=== PATIENT | female | born 1980 | race Caucasian/White ===

== ENCOUNTER 2018-02-20 08:37 | Emergency (ER) | payer MEDICAID, SELFPAY ==
[2018-02-20 08:41] VITALS: BP 115/70; PULSE 88; RESP 18; TEMP 36.8; O2SAT 96
[2018-02-20] MEDS: Bupivacaine 0.5% Pres-Free 30 ML VIAL IJ (09:06)
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
[2018-02-20 09:31] VITALS: BP 115/70; PULSE 88; RESP 18; TEMP 36.8; O2SAT 96
== END 2018-02-20 09:30 | disposition home or self-care (01) ==
PROVIDERS: Emergency Provider Student in an Organized Health Care Education/Training Program; PCP Nurse Practitioner Family
DX: K04.7 Periapical abscess without sinus (principal)
CPT/HCPCS: 41800

== ENCOUNTER 2018-03-27 02:55 | Outpatient (CLI) | payer MEDICAID, SELFPAY ==
--- NOTE | 2018-03-27 07:40 | MERGE_ITS ---
*[facility]* *[facility]* [address] [place] [address] Date of study: 03/27/2018 Transthoracic Echocardiography M-mode, complete 2D, complete spectral Doppler, and color Doppler *STUDY CONCLUSIONS* Summary: 1. Left ventricle: The cavity size was normal. Wall thickness was normal. Systolic function was normal. The estimated ejection fraction was 60-65%. Wall motion was normal; there were no regional wall motion abnormalities. Diastolic parameters were normal. 2. Mitral valve: Elongated anterior leaflet chords. No echocardiographic evidence for prolapse. There was trivial regurgitation. 3. Right ventricle: The cavity size was normal. Wall thickness was normal. Systolic function was normal. 4. Pulmonary arteries: Pulmonary systolic pressure was within the normal range, in the range of 30mm Hg to 35mm Hg. *PATIENT PRESENTATION* Height: 154.9cm ((61in) ) S/D Pressure: 122 / 82 Weight: 81.6kg ((179.6lb) ) BSA: 1.91m^2 Test start time: 07:45 AM. Test stop time: 08:35 AM. PERFORMING Unknown PERFORMING [facility] CUTTING AND PRINTING MACHINE OPERATOR Lynsey Silva, RT (R)(CT), [facility] ORDERING Nohelia Steele REFERRING Nohelia Steele *PROCEDURE DATA* Procedure information: The patient was identified by two identifiers. This study was interpreted by [facility]. Pertinent images and digital data are archived for permanent storage and are available for subsequent review. No prior study was available for comparison. Study status: Routine. Transthoracic echocardiography. M-mode, complete 2D, complete spectral Doppler, and color Doppler. A Transthoracic Echocardiogram was performed. Scanning was performed from the parasternal, apical, subcostal, and suprasternal notch acoustic windows. Images were obtained using an [id number] cardiac ultrasound machine. Image quality was adequate. Study completion: The patient tolerated the procedure well. There were no complications. History: PMH: GRADY ? Pulmonary HTN. *CARDIAC ANATOMY* Left ventricle: The cavity size was normal. Wall thickness was normal. Systolic function was normal. The estimated ejection fraction was 60-65%. Wall motion was normal; there were no regional wall motion abnormalities. Diastolic parameters were normal. Aortic valve: Probably trileaflet; normal thickness leaflets. Mobility was not restricted. Doppler: Transvalvular velocity was within the normal range. There was no stenosis. There was no significant regurgitation. VTI ratio of LVOT to aortic valve: 0.88. Indexed valve area (VTI): 1.6cm^2/m^2. Peak velocity ratio of LVOT to aortic valve: 0.75. Valve area (Vmax): 2.6cm^2. Indexed valve area (Vmax): 1.3cm^2/m^2. Mean velocity ratio of LVOT to aortic valve: 0.87. Valve area (Vmean): 3cm^2. Indexed valve area (Vmean): 1.5cm^2/m^2. Mean gradient (S): 4.1mm Hg. Peak gradient (S): 7.1mm Hg. Aorta: Aortic root: The aortic root was normal in size. Ascending aorta: The ascending aorta was normal in size. Mitral valve: Elongated anterior leaflet chords. No echocardiographic evidence for prolapse. Doppler: Transvalvular velocity was within the normal range. There was no evidence for stenosis. There was trivial regurgitation. Valve area by pressure half-time: 3.3cm^2. Indexed valve area by pressure half-time: 1.7cm^2/m^2. Left atrium: The atrium was normal in size. Right ventricle: The cavity size was normal. Wall thickness was normal. Systolic function was normal. Pulmonic valve: The pulmonary valve appears to be grossly normal. Doppler: Transvalvular velocity was within the normal range. There was no evidence for stenosis. There was no significant regurgitation. Peak gradient (S): 3.7mm Hg. Tricuspid valve: Structurally normal valve. Doppler: Transvalvular velocity was within the normal range. There was no evidence for stenosis. There was trivial regurgitation. Pulmonary artery: Pulmonary systolic pressure was within the normal range, in the range of 30mm Hg to 35mm Hg. Right atrium: The atrium was normal in size. Pericardium: There was no pericardial effusion. Systemic veins: Inferior vena cava: Well visualized. The vessel was patent and normal in size. The respirophasic diameter changes were in the normal range (greater than or equal to 50%). Baseline ECG: Normal sinus rhythm. Measurements Left ventricle Value Reference LV ID, ED, PLAX 5.0 cm 3.5 - 6.0 LV ID, ES, PLAX 3.7 cm 2.1 - 4.0 LV PW thickness, ED, PLAX 1.0 cm LV end-diastolic volume, 1-p A2C 84 ml LV ejection fraction, 1-p A2C 50 % LV end-diastolic volume, 1-p A4C 93 ml LV ejection fraction, 1-p A4C 54 % LV e', lateral 0.111 m/sec LV E/e', lateral 6 LV e', medial 0.082 m/sec LV E/e', medial 8 LV e', average 0.096 m/sec LV E/e', average 7 Ventricular septum Value Reference IVS thickness, ED, PLAX 0.9 cm LVOT Value Reference LVOT ID, A-P 2.1 cm LVOT area 3.4 cm^2 LVOT peak velocity, S 1 m/sec LVOT mean velocity, S 0.84 m/sec LVOT VTI, S 23.3 cm LVOT peak gradient, S 4 mm Hg LVOT mean gradient, S 2.9 mm Hg Stroke volume (SV), LVOT DP 79 ml Stroke index (SV/bsa), LVOT DP 41 ml/m^2 Aortic valve Value Reference Aortic valve peak velocity, S 1.3 m/sec Aortic valve mean velocity, S 0.97 m/sec Aortic valve VTI, S 26.4 cm Aortic mean gradient, S 4.1 mm Hg Aortic peak gradient, S 7.1 mm Hg VTI ratio, LVOT/AV 0.88 Velocity ratio, peak, LVOT/AV 0.75 Aortic valve area, peak velocity 2.6 cm^2 Velocity ratio, mean, LVOT/AV 0.87 Aortic valve area, mean velocity 3 cm^2 Aortic valve area/bsa, mean velocity 1.5 cm^2/m^2 Aorta Value Reference Aortic root ID, ED 2.9 cm Ascending aorta ID, A-P, S 3.4 cm RVOT Value Reference RVOT VTI, S 15.9 cm Left atrium Value Reference LA ID, A-P, ES 3.9 cm LA ID/bsa, A-P 2.0 cm/m^2 <=2.2 LA area, ES, A4C 20.5 cm^2 8.8 - 23.4 LA area, ES, A2C 17 cm^2 LA volume/bsa, ES, 1-p A4C 37 ml/m^2 LA volume, ES, 2-p 55 ml LA volume/bsa, ES, 2-p 29 ml/m^2 LA/aortic root ratio 1.36 Mitral valve Value Reference Mitral E-wave peak velocity 0.68 m/sec Mitral A-wave peak velocity 0.68 m/sec Mitral deceleration time (H) 231 ms 150 - 230 Mitral pressure half-time 67 ms Mitral E/A ratio, peak 0.99 Mitral valve area, PHT, DP 3.3 cm^2 Pulmonary veins Value Reference Pulmonary vein peak velocity, S 0.56 m/sec Pulmonary vein peak velocity, D 0.34 m/sec Pulmonary vein velocity ratio, peak, 1.63 S/D Pulmonary vein A-wave reversal peak 0.31 m/sec velocity Pulmonary vein A-wave reversal 149 ms duration Tricuspid valve Value Reference Tricuspid regurg peak velocity 2.7 m/sec Tricuspid peak RV-RA gradient 30 mm Hg Right atrium Value Reference RA area, ES, A4C 12.9 cm^2 8.3 - 19.5 Pulmonic valve Value Reference Pulmonic peak gradient, S 3.7 mm Hg Legend: (L) and (H) adolfo values outside specified reference range. I have personally reviewed the images and have reviewed and edited the reported findings. Electronically signed by Jericho Palencia 03/27/2018 09:14
== END 2018-03-27 03:15 ==
PROVIDERS: PCP Nurse Practitioner Family; Visit Provider Internal Medicine Rheumatology
DX: R06.09 Other forms of dyspnea (principal); I34.0 Nonrheumatic mitral (valve) insufficiency
CPT/HCPCS: 93306

== ENCOUNTER 2018-08-26 18:40 | Emergency (ER) | payer MEDICAID, SELFPAY ==
[2018-08-26 18:45] VITALS: BP 132/84; PULSE 80; RESP 16; TEMP 36.5; O2SAT 98
[2018-08-26 19:26] LABS: Bilirubin Negative (Negative); Blood Negative (Negative); Clarity Clear; Glucose Negative (Negative); Ketones Negative (Negative); Leukocyte Esterase Negative (Negative); Nitrite Negative (Negative); Specific Gravity >= 1.030 (1.005-1.025)
[2018-08-26 19:35] LABS: Bacteria Negative HPF (Negative); C & S Indicated? Yes; Casts Negative LPF (Negative); Crystals Negative HPF (Negative); Epithelial Cells Few HPF (Negative); Mucus Negative (Negative); Other Cells Negative (Negative)
--- NOTE | 2018-08-26 19:57 | ED.GENADUL_ITS ---
Discharge Plan Disposition Patient Disposition: HOME Condition: Improving Discharge Details Chief Complaint: FlankPain Clinical Impression: Nephrolithiasis Primary Care Provider: Marian To ED Provider: Yolanda Carr Home Meds and New Rx's Prescriptions: New oxycodone 5 mg tablet 5 mg PO Q6H PRN (Reason: pain) Qty: 7 RF: 0 tamsulosin [Flomax] 0.4 mg capsule 0.4 mg PO DAILY Qty: 10 RF: 0 No Action metformin [Glucophage] 1,000 MG tablet 850 mg PO BID RF: 0 acetaminophen [Mapap Extra Strength] 500 MG tablet 1,000 mg PO Q6H 5 Days Qty: 60 RF: 0 escitalopram oxalate [Lexapro] 20 MG tablet 20 mg PO DAILY RF: 0 Hydroxychloroquine Sulfate [Plaquenil] 200 MG Tablet 200 mg PO BID Qty: 60 RF: 0 Proventil HFA 200 PUFF/INH HFA aerosol inhaler 2 puff Inhalation Q4H PRN PRNQty: 1 RF: 1 bupropion HCl [Wellbutrin SR] 150 mg Tablet Sustained-Release 12 Hr 300 mg PO BID RF: 0 meloxicam 15 mg Tablet 15 mg PO DAILY RF: 0 cyclobenzaprine 10 mg Tablet 10 mg PO TID RF: 0 Discharge Instructions Instructions: Kidney Stones (ED) Additional Instructions: Take Tylenol or oxycodone as needed and directed for pain. Take the Flomax daily as directed. Call urology Dr. Mccauley's office tomorrow morning to schedule a follow up appointment for re-evaluation. You should receive a call from care management regarding this appointment if you need assistance. Return immediately to the emergency department any worsening or new concerning symptoms fever, persistent vomiting, worsening pain or any concerns. Referrals: Phillip Mccauley MD [ [facility] STAFF PHYSICIAN] - Discharge Data Discharge Physician: Yolanda Carr Medical Decision Making 37yo M w/ a h/o kidney stones and right renal stent and lithotripsy in 2013 who presents with left flank pain since last night. No fever, nausea, vomiting. Vitals within normal limits. No CVA tenderness. She has left mid and lower quadrant tenderness. Differential diagnosis includes nephrolithiasis, diverticulitis, pancreatitis, UTI, pyelonephritis. Will place an IV, bolus IV fluids, labs, urinalysis and CT renal colic. 2100 --labs and imaging reviewed. Normal white blood cell count and electrolytes. Normal lipase. Urinalysis notes 5-10 WBCs but negative nitrite, leukocyte esterase, bacteria, urine culture sent. CT notes bilateral nonobstructive renal calculi as well as a 5 mm right proximal ureteral stone. No left ureteral calculi noted. Results cleaned the patient, she states she did have right sided pain initially when it started last night and then migrated to her left. Results discussed with urology Dr. Mccauley. Okay to discharge home, with strainer, and will follow up with patient in the office. No indication for anti biotics at this time. Patient was initially held on any NSAIDs/Toradol due to her history of lupus and taking Plaquenil. Will give a dose of oxycodone p.o. and Flomax p.o. now. We will send home with oxycodone as well as prescription for oxycodone and Flomax. Patient instructed to call urology tomorrow. Patient placed on care management list to assist with appointment if needed. Check to return here at any time if worse. CT also made note of a possible partial hematoma versus infection in the right anterior subcutaneous soft tissues inferior to the umbilicus. Patient's abdomen was normal to inspection and had no evidence of any superficial or subcutaneous infection on exam. Medical Records Medical records reviewed: Yes I reviewed the patient's medical records. Imaging Data Radiologic Study: Radiologist's impression: CT Abdomen and Pelvis Without Contrast EXAM DATE/TIME: 08/26/2018 7:57 PM FINDINGS: Limitations: Evaluation of the intra-abdominal organs and vasculature is limited secondary to the lack of IV contrast. Evaluation of the bowel is limited secondary to the lack of oral contrast. Lower thorax: Gas in the distal esophagus which can be seen with reflux. ABDOMEN: Liver: Normal. No mass. Gallbladder and bile ducts: Normal. No calcified stones. No ductal dilation. Pancreas: Normal. No ductal dilation. Spleen: Normal. No splenomegaly. Adrenals: Normal. No mass. Kidneys and ureters: Bilateral nonobstructive renal calculi. There is a 5 mm calculus in the proximal RIGHT ureter on series 4 image 66. No LEFT ureteral calculi are seen. Stomach and bowel: No evidence of bowel obstruction. Appendix: Normal appendix. PELVIS: Bladder: The urinary bladder is contracted and not well assessed. Reproductive: 1.6 cm 2 Hounsfield units cystic structure in the right ovary. This may represent a dominant follicle. ABDOMEN and PELVIS: Intraperitoneal space: Normal. No free air. No significant fluid collection. Bones/joints: No acute fracture. No dislocation. Soft tissues: Series 2 image 106 demonstrates a 2.0 cm 32 Hounsfield unit rounded structure within the right anterior subcutaneous soft tissues inferior to the umbilicus. This could represent a hematoma or region of infection. Correlation suggested. Vasculature: Normal. No abdominal aortic aneurysm. Lymph nodes: Normal. No enlarged lymph nodes. IMPRESSION: 1. Bilateral nonobstructive renal calculi. There is a 5 mm calculus in the proximal RIGHT ureter on series 4 image 66. No LEFT ureteral calculi are seen. 2. Series 2 image 106 demonstrates a 2.0 cm 32 Hounsfield unit rounded structure within the right anterior subcutaneous soft tissues inferior to the umbilicus. This could represent a hematoma or region of infection. Correlation suggested. 3. Other findings as above. Lab Data Lab results reviewed: Yes I reviewed the patient's lab results. 08/26/18 18:22 Urine - Reflex from Ua Urine Culture - Pending Laboratory Tests Range/Units 08/26/18 08/26/18 08/26/18 18:22 19:55 19:55 WBC (4.4-10.8) k/cumm 7.68 RBC (4.00-5.20) m/cumm 4.92 Hgb (12.0-15.5) g/dL 14.2 Hct (36.0-46.0) % 42.9 MCV (80-95) fL 87.2 MCH (27.0-33.0) pg 28.9 MCHC (32.0-36.0) g/dL 33.1 RDW (11.7-14.6) % 12.7 Plt Count (130-400) x1000/uL 233 MPV (8.0-11.0) fL 9.9 Immature Gran % 0.7 Neutrophils % 54.5 Lymphocytes % 35.2 Monocytes % 7.2 Eosinophils % 2.0 Basophils % 0.4 Absolute Neutrophils (1.2-6.7) k/cumm 4.20 Absolute Lymphocytes (1.2-3.4) k/cumm 2.70 Absolute Monocytes (0.11-0.7) k/cumm 0.55 Absolute Eosinophils (0.0-0.7) k/cumm 0.15 Absolute Basophils (0.0-0.2) k/cumm 0.03 Sodium (136-145) mmol/L 140 Potassium (3.5-5.1) mmol/L 3.7 Chloride (98-107) mmol/L 104 Carbon Dioxide (21.0-32.0) mmol/L 30.4 Anion Gap (3-11) mmol/L 5.6 BUN (7-18) mg/dL 12 Creatinine (0.55-1.02) mg/dL 0.84 Estimated GFR/1.73 m2 (mL/min/1.73m2) >= 60.00 Glucose (70-100) mg/dL 86 Calcium (8.5-10.1) mg/dL 8.7 Total Bilirubin (0.2-1.0) mg/dL 0.1 L AST (15-37) U/L 17 ALT (12-78) U/L 22 Alkaline Phosphatase (46-116) U/L 94 Total Protein (6.4-8.2) g/dL 7.3 Albumin (3.4-5.0) g/dL 3.6 Lipase (73-393) U/L 263 Urine Color (Yellow) Yellow Urine Clarity Clear Urine pH (5-8) 6.0 Ur Specific [place] (1.005-1.025) >= 1.030 H Urine Protein (Negative) mg/dL Trace H Urine Ketones (Negative) mg/dL Negative Urine Blood (Negative) Negative Urine Nitrite (Negative) Negative Urine Bilirubin (Negative) Negative Urine Urobilinogen (Up TO 0.2) EU/dL 1.0 H Ur Leukocyte Esterase (Negative) Negative Urine RBC (0-2) 3-5 H Urine WBC (0-5) HPF 5-10 Ur Epithelial Cells (Negative) HPF Few Urine Crystals (Negative) HPF Negative Urine Bacteria (Negative) HPF Negative Urine Casts (Negative) LPF Negative Urine Mucus (Negative) Negative Urine Other (Negative) Negative Ur Culture Indicated? Yes Urine Glucose (Negative) mg/dL Negative HPI General Mode of arrival: ambulatory . Date/Time Provider Initiated Documentation: 08/26/18 18:59 . Limitations to Documentation: no limitations . Information obtained by: patient . HPI Narrative: Patient is a 37-year-old female with a history of kidney stones and right kidney stent and lithotripsy in 2013 who presents with left flank pain since last night. Describes the pain is constant, sharp, burning with radiation to her left side. She states her pain is currently 6/10. She took Tylenol for pain this morning without relief. She admits to urinary frequency and dark urine but otherwise denies any urgency, dysuria or hematuria. She states her last bowel movement was this morning and normal without blood. She states her symptoms do seem similar to previous kidney stone in the past. She denies any known injury. She denies any fever, nausea, vomiting or diarrhea. Related Data Home Medications Medication Instructions Recorded Confirmed metformin [Glucophage] 850 mg PO BID 06/05/17 08/26/18 escitalopram oxalate [Lexapro] 20 mg PO DAILY 11/06/17 08/26/18 Hydroxychloroquine Sulfate 200 mg PO BID #60 tablet 11/15/17 08/26/18 [Plaquenil] albuterol sulfate [Proventil Hfa] 2 puff INHALATION Q4H PRN PRN #1 11/15/17 08/26/18 inh acetaminophen [Tylenol Extra 1,000 mg PO Q6H 5 Days #60 tab 02/20/18 08/26/18 Strength] bupropion HCl [Wellbutrin SR] 300 mg PO BID 08/26/18 08/26/18 cyclobenzaprine 10 mg PO TID 08/26/18 08/26/18 meloxicam 15 mg PO DAILY 08/26/18 08/26/18 oxycodone 5 mg PO Q6H PRN #7 tab 08/26/18 tamsulosin [Flomax] 0.4 mg PO DAILY #10 cap 08/26/18 Previous Rx's Medication Instructions Recorded Hydroxychloroquine Sulfate 200 mg PO BID #60 tablet 11/15/17 [Plaquenil] albuterol sulfate [Proventil Hfa] 2 puff INHALATION Q4H PRN PRN #1 11/15/17 inh acetaminophen [Tylenol Extra 1,000 mg PO Q6H 5 Days #60 tab 02/20/18 Strength] oxycodone 5 mg PO Q6H PRN #7 tab 08/26/18 tamsulosin [Flomax] 0.4 mg PO DAILY #10 cap 02/11/19 Allergies Allergy/AdvReac Type Severity Reaction Status Date / Time clindamycin Allergy Severe Anaphylaxsi Unverified 08/26/18 18:51 s Penicillins Allergy Severe Anaphylaxsi Unverified 08/26/18 18:51 s oxycodone [Oxycodone] AdvReac Mild Nausea Unverified 08/26/18 18:51 prednisone AdvReac Mild Agitation Unverified 08/26/18 18:51 General Stated Complaint: FlankPain GILSON: 3 Review of Systems Review of Systems All systems reviewed & are unremarkable except as noted in HPI and below Constitutional Reports as per HPI, Denies chills and Denies fever(s) Eyes Denies blurry vision ENT Denies dizziness, Denies sore throat and Denies throat swelling Cardiovascular Denies chest pain and Denies dyspnea Respiratory Denies cough and Denies dyspnea Gastrointestinal Reports abdominal pain, Denies diarrhea and Denies vomiting Genitourinary Denies hematuria and Denies dysuria Musculoskeletal Reports back pain and Denies numbness Integumentary/Breasts Denies lesions and Denies rash Neurologic Denies dizziness, Denies focal weakness and Denies numbness Allergic/Immunologic Denies throat swelling [facility] Medical History Fibromyalgia (Acute) Lupus (Acute) PCOS (polycystic ovarian syndrome) (Acute) Depression (Chronic) Kidney stones (Chronic) Migraine (Chronic) Surgical History History of bilateral tubal ligation (Acute) History of dilation and curettage (Acute) History of renal stent (Acute) Hx of lithotripsy (Acute) H/O section (Chronic) History of tonsillectomy (Chronic) Social History Smoking and Tabacco status: Current every day alcohol intake: current alcohol intake frequency: holidays/special occasions only substance use type: does not use Exam Const General: cooperative, healthy appearing and no acute distress HENMT Head: normal to inspection Face and sinus: normal facial exam Eyes General: appearance normal, both eyes and all related structures Neck Neck: normal visual inspection and No submandibular swelling Lymphatic: no lymphadenopathy noted Chest Chest: normal inspection of the chest and no tenderness Resp Effort & Inspection: normal respiratory effort and able to speak in complete sentences Auscultation: clear to auscultation bilaterally Cardio Rate: regular rate Rhythm: regular rhythm GI Inspection: normal to inspection Palpation: soft, not firm, not rigid and tender (Left mid and lower abdomen) Auscultation: normal bowel sounds Back/Spine/Pelvis Back: no CVA tenderness Thoracic/Lumbar Spine: thoracic and lumbar spine normal to inspection Skin General skin exam: no rashes or lesions noted Neuro General: alert, awake and oriented x3 Cognition: normal cognition Speech: speech normal Motor: muscle tone normal throughout Sensory Exam: no sensory deficits noted Extrem General: normal to inspection, full ROM, normal capillary refill, no calf tenderness bilaterally and no edema Psych Appearance: grossly normal Mental Status: mental status grossly normal Speech and Movement: speech and movement normal Affect: normal affect Course Vital Signs Temperature 97.7 F 08/26/18 18:45 Pulse 80 08/26/18 18:45 Respiratory Rate 16 08/26/18 18:45 Blood Pressure 132/84 08/26/18 18:45 Pulse Oximetry 98 08/26/18 18:45 Temperature 97.7 F 08/26/18 18:45 Temperature Source Skin 08/26/18 18:45 Pulse 80 08/26/18 18:45 Respiratory Rate 16 08/26/18 18:45 Respiratory Effort 08/26/18 18:49 Blood Pressure 132/84 08/26/18 18:45 Blood Pressure Position Sitting 08/26/18 18:45 Pulse Oximetry 98 08/26/18 18:45 Lab/Test Results Lab/Test Results: 08/26/18 18:22 Urine - Reflex from Ua Urine Culture - Pending Laboratory Tests Range/Units 08/26/18 18:22 Urine Color (Yellow) Yellow Urine Clarity Clear Urine pH (5-8) 6.0 Ur Specific [place] (1.005-1.025) >= 1.030 H Urine Protein (Negative) mg/dL Trace H Urine Ketones (Negative) mg/dL Negative Urine Blood (Negative) Negative Urine Nitrite (Negative) Negative Urine Bilirubin (Negative) Negative Urine Urobilinogen (Up TO 0.2) EU/dL 1.0 H Ur Leukocyte Esterase (Negative) Negative Urine RBC (0-2) 3-5 H Urine WBC (0-5) HPF 5-10 Ur Epithelial Cells (Negative) HPF Few Urine Crystals (Negative) HPF Negative Urine Bacteria (Negative) HPF Negative Urine Casts (Negative) LPF Negative Urine Mucus (Negative) Negative Urine Other (Negative) Negative Ur Culture Indicated? Yes Urine Glucose (Negative) mg/dL Negative
[2018-08-26 20:19] LABS: Abs Immature Grans 0.05 k/cumm (0.0-0.09); Absolute Basophil Count 0.03 k/cumm (0.0-0.2); Absolute Eosinophil Count 0.15 k/cumm (0.0-0.7); Absolute Monocyte Count 0.55 k/cumm (0.11-0.7); Basophils % 0.4; HCT 42.9 % (36.0-46.0); HGB 14.2 g/dL (12.0-15.5); Immature Grans % 0.7; Lymphocytes % 35.2; Mean Corp. HGB Concentration 33.1 g/dL (32.0-36.0); Mean Corpuscular Hemoglobin 28.9 pg (27.0-33.0); Mean Corpuscular Volume 87.2 fL (80-95); Mean Platelet Volume 9.9 fL (8.0-11.0); Monocytes % 7.2; Neutrophils % 54.5; Platelet Count 233 x1000/uL (130-400); RBC 4.92 m/cumm (4.00-5.20); RBC Distribution Width 12.7 % (11.7-14.6); White Blood Cell Count 7.68 k/cumm (4.4-10.8)
[2018-08-26 20:21] LABS: ALT 22 U/L (12-78); AST 17 U/L (15-37); Albumin 3.6 g/dL (3.4-5.0); Alkaline Phosphatase 94 U/L (46-116); Anion Gap 5.6 mmol/L (3-11); BUN 12 mg/dL (7-18); Bilirubin, Total 0.1 mg/dL (0.2-1.0); CO2 30.4 mmol/L (21.0-32.0); CREATININE 0.84 mg/dL (0.55-1.02); Chloride 104 mmol/L (98-107); Glucose 86 mg/dL (70-100); Lipase 263 U/L (73-393); Potassium 3.7 mmol/L (3.5-5.1); Sodium 140 mmol/L (136-145); Total Protein 7.3 g/dL (6.4-8.2)
[2018-08-26 20:25] LABS: Calcium 8.7 mg/dL (8.5-10.1)
--- NOTE | 2018-08-26 20:30 | DI.CT_ITS ---
SYMPTOM/DIAGNOSIS; LT FLANK PAIN, R/O KIDNEY STONE RENAL COLIC CT: Routine examination. Comparison 11/15/17 Lack of IV contrast and oral contrast does limit evaluation of the abdominal and pelvic structures. The visualized lung bases are clear. The unenhanced liver, spleen, pancreas, gallbladder, bile ducts and adrenal glands are unremarkable. There are bilateral nonobstructing renal calculi. There is a 5 mm calculus in the proximal right ureter with minimal dilatation of the right renal collecting system. No evidence of left ureterolithiasis seen. The urinary bladder is intact. The reproductive organs are grossly unremarkable. The bowel shows no evidence of obstruction or inflammation. There is a normal appendix present. The aorta is of normal caliber. No evidence of an abdominal or pelvic adenopathy, ascites or pneumoperitoneum is seen. No acute osseous abnormality is identified. There is a soft tissue density seen in the subcutaneous tissues in the right lower abdominal wall inferior to the umbilicus. This is nonspecific. This may represent a benign lesion such as a hematoma, please correlate with physical exam. IMPRESSION: 5 mm proximal right ureteral calculus causing minimal dilatation of the right renal collecting system. 2. Bilateral nephrolithiasis
--- NOTE | 2018-08-26 20:39 | DI.VRAD_ITS ---
EXAM: CT Abdomen and Pelvis Without Contrast EXAM DATE/TIME: 08/26/2018 7:57 PM CLINICAL HISTORY: 37 years old, female; Pain; Other: L flank; Patient HX: Left flank pain since last night, HX of kidney stones TECHNIQUE: Axial computed tomography images of the abdomen and pelvis without contrast. All CT scans at this facility use at least one of these dose optimization techniques: automated exposure control; mA and/or kV adjustment per patient size (includes targeted exams where dose is matched to clinical indication); or iterative reconstruction. Coronal and sagittal reformatted images were created and reviewed. COMPARISON: US RENAL ULTRASOUND(P) ([id number]) 05/10/2014 9:56 AM FINDINGS: Limitations: Evaluation of the intra-abdominal organs and vasculature is limited secondary to the lack of IV contrast. Evaluation of the bowel is limited secondary to the lack of oral contrast. Lower thorax: Gas in the distal esophagus which can be seen with reflux. ABDOMEN: Liver: Normal. No mass. Gallbladder and bile ducts: Normal. No calcified stones. No ductal dilation. Pancreas: Normal. No ductal dilation. Spleen: Normal. No splenomegaly. Adrenals: Normal. No mass. Kidneys and ureters: Bilateral nonobstructive renal calculi. There is a 5 mm calculus in the proximal RIGHT ureter on series 4 image 66. No LEFT ureteral calculi are seen. Stomach and bowel: No evidence of bowel obstruction. Appendix: Normal appendix. PELVIS: Bladder: The urinary bladder is contracted and not well assessed. Reproductive: 1.6 cm 2 Hounsfield units cystic structure in the right ovary. This may represent a dominant follicle. ABDOMEN and PELVIS: Intraperitoneal space: Normal. No free air. No significant fluid collection. Bones/joints: No acute fracture. No dislocation. Soft tissues: Series 2 image 106 demonstrates a 2.0 cm 32 Hounsfield unit rounded structure within the right anterior subcutaneous soft tissues inferior to the umbilicus. This could represent a hematoma or region of infection. Correlation suggested. Vasculature: Normal. No abdominal aortic aneurysm. Lymph nodes: Normal. No enlarged lymph nodes. IMPRESSION: 1. Bilateral nonobstructive renal calculi. There is a 5 mm calculus in the proximal RIGHT ureter on series 4 image 66. No LEFT ureteral calculi are seen. 2. Series 2 image 106 demonstrates a 2.0 cm 32 Hounsfield unit rounded structure within the right anterior subcutaneous soft tissues inferior to the umbilicus. This could represent a hematoma or region of infection. Correlation suggested. 3. Other findings as above. Dictated and Authenticated by: Maria R Aguilar MD. Ordering:MOSES Guerrero MD
[2018-08-26] MEDS: Tamsulosin 0.4 MG CAPCR PO (21:25)
[2018-08-26] MEDS: Normal Saline 1,000 ML 1000 ML IV (21:25)
[2018-08-26] MEDS: oxyCODONE 5 MG TAB PO (21:26)
[2018-08-26] MEDS: oxyCODONE 5 MG TAB 10 MG PO (21:27)
--- NOTE | 2018-08-27 08:35 | PDOC.ERCMPRO ---
Care Management Progress Note 08/27-Dr. Carr requested assistance with a urology f/u in one week for kidney stone. Dr. Carr has spoken with Dr. Mccauley. Referral faxed to [facility] this am.
== END 2018-08-26 21:30 | disposition home or self-care (01) ==
PROVIDERS: Emergency Provider Physician Assistant; PCP Nurse Practitioner Family
DX: N20.2 Calculus of kidney with calculus of ureter (principal)
CPT/HCPCS: 36415; 80053; 83690; 99284; 74176; 81003; 81015; 85025; 87086

== ENCOUNTER 2018-09-02 09:00 | Day surgery (SDC) | payer MEDICAID, SELFPAY ==
[2018-09-02] VITALS (10 sets, daily range): BP systolic 102–130; BP diastolic 59–88; PULSE 69–87; RESP 10–16; TEMP 36.1–37.1; O2SAT 94–98
[2018-09-02] MEDS: Lactated Ringers 1,000 ML 80 ML IV (09:26)
[2018-09-02] MEDS: CIPROFLOXACIN 400 MG/200 ML BAG 200 MG IVPB (09:36)
--- NOTE | 2018-09-02 11:15 | DI.RAD_ITS ---
SYMPTOM/DIAGNOSIS: URETERAL STONE OR RETROGRADE: Fluoroscopy Time: 98.3sec,39.35mgy Fluoroscopy was utilized by Dr. Mccauley during retrograde evaluation of the left renal collecting system. The final hard copy image shows the distal aspect of a nephroureteral stent with the coil in the urinary bladder. Please refer to the procedure report for complete details.
[2018-09-02] MEDS: GENTAMICIN 160 MG in Normal Saline 100 ML 208 MG IVPB (11:54)
[2018-09-02] MEDS: Lidocaine 2% Jelly 6 ML SYR (11:58)
[2018-09-02] MEDS: Omnipaque 300 MG/ML 50 ML BTL (12:00)
--- NOTE | 2018-09-02 12:33 | W.PM.DSUDISC ---
Discharge Plan Disposition Patient Disposition: HOME Condition: Stable Discharge Details Reason For Visit: (R) URETERAL STONE Attending Provider: Phillip Mccauley Primary Care Provider: Marian To Home Meds and New Rx's Prescriptions: No Action oxycodone 5 mg tablet 5 mg PO Q6H MDD 4 PRN (Reason: pain) Qty: 20 RF: 0 metformin [Glucophage] 1,000 MG tablet 850 mg PO BID RF: 0 acetaminophen [Mapap Extra Strength] 500 MG tablet 1,000 mg PO Q6H 5 Days Qty: 60 RF: 0 escitalopram oxalate [Lexapro] 20 MG tablet 20 mg PO DAILY RF: 0 Hydroxychloroquine Sulfate [Plaquenil] 200 MG tablet 200 mg PO BID Qty: 60 RF: 0 Proventil HFA 200 PUFF/INH HFA aerosol inhaler 2 puff Inhalation Q4H PRN PRNQty: 1 RF: 1 bupropion HCl [Wellbutrin SR] 150 mg Tablet Sustained-Release 12 Hr 300 mg PO BID RF: 0 cyclobenzaprine 10 mg Tablet 10 mg PO HS PRNRF: 0 tamsulosin [Flomax] 0.4 mg capsule 0.4 mg PO DAILY Qty: 10 RF: 0 Discharge Instructions Additional Instructions: No need to strain urine My office will contact patient to do the same procedure on pt's RIGHT side (will remove left stent at same time) OK to shower/bathe Activity:: Activity as Tolerated Diet:: As Tolerated Discharge Orders Discharge Orders: Discharge Order (Routine); Ordered 09/02/18 Ordered By: Phillip Mccauley DS: Diagnosis Discharge Diagnosis (1) Calculus of kidney: Status: Acute (2) Ureteral stone: Status: Acute
[2018-09-02] MEDS: Cyclobenzaprine 10 MG TAB PO (13:02)
[2018-09-02] MEDS: Normal Saline Flush 10 ML SYR IV (13:12)
[2018-09-02] MEDS: HYDROmorphone 2 MG/ML VIAL IVP ×2 (13:13→13:33)
[2018-09-02] MEDS: Phenazopyridine 200 MG TAB PO (14:00)
[2018-09-02] MEDS: oxyCODONE 5 MG TAB 10 MG PO (14:08)
--- NOTE | 2018-09-02 15:18 | ROE_ITS ---
DATE OF PROCEDURE: September 02, 2018 PREOPERATIVE DIAGNOSIS: 1. Right ureteral stone. 2. Bilateral kidney stones. POSTOPERATIVE DIAGNOSIS: Same. PROCEDURE: Cystoscopy; bilateral retrograde pyelogram. Left flexible ureteroscopy, stone extraction , insert left ureteral stent. SURGEON: Phillip Mccauley M.D. ANESTHESIA: General. COMPLICATIONS: None. ESTIMATED BLOOD LOSS: Minimal. HISTORY: This is a 37-year-old woman who has a past history of a ureteral stone that occurred during . She was treated with a ureteral stent. The stent was subsequently removed after she del ivered her child. She then had some type of procedure at an outside institution for her stone. She is not aware of the type of stones that may be involved, or the exact type of surgery that was in volved. She presented to our Emergency Room recently with abdominal pain. She was evaluated with a CT scan a nd found to have bilateral, non-obstructing kidney stones, as well as a right proximal ureteral stone . Since the time of her ER presentation, she tells me that her left side has actually been more uncomfo rtable than the right. She has not had any fever or chills. She has not passed a stone. She presents now for a cystoscopy with bilateral retrograde pyelogram. If we find an obstructing sto ne in the right ureter, we've elected to place a ureteral stent on that side and to do ureteroscopy o n the left side, since this is the more uncomfortable one. PROCEDURE: The patient was brought to the Operating Room on 09/02/18. After successful induction of general anesthesia, she was placed in the dorsal lithotomy position. Her genitalia was prepped and d raped. 2% Xylocaine jelly was instilled into the urethra to act as a local anesthetic. A 22 Kinyarwanda rigid cystoscope was passed through the urethra into the bladder. The bladder was inspec celeste with the 30-degree lens. Both ureteral orifices appeared normal. Clear urine was seen coming from each side. No stones were seen within the bladder. Retrograde pyelograms were obtained by injecting Omnipaque through an access catheter into each urete ral orifice. This was done under fluoroscopic guidance. On the right side the ureter was not dilated and the right collecting system drained promptly. For t hat reason we decided not to place a stent on the right side. On the left side the ureter appeared normal. There was a known filling defect in the lower pole cliff x. We then passed a straight Glidewire through the access catheter and maneuvered the wire up the ureter into the upper pole calyx. A dual-lumen catheter was then advanced over the wire and a second wire was positioned. We removed t he dual-lumen catheter. We chose one of the wires as a working wire and the other as a safety wire. We then passed a uretera l access sheath over the working wire. We positioned the sheath such that the tip of the sheath was in the upper ureter. I then passed a flexible ureteroscope through the sheath into the renal pelvis. We inspected each of the calyces and identified two stones within the lower pole calyx. These were grasped in a [employer] tone basket and removed in their entirety. Each of the stone fragments that were removed was sent to pathology for chemical analysis. Because of the edema caused by the procedure, we elected to place a ureteral stent. We chose a 4.8 F rench variable-length stent and advanced it over the safety wire. We positioned the stent with the p roximal end in the upper pole calyx and the distal end within the bladder. The patient tolerated this procedure well. There were no complications. We will make plans to retur n to the OR to remove her left ureteral stent and address her right-sided stones at a later date. cc: Marian To N.P.
[2018-09-05 16:29] LABS: Source: Left Kidney
== END 2018-09-02 15:21 | disposition home or self-care (01) ==
PROVIDERS: PCP Nurse Practitioner Family; Visit Provider Urology
PROC: (CPT 52352; principal; 2018-09-02 10:00)
DX: N20.1 Calculus of ureter (principal); N20.0 Calculus of kidney; Z87.442 Personal history of urinary calculi; F17.210 Nicotine dependence, cigarettes, uncomplicated; Z79.84 Long term (current) use of oral hypoglycemic drugs
CPT/HCPCS: 52352; 52332; 74420; 82365; J0744; J1100; J1580; J1885; J3010; Q9967

== ENCOUNTER 2018-09-04 15:36 | Outpatient (REF) | payer MEDICAID, SELFPAY | END 2018-09-04 15:56 | LOC: LBN 15:36 | PROVIDERS: PCP Nurse Practitioner Family; Visit Provider Nurse Practitioner Gerontology | DX: R31.9 Hematuria, unspecified (principal) | CPT/HCPCS: 87086 ==

== ENCOUNTER 2018-09-12 06:01 | Day surgery (SDC) | payer MEDICAID, SELFPAY ==
[2018-09-12 06:16] VITALS: BP 95/55; PULSE 80; RESP 16; TEMP 36.3; O2SAT 97
[2018-09-12] MEDS: Lactated Ringers 1,000 ML 80 ML IV (06:54)
--- NOTE | 2018-09-12 07:02 | DI.RAD_ITS ---
SYMPTOM/DIAGNOSIS: URETERAL STONE OR RETROGRADE: Fluoroscopy Time: 21.1 seconds/11.01 mGys Fluoroscopy was provided for Dr. Mccauley while performing a retrograde examination. Please see procedure note for details.
[2018-09-12] MEDS: GENTAMICIN 160 MG in Normal Saline 100 ML 208 MG IVPB (07:19)
[2018-09-12] MEDS: Lidocaine 2% Jelly 11 ML SYR (07:48)
[2018-09-12] MEDS: Omnipaque 300 MG/ML 50 ML BTL (07:51)
--- NOTE | 2018-09-12 08:19 | W.PM.DSUDISC ---
Discharge Plan Disposition Patient Disposition: HOME Condition: Stable Discharge Details Reason For Visit: kidney stones Attending Provider: Phillip Mccauley Primary Care Provider: Marian To Home Meds and New Rx's Prescriptions: No Action oxybutynin chloride 5 mg tablet 5 mg PO TID MDD 4 PRN (Reason: bladder spasms) Qty: 20 RF: 0 oxycodone 5 mg tablet 5 mg PO Q6H MDD 4 PRN (Reason: pain) Qty: 20 RF: 0 metformin [Glucophage] 1,000 MG tablet 850 mg PO BID RF: 0 acetaminophen [Mapap Extra Strength] 500 MG tablet 1,000 mg PO Q6H 5 Days Qty: 60 RF: 0 escitalopram oxalate [Lexapro] 20 MG tablet 20 mg PO DAILY RF: 0 Hydroxychloroquine Sulfate [Plaquenil] 200 MG tablet 200 mg PO BID Qty: 60 RF: 0 albuterol sulfate [Proventil HFA] 200 PUFF/INH HFA aerosol inhaler 2 puff Inhalation Q4H PRN PRNQty: 1 RF: 1 bupropion HCl [Wellbutrin SR] 150 mg Tablet Sustained-Release 12 Hr 300 mg PO BID RF: 0 cyclobenzaprine 10 mg Tablet 10 mg PO HS PRNRF: 0 tamsulosin [Flomax] 0.4 mg capsule 0.4 mg PO DAILY Qty: 10 RF: 0 Discharge Instructions Additional Instructions: No need to strain urine F/U 4 to 6 weeks with renal US on same day Activity:: Activity as Tolerated Diet:: As Tolerated Discharge Orders Discharge Orders: Discharge Order (Routine); Ordered 09/12/18 Ordered By: Phillip Mccauley DS: Diagnosis Discharge Diagnosis (1) Calculus of kidney: Status: Acute
[2018-09-12 09:03] VITALS: BP 101/57; PULSE 68; RESP 16; TEMP 36.3; O2SAT 99
[2018-09-12] MEDS: Phenazopyridine 200 MG TAB PO (09:19)
[2018-09-12] MEDS: oxyCODONE 5 MG TAB PO (09:19)
--- NOTE | 2018-09-12 11:06 | ROE_ITS ---
REPORT OF OPERATIVE PROCEDURE DATE OF SURGERY September 12, 2018 PREOPERATIVE DIAGNOSIS Bilateral kidney stones. POSTOPERATIVE DIAGNOSIS Bilateral kidney stones. PROCEDURE Cystoscopy, remove left ureteral stent, right retrograde pyelogram, right flexible ureteroscopy with extraction of multiple stones. SURGEON Phillip Mccauley M.D. ANESTHESIA General. COMPLICATIONS None. ESTIMATED BLOOD LOSS Minimal. HISTORY This is a 38-year-old woman with a long history of bilateral kidney stones. She underwent left ureter oscopy with stone manipulation and left stent insertion about a week ago. She comes in to have the le ft stent removed and the right kidney stones addressed. DESCRIPTION OF OPERATIVE PROCEDURE The patient was brought to the Operating Room on 09/12/2018. After successful induction of general ane sthesia, she was placed in the dorsal lithotomy position. Her genitalia was prepped and draped. A #22-Slovak rigid cystoscope was passed through the urethra into the bladder. The bladder was inspec celeste with at 30-degree lens. The stent could be seen protruding from the left ureteral orifice. There was quite a bit of edema ar ound that orifice. The stent was grasped in an alligator forceps and removed in its entirety. The right ureteral orifice as then identified and a #6-Slovak Access Catheter was passed through the cystoscope into the right ureteral orifice. A right retrograde film was obtained by injecting Omnipaq ue through the access catheter under fluoroscopic guidance. The right ureter and colleting systems were outlined. No filling defects were seen within the ureter. We then passed a Glidewire through the access catheter and advanced it until the proximal end was see n in the upper pole calyx. The access catheter was removed and replaced with a Dual lumen catheter. A second wire was then advanced through the Dual lumen catheter. We choses one of the wires as a work ing wire and the other as a safety wire. We removed the Dual lumen catheter. We then passed the ureteral access sheath over the working wire. We positioned the sheath in the mid ureter. The flexible ureteroscope was then advanced through the access sheath up to the renal pelvis. Each of the calyces were then inspected, a total of three stones were identified. Two of them, were in the upper pole calyx, one of these two stones was likely the one previously identified in her uret er. These were grasped in a Zero Tip stone basket and removed in their entirety. An additional stone was found in the mid pole calyx, this too was removed with a Zero Tip stone baske t. No significant mucosal injuries were identified, so we elected not to place a ureteral stent. We derek gera the scope and access catheter. We then drained the bladder. The patient tolerated the procedure well with no complications. The extracted stones were sent to [facility] for chemical analysis.
[2018-09-14 21:25] LABS: Source: Right Kidney
== END 2018-09-12 09:41 | disposition home or self-care (01) ==
PROVIDERS: PCP Nurse Practitioner Family; Visit Provider Urology
PROC: (CPT 52352; principal; 2018-09-12 07:30)
DX: N20.1 Calculus of ureter (principal)
CPT/HCPCS: 52352; 74420; 82365; J1580; Q9967

== ENCOUNTER 2018-10-11 00:55 | Outpatient (CLI) | payer MEDICAID, SELFPAY ==
--- NOTE | 2018-10-11 09:35 | DI.US_ITS ---
SYMPTOM/DIAGNOSIS: CALCULUS OF KIDNEY, N20.0, ? HYDRONEPHROSIS RENAL ULTRASOUND: Routine examination was performed. The right kidney measures 10.0 cm. long, the left kidney measures 11.9 cm. long. There is normal blood flow to the kidneys. No solid renal mass, calculus or obstruction is seen. The prevoid urinary bladder volume is only 21 cc's. Evaluation of the urinary bladder was severely limited due to lack of patient preparation. The ureteral jets were not visualized. Postvoid urinary bladder volume was not obtained. IMPRESSION: Negative examination. No sonographic evidence of nephrolithiasis or hydronephrosis.
== END 2018-10-11 01:15 ==
PROVIDERS: PCP Nurse Practitioner Family; Visit Provider Urology
DX: N20.0 Calculus of kidney (principal)
CPT/HCPCS: 76770

== ENCOUNTER 2018-10-14 15:31 | Outpatient (REF) | payer MEDICAID, SELFPAY ==
[2018-10-14 20:01] LABS: Creatinine,Urine 201.77 mg/dL; Sodium, Urine 138 mmol/L
[2018-10-14 20:06] LABS: CLEAVED CELLS 110 mmol/24h (40-220); Creatinine,24hr Ur 1.61 g/24hr (0.60-1.80); Total Volume 800 ml
[2018-10-16 09:22] LABS: Calcium Urine 11.4 mg/dl; Calcium Urine 24 hr 91 mg/24hr (100-300); Magnesium 24hr Urine 33.6 mg/24h (73.0-122.0); Magnesium Random Urine 4.2 mg/dl
[2018-10-16 09:24] LABS: Uric Acid Urine 58.7 mg/dl; Uric Acid Urine 24hr 470 mg/24h (250-750)
[2018-10-16 16:54] LABS: Citrate Excretion, 24hr, U 450 mg/24 h (271 - 1191); Urine Volume 800 mL
[2018-10-16 18:26] LABS: Oxalate Conc (mmol/L) 0.28 mmol/L; Oxalate Concentration 24.6 mg/L; Oxalate, U 0.22 mmol/24 h; Oxalate, U 19.4 mg/24 h (9.7 - 40.5); Urine Volume 800 mL
== END 2018-10-14 15:51 ==
LOC: LBN 15:31
PROVIDERS: PCP Nurse Practitioner Family; Visit Provider Urology
DX: N20.0 Calculus of kidney (principal)
CPT/HCPCS: 82507; 83735; 81050; 82340; 82570; 83945; 84300; 84560

== ENCOUNTER 2018-10-23 16:56 | Emergency (ER) | payer MEDICAID, SELFPAY ==
[2018-10-23 17:08] VITALS: BP 125/86; PULSE 98; RESP 20; TEMP 36.8; O2SAT 97
--- NOTE | 2018-10-23 17:20 | W.ED.GENAD ---
Discharge Plan Disposition Patient Disposition: HOME Condition: Improving Discharge Details Chief Complaint: Abd Prob Clinical Impression: Gastroenteritis Primary Care Provider: Marian To ED Provider: Chauncey Leger Home Meds and New Rx's Prescriptions: New promethazine 12.5 mg tablet 12.5 mg PO Q6H PRN (Reason: nausea and vomiting) Qty: 10 RF: 0 Continued metformin [Glucophage] 1,000 MG tablet 850 mg PO BID RF: 0 acetaminophen [Mapap Extra Strength] 500 MG tablet 1,000 mg PO Q6H 5 Days Qty: 60 RF: 0 escitalopram oxalate [Lexapro] 20 MG tablet 20 mg PO DAILY RF: 0 Hydroxychloroquine Sulfate [Plaquenil] 200 MG tablet 200 mg PO BID Qty: 60 RF: 0 albuterol sulfate [Proventil HFA] 200 PUFF/INH HFA aerosol inhaler 2 puff Inhalation Q4H PRN PRNQty: 1 RF: 1 bupropion HCl [Wellbutrin SR] 150 mg Tablet Sustained-Release 12 Hr 300 mg PO BID RF: 0 cyclobenzaprine 10 mg Tablet 10 mg PO HS PRNRF: 0 Discharge Instructions Instructions: Gastroenteritis (ED) Additional Instructions: Home to rest this evening. Small, frequent sips of fluids to maintain hydration. May use the prescribed Phenergan as needed for nausea. Continue your regular medications. Return if you develop a fever, persistent vomiting, or any other acute concern. Medical Decision Making 38-year-old female presents from home with 3 days of nausea, vomiting, diarrhea, abdominal cramps. No recent antibiotics, no known sick contacts, no suspicious food exposures. She is in mild to moderate distress, with a pulse of 98, increased bowel sounds throughout her abdomen and mildly tender. Differential diagnosis includes gastroenteritis, dehydration, bowel obstruction.IV access established, patient given parenteral fluid bolus, antiemetic and analgesic. She is referred for laboratory testing as well as CT scan. Labs reveal hemo concentration with 1/5 hematocrit of 51. Chemistry/electrolytes unremarkable. Patient improving with medical therapy. Her CAT scan is unremarkable for acute process. No evidence of bowel obstruction, see formal report. She is stable, improving, taking liquids by mouth without difficulty. She is appropriate at this time for a trial of outpatient management including antiemetics at home. Discussed with her return precautions Lab Data Lab results reviewed: Yes I reviewed the patient's lab results. Laboratory Results - last 24 hr 10/23/18 10/23/18 17:30 17:30 WBC 6.68 RBC 5.94 H Hgb 17.1 H Hct 51.0 H MCV 85.9 MCH 28.8 MCHC 33.5 RDW 13.3 Plt Count 212 MPV 10.1 Immature Gran % 0.4 Neutrophils % 78.8 Lymphocytes % 13.0 Monocytes % 7.3 Eosinophils % 0.4 Basophils % 0.1 Absolute Neutrophils 5.25 Absolute Lymphocytes 0.87 L Absolute Monocytes 0.49 Absolute Eosinophils 0.03 Absolute Basophils 0.01 Sodium 136 Potassium 3.7 Chloride 103 Carbon Dioxide 23.0 Anion Gap 10.0 BUN 11 Creatinine 1.00 Estimated GFR/1.73 m2 >= 60.00 Glucose 96 Calcium 8.2 L Magnesium 2.2 Total Bilirubin 0.3 AST 17 ALT 23 Alkaline Phosphatase 106 Total Protein 7.9 Albumin 3.8 HPI General Mode of arrival: ambulatory. Date/Time Provider Initiated Documentation: 10/23/18 17:13. Limitations to Documentation: no limitations. Information obtained by: patient. History of Present Illness 38 year old F presents to the emergency department with the chief complaint of 3 days of abdominal pain, cramping, diarrhea and vomiting, described as moderate, Quality is described as other (Cramp), and is localized to the abdomen. Patient started experiencing this day(s) and it has been intermittent. No relieving factors improve symptom(s), No exacerbating factors reported . Patient notes fever/chills, loss of appetite, malaise and nausea/vomiting. Patient did receive the following treatments prior to arrival, none Related Data Home Medications Medication Instructions Recorded Confirmed metformin [Glucophage] 850 mg PO BID 06/05/17 10/23/18 escitalopram oxalate [Lexapro] 20 mg PO DAILY 11/06/17 10/23/18 Hydroxychloroquine Sulfate 200 mg PO BID #60 tab 11/15/17 10/23/18 [Plaquenil] albuterol sulfate [Proventil HFA] 2 puff INHALATION Q4H PRN PRN #1 11/15/17 10/23/18 inh acetaminophen [Mapap Extra 1,000 mg PO Q6H 5 Days #60 tab 02/20/18 10/23/18 Strength] bupropion HCl [Wellbutrin SR] 300 mg PO BID 08/26/18 10/23/18 cyclobenzaprine 10 mg PO HS PRN 08/26/18 10/23/18 promethazine 12.5 mg PO Q6H PRN #10 tab 10/23/18 Previous Rx's Medication Instructions Recorded Hydroxychloroquine Sulfate 200 mg PO BID #60 tab 11/15/17 [Plaquenil] albuterol sulfate [Proventil HFA] 2 puff INHALATION Q4H PRN PRN #1 11/15/17 inh acetaminophen [Mapap Extra 1,000 mg PO Q6H 5 Days #60 tab 02/20/18 Strength] promethazine 12.5 mg PO Q6H PRN #10 tab 10/23/18 Allergies Allergy/AdvReac Type Severity Reaction Status Date / Time clindamycin Allergy Severe Anaphylaxsi Verified 10/23/18 17:10 s Penicillins Allergy Severe Anaphylaxsi Verified 10/23/18 17:10 s ciprofloxacin [From Cipro] Allergy Intermediate rash Verified 10/23/18 17:10 oxycodone [From Percocet] Allergy N&V Verified 10/23/18 17:10 prednisone AdvReac Mild Agitation Verified 10/23/18 17:10 General Stated Complaint: Abd Prob GILSON: 3 Review of Systems Review of Systems 8 systems reviewed and otherwise negative [facility] Medical History Fibromyalgia (Acute) Lupus (Acute) PCOS (polycystic ovarian syndrome) (Acute) Depression (Chronic) Kidney stones (Chronic) Migraine (Chronic) Surgical History History of bilateral tubal ligation (Acute) History of dilation and curettage (Acute) History of renal stent (Acute) Hx of lithotripsy (Acute) H/O section (Chronic) History of tonsillectomy (Chronic) Social History Smoking/Tobacco Use Status: Current every day Alcohol Intake: current Alcohol Intake frequency: holidays/special occasions only Drug use: Never Substance use type: does not use Do you feel safe at home: Yes Do you feel safe in your relationship?: Yes Exam Narrative Exam Narrative: GEN: awake, alert, oriented 3. Pleasant, well groomed, interactive. HEAD: Normocephalic, atraumatic ENT: Mucous membranes moist, oropharynx unremarkable, External ear exam unremarkable EYES: PERRL, EOMI NECK: Full ROM, no CAMILA, no menigismus CHEST/RESP: Nontender, clear to auscultation bilateral, no wheeze/rhonchi/rales CARDIOVASCULAR: RRR, no murmur, rub joaquina. 2+ Rad pulse bilateral ABDOMEN: Soft, tender throughout without rebound or guarding, hyperactive bowel sounds EXT: Full ROM, no edema, no rash Neuro: Grossly normal neurologic exam, conversant, interactive. Psych: Speech fluent, thoughts congruent, affect normal Course Vital Signs Temperature 36.8 C 10/23/18 17:08 Pulse 98 H 10/23/18 17:08 Respiratory Rate 20 10/23/18 17:08 Blood Pressure 125/86 10/23/18 17:08 Pulse Oximetry 97 10/23/18 17:08 Temperature 36.8 C 10/23/18 17:08 Temperature Source Temporal Artery Scan 10/23/18 17:08 Pulse 98 H 10/23/18 17:08 Respiratory Rate 20 10/23/18 17:08 Respiratory Effort Non-Labored 10/23/18 17:08 Blood Pressure 125/86 10/23/18 17:08 Pulse Oximetry 97 10/23/18 17:08 Oxygen Delivery Method Room Air 10/23/18 17:08 Oxygen Flow Rate 0 10/23/18 17:08 Pain Level 8 10/23/18 17:08
--- NOTE | 2018-10-23 17:23 | ED.GENADUL_ITS ---
Discharge Plan Disposition Patient Disposition: HOME Condition: Improving Discharge Details Chief Complaint: Abd Prob Clinical Impression: Gastroenteritis Primary Care Provider: Marian To ED Provider: Chauncey Leger Home Meds and New Rx's Prescriptions: New promethazine 12.5 mg tablet 12.5 mg PO Q6H PRN (Reason: nausea and vomiting) Qty: 10 RF: 0 Continued metformin [Glucophage] 1,000 MG tablet 850 mg PO BID RF: 0 acetaminophen [Mapap Extra Strength] 500 MG tablet 1,000 mg PO Q6H 5 Days Qty: 60 RF: 0 escitalopram oxalate [Lexapro] 20 MG tablet 20 mg PO DAILY RF: 0 Hydroxychloroquine Sulfate [Plaquenil] 200 MG tablet 200 mg PO BID Qty: 60 RF: 0 albuterol sulfate [Proventil HFA] 200 PUFF/INH HFA aerosol inhaler 2 puff Inhalation Q4H PRN PRNQty: 1 RF: 1 bupropion HCl [Wellbutrin SR] 150 mg Tablet Sustained-Release 12 Hr 300 mg PO BID RF: 0 cyclobenzaprine 10 mg Tablet 10 mg PO HS PRNRF: 0 Discharge Instructions Instructions: Gastroenteritis (ED) Additional Instructions: Home to rest this evening. Small, frequent sips of fluids to maintain hydratio n. May use the prescribed Phenergan as needed for nausea. Continue your regular medications. Return if you develop a fever, persistent vomiting, or any other acute concern. Medical Decision Making 38-year-old female presents from home with 3 days of nausea, vomiting, diarrhea, abdominal cramps. No recent antibiotics, no known sick contacts, no suspicious food exposures. She is in mild to moderate distress, with a pulse of 98, increased bowel sounds throughout her abdomen and mildly tender. Differential diagnosis includes gastroenteritis, dehydration, bowel obstruction.IV access established, patient given parenteral fluid bolus, antiemetic and analgesic. She is referred for laboratory testing as well as CT scan. Labs reveal hemo concentration with 1/5 hematocrit of 51. Chemistry/electrolytes unremarkable. Patient improving with medical therapy. Her CAT scan is unremarkable for acute process. No evidence of bowel obstruction, see formal report. She is stable, improving, taking liquids by mouth without difficulty. She is appropriate at this time for a trial of outpatient management including antiemetics at home. Discussed with her return precautions Lab Data Lab results reviewed: Yes I reviewed the patient's lab results. Laboratory Results - last 24 hr 10/23/18 10/23/18 17:30 17:30 WBC 6.68 RBC 5.94 H Hgb 17.1 H Hct 51.0 H MCV 85.9 MCH 28.8 MCHC 33.5 RDW 13.3 Plt Count 212 MPV 10.1 Immature Gran % 0.4 Neutrophils % 78.8 Lymphocytes % 13.0 Monocytes % 7.3 Eosinophils % 0.4 Basophils % 0.1 Absolute Neutrophils 5.25 Absolute Lymphocytes 0.87 L Absolute Monocytes 0.49 Absolute Eosinophils 0.03 Absolute Basophils 0.01 Sodium 136 Potassium 3.7 Chloride 103 Carbon Dioxide 23.0 Anion Gap 10.0 BUN 11 Creatinine 1.00 Estimated GFR/1.73 m2 >= 60.00 Glucose 96 Calcium 8.2 L Magnesium 2.2 Total Bilirubin 0.3 AST 17 ALT 23 Alkaline Phosphatase 106 Total Protein 7.9 Albumin 3.8 HPI General Mode of arrival: ambulatory . Date/Time Provider Initiated Documentation: 10/23/18 17:13 . Limitations to Documentation: no limitations . Information obtained by: patient . History of Present Illness 38 year old F presents to the emergency department with the chief complaint of 3 days of abdominal pain, cramping, diarrhea and vomiting, described as moderate, Quality is described as other (Cramp), and is localized to the abdomen. Patient started experiencing this day(s) and it has been intermittent. No relieving factors improve symptom(s), No exacerbating factors reported . Patient notes fever/chills, loss of appetite, malaise and nausea/vomiting. Patient did receive the following treatments prior to arrival, none Related Data Home Medications Medication Instructions Recorded Confirmed metformin [Glucophage] 850 mg PO BID 06/05/17 10/23/18 escitalopram oxalate [Lexapro] 20 mg PO DAILY 11/06/17 10/23/18 Hydroxychloroquine Sulfate 200 mg PO BID #60 tab 11/15/17 10/23/18 [Plaquenil] albuterol sulfate [Proventil HFA] 2 puff INHALATION Q4H PRN PRN #1 11/15/17 10/23/18 inh acetaminophen [Mapap Extra 1,000 mg PO Q6H 5 Days #60 tab 02/20/18 10/23/18 Strength] bupropion HCl [Wellbutrin SR] 300 mg PO BID 08/26/18 10/23/18 cyclobenzaprine 10 mg PO HS PRN 08/26/18 10/23/18 promethazine 12.5 mg PO Q6H PRN #10 tab 10/23/18 Previous Rx's Medication Instructions Recorded Hydroxychloroquine Sulfate 200 mg PO BID #60 tab 11/15/17 [Plaquenil] albuterol sulfate [Proventil HFA] 2 puff INHALATION Q4H PRN PRN #1 11/15/17 inh acetaminophen [Mapap Extra 1,000 mg PO Q6H 5 Days #60 tab 02/20/18 Strength] promethazine 12.5 mg PO Q6H PRN #10 tab 10/23/18 Allergies Allergy/AdvReac Type Severity Reaction Status Date / Time clindamycin Allergy Severe Anaphylaxsi Verified 10/23/18 17:10 s Penicillins Allergy Severe Anaphylaxsi Verified 10/23/18 17:10 s ciprofloxacin [From Cipro] Allergy Intermediate rash Verified 10/23/18 17:10 oxycodone [From Percocet] Allergy N&V Verified 10/23/18 17:10 prednisone AdvReac Mild Agitation Verified 10/23/18 17:10 General Stated Complaint: Abd Prob GILSON: 3 Review of Systems Review of Systems 8 systems reviewed and otherwise negative [facility] Medical History Fibromyalgia (Acute) Lupus (Acute) PCOS (polycystic ovarian syndrome) (Acute) Depression (Chronic) Kidney stones (Chronic) Migraine (Chronic) Surgical History History of bilateral tubal ligation (Acute) History of dilation and curettage (Acute) History of renal stent (Acute) Hx of lithotripsy (Acute) H/O section (Chronic) History of tonsillectomy (Chronic) Social History Smoking/Tobacco Use Status: Current every day Alcohol Intake: current Alcohol Intake frequency: holidays/special occasions only Drug use: Never Substance use type: does not use Do you feel safe at home: Yes Do you feel safe in your relationship?: Yes Exam Narrative Exam Narrative: GEN: awake, alert, oriented 3. Pleasant, well groomed, interactive. HEAD: Normocephalic, atraumatic ENT: Mucous membranes moist, oropharynx unremarkable, External ear exam unremarkable EYES: PERRL, EOMI NECK: Full ROM, no CAMILA, no menigismus CHEST/RESP: Nontender, clear to auscultation bilateral, no wheeze/rhonchi/rales CARDIOVASCULAR: RRR, no murmur, rub joaquina. 2+ Rad pulse bilateral ABDOMEN: Soft, tender throughout without rebound or guarding, hyperactive bowel sounds EXT: Full ROM, no edema, no rash Neuro: Grossly normal neurologic exam, conversant, interactive. Psych: Speech fluent, thoughts congruent, affect normal Course Vital Signs Temperature 36.8 C 10/23/18 17:08 Pulse 98 H 10/23/18 17:08 Respiratory Rate 20 10/23/18 17:08 Blood Pressure 125/86 10/23/18 17:08 Pulse Oximetry 97 10/23/18 17:08 Temperature 36.8 C 10/23/18 17:08 Temperature Source Temporal Artery Scan 10/23/18 17:08 Pulse 98 H 10/23/18 17:08 Respiratory Rate 20 10/23/18 17:08 Respiratory Effort Non-Labored 10/23/18 17:08 Blood Pressure 125/86 10/23/18 17:08 Pulse Oximetry 97 10/23/18 17:08 Oxygen Delivery Method Room Air 10/23/18 17:08 Oxygen Flow Rate 0 10/23/18 17:08 Pain Level 8 10/23/18 17:08
[2018-10-23] MEDS: Ketorolac 15 MG/ML VIAL IVP (17:30)
[2018-10-23] MEDS: Ondansetron 4 MG/2 ML VIAL IVP (17:30)
[2018-10-23] MEDS: Normal Saline 1,000 ML 1000 ML IV (17:31)
[2018-10-23] MEDS: LORazepam 2 MG/ML VIAL 0.5 MG IVP (17:31)
[2018-10-23 17:41] LABS: Abs Immature Grans 0.03 k/cumm (0.0-0.09); Absolute Basophil Count 0.01 k/cumm (0.0-0.2); Absolute Eosinophil Count 0.03 k/cumm (0.0-0.7); Absolute Lymphocyte Count 0.87 k/cumm (1.2-3.4); Absolute Monocyte Count 0.49 k/cumm (0.11-0.7); Absolute Neutrophil Count 5.25 k/cumm (1.2-6.7); Basophils % 0.1; Eosinophils % 0.4; HGB 17.1 g/dL (12.0-15.5); Immature Grans % 0.4; Mean Corp. HGB Concentration 33.5 g/dL (32.0-36.0); Mean Corpuscular Hemoglobin 28.8 pg (27.0-33.0); Mean Corpuscular Volume 85.9 fL (80-95); Mean Platelet Volume 10.1 fL (8.0-11.0); Monocytes % 7.3; Neutrophils % 78.8; Platelet Count 212 x1000/uL (130-400); RBC 5.94 m/cumm (4.00-5.20); RBC Distribution Width 13.3 % (11.7-14.6); White Blood Cell Count 6.68 k/cumm (4.4-10.8)
[2018-10-23] MEDS: HYDROmorphone 2 MG/ML VIAL 0.5 MG IVP (17:56)
[2018-10-23 17:57] LABS: ALT 23 U/L (12-78); AST 17 U/L (15-37); Albumin 3.8 g/dL (3.4-5.0); Alkaline Phosphatase 106 U/L (46-116); BUN 11 mg/dL (7-18); Bilirubin, Total 0.3 mg/dL (0.2-1.0); Calcium 8.2 mg/dL (8.5-10.1); Chloride 103 mmol/L (98-107); Glucose 96 mg/dL (70-100); Magnesium 2.2 mg/dL (1.8-2.4); Potassium 3.7 mmol/L (3.5-5.1); Sodium 136 mmol/L (136-145); Total Protein 7.9 g/dL (6.4-8.2)
[2018-10-23] MEDS: Omnipaque 350 MG/ML 100 ML BTL IJ (18:40)
--- NOTE | 2018-10-23 18:52 | DI.CT_ITS ---
SYMPTOM/DIAGNOSIS: CRAMPY ABD PAIN, VOMITING ABDOMEN AND PELVIC CT: CT examination of the abdomen and pelvis was performed with a bolus infusion of 100 cc's of Omnipaque 350. Images obtained through the lung bases are unremarkable. Liver, spleen and pancreas are normal in appearance. No biliary dilatation and gallbladder is CT normal. Abdominal aorta is of normal diameter and no major vascular abnormality is seen. No significant abdominal wall hernia seen. Nonspecific radiodensities in lower abdominal subcutaneous fat, possible old injury or prior surgery. Other etiologies including neoplastic disease not excluded, please correlate clinically. Further characterization with MRI could be obtained in clinically indicated. No significant abdominal wall hernia is seen. There is mild prominence of mesenteric lymph nodes without a focal mass. Appendix is normal. No evidence of diverticulitis or bowel obstruction. Tiny non obstructing right renal calculus noted. Otherwise urinary tracts are unremarkable in appearance. [employer] structures appear intact. CONCLUSION: 1. No evidence of acute process. 2. Non obstructing right renal calculus. 3. Lower abdominal wall focal standing with a vaguely mass-like appearance, please correlate clinically and if indicated, additional evaluation with MRI could be considered.
--- NOTE | 2018-10-23 19:20 | DI.VRAD_ITS ---
EXAM: CT Abdomen and Pelvis With Contrast EXAM DATE/TIME: 10/23/2018 5:21 PM CLINICAL HISTORY: 38 years old, female; Signs and symptoms; Nausea and vomiting; Patient HX: N/v x 3 days. TECHNIQUE: Imaging protocol: Axial computed tomography images of the abdomen and pelvis with intravenous contrast. Coronal and sagittal reformatted images were created and reviewed. Radiation optimization: All CT scans at this facility use at least one of these dose optimization techniques: automated exposure control; mA and/or kV adjustment per patient size (includes targeted exams where dose is matched to clinical indication); or iterative reconstruction. Contrast material: omnipaque 350 Contrast volume: 100 ml Contrast route: iv COMPARISON: CT renal colic wo 08/26/2018 8:19 PM FINDINGS: Lower thorax: No acute findings. ABDOMEN: Liver: No mass. Gallbladder and bile ducts: No calcified stones. No ductal dilation. Pancreas: No ductal dilation. No masses. Spleen: No splenomegaly or focal lesions. Adrenals: No mass. Kidneys and ureters: Suspected nonobstructive right nephrolithiasis. No renal masses or hydronephrosis bilaterally. Stomach and bowel: No obstruction. No mucosal thickening. Appendix: No evidence of appendicitis. PELVIS: Bladder: Unremarkable as visualized. Reproductive: Unremarkable as visualized. ABDOMEN and PELVIS: Intraperitoneal space: No free air. No significant fluid collection. Bones/joints: No acute fracture. No dislocation. Soft tissues: No suspicious lesions. Vasculature: No abdominal aortic aneurysm. Lymph nodes: No significantly enlarged lymph nodes. IMPRESSION: 1. No acute findings. 2. Incidental findings as described. Dictated and Authenticated by: Mily Rothman MD. Ordering:PRISCILLA Grossman MD
[2018-10-23 20:04] VITALS: BP 116/64; PULSE 80; RESP 16; TEMP 36.8; O2SAT 98
[2018-10-23] MEDS: Promethazine 25 MG TAB PO (20:06)
== END 2018-10-23 20:06 | disposition home or self-care (01) ==
PROVIDERS: Emergency Provider Emergency Medicine; PCP Nurse Practitioner Family
DX: K52.9 Noninfective gastroenteritis and colitis, unspecified (principal)
CPT/HCPCS: 80053; 96361; 96374; 96375; 99285; 74177; 83735; 85025; 99284; J1885; J2060; J2405; J3490

== ENCOUNTER 2019-03-18 10:17 | Emergency (ER) | payer MEDICAID, SELFPAY ==
[2019-03-18 10:27] VITALS: BP 115/58; PULSE 90; RESP 18; TEMP 36.8; O2SAT 100
--- NOTE | 2019-03-18 10:37 | W.ED.GENAD ---
Discharge Plan Disposition Patient Disposition: HOME Condition: Stable Discharge Details Chief Complaint: Nk/Back Pain Clinical Impression: Acute left-sided thoracic back pain Primary Care Provider: Marian To ED Provider: Francesco Ramirez Home Meds and New Rx's Prescriptions: New oxycodone 5 mg tablet 5 mg PO Q6H PRN (Reason: pain) Qty: 10 RF: 0 Continued metformin [Glucophage] 1,000 MG tablet 850 mg PO BID RF: 0 acetaminophen [Mapap Extra Strength] 500 MG tablet 1,000 mg PO Q6H 5 Days Qty: 60 RF: 0 Hydroxychloroquine Sulfate [Plaquenil] 200 MG tablet 200 mg PO BID Qty: 60 RF: 0 albuterol sulfate [Proventil HFA] 200 PUFF/INH HFA aerosol inhaler 2 puff Inhalation Q4H PRN PRNQty: 1 RF: 1 cyclobenzaprine 10 mg Tablet 10 mg PO HS PRNRF: 0 methotrexate sodium 2.5 mg Tablet 15 mg PO QWEEK RF: 0 folic acid 1 mg Tablet 1 mg PO DAILY RF: 0 Discharge Instructions Instructions: Back Pain (ED) Additional Instructions: follow up with your primary care provider this week if pain continues if you develop high fevers, difficulty breathing or feel more ill return to the emergency department Medical Decision Making 38 yo female comes in with left upper/mid back pain. 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 She had no pain prior to this and has no prior hx of back pain or surgeries. She has pain over the left lateral paraspinous muscles over the areas of t-8-[id number], no focal neuro deficits and clear lungs. She states turning side to side makes her pain worse. I suspect muscle spasm vs strain, less likely disc herniation. normal vascular exam and pain started after bending over so doubt entities such as dissection, pe or acs. Will tx with nsaids and muscle relaxer and obtain xray and monitor . xray negative on my read, still has quite a bit of pain in above stated area. No deficits still so do not feel additional imaging indicated. She can't take nsaids due to methotrexate so will provide short course of oxycodone for her pain and advised f/u with pcp and return precautions given Differential Diagnosis spasm, strain, disc herniation Imaging Data Radiologic Study: Attestation: I personally reviewed and interpreted this imaging study as follows: Imaging: X-Ray My impression: no acute findings HPI General Mode of arrival: ambulatory. Date/Time Provider Initiated Documentation: 03/18/19 10:18. Limitations to Documentation: no limitations. Information obtained by: patient. History of Present Illness 38 year old F presents to the emergency department with the chief complaint of left upper back pain, described as moderate, Quality is described as aching, and is localized to the back. Patient reports no radiation. Patient started experiencing this minute(s) (45) and it has been constant. No relieving factors improve symptom(s), Movement worsens symptoms . Patient did receive the following treatments prior to arrival, none Related Data Home Medications Medication Instructions Recorded Confirmed metformin [Glucophage] 850 mg PO BID 06/05/17 03/18/19 Hydroxychloroquine Sulfate 200 mg PO BID #60 tab 11/15/17 03/18/19 [Plaquenil] albuterol sulfate [Proventil HFA] 2 puff INHALATION Q4H PRN PRN #1 11/15/17 03/18/19 inh acetaminophen [Mapap Extra 1,000 mg PO Q6H 5 Days #60 tab 02/20/18 03/18/19 Strength] cyclobenzaprine 10 mg PO HS PRN 08/26/18 03/18/19 folic acid 1 mg PO DAILY 03/18/19 03/18/19 methotrexate sodium 15 mg PO QWEEK 03/18/19 03/18/19 oxycodone 5 mg PO Q6H PRN #10 tab 03/18/19 Previous Rx's Medication Instructions Recorded Hydroxychloroquine Sulfate 200 mg PO BID #60 tab 11/15/17 [Plaquenil] albuterol sulfate [Proventil HFA] 2 puff INHALATION Q4H PRN PRN #1 11/15/17 inh acetaminophen [Mapap Extra 1,000 mg PO Q6H 5 Days #60 tab 02/20/18 Strength] oxycodone 5 mg PO Q6H PRN #10 tab 03/18/19 Allergies Allergy/AdvReac Type Severity Reaction Status Date / Time clindamycin Allergy Severe Anaphylaxsi Verified 03/18/19 10:30 s Penicillins Allergy Severe Anaphylaxsi Verified 03/18/19 10:30 s ciprofloxacin [From Cipro] Allergy Intermediate rash Verified 03/18/19 10:30 oxycodone [From Percocet] Allergy N&V Verified 03/18/19 10:30 prednisone AdvReac Mild Agitation Verified 03/18/19 10:30 General Stated Complaint: Nk/Back Pain GILSON: 4 Review of Systems Review of Systems All systems reviewed & are unremarkable except as noted in HPI and below Constitutional Denies chills, Denies fever(s) and Denies weakness Cardiovascular Denies chest pain and Denies dyspnea Respiratory Denies cough and Denies dyspnea Gastrointestinal Denies abdominal pain, Denies nausea and Denies vomiting Musculoskeletal Denies joint swelling Integumentary/Breasts Denies rash Neurologic Denies weakness Endocrine Denies heat intolerance PFSH Social History Smoking/Tobacco Use Status: Current every day Alcohol Intake: current Alcohol Intake frequency: holidays/special occasions only Drug use: Never Substance use type: does not use Do you feel safe at home: Yes Do you feel safe in your relationship?: Yes Exam Const General: no acute distress Orientation: alert HENMT Head: normal to inspection Ears: external ears normal General nose exam: external nose normal Mouth: moist mucous membranes Eyes General: appearance normal, both eyes and all related structures Neck Neck: normal visual inspection Resp Effort & Inspection: normal respiratory effort and able to speak in complete sentences Cardio Rate: regular rate Back/Spine/Pelvis Back: no CVA tenderness Skin General skin exam: no rashes or lesions noted Neuro General: alert and oriented x3 Extrem General: normal to inspection Psych Mental Status: mental status grossly normal Course Vital Signs Temperature 36.8 C 03/18/19 10:27 Pulse 90 03/18/19 10:27 Respiratory Rate 18 03/18/19 10:27 Blood Pressure 115/58 L 03/18/19 10:27 Pulse Oximetry 100 03/18/19 10:27 Temperature 36.8 C 03/18/19 10:27 Temperature Source Tympanic 03/18/19 10:27 Pulse 90 03/18/19 10:27 Respiratory Rate 18 03/18/19 10:27 Blood Pressure 115/58 L 03/18/19 10:27 Blood Pressure Position Sitting 03/18/19 10:27 Pulse Oximetry 100 03/18/19 10:27 Oxygen Delivery Method Room Air 03/18/19 10:27 Oxygen Flow Rate 0 03/18/19 10:27 Pain Level 8 03/18/19 10:27
[2019-03-18] MEDS: Ketorolac 15 MG/ML VIAL IM (10:42)
[2019-03-18] MEDS: Cyclobenzaprine 10 MG TAB PO (10:42)
--- NOTE | 2019-03-18 10:58 | DI.RAD_ITS ---
SYMPTOM/DIAGNOSIS: LEFT SIDED UPPER BACK PAIN. PA AND LATERAL CHEST: Comparison is made with 14 Nov 2017 The heart size is normal. The lungs are well inflated and clear. No infiltrate or effusion is seen. IMPRESSION: Negative chest x-ray
== END 2019-03-18 11:55 | disposition home or self-care (01) ==
PROVIDERS: Emergency Provider Emergency Medicine; PCP Nurse Practitioner Family
DX: M54.6 Pain in thoracic spine (principal)
CPT/HCPCS: 96372; 99284; 71046; J1885

== ENCOUNTER 2019-08-31 18:19 | Emergency (ER) | payer MEDICAID, SELFPAY ==
[2019-08-31 18:23] VITALS: BP 136/84; PULSE 97; RESP 20; TEMP 36.5; O2SAT 99
[2019-08-31 18:49] LABS: Bilirubin Negative (Negative); Blood Small (Negative); Clarity Clear (Clear); Glucose Negative (Negative); Ketones Trace mg/dL (Negative); Leukocyte Esterase Negative (Negative); Nitrite Negative (Negative); Specific Gravity >= 1.030 (1.005-1.025)
[2019-08-31 19:00] LABS: Bacteria Negative HPF (Negative); Epithelial Cells Many HPF (Negative); RBC Negative HPF (0-2); WBC 0-2 HPF (0-5)
[2019-08-31 19:01] LABS: C & S Indicated? No; Casts Negative LPF (Negative); Crystals Many Calcium Oxalate HPF (Negative); Mucus Negative (Negative)
[2019-08-31 19:20] LABS: Abs Immature Grans 0.02 k/cumm (0.0-0.09); Absolute Basophil Count 0.02 k/cumm (0.0-0.2); Absolute Lymphocyte Count 2.45 k/cumm (1.2-3.4); Absolute Monocyte Count 0.29 k/cumm (0.11-0.7); Absolute Neutrophil Count 4.26 k/cumm (1.2-6.7); Basophils % 0.3; Eosinophils % 1.4; HCT 41.8 % (36.0-46.0); HGB 14.2 g/dL (12.0-15.5); Immature Grans % 0.3 %; Lymphocytes % 34.3; Mean Corpuscular Hemoglobin 30.3 pg (27.0-33.0); Mean Corpuscular Volume 89.1 fL (80-95); Mean Platelet Volume 9.6 fL (8.0-11.0); Monocytes % 4.1; Neutrophils % 59.6; Platelet Count 239 x1000/uL (130-400); RBC 4.69 m/cumm (4.00-5.20); RBC Distribution Width 13.1 % (11.7-14.6); White Blood Cell Count 7.14 k/cumm (4.4-10.8)
[2019-08-31] MEDS: Normal Saline 1,000 ML 1000 ML IV (19:24)
[2019-08-31] MEDS: Ondansetron O.D.T. 4 MG TABEF PO (19:24)
[2019-08-31] MEDS: Ketorolac 15 MG/ML VIAL IVP (19:24)
[2019-08-31 19:33] LABS: ALT 27 U/L (14-59); AST 17 U/L (15-37); Albumin 3.4 g/dL (3.4-5.0); Alkaline Phosphatase 98 U/L (46-116); Anion Gap 9.1 mmol/L (3-11); BUN 15 mg/dL (7-18); Bilirubin, Total 0.3 mg/dL (0.2-1.0); CO2 26.9 mmol/L (21.0-32.0); CREATININE 0.81 mg/dL (0.55-1.02); Calcium 8.3 mg/dL (8.5-10.1); Chloride 108 mmol/L (98-107); Glucose 104 mg/dL (74-106); Lipase 242 U/L (73-393); Potassium 3.6 mmol/L (3.5-5.1); Sodium 144 mmol/L (136-145); Total Protein 6.4 g/dL (6.4-8.2)
--- NOTE | 2019-08-31 19:50 | DI.CT_ITS ---
EXAM: CT ABDOMEN PELVIS WO CLINICAL HISTORY: Left flank pain, r/o stone. TECHNIQUE: Imaging Protocol: Axial computed tomography images with coronal and sagittal reformatted images were created and reviewed. COMPARISON: CHEST FOR PULMONARY EMBOLUS from 11/15/2017 CT renal colic wo from 08/26/2018 CT ABDOMEN PELVIS W from 10/23/2018 FINDINGS: ABDOMEN: Lung Bases: Normal where visualized. Liver: Normal density. No measurable mass. Gallbladder and biliary tract: No radiodense calculus or dilation. Pancreas: Normal density, no abnormal calcifications or inflammatory process. Spleen: Normal. Kidneys: Normal size, contour and axis. There are bilateral tiny nonobstructing stones. No masses se en. Adrenal glands: No masses seen. Lymph nodes: Within normal limits. Abdominal Aorta: Abdominal portion non-dilated. Mild atherosclerosis. PELVIS: Bladder: Incompletely distended which limits evaluation. No bladder stones. Bowel: No obstruction or bowel wall thickening. A normal appendix is visualized. Peritoneal cavity: No ascites, collection or mesenteric inflammatory response. Reproductive organs: Within normal limits. Bones: Within normal limits. Soft tissues: There is again seen a 2.6 x 1.3 x 2.6 cm soft tissue density in the lower abdominal wal l. It lies in the subcutaneous fat. It is unchanged dating back to 2018. This may represent nodula r scarring. No fluid collection is seen to suggest an abscess. IMPRESSION: 1. No acute abdominal or pelvic process. 2. Bilateral nephrolithiasis. No evidence of obstructive uropathy. 3. Stable focal nodularity in the subcutaneous tissues of the lower anterior abdominal wall, probably reflecting scarring. It is unchanged since 2018. DATA REPOSITORY: All CT scans at this facility are submitted to the National Radiology Data Registry (NRDR) Dose Index Registry (DIR) with the [employer] (A[employer]). RADIATION OPTIMIZATION: All CT scans at this facility use at least one of these dose optimization te chniques: automated exposure control; mA and/or kV adjustment per patient size (includes targeted exa ms where dose is matched to clinical indication); or iterative reconstruction.
--- NOTE | 2019-08-31 20:06 | ED.GENADUL_ITS ---
Discharge Plan Disposition Patient Disposition: HOME Condition: Stable Discharge Details Chief Complaint: FlankPain Clinical Impression: Pyelonephritis, Cystitis Primary Care Provider: Marian To ED Provider: Ginny Quan Home Meds and New Rx's Prescriptions: New cephalexin [Keflex] 500 mg capsule 500 mg PO QID Qty: 28 RF: 0 No Action metformin [Glucophage] 1,000 MG tablet 850 mg PO BID RF: 0 acetaminophen [Mapap Extra Strength] 500 MG tablet 1,000 mg PO Q6H 5 Days Qty: 60 RF: 0 Hydroxychloroquine Sulfate [Plaquenil] 200 MG tablet 200 mg PO BID Qty: 60 RF: 0 albuterol sulfate [Proventil HFA] 200 PUFF/INH HFA aerosol inhaler 2 puff Inhalation Q4H PRN PRNQty: 1 RF: 1 cyclobenzaprine 10 mg Tablet 10 mg PO HS PRNRF: 0 folic acid 1 mg Tablet 3 mg PO DAILY RF: 0 methotrexate (PF) 20 mg/0.4 mL Auto-Injector 20 mg SUBCUT QWEEK RF: 0 duloxetine [Cymbalta] 30 mg Capsule,Delayed Release(Dr/Ec) 30 mg PO DAILY RF: 0 Discharge Instructions Instructions: Kidney Infection (ED), Flank Pain (ED) Additional Instructions: Drink plenty of fluids. Use antibiotic as prescribed. Recheck promptly with your primary care doctor. Urine culture pending. Review this with your primary care doctor. Follow-up with your CT findings with your PCP as discussed specifically the lower back findings. Return immediately to the emergency room for increase in ill feeling, worsening symptoms or alarming symptoms sooner if needed as discussed Medical Decision Making This is a 38-year-old patient presenting to the emergency room for complaints of flank pain that began today. Patient reports in the last 2 days she has noted vague nausea with no focal fevers, chills. Patient denies upper respiratory symptoms or cough. Denies chest pain, difficulty breathing or shortness of breath or wheezing. Denies abdominal pain. Denies obvious dysuria, urgency or frequency of urination. Patient does report history of kidney stones in the past which is a very similar presentation preceded by nausea focally developing flank pain. Patient has had ureter stents placed due to stone retention. Patient reports she is primarily concerned the possibility of a left kidney stone. Patient has known retained stones in her kidney. Patient does report mild fatigue which she reports is possibly attributed to methotrexate. Patient also has a history of fibromyalgia. Patient reports she has been eating and drinking without difficulty. CT without contrast ordered in addition to labs and IV fluids. Patient is planning to drive this evening after discharge therefore Toradol provided for patient's pain. Patient labs returned within normal limits. Urinalysis reviewed reveals ketones, small blood and uro-bilirubin. No nitrates or leukocyte esterase. Reexamination of the patient reports significant improvement with Toradol pain now 4 out of 10. Patient offered Tylenol in addition to the Toradol for pain relief. Patient CT does reveal retained kidney stones but nonobstructing or associated hydro-. No obvious lower pulmonary infection noted. No obvious intestinal infection or appendicitis. Patient does have radiologic concern of cystitis. Given patient's clinical presentation of flank pain in addition to radiologic finding of cystitis and her known immunocompromise I am concerned with the possibility of urine infection despite a benign appearing urinalysis. Urine culture ordered for follow-up. I discussed these findings with the patient and she agrees to initiate antibiotic treatment at this time. Patient has a complicated medical allergies. Patient does report anaphylaxis to penicillin and does not recall ever taking Keflex. Patient reports allergy to Cipro as well as clindamycin. Unable to provide Bactrim for pyelonephritis coverage due to use of methotrexate risk. After discussion with the patient and review of her previous medical chart will provide Rocephin in the ER and observe for any signs of allergy. I discussed this plan of care with Dr. Ramirez who agrees after discussion of the case. Patient received Rocephin with no obvious complication or sign of allergy. Patient feels comfortable discharge home at this time. Will provide Keflex p.o. for outpatient management. Given patient does have a history of anaphylaxis I did recommend she carries EpiPen with her for the next few days to be sure she does not develop any allergy and to return for any allergic type symptoms. Patient reports her understanding and agrees with this plan of care. Patient will call her PCP tomorrow for prompt reevaluation. Patient does not appear toxic at this time, is afebrile, pain is improved. Patient feels appropriate for discharge home at this time. Patient lacks any peritoneal signs on abdominal exam. The patient was stable and requested discharge. Prior to discharge, my usual and customary return precautions were reviewed with the patient - this included follow-up instructions and reasons to return to the Emergency Department if conditions worsens, does not improve as expected, or other new concerns arise. HPI General Date/Time Provider Initiated Documentation: 08/31/19 18:53 . HPI Narrative: This a 38-year-old patient presenting for complaints of flank pain. Patient reports 2 days of general malaise with mild nausea. Patient reports onset of left flank pain today. Patient reports left flank pain as well as burning sensation which is constant since this afternoon. Patient denies significant radiation of pain. Denies dysuria, urgency or frequency with urination. Denies measured fevers or chills. Patient does report mild nasal congestion which she attributes to dry air in her home. Patient denies sore throat, cough, headache or dizziness. Patient does report history of several kidney stones in the past this feels similar. Patient has had only one CT of her kidney thus far. Patient does report she is typically followed by Dr. Mccauley. Denies vomiting or diarrhea. Denies obvious abdominal pain. Patient is on methotrexate. Related Data Home Medications Medication Instructions Recorded Confirmed metformin [Glucophage] 850 mg PO BID 06/05/17 08/31/19 Hydroxychloroquine Sulfate 200 mg PO BID #60 tab 11/15/17 08/31/19 [Plaquenil] albuterol sulfate [Proventil HFA] 2 puff INHALATION Q4H PRN PRN #1 11/15/17 08/31/19 inh acetaminophen [Mapap Extra 1,000 mg PO Q6H 5 Days #60 tab 02/20/18 08/31/19 Strength] cyclobenzaprine 10 mg PO HS PRN 08/26/18 08/31/19 folic acid 3 mg PO DAILY 03/18/19 08/31/19 cephalexin [Keflex] 500 mg PO QID #28 cap 08/31/19 duloxetine [Cymbalta] 30 mg PO DAILY 08/31/19 08/31/19 methotrexate (PF) 20 mg SUBCUT QWEEK 08/31/19 08/31/19 Previous Rx's Medication Instructions Recorded Hydroxychloroquine Sulfate 200 mg PO BID #60 tab 11/15/17 [Plaquenil] albuterol sulfate [Proventil HFA] 2 puff INHALATION Q4H PRN PRN #1 11/15/17 inh acetaminophen [Mapap Extra 1,000 mg PO Q6H 5 Days #60 tab 02/20/18 Strength] cephalexin [Keflex] 500 mg PO QID #28 cap 08/31/19 Allergies Allergy/AdvReac Type Severity Reaction Status Date / Time clindamycin Allergy Severe Anaphylaxsi Verified 08/31/19 18:25 s Penicillins Allergy Severe Anaphylaxsi Verified 08/31/19 18:25 s ciprofloxacin [From Cipro] Allergy Intermediate rash Verified 08/31/19 18:25 oxycodone [From Percocet] Allergy N&V Verified 08/31/19 18:25 prednisone AdvReac Mild Agitation Verified 08/31/19 18:25 General Stated Complaint: FlankPain GILSON: 3 Review of Systems All systems reviewed & are unremarkable except as noted in HPI and below Constitutional Constitutional: Denies chills, Denies fatigue, Denies fever(s), Denies headache(s) and Reports malaise ENT Ears, Nose, Mouth, and Throat: Denies otalgia, Denies headache(s), Reports nasal congestion, Denies nasal discharge, Denies sinus pressure and Denies sore throat Respiratory Respiratory: Denies cough and Denies wheezing Gastrointestinal Gastrointestinal: Denies abdominal pain, Denies diarrhea, Reports nausea and Denies vomiting Genitourinary Genitourinary: Denies hematuria, Denies dysuria and Reports flank pain (Left) Neurologic Neurologic: Denies headache(s) Endocrine Endocrine: Denies fatigue Allergic/Immunologic Allergic/Immunologic: Denies wheezing PFSH Medical History Depression (Chronic) Fibromyalgia (Acute) Kidney stones (Chronic) Lupus (Acute) Migraine (Chronic) PCOS (polycystic ovarian syndrome) (Acute) Social History Smoking/Tobacco Use Status: Current every day Alcohol Intake: never Drug use: Never Substance use type: does not use Do you feel safe at home: Yes Do you feel safe in your relationship?: Yes Exam Narrative Exam Narrative: CONST: Healthy appearing patient, in no acute distress. Well hydrated. Alert and alert. HENMT: Head nomocephalic, normal to inspection. Atraumatic. Hearing grossly normal. External ear canal no erythema or swelling. TM normal bilaterally. Nose normal to inspection. No rhinnorhea. Normal facial exam. Oral mucosa normal. Tounge normal. Dentition normal. Normal posterior oropharynx. Uvula midline. EYES: General normal appearance. Alignment normal. Eyelids normal. Conjunctiva normal. Sclera normal. PERRL. NECK: Normal visual inspection. FROM. No lymphadenopathy. Trachea midline. No Midline tenderness. No cervical lymphadenopathy present CHEST: Normal insepection of the chest. RESP: Normal respiratory effort. Speaking full sentences. No cough. No wheezing. No retractions. Clear to auscaltation. Breath sound equal and present bilaterally. CARDIO: No JVD. Normal PMI. Regular Rate. Regular Rhythm. Normal peripheral pulses. Back: No right CVA tenderness. Left CVA tenderness present GI: Normal inspection of abdomen. No distension. Soft. Mild left lower quadrant tenderness. Bowel sounds present in all 4 quadrants. No rebound. No gaurding. MUSCULOSKELETAL: Normal Gait. FROM of all extremities. Distal neurovascularly intact. Sensation intact distally. SKIN: Normal. Dry. No rashes. NEURO: Alert and awake. Speech clear. PSYCH: Normal affect. Cooperative. Course Vital Signs Vital signs: Vital Signs Temperature 36.5 C 08/31/19 18:23 Pulse 97 H 08/31/19 18:23 Respiratory Rate 20 08/31/19 18:23 Blood Pressure 136/84 08/31/19 18:23 Pulse Oximetry 99 08/31/19 18:23 Temperature 36.5 C 08/31/19 18:23 Temperature Source Skin 08/31/19 18:23 Pulse 97 H 08/31/19 18:23 Respiratory Rate 20 08/31/19 18:23 Respiratory Effort Non-Labored 08/31/19 18:28 Blood Pressure 136/84 08/31/19 18:23 Blood Pressure Position Sitting 08/31/19 18:23 Pulse Oximetry 99 08/31/19 18:23 Oxygen Delivery Method Room Air 08/31/19 18:23 Oxygen Flow Rate 0 08/31/19 18:23 Pain Level 6 08/31/19 19:24 Lab/Test Results Lab/Test Results: Laboratory Tests Range/Units 08/31/19 08/31/19 08/31/19 18:34 19:10 19:10 WBC (4.4-10.8) k/cumm 7.14 RBC (4.00-5.20) m/cumm 4.69 Hgb (12.0-15.5) g/dL 14.2 Hct (36.0-46.0) % 41.8 MCV (80-95) fL 89.1 MCH (27.0-33.0) pg 30.3 MCHC (32.0-36.0) g/dL 34.0 RDW (11.7-14.6) % 13.1 Plt Count (130-400) x1000/uL 239 MPV (8.0-11.0) fL 9.6 Immature Gran % % 0.3 Neutrophils % 59.6 Lymphocytes % 34.3 Monocytes % 4.1 Eosinophils % 1.4 Basophils % 0.3 Absolute Neutrophils (1.2-6.7) k/cumm 4.26 Absolute Lymphocytes (1.2-3.4) k/cumm 2.45 Absolute Monocytes (0.11-0.7) k/cumm 0.29 Absolute Eosinophils (0.0-0.7) k/cumm 0.10 Absolute Basophils (0.0-0.2) k/cumm 0.02 Sodium (136-145) mmol/L 144 Potassium (3.5-5.1) mmol/L 3.6 Chloride (98-107) mmol/L 108 H Carbon Dioxide (21.0-32.0) mmol/L 26.9 Anion Gap (3-11) mmol/L 9.1 BUN (7-18) mg/dL 15 Creatinine (0.55-1.02) mg/dL 0.81 Estimated GFR/1.73 m2 (mL/min/1.73m2) >= 60.00 Glucose (74-106) mg/dL 104 Calcium (8.5-10.1) mg/dL 8.3 L Total Bilirubin (0.2-1.0) mg/dL 0.3 AST (15-37) U/L 17 ALT (14-59) U/L 27 Alkaline Phosphatase (46-116) U/L 98 Total Protein (6.4-8.2) g/dL 6.4 Albumin (3.4-5.0) g/dL 3.4 Lipase (73-393) U/L 242 Urine Color (Yellow) Yellow Urine Clarity (Clear) Clear Urine pH (5-8) 6.0 Ur Specific [place] (1.005-1.025) >= 1.030 H Urine Protein (Negative) mg/dL Negative Urine Ketones (Negative) mg/dL Trace H Urine Blood (Negative) Small H Urine Nitrite (Negative) Negative Urine Bilirubin (Negative) Negative Urine Urobilinogen (Up TO 0.2) EU/dL 4.0 H Ur Leukocyte Esterase (Negative) Negative Urine RBC (0-2) HPF Negative Urine WBC (0-5) HPF 0-2 Ur Epithelial Cells (Negative) HPF Many Urine Crystals (Negative) HPF Many calcium oxalate Urine Bacteria (Negative) HPF Negative Urine Casts (Negative) LPF Negative Urine Mucus (Negative) Negative Ur Culture Indicated? No Urine Glucose (Negative) mg/dL Negative
--- NOTE | 2019-08-31 20:42 | DI.VRAD_ITS ---
PROCEDURE INFORMATION: Exam: CT Abdomen And Pelvis Without Contrast Exam date and time: 08/31/2019 7:55 PM Age: 38 years old Clinical indication: Prior surgery; Surgery date: 6+ months; Surgery type: Tubal ligation; Patient HX: L flank pain TECHNIQUE: Imaging protocol: Computed tomography of the abdomen and pelvis without contrast. Radiation optimization: All CT scans at this facility use at least one of these dose optimization techniques: automated exposure control; mA and/or kV adjustment per patient size (includes targeted exams where dose is matched to clinical indication); or iterative reconstruction. COMPARISON: CT renal colic wo 08/26/2018 8:19 PM FINDINGS: Lungs: Visualized lung bases are clear. Heart: Heart size normal. Mediastinum: The visualized distal esophagus is normal. Liver: Normal size and contour. No mass lesions. No intrahepatic biliary ductal dilatation. Gallbladder and bile ducts: Normal. No calcified stones. No ductal dilation. Pancreas: Normal. No inflammatory changes or ductal dilation. Spleen: Normal. No splenomegaly. Adrenals: Normal. No adrenal mass. Kidneys and ureters: No acute abnormalities. No hydronephrosis or hydroureter. There are 3 small stones in the right kidney measuring 2-3 mm in size each and there is a 2 mm stone in the lower pole of the left kidney. No ureteral stones. Stomach and bowel: The stomach is grossly normal. The small bowel is normal with no evidence of obstruction. No acute colonic abnormalities. Appendix: The appendix is normal in caliber and demonstrates no evidence of appendicitis. Intraperitoneal space: No free fluid or air. Vasculature: No acute process. No abdominal aortic aneurysm. Lymph nodes: No adenopathy. Bladder: The urinary bladder is largely contracted. Question mild perivesicular stranding which could relate to cystitis, correlate with UA. Reproductive: Unremarkable as visualized. Bones/joints: No acute osseous abnormalities. Mild-moderate lower lumbar degenerative facet changes at L4-L5 and L5-S1 again noted. Soft tissues: There is a 2.6 x 1.3 by 2.6 cm nodular soft tissue density focus in the lower anterior abdominal wall subcutaneous fat just to the right of midline on axial series 3, image 632. No calcification. This is nonspecific in nature. It could represent chronic nodular scarring, possibly postoperative nodular scarring related to the patient's clinically described prior pelvic surgery. No definite central hypodensity was seen to suggest a fluid component and there is no air content, which goes against abscess. It is unchanged from 10/23/2018. IMPRESSION: 1. No definite acute process is identified. 2. Question mild perivesicular stranding which could relate to cystitis although the largely contracted status of the bladder limits its assessment. Correlate with UA. 3. Postoperative scarring in the anterior lower abdomen, with focal nodular scarring in this region which is unchanged from prior exam with no imaging features to suggest abscess or hematoma. 4. Small bilateral nonobstructive renal stones. No ureteral stones or hydronephrosis. 5. Mild-moderate lower lumbar degenerative facet changes. Dictated and Authenticated by: Fadi Forde MD. Ordering:SARAN Gross MD
[2019-08-31] MEDS: cefTRIAXone 1 GM/50 ML BAG IVPB (21:46)
[2019-08-31 22:16] VITALS: BP 112/75; PULSE 85; RESP 16; TEMP 36.6; O2SAT 97
== END 2019-08-31 22:20 | disposition home or self-care (01) ==
PROVIDERS: Emergency Provider Physician Assistant; PCP Nurse Practitioner Family
DX: N12 Tubulo-interstitial nephritis, not specified as acute or chronic (principal); N30.90 Cystitis, unspecified without hematuria
CPT/HCPCS: 80053; 83690; 96361; 96365; 96375; 99285; 74176; 81003; 81015; 85025; 87086; 99284; J0696; J1885

== ENCOUNTER 2020-02-07 11:16 | Emergency (ER) | payer MEDICAID, SELFPAY ==
[2020-02-07 11:23] VITALS: BP 131/99; PULSE 94; RESP 16; TEMP 36.3; O2SAT 97
--- NOTE | 2020-02-07 11:27 | ED.GENADUL_ITS ---
Discharge Plan Disposition Patient Disposition: HOME Condition: Stable Discharge Details Chief Complaint: EarProblem Clinical Impression: Otitis externa of left ear, Otitis media Primary Care Provider: Marian oT ED Provider: Yolanda Carr Home Meds and New Rx's Prescriptions: New siotzmwp-oqjdcgzvf-QL 3.5-10,000-1 mg/mL-unit/mL-% drops,suspension 4 drp OT QID 7 Days Qty: 10 RF: 0 azithromycin [Zithromax Z-Candido] 250 mg tablet See Rx Instructions .ROUTE .COMPLEX Qty: 6 RF: 0 Continued metformin [Glucophage] 1,000 MG tablet 850 mg PO BID RF: 0 acetaminophen [Mapap Extra Strength] 500 MG tablet 1,000 mg PO Q6H 5 Days Qty: 60 RF: 0 Hydroxychloroquine Sulfate [Plaquenil] 200 MG tablet 200 mg PO BID Qty: 60 RF: 0 albuterol sulfate [Proventil HFA] 200 PUFF/INH HFA aerosol inhaler 2 puff Inhalation Q4H PRN PRNQty: 1 RF: 1 cyclobenzaprine 10 mg Tablet 10 mg PO HS PRNRF: 0 folic acid 1 mg Tablet 3 mg PO DAILY RF: 0 methotrexate (PF) 20 mg/0.4 mL Auto-Injector 20 mg SUBCUT QWEEK RF: 0 duloxetine [Cymbalta] 30 mg Capsule,Delayed Release(Dr/Ec) 30 mg PO DAILY RF: 0 Discharge Instructions Instructions: Otitis Externa (ED), Ear Infection (ED) Additional Instructions: Drink plenty of fluids and get plenty of rest. Take Tylenol as needed and directed for pain. Use the eardrops as directed. If you have no relief in symptoms in the next 2 days, you can start the oral antibiotics. Follow-up with your primary care doctor in 1 week. Return to the emergency department with any worsening or new concerning symptoms. Discharge Data Discharge Date/Time-TO BE ENTERED AT DEPARTURE: 02/07/20 12:13 Discharge Physician: Yolanda Carr Medical Decision Making 39-year-old female presents with left ear pain and decreased hearing since yesterday. Denies fever, injury or recent swimming. She has tenderness to palpation of tragus and when pulling on left auricle. There is edema and erythema of the left external auditory canal as well as the left TM. There is no drainage noted. No mastoid tenderness. No submandibular swelling, drooling, trismus, lymphadenopathy. Patient appears nontoxic. Exam appears consistent with otitis externa with possibly otitis media. Patient has an allergy to Cipro and penicillin. A prescription for polymyxin B/neomycin/hydrocortisone given. She was also given a prescription for oral antibiotics if symptoms do not improve or worsen. An ear wick was placed in the left ear prior to discharge. Advised to follow up with the primary care doctor for re-evaluation and w/ ENT with any persistent or worsening symptoms. Usual and customary return precautions given prior to discharge. Medical Records Medical records reviewed: Yes I reviewed the patient's medical records. HPI General Mode of arrival: ambulatory . Date/Time Provider Initiated Documentation: 02/07/20 11:19 . Limitations to Documentation: no limitations . Information obtained by: patient . HPI Narrative: Patient is a 39-year-old female who presents to the ED with a complaint of external left ear pain since yesterday. She also thinks she has some pain within her ear. She says sounds appear muffled. She denies any recent injury, swimming, fever, sore throat, headache, dizziness or tinnitus. Related Data Home Medications Medication Instructions Recorded Confirmed metformin [Glucophage] 850 mg PO BID 06/05/17 02/07/20 Hydroxychloroquine Sulfate 200 mg PO BID #60 tab 11/15/17 02/07/20 [Plaquenil] albuterol sulfate [Proventil HFA] 2 puff INHALATION Q4H PRN PRN #1 11/15/17 02/07/20 inh acetaminophen [Mapap Extra 1,000 mg PO Q6H 5 Days #60 tab 02/20/18 02/07/20 Strength] cyclobenzaprine 10 mg PO HS PRN 08/26/18 02/07/20 folic acid 3 mg PO DAILY 03/18/19 02/07/20 duloxetine [Cymbalta] 30 mg PO DAILY 08/31/19 02/07/20 methotrexate (PF) 20 mg SUBCUT QWEEK 08/31/19 02/07/20 azithromycin [Zithromax Z-Candido] See Rx Instructions .ROUTE 02/07/20 .COMPLEX #6 tab [id number] 4 drp OT QID 7 Days #10 ml 02/07/20 Previous Rx's Medication Instructions Recorded Hydroxychloroquine Sulfate 200 mg PO BID #60 tab 11/15/17 [Plaquenil] albuterol sulfate [Proventil HFA] 2 puff INHALATION Q4H PRN PRN #1 11/15/17 inh acetaminophen [Mapap Extra 1,000 mg PO Q6H 5 Days #60 tab 02/20/18 Strength] azithromycin [Zithromax Z-Candido] See Rx Instructions .ROUTE 02/07/20 .COMPLEX #6 tab hyokgmqy-ibatlzbol-GI 4 drp OT QID 7 Days #10 ml 02/07/20 Allergies Allergy/AdvReac Type Severity Reaction Status Date / Time clindamycin Allergy Severe Anaphylaxsi Verified 02/07/20 11:29 s Penicillins Allergy Severe Anaphylaxsi Verified 02/07/20 11:29 s ciprofloxacin [From Cipro] Allergy Intermediate rash Verified 02/07/20 11:29 oxycodone [From Percocet] Allergy N&V Verified 02/07/20 11:29 prednisone AdvReac Mild Agitation Verified 02/07/20 11:29 General GILSON: 3 Review of Systems All systems reviewed & are unremarkable except as noted in HPI and below Constitutional Constitutional: Reports as per HPI, Denies chills, Denies fever(s) and Denies headache(s) Eyes Eyes: Denies blurry vision ENT Ears, Nose, Mouth, and Throat: Denies dizziness, Denies ear discharge, Reports otalgia, Denies headache(s), Denies tinnitus, Denies sore throat and Denies throat swelling Cardiovascular Cardiovascular: Denies chest pain and Denies dyspnea Respiratory Respiratory: Denies cough and Denies dyspnea Gastrointestinal Gastrointestinal: Denies abdominal pain, Denies diarrhea and Denies vomiting Genitourinary Genitourinary: Denies hematuria and Denies dysuria Musculoskeletal Musculoskeletal: Denies back pain and Denies numbness Integumentary/Breasts Skin/Breast: Denies lesions and Denies rash Neurologic Neurologic: Denies dizziness, Denies headache(s), Denies localized weakness and Denies numbness Allergic/Immunologic Allergic/Immunologic: Denies throat swelling PFSH Social History Smoking/Tobacco Use Status: Current every day Alcohol Intake: never Drug use: Never Substance use type: does not use Do you feel safe at home: Yes Do you feel safe in your relationship?: Yes Exam Const General: cooperative, healthy appearing and no acute distress HENMT Head: normal to inspection Ears: hearing grossly normal bilaterally, EAC abnormal erythema on the left, edema on the left and EAC tenderness on the left and TM abnormal dull on the left and erythematous on the left General nose exam: external nose normal Face and sinus: normal facial exam Mouth: oral mucosae normal Throat: posterior oropharynx normal, uvula midline and no peritonsillar masses Eyes General: appearance normal, both eyes and all related structures Neck Neck: normal visual inspection, no lymphadenopathy, no meningeal signs, trachea midline and supple Resp Effort & Inspection: normal respiratory effort and able to speak in complete sentences Cardio Rate: regular rate Skin General skin exam: no rashes or lesions noted Neuro General: patient alert, patient awake and patient oriented x3 Motor: muscle tone normal throughout Extrem General: normal to inspection and full ROM Psych Appearance: grossly normal Affect: normal affect
[2020-02-07 12:12] VITALS: BP 131/99; PULSE 94; RESP 16; TEMP 36.3; O2SAT 97
== END 2020-02-07 12:13 | disposition home or self-care (01) ==
PROVIDERS: Emergency Provider Physician Assistant; PCP Nurse Practitioner Family
DX: H60.502 Unspecified acute noninfective otitis externa, left ear (principal); H66.92 Otitis media, unspecified, left ear
CPT/HCPCS: 99283

== ENCOUNTER 2020-04-28 19:27 | Outpatient (REF) | payer MEDICAID, SELFPAY ==
[2020-04-28 21:18] LABS: TSH (W/Ref FT4) 1.43 uIU/mL (0.36-3.74)
== END 2020-04-28 19:47 ==
LOC: NCHCN 19:27
PROVIDERS: PCP Nurse Practitioner Family; Visit Provider Nurse Practitioner Family
DX: L93.0 Discoid lupus erythematosus (principal)
CPT/HCPCS: 84443

== ENCOUNTER 2020-05-22 19:46 | Emergency (ER) | payer MEDICAID, SELFPAY ==
[2020-05-22 19:52] VITALS: BP 145/92; PULSE 89; RESP 16; TEMP 36.6; O2SAT 96
--- NOTE | 2020-05-22 20:03 | W.ED.GENAD ---
Discharge Plan Disposition Patient Disposition: HOME Condition: Good Discharge Details Clinical Impression: Laceration of right ring finger Primary Care Provider: Marian To ED Provider: Jayy Rees Home Meds and New Rx's Prescriptions: Continued metformin [Glucophage] 1,000 MG tablet 850 mg PO BID RF: 0 acetaminophen [Mapap Extra Strength] 500 MG tablet 1,000 mg PO Q6H 5 Days Qty: 60 RF: 0 Hydroxychloroquine Sulfate [Plaquenil] 200 MG tablet 200 mg PO BID Qty: 60 RF: 0 albuterol sulfate [Proventil HFA] 200 PUFF/INH HFA aerosol inhaler 2 puff Inhalation Q4H PRN PRNQty: 1 RF: 1 cyclobenzaprine 10 mg Tablet 10 mg PO HS PRNRF: 0 folic acid 1 mg Tablet 3 mg PO DAILY RF: 0 methotrexate (PF) 20 mg/0.4 mL Auto-Injector 20 mg SUBCUT QWEEK RF: 0 duloxetine [Cymbalta] 30 mg Capsule,Delayed Release(Dr/Ec) 30 mg PO DAILY RF: 0 Discharge Instructions Instructions: Finger Laceration (ED) Additional Instructions: At this time the shaving of your fingertip has been covered with glue, and the bleeding has stopped. It may ooze a small amount of blood again in the future. This is okay. If it is bleeding significantly please return immediately. Please keep the finger dry and protected for the next 5 to 7 days as it heals. Do not scrub it vigorously. Do not try to feel the glue off. If you notice any redness, drainage, swelling, pain, fever or chills please return immediately for reassessment. The glue will fall off on its own in the next 7 to 10 days. Please keep the finger covered at all times until then. If you notice any worsening of your symptoms, or any new symptoms such as vomiting, diarrhea, fever, chills, shortness of breath, chest pain, numbness, weakness, or fainting , please return immediately to the emergency department for reevaluation. Please follow up with your primary care provider as soon as possible for reassessment and reevaluation. As always, it was a pleasure participating in your medical care today. Referrals: Marian To [Primary Care Provider] - Medical Decision Making 39-year-old female presents with a laceration to her right hand on the ring finger. She is right-hand dominant. She was slicing fruit when she noticed just sliced the tip off of the finger. She applied pressure but this did not stop the bleeding. She came to the ER for further assessment. She denies any numbness tingling or weakness aside from at the distal tip where the skin is actually gone. She had her tetanus updated in 2013. No other complaints at this time. Symptoms are made worse with palpation, improved by nothing. Exam demonstrates a small shave. The distal tip of the right ring finger. Diameter is roughly 1 cm, tourniquet was applied, bleeding stopped, the area was cleaned aggressively, following this silver nitrate was placed to elicit hemostasis and chemical cauterization, followed by Dermabond. Patient tolerated this well. Demonstrates good movement, no evidence of neurovascular or tendinous deficit aside from the skin especially missing. Tetanus is up-to-date. Patient will be discharged home with close follow-up. Discussed red flags which to return. I have extensively reviewed the treatment plan and discharge instructions with the patient. I have addressed all patient concerns at this time. The patient was made aware of what symptoms to monitor for that would warrant a return to the emergency department. Discussed the plan with the patient, they demonstrate verbal understanding and agreement with our assessment and plan at this time. HPI General Date/Time Provider Initiated Documentation: 05/22/20 20:03. [facility] Narrative: 39-year-old female presents with a laceration to her right hand on the ring finger. She is right-hand dominant. She was slicing fruit when she noticed just sliced the tip off of the finger. She applied pressure but this did not stop the bleeding. She came to the ER for further assessment. She denies any numbness tingling or weakness aside from at the distal tip where the skin is actually gone. She had her tetanus updated in 2013. No other complaints at this time. Symptoms are made worse with palpation, improved by nothing. Related Data Home Medications Medication Instructions Recorded Confirmed metformin [Glucophage] 850 mg PO BID 06/05/17 05/22/20 Hydroxychloroquine Sulfate 200 mg PO BID #60 tab 11/15/17 05/22/20 [Plaquenil] albuterol sulfate [Proventil HFA] 2 puff INHALATION Q4H PRN PRN #1 11/15/17 05/22/20 inh acetaminophen [Mapap Extra 1,000 mg PO Q6H 5 Days #60 tab 02/20/18 05/22/20 Strength] cyclobenzaprine 10 mg PO HS PRN 08/26/18 05/22/20 folic acid 3 mg PO DAILY 03/18/19 05/22/20 duloxetine [Cymbalta] 30 mg PO DAILY 08/31/19 05/22/20 methotrexate (PF) 20 mg SUBCUT QWEEK 08/31/19 05/22/20 Previous Rx's Medication Instructions Recorded Hydroxychloroquine Sulfate 200 mg PO BID #60 tab 11/15/17 [Plaquenil] albuterol sulfate [Proventil HFA] 2 puff INHALATION Q4H PRN PRN #1 11/15/17 inh acetaminophen [Mapap Extra 1,000 mg PO Q6H 5 Days #60 tab 02/20/18 Strength] Allergies Allergy/AdvReac Type Severity Reaction Status Date / Time clindamycin Allergy Severe Anaphylaxsi Verified 05/22/20 19:54 s Penicillins Allergy Severe Anaphylaxsi Verified 05/22/20 19:54 s ciprofloxacin [From Cipro] Allergy Intermediate rash Verified 05/22/20 19:54 oxycodone [From Percocet] Allergy N&V Verified 05/22/20 19:54 prednisone AdvReac Mild Agitation Verified 05/22/20 19:54 General Stated Complaint: Laceration GILSON: 4 Review of Systems All systems reviewed & are unremarkable except as noted in HPI and below PFSH Medical History Depression Fibromyalgia Kidney stones Lupus Migraine PCOS (polycystic ovarian syndrome) Surgical History H/O section History of bilateral tubal ligation History of dilation and curettage History of renal stent History of tonsillectomy Hx of lithotripsy Social History Smoking/Tobacco Use Status: Current every day Smoking risk assessment performed?: Yes Alcohol Intake: never Drug use: Never Substance use type: does not use Do you feel safe at home: Yes Do you feel safe in your relationship?: Yes Exam Narrative Exam Narrative: 1.Const: Well-nourished, Well-developed, appearing stated age 2.Eyes: PERRL, no conjunctival injection, and symmetrical lids. 3.ENT: Atraumatic external nose and ears. Moist MM. Neck: Symmetric, trachea midline, No thyromegaly. 4.CVS: Peripheral pulses 2+ and equal in all extremities. Brisk capillary refill in all extremities. 5.RESP: Unlabored respiratory effort. 6.GI: Soft, Nontender/Nondistended, No hepatosplenomegaly. No guarding or rebound. 7.MSK: Normocephalic, Extremities w/o deformity or ttp No cyanosis or clubbing, Normal movement of all extremities. Patient is able to flex and extend all fingers well without evidence of tendinous compromise 8.Skin: Warm, Dry. The ring finger on the right hand demonstrate the distal tip being shaved off, no evidence of bony exposure, no evidence of tendon exposure. She is still able to flex and extend it well, it is oozing blood, but there is no evidence of arterial involvement. 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 Sensation grossly intact, no focal neurologic deficits. 10.Psych: (AAO) x3. Appropriate mood and affect Course Vital Signs Vital signs: Vital Signs Temperature 36.6 C 05/22/20 19:52 Pulse 89 05/22/20 19:52 Respiratory Rate 16 05/22/20 19:52 Blood Pressure 145/92 H 05/22/20 19:52 Pulse Oximetry 96 05/22/20 19:52 Temperature 36.6 C 05/22/20 19:52 Temperature Source Skin 05/22/20 19:52 Pulse 89 05/22/20 19:52 Respiratory Rate 16 05/22/20 19:52 Respiratory Effort Non-Labored 05/22/20 19:59 Blood Pressure 145/92 H 05/22/20 19:52 Pulse Oximetry 96 05/22/20 19:52 Pain Level 6 05/22/20 19:52
[2020-05-22] MEDS: Silver Nitrate Stick 1 EACH (20:17)
== END 2020-05-22 20:35 | disposition home or self-care (01) ==
LOC: ER 20:04
PROVIDERS: Emergency Provider Student in an Organized Health Care Education/Training Program; PCP Nurse Practitioner Family
DX: S61.214A Laceration without foreign body of right ring finger without damage to nail, initial encounter (principal); W26.8XXA Contact with other sharp object(s), not elsewhere classified, initial encounter
CPT/HCPCS: 12001

== ENCOUNTER 2020-11-07 14:16 | Emergency (ER) | payer MEDICAID, SELFPAY ==
[2020-11-07 14:21] VITALS: BP 131/97; PULSE 95; RESP 18; TEMP 37.7; O2SAT 96
--- NOTE | 2020-11-07 14:49 | DI.RAD_ITS ---
EXAM: XR ANKLE LT COMPLETE CLINICAL HISTORY: twist, fall/pain. TECHNIQUE: 2D digital imaging was performed. COMPARISON: No exams were available for comparison FINDINGS: There is soft tissue swelling laterally. There is an avulsion fracture off the tip of the lateral ma lleolus. No other fractures seen. No widening of the mortise. No degenerative changes. No osseous tarsal coalition evident. IMPRESSION: DATA REPOSITORY: RADIATION DOSE DELIVERED:
--- NOTE | 2020-11-07 15:02 | DI.VRAD_ITS ---
PROCEDURE INFORMATION: Exam: XR Left Ankle Exam date and time: 11/07/2020 2:48 PM Age: 40 years old Clinical indication: Other: Twist, fall/pain TECHNIQUE: Imaging protocol: XR Left ankle. Views: 3 or more views. COMPARISON: No relevant prior studies available. FINDINGS: Bones/joints: Tiny fragments of heterotopic ossification inferior to the distal fibula, likely tiny displaced fracture fragments. Small Achilles calcaneal spur. Soft tissues: Soft tissue swelling about the left ankle, especially laterally. IMPRESSION: Cortical fracture distal tip of the left fibula with associated soft tissue swelling over the lateral malleolus. Dictated and Authenticated by: Maris Jennings MD. Ordering:ELI Argueta MD
--- NOTE | 2020-11-07 15:17 | ED.GENADUL_ITS ---
Discharge Plan Disposition Patient Disposition: HOME Condition: Stable Discharge Details Clinical Impression: Ankle fracture Primary Care Provider: Marian To ED Provider: Kendall Smith Home Meds and New Rx's Prescriptions: New hydrocodone-acetaminophen 5-325 mg tablet 1 tab PO TID PRNQty: 8 RF: 0 Continued metformin [Glucophage] 1,000 MG tablet 850 mg PO BID RF: 0 acetaminophen [Mapap Extra Strength] 500 MG tablet 1,000 mg PO Q6H 5 Days Qty: 60 RF: 0 Hydroxychloroquine Sulfate [Plaquenil] 200 MG tablet 200 mg PO BID Qty: 60 RF: 0 albuterol sulfate [Proventil HFA] 200 PUFF/INH HFA aerosol inhaler 2 puff Inhalation Q4H PRN PRNQty: 1 RF: 1 cyclobenzaprine 10 mg Tablet 10 mg PO HS PRNRF: 0 folic acid 1 mg Tablet 3 mg PO DAILY RF: 0 methotrexate (PF) 20 mg/0.4 mL Auto-Injector 20 mg SUBCUT QWEEK RF: 0 duloxetine [Cymbalta] 30 mg Capsule,Delayed Release(Dr/Ec) 60 mg PO DAILY RF: 0 Discharge Instructions Instructions: Ankle Fracture (ED) Additional Instructions: Wear walking boot and use crutches until reevaluation with orthopedics. I have placed you on the orthopedic list, contact their office tomorrow to set up outpatient reevaluation. [id number] Motrin as directed for discomfort. Rest, elevate, cool compresses every 2 hours for 20 minutes. Please watch for new or worsening symptoms and return to the ER for any concerns. You may want to take [id number] stool softener while taking Vicodin at this medication may cause drowsiness and/or constipation. Referrals: Wilbert Richter MD [ [facility]FF [facility]YSICIAN] - Discharge Data Discharge Date/Time-TO BE ENTERED AT DEPARTURE: 11/07/20 16:05 Medical Decision Making 40-year-old female presents for a left ankle injury that occurred about 1 hour prior to arrival. Stepped out of a tall truck on uneven ground twisting her ankle and falling to the ground. No additional injury. Clinically she has diffuse mild tenderness and swelling worse over the lateral aspect. Skin is intact, no deformity, neuro, vascular, tendon intact. Likely diagnosis a sprain versus a fracture. Will obtain x-ray and reassess X-ray read is a cortical fracture distal tip of the left fibula with associated soft tissue swelling over the lateral malleolus. Discussed x-ray findings and disposition with patient. Will place into a tall walking boot, crutches, and a limited prescription for analgesia. We will place her on the orthopedic list patient is comfortable with this plan and has no additional questions or concerns. She will begin using the crutches and advance activity as tolerated wearing the walking boot until reevaluation with orthopedics. She was also encouraged to take [id number] Motrin as directed for discomfort. Encouraged to return to the ER for new or worsening symptoms. Standard discharge and return precautions given. Patient had no additional questions or concerns. Medical Records Medical records reviewed: Yes I reviewed the patient's medical records. Imaging Data Radiologic Study: Attestation: I personally reviewed and interpreted this imaging study as follows: Imaging: X-Ray Radiologist's impression: Cortical fracture distal tip of the left fibula with associated soft tissue swelling over the lateral malleolus HPI General Mode of arrival: wheelchair . Date/Time Provider Initiated Documentation: 11/07/20 14:30 . Limitations to Documentation: no limitations . Information obtained by: patient . HPI Narrative: This is a 40-year-old female who presents to the ER today for a left ankle injury that occurred approximately 1 hour ago. She states that she was stepping off a tall truck onto an even ground, twisted, falling to the ground. She denies striking her head or any other injury. She states the pain is moderate at rest worse with movement or bearing weight. She denies any numbness, tingling, weakness. Has not taken any medication for her symptoms. She denies history of injuring this ankle. Medical history includes depression, fibromyalgia, lupus, migraines, PCOS, renal stones. Related Data Home Medications Medication Instructions Recorded Confirmed metformin [Glucophage] 850 mg PO BID 06/05/17 11/07/20 Hydroxychloroquine Sulfate 200 mg PO BID #60 tab 11/15/17 11/07/20 [Plaquenil] albuterol sulfate [Proventil HFA] 2 puff INHALATION Q4H PRN PRN #1 11/15/17 11/07/20 inh acetaminophen [Mapap Extra 1,000 mg PO Q6H 5 Days #60 tab 02/20/18 11/07/20 Strength] cyclobenzaprine 10 mg PO HS PRN 08/26/18 11/07/20 folic acid 3 mg PO DAILY 03/18/19 11/07/20 duloxetine [Cymbalta] 60 mg PO DAILY 08/31/19 11/07/20 methotrexate (PF) 20 mg SUBCUT QWEEK 08/31/19 11/07/20 hydrocodone-acetaminophen 1 tab PO TID PRN #8 tab 11/07/20 Previous Rx's Medication Instructions Recorded Hydroxychloroquine Sulfate 200 mg PO BID #60 tab 11/15/17 [Plaquenil] albuterol sulfate [Proventil HFA] 2 puff INHALATION Q4H PRN PRN #1 11/15/17 inh acetaminophen [Mapap Extra 1,000 mg PO Q6H 5 Days #60 tab 02/20/18 Strength] hydrocodone-acetaminophen 1 tab PO TID PRN #8 tab 11/07/20 Allergies Allergy/AdvReac Type Severity Reaction Status Date / Time clindamycin Allergy Severe Anaphylaxsi Verified 11/07/20 14:25 s Penicillins Allergy Severe Anaphylaxsi Verified 11/07/20 14:25 s ciprofloxacin [From Cipro] Allergy Intermediate rash Verified 11/07/20 14:25 oxycodone [From Percocet] Allergy N&V Verified 11/07/20 14:25 prednisone AdvReac Mild Agitation Verified 11/07/20 14:25 General Stated Complaint: Orthopedic GILSON: 4 Review of Systems Constitutional Constitutional: Denies weakness Musculoskeletal Musculoskeletal: Reports arthralgias, Reports joint swelling, Denies numbness, Reports stiffness and Denies tingling Integumentary/Breasts Skin/Breast: Denies erythema Neurologic Neurologic: Denies numbness, Denies tingling and Denies weakness PFSH Medical History Depression Fibromyalgia Kidney stones Lupus Migraine PCOS (polycystic ovarian syndrome) Surgical History H/O section History of bilateral tubal ligation History of dilation and curettage History of renal stent History of tonsillectomy Hx of lithotripsy Social History Smoking/Tobacco Use Status: Former Tobacco Use Smoking risk assessment performed?: Yes Alcohol Intake: never Drug use: Never Substance use type: does not use Do you feel safe at home: Yes Do you feel safe in your relationship?: Yes Exam Const General: cooperative, healthy appearing, comfortable and no acute distress Orientation: alert and awake [facility] Head: normal to inspection, normocephalic and atraumatic Eyes General: appearance normal, both eyes and all related structures Conjunctivae: conjunctivae normal Neck Neck: normal visual inspection, trachea midline and supple Resp Effort & Inspection: normal respiratory effort and able to speak in complete sentences Cardio Rate: regular rate Rhythm: regular rhythm Skin General skin exam: no rashes or lesions noted Neuro General: patient alert, patient awake, moves all extremities and no focal motor deficits Cognition: normal cognition Speech: speech normal Motor: muscle tone normal throughout Sensory Exam: no sensory deficits noted Extrem General: full ROM and capillary refill normal Left lower extremity: normal capillary refill and ankle Details: abnormal to inspection, tenderness and swelling Other: Left lower extremity, hip, knee, calf all unremarkable. There is diffuse mild swelling across the entire ankle worse on the lateral aspect. There is diffuse discomfort across the lateral malleolus. Skin is intact. There is no deformity. Some of the swelling does extend to the dorsum of the foot. There is no tenderness across the foot or at the base of the fifth metatarsal. Patient able to wiggle all toes. Normal dorsalis pedal pulse and capillary refill. Neuro, vascular, tendon intact. Psych Appearance: grossly normal Mental Status: mental status grossly normal Course Vital Signs Vital signs: Vital Signs Temperature 37.7 C H 11/07/20 14:21 Pulse 95 H 11/07/20 14:21 Respiratory Rate 18 11/07/20 14:21 Blood Pressure 131/97 H 11/07/20 14:21 Pulse Oximetry 96 11/07/20 14:21 Temperature 37.7 C H 11/07/20 14:21 Temperature Source Skin 11/07/20 14:21 Pulse 95 H 11/07/20 14:21 Respiratory Rate 18 11/07/20 14:21 Respiratory Effort Non-Labored 11/07/20 14:23 Blood Pressure 131/97 H 11/07/20 14:21 Blood Pressure Position Sitting 11/07/20 14:21 Pulse Oximetry 96 11/07/20 14:21 Oxygen Delivery Method Room Air 11/07/20 14:21 Oxygen Flow Rate 0 11/07/20 14:21 Pain Level 8 11/07/20 14:21
== END 2020-11-07 16:05 | disposition home or self-care (01) ==
PROVIDERS: Emergency Provider Physician Assistant; PCP Nurse Practitioner Family
DX: S82.62XA Displaced fracture of lateral malleolus of left fibula, initial encounter for closed fracture (principal); X50.9XXA Other and unspecified overexertion or strenuous movements or postures, initial encounter
CPT/HCPCS: 27786; 73610

== ENCOUNTER 2020-11-20 13:24 | Outpatient (REF) | payer MEDICAID, SELFPAY ==
[2020-11-22 16:08] LABS: COVID-19 RT-PCR UVMMC Result Negative (Negative)
== END 2020-11-20 13:25 | disposition home or self-care (01) ==
LOC: NCHCN 13:24
PROVIDERS: PCP Nurse Practitioner Family; Visit Provider Nurse Practitioner Family
DX: Z20.822 Contact with and (suspected) exposure to COVID-19 (principal)
CPT/HCPCS: U0003

== ENCOUNTER 2021-01-07 02:39 | Outpatient (CLI) | payer MEDICAID, SELFPAY ==
[2021-01-07 13:33] LABS: Abs Immature Grans 0.04 10^3/uL (0.0-0.06); Absolute Basophil Count 0.03 10^3/uL (0.0-0.2); Absolute Eosinophil Count 0.12 10^3/uL (0.0-0.7); Absolute Lymphocyte Count 1.77 10^3/uL (1.2-3.4); Absolute Neutrophil Count 4.16 10^3/uL (1.2-6.7); Basophils % 0.5; Eosinophils % 1.8; HCT 40.5 % (36.0-46.0); HGB 13.4 g/dL (11.2-15.7); Immature Grans % 0.6; Lymphocytes % 27.1; MCH 29.6 pg (27.0-33.0); MCHC 33.1 % (32.0-36.0); MCV 89.6 fL (80-95); MPV 9.1 fL (8.0-11.0); Monocytes % 6.1; Neutrophils % 63.9; Nucleated RBC 0 %; Platelet Count 245 10^3/uL (130-400); RBC 4.52 10^6/uL (3.93-5.22); RDW 12.6 % (11.7-14.6); RDW-SD 41.4 fL; WBC 6.52 10^3/uL (4.4-10.8)
[2021-01-07 14:39] LABS: ALT 31 U/L (14-59); AST 16 U/L (15-37); Albumin 3.5 g/dL (3.4-5.0); Alkaline Phosphatase 79 U/L (46-116); Anion Gap 6.6 mmol/L (3-11); BUN 14 mg/dL (7-18); Bilirubin, Total 0.4 mg/dL (0.2-1.0); CO2 29.4 mmol/L (21.0-32.0); Calcium 8.8 mg/dL (8.5-10.1); Chloride 105 mmol/L (98-107); Glucose 115 mg/dL (74-106); Potassium 4.2 mmol/L (3.5-5.1); Sodium 141 mmol/L (136-145); Total Protein 6.7 g/dL (6.4-8.2)
== END 2021-01-07 02:40 | disposition home or self-care (01) ==
LOC: LBO 02:39
PROVIDERS: PCP Nurse Practitioner Family; Visit Provider Internal Medicine Rheumatology
DX: L93.0 Discoid lupus erythematosus (principal)
CPT/HCPCS: 36415; 80053; 85025

== ENCOUNTER 2021-04-23 15:28 | Emergency (ER) | payer MEDICAID, SELFPAY ==
[2021-04-23 15:38] VITALS: BP 120/77; PULSE 99; RESP 16; TEMP 36.6; O2SAT 98
--- NOTE | 2021-04-23 16:52 | ED.GENADUL_ITS ---
Discharge Plan Disposition Patient Disposition: HOME Condition: Stable Discharge Details Clinical Impression: Leg pain, posterior Primary Care Provider: Marian To ED Provider: Kendall Smith Home Meds and New Rx's Prescriptions: Continued metformin [Glucophage] 1,000 MG tablet 850 mg PO BID RF: 0 acetaminophen [Mapap Extra Strength] 500 MG tablet 1,000 mg PO Q6H 5 Days Qty: 60 RF: 0 Hydroxychloroquine Sulfate [Plaquenil] 200 MG tablet 200 mg PO BID Qty: 60 RF: 0 albuterol sulfate [Proventil HFA] 200 PUFF/INH HFA aerosol inhaler 2 puff Inhalation Q4H PRN PRNQty: 1 RF: 1 cyclobenzaprine 10 mg Tablet 10 mg PO HS PRNRF: 0 folic acid 1 mg Tablet 3 mg PO DAILY RF: 0 methotrexate (PF) 20 mg/0.4 mL Auto-Injector 20 mg SUBCUT QWEEK RF: 0 duloxetine [Cymbalta] 30 mg Capsule,Delayed Release(Dr/Ec) 60 mg PO DAILY RF: 0 Discharge Instructions Instructions: Leg Pain (ED) Additional Instructions: I am setting you up for an ultrasound first thing Sunday, diagnostic imaging should contact you by recommend reaching out to them first thing set up your appointment. In the meantime we will treat you for presumptive DVT. First dose of Lovenox given now and I am giving you 2 doses for tomorrow. In the meantime rest, elevate, warm compresses every 2 hours for 20 minutes. Please watch for new or worsening symptoms and return to the ER for any concerns. After the ultrasound on Sunday you will return to the ER for result and treatment. Discharge Data Discharge Date/Time-TO BE ENTERED AT DEPARTURE: 04/23/21 18:30 Medical Decision Making 40-year-old female with atraumatic left posterior knee pain over the past 5 days, brother with history of coagulopathy, patient without history of DVT or PE. Unfortunately it is the weekend, I have contacted the diagnostic imaging department and I told I am unable to obtain ultrasound today or tomorrow. Discussed options with patient. Given her family history of coagulopathy, would like to be treated for presumptive PE. Will give first dose of Lovenox now, give a prescription for the following 2 doses and then have the patient set up for outpatient ultrasound Sunday to rule out DVT versus Hatfield's cyst versus musculoskeletal etiology. Patient will return to the ER for new or worsening symptoms in the meantime otherwise will return after the ultrasound for the results. She has no additional questions or concerns and is comfortable with this plan. Clinically she appears well, nontoxic, denies chest pain or shortness of breath. Pulse in the 90s, afebrile, O2 sat 98% on room air. Clinically no indication of septic joint. Knee is stable, atraumatic, no indication for x-ray. Medical Records Medical records reviewed: Yes I reviewed the patient's medical records. HPI General Mode of arrival: ambulatory . Date/Time Provider Initiated Documentation: 04/23/21 15:56 . Limitations to Documentation: no limitations . Information obtained by: patient . HPI Narrative: This is a 40-year-old female, past medical history of fibromyalgia, depression, lupus, migraines, PCOS, presenting for atraumatic posterior left leg pain began about 5 days ago. Patient states that she is always sore and achy, so initially did not think much of her discomfort behind her left knee. She is able to bear weight. She denies fever or rash. Denies numbness, tingling, weakness, swelling her lower extremities, chest pain, shortness of breath, history of DVT or PE. Patient has not taken any medication for her symptoms. Patient states that her brother has a history of a coagulopathy, DVT, PE, she is unsure exactly what he has. She discussed her symptoms with her mother and it was suggested she come to the ER for further evaluation of DVT. Related Data Home Medications Medication Instructions Recorded Confirmed metformin [Glucophage] 850 mg PO BID 06/05/17 04/23/21 Hydroxychloroquine Sulfate 200 mg PO BID #60 tab 11/15/17 04/23/21 [Plaquenil] albuterol sulfate [Proventil HFA] 2 puff INHALATION Q4H PRN PRN #1 11/15/17 04/23/21 inh acetaminophen [Mapap Extra 1,000 mg PO Q6H 5 Days #60 tab 02/20/18 04/23/21 Strength] cyclobenzaprine 10 mg PO HS PRN 08/26/18 04/23/21 folic acid 3 mg PO DAILY 03/18/19 04/23/21 duloxetine [Cymbalta] 60 mg PO DAILY 08/31/19 04/23/21 methotrexate (PF) 20 mg SUBCUT QWEEK 08/31/19 04/23/21 Previous Rx's Medication Instructions Recorded Hydroxychloroquine Sulfate 200 mg PO BID #60 tab 11/15/17 [Plaquenil] albuterol sulfate [Proventil HFA] 2 puff INHALATION Q4H PRN PRN #1 11/15/17 inh acetaminophen [Mapap Extra 1,000 mg PO Q6H 5 Days #60 tab 02/20/18 Strength] Allergies Allergy/AdvReac Type Severity Reaction Status Date / Time clindamycin Allergy Severe Anaphylaxsi Verified 04/23/21 15:43 s Penicillins Allergy Severe Anaphylaxsi Verified 04/23/21 15:43 s ciprofloxacin [From Cipro] Allergy Intermediate rash Verified 04/23/21 15:43 prednisone AdvReac Mild Agitation Verified 04/23/21 15:43 oxycodone [From Percocet] AdvReac N&V Verified 04/23/21 15:43 General Stated Complaint: Orthopedic GILSON: 4 Review of Systems Constitutional Constitutional: Denies fever(s) and Denies weakness Cardiovascular Cardiovascular: Denies chest pain and Denies dyspnea Respiratory Respiratory: Denies cough and Denies dyspnea Musculoskeletal Musculoskeletal: Denies arthralgias, Denies numbness, Denies stiffness and Denies tingling Integumentary/Breasts Skin/Breast: Denies erythema Neurologic Neurologic: Denies numbness, Denies tingling and Denies weakness PFSH Medical History Depression Fibromyalgia Kidney stones Lupus Migraine PCOS (polycystic ovarian syndrome) Surgical History H/O section History of bilateral tubal ligation History of dilation and curettage History of renal stent History of tonsillectomy Hx of lithotripsy Social History Smoking/Tobacco Use Status: Former Tobacco Use Smoking risk assessment performed?: Yes Alcohol Intake: never Drug use: Never Substance use type: does not use Current gender identity: female Do you feel safe at home: Yes Do you feel safe in your relationship?: Yes Exam Const General: cooperative, healthy appearing, comfortable and no acute distress Orientation: alert and awake [facility] Head: normal to inspection, normocephalic and atraumatic Eyes General: appearance normal, both eyes and all related structures Conjunctivae: conjunctivae normal Neck Neck: normal visual inspection, trachea midline and supple Resp Effort & Inspection: normal respiratory effort and able to speak in complete sentences Auscultation: clear to auscultation bilaterally Cardio Rate: regular rate Rhythm: regular rhythm Skin General skin exam: no rashes or lesions noted Neuro General: patient alert, patient awake, moves all extremities and no focal motor deficits Cognition: normal cognition Speech: speech normal Gait: normal gait Motor: muscle tone normal throughout Sensory Exam: no sensory deficits noted Extrem General: normal to inspection, full ROM, capillary refill normal, no pedal edema and no calf tenderness Left lower extremity: normal to inspection, full ROM, normal capillary refill, hip/thigh Details: normal to inspection; no tenderness and no swelling, knee Details: normal to inspection, normal ROM and knee ligament exam normal; no swelling, lower leg Details: normal to inspection and no edema; no tenderness, no localized swelling and no palpable cords, ankle Details: normal to inspection and no edema; no tenderness and no swelling and foot Details: normal capillary refill, normal to inspection and toes with normal ROM; no tenderness Upper/lower leg/hip images: 1. Diffuse mild discomfort. No palpable cords, erythema, swelling. Skin is intact. Centrally there is a dime sized region of ecchymosis. Knee with full range of motion. Normal capillary refill and dorsalis pedal pulse. Positive Homans' sign Psych Appearance: grossly normal Mental Status: mental status grossly normal Course Vital Signs Vital signs: Vital Signs Temperature 36.6 C 04/23/21 15:38 Pulse 99 H 04/23/21 15:38 Respiratory Rate 16 04/23/21 15:38 Blood Pressure 120/77 04/23/21 15:38 Pulse Oximetry 98 04/23/21 15:38 Temperature 36.6 C 04/23/21 15:38 Temperature Source Tympanic 04/23/21 15:38 Pulse 99 H 04/23/21 15:38 Respiratory Rate 16 04/23/21 15:38 Respiratory Effort Non-Labored 04/23/21 15:43 Blood Pressure 120/77 04/23/21 15:38 Blood Pressure Position Sitting 04/23/21 15:38 Pulse Oximetry 98 04/23/21 15:38 Pain Level 6 04/23/21 15:38
[2021-04-23 18:09] LABS: Abs Immature Grans 0.05 10^3/uL (0.0-0.06); Absolute Basophil Count 0.04 10^3/uL (0.0-0.2); Absolute Eosinophil Count 0.13 10^3/uL (0.0-0.7); Absolute Lymphocyte Count 2.18 10^3/uL (1.2-3.4); Absolute Monocyte Count 0.81 10^3/uL (0.1-0.8); Absolute Neutrophil Count 5.75 10^3/uL (1.2-6.7); Basophils % 0.4; Eosinophils % 1.5; HCT 43.5 % (36.0-46.0); Immature Grans % 0.6; Lymphocytes % 24.3; MCH 29.1 pg (27.0-33.0); MCHC 32.2 % (32.0-36.0); MCV 90.4 fL (80-95); MPV 9.2 fL (8.0-11.0); Neutrophils % 64.2; Nucleated RBC 0 %; Platelet Count 273 10^3/uL (130-400); RBC 4.81 10^6/uL (3.93-5.22); RDW 13.1 % (11.7-14.6); RDW-SD 42.8 fL; WBC 8.96 10^3/uL (4.4-10.8)
[2021-04-23 18:24] LABS: ALT 42 U/L (14-59); AST 17 U/L (15-37); Albumin 3.7 g/dL (3.4-5.0); Alkaline Phosphatase 91 U/L (46-116); BUN 13 mg/dL (7-18); Bilirubin, Total 0.2 mg/dL (0.2-1.0); CREATININE 0.9 mg/dL (0.55-1.02); Calcium 8.7 mg/dL (8.5-10.1); Chloride 105 mmol/L (98-107); Glucose 108 mg/dL (74-106); Potassium 4.5 mmol/L (3.5-5.1); Sodium 142 mmol/L (136-145); Total Protein 7.6 g/dL (6.4-8.2)
[2021-04-23 18:25] LABS: PTT Activated 21.7 sec (21.0-27.5); Prothrombin Time 9.8 sec (9.3-11.0)
[2021-04-23] MEDS: Enoxaparin 120 MG/0.8 ML SYR SC (18:25)
[2021-04-23 18:28] VITALS: BP 124/83; PULSE 98; RESP 20; TEMP 36.4; O2SAT 99
== END 2021-04-23 18:30 | disposition home or self-care (01) ==
PROVIDERS: Emergency Provider Physician Assistant; PCP Nurse Practitioner Family
DX: M25.562 Pain in left knee (principal); D68.9 Coagulation defect, unspecified
CPT/HCPCS: 80053; 99284; 85025; 85610; 85730; 99283; J1650

== ENCOUNTER 2021-04-26 01:20 | Outpatient (CLI) | payer MEDICAID, SELFPAY ==
--- NOTE | 2021-04-26 | DI.US_ITS ---
Exam(s) US LOWER EXTREMITY VENOUS LT EXAM: US LOWER EXTREMITY VENOUS LT CLINICAL HISTORY: POSTERIOR PAIN, NO TRAUMA TECHNIQUE: Grayscale, color, and doppler imaging of the deep venous system of the left lower extremi ty was performed. COMPARISON: US US renal from 10/11/2018 FINDINGS: There is no evidence of intraluminal thrombus and there is normal compression and augmentation demons trated within the common femoral vein, femoral vein, and popliteal vein. In the ipsilateral calf the interrogated veins also exhibit normal compression/ augmentation properti es. The ipsilateral saphenofemoral junction is patent. IMPRESSION: 1. No evidence of DVT in the left lower extremity. 2. No abnormal fluid collections evident. DATA REPOSITORY:
== END 2021-04-26 01:40 ==
PROVIDERS: PCP Nurse Practitioner Family; Visit Provider Physician Assistant
DX: M79.605 Pain in left leg (principal)
CPT/HCPCS: 93971

== ENCOUNTER 2021-04-26 11:32 | Emergency (ER) | payer MEDICAID, SELFPAY ==
[2021-04-26 11:37] VITALS: BP 133/95; PULSE 79; RESP 16; TEMP 36.6; O2SAT 98
--- NOTE | 2021-04-26 12:11 | ED.GENADUL_ITS ---
Discharge Plan Disposition Patient Disposition: HOME Condition: Stable Discharge Details Clinical Impression: Knee pain, left Primary Care Provider: Marian To ED Provider: Cecilia Quiroz Home Meds and New Rx's Prescriptions: Continued metformin [Glucophage] 1,000 MG tablet 850 mg PO BID RF: 0 acetaminophen [Mapap Extra Strength] 500 MG tablet 1,000 mg PO Q6H 5 Days Qty: 60 RF: 0 Hydroxychloroquine Sulfate [Plaquenil] 200 MG tablet 200 mg PO BID Qty: 60 RF: 0 albuterol sulfate [Proventil HFA] 200 PUFF/INH HFA aerosol inhaler 2 puff Inhalation Q4H PRN PRNQty: 1 RF: 1 cyclobenzaprine 10 mg Tablet 10 mg PO HS PRNRF: 0 folic acid 1 mg Tablet 3 mg PO DAILY RF: 0 duloxetine [Cymbalta] 30 mg Capsule,Delayed Release(Dr/Ec) 60 mg PO DAILY RF: 0 No Action methotrexate (PF) 20 mg/0.4 mL Auto-Injector 20 mg SUBCUT QWEEK RF: 0 Discharge Instructions Instructions: Knee Pain (ED) Additional Instructions: Follow up with primary care provider in 3-5 days. Return to ED sooner if any worsening or concerns. Increase oral fluids. Ultrasound today was negative for DVT or Hatfield's cyst behind the knee. Please take Tylenol or Ibuprofen with food every 4-6 hours as needed for pain and swelling. Rest, ice, compression, elevation. Referrals: Marian To [Primary Care Provider] - 1 week Discharge Data Discharge Date/Time-TO BE ENTERED AT DEPARTURE: 04/26/21 12:19 Medical Decision Making 40-year old female presents to the ER for ultrasound results. Negative ultrasound negative for DVT or popliteal cyst. I instructed patient to follow-up with her PCP and I instructed her on RICE procedures. Patient verbalized understanding. Ambulatory without difficulty This text was generated using [employer] system, please disregard any oddities of phrase or misspellings. HPI General Mode of arrival: ambulatory . Date/Time Provider Initiated Documentation: 04/26/21 11:45 . Limitations to Documentation: no limitations . Information obtained by: patient and RN notes reviewed . HPI Narrative: 40-year-old female presents to the ER for ultrasound results. Negative ultrasound negative for DVT or popliteal cyst. I instructed patient to follow-up with her PCP and I instructed her on RICE procedures. Patient verbalized understanding. Ambulatory without difficulty. Related Data Home Medications Medication Instructions Recorded Confirmed metformin [Glucophage] 850 mg PO BID 06/05/17 04/26/21 Hydroxychloroquine Sulfate 200 mg PO BID #60 tab 11/15/17 04/26/21 [Plaquenil] albuterol sulfate [Proventil HFA] 2 puff INHALATION Q4H PRN PRN #1 11/15/17 04/26/21 inh acetaminophen [Mapap Extra 1,000 mg PO Q6H 5 Days #60 tab 02/20/18 04/26/21 Strength] cyclobenzaprine 10 mg PO HS PRN 08/26/18 04/26/21 folic acid 3 mg PO DAILY 03/18/19 04/26/21 duloxetine [Cymbalta] 60 mg PO DAILY 08/31/19 04/26/21 methotrexate (PF) 20 mg SUBCUT QWEEK 08/31/19 04/26/21 Previous Rx's Medication Instructions Recorded Hydroxychloroquine Sulfate 200 mg PO BID #60 tab 11/15/17 [Plaquenil] albuterol sulfate [Proventil HFA] 2 puff INHALATION Q4H PRN PRN #1 11/15/17 inh acetaminophen [Mapap Extra 1,000 mg PO Q6H 5 Days #60 tab 02/20/18 Strength] Allergies Allergy/AdvReac Type Severity Reaction Status Date / Time clindamycin Allergy Severe Anaphylaxsi Verified 04/26/21 11:41 s Penicillins Allergy Severe Anaphylaxsi Verified 04/26/21 11:41 s ciprofloxacin [From Cipro] Allergy Intermediate rash Verified 04/26/21 11:41 prednisone AdvReac Mild Agitation Verified 04/26/21 11:41 oxycodone [From Percocet] AdvReac N&V Verified 04/26/21 11:41 General Stated Complaint: Recheck GILSON: 4 Review of Systems Musculoskeletal Musculoskeletal: Reports arthralgias [facility] Medical History (Updated 04/26/21 @ 12:14 by Cecilia Quiroz) Depression Fibromyalgia Kidney stones Lupus Migraine PCOS (polycystic ovarian syndrome) Surgical History H/O section History of bilateral tubal ligation History of dilation and curettage History of renal stent History of tonsillectomy Hx of lithotripsy Social History Smoking/Tobacco Use Status: Former Tobacco Use Smoking risk assessment performed?: Yes Alcohol Intake: never Drug use: Never Substance use type: does not use Current gender identity: female Do you feel safe at home: Yes Do you feel safe in your relationship?: Yes Exam Narrative Exam Narrative: Constitutional: Alert and oriented x3. Appears stated age. Overweight body habitus. Head: Normocephalic, no trauma. Eyes: EOM's intact. Eyelids symmetrical without lesions, discharge, or swelling. Course Vital Signs Vital signs: Vital Signs Temperature 36.6 C 04/26/21 11:37 Pulse 79 04/26/21 11:37 Respiratory Rate 16 04/26/21 11:37 Blood Pressure 133/95 H 04/26/21 11:37 Pulse Oximetry 98 04/26/21 11:37 Temperature 36.6 C 04/26/21 11:37 Temperature Source Skin 04/26/21 11:37 Pulse 79 04/26/21 11:37 Respiratory Rate 16 04/26/21 11:37 Respiratory Effort 04/26/21 11:37 Blood Pressure 133/95 H 04/26/21 11:37 Blood Pressure Position Sitting 04/26/21 11:37 Pulse Oximetry 98 04/26/21 11:37 Oxygen Delivery Method Room Air 04/26/21 11:37 Oxygen Flow Rate 0 04/26/21 11:37 Pain Level 2 04/26/21 11:37
== END 2021-04-26 12:19 | disposition home or self-care (01) ==
PROVIDERS: Emergency Provider Registered Nurse Emergency; PCP Nurse Practitioner Family
DX: M25.562 Pain in left knee (principal)

== ENCOUNTER 2021-05-07 16:58 | Emergency (ER) | payer MEDICAID, SELFPAY ==
[2021-05-07 17:12] VITALS: BP 137/80; PULSE 104; RESP 18; TEMP 36.6; O2SAT 97
--- NOTE | 2021-05-07 17:17 | W.ED.GENAD ---
Discharge Plan Disposition Patient Disposition: HOME Condition: Stable Discharge Details Clinical Impression: Knee pain Primary Care Provider: Marian To ED Provider: Kendall Smith Home Meds and New Rx's Prescriptions: Continued metformin [Glucophage] 1,000 MG tablet 850 mg PO BID RF: 0 acetaminophen [Mapap Extra Strength] 500 MG tablet 1,000 mg PO Q6H 5 Days Qty: 60 RF: 0 Hydroxychloroquine Sulfate [Plaquenil] 200 MG tablet 200 mg PO BID Qty: 60 RF: 0 albuterol sulfate [Proventil HFA] 200 PUFF/INH HFA aerosol inhaler 2 puff Inhalation Q4H PRN PRNQty: 1 RF: 1 cyclobenzaprine 10 mg Tablet 10 mg PO HS PRNRF: 0 folic acid 1 mg Tablet 3 mg PO DAILY RF: 0 methotrexate (PF) 20 mg/0.4 mL Auto-Injector 20 mg SUBCUT QWEEK RF: 0 duloxetine [Cymbalta] 30 mg Capsule,Delayed Release(Dr/Ec) 60 mg PO DAILY RF: 0 Discharge Instructions Instructions: Knee Pain (ED) Additional Instructions: X-ray appears unremarkable. Iloz-uxy-fohdiru Tylenol and/or Motrin as directed for discomfort. Wear knee immobilizer as needed, advance activity as tolerated. As we discussed you already have crutches at home and he could try an fmgt-zeg-eodmuqq neoprene sleeve. Rest, elevate, cool and/or warm compresses every 2 hours for 20 minutes. Please watch for new or worsening symptoms and return to the ER for any concerns. I have given you the name and number of our local orthopedic team, please contact their office on Sunday to discuss your ongoing symptoms and need for outpatient reevaluation. Referrals: Wilbert Richter MD [ [facility] STAFF PHYSICIAN] - Discharge Data Discharge Date/Time-TO BE ENTERED AT DEPARTURE: 05/07/21 18:54 Medical Decision Making 40-year-old female presents with left knee pain that began the first week of April, no other concerns or complaints, denies chest pain, shortness of breath, fever. Has already had a negative ultrasound to rule out DVT. She has taken occasional qfra-nja-cjbizkb medication for symptomatic control, has crutches at home but not using them. Scheduled to see primary care provider the second week of May. She did not have an x-ray during her first visit. Clinically she appears well, nontoxic, no signs of erythema, warmth, septic joint, palpable cord, negative Homans' sign, etc. Will obtain x-ray. X-ray with chronic changes, nothing acute. Discussed x-ray findings with patient. We then discussed disposition and referral to orthopedics. Patient is agreeable to trying a long-leg knee immobilizer but she will also use an ledk-llc-hoxkplb neoprene sleeve if she feels that the knee immobilizer is too restricting. She has crutches at home if she needs them. Recommend continuing udmj-imk-liwydzo anti-inflammatory medication regularly as opposed intermittently. We will give her the name number of our local orthopedic team so she may follow-up with orthopedics as well. She does understand that outpatient MRI may be indicated. Patient has no additional questions or concerns and is comfortable discharge. Standard discharge and return precautions provided This documentation was generated using [employer] system, please disregard any oddities of phrase or misspellings. Medical Records Medical records reviewed: Yes I reviewed the patient's medical records. Imaging Data Radiologic Study: Attestation: I personally reviewed and interpreted this imaging study as follows: Imaging: X-Ray Radiologist's impression: PROCEDURE INFORMATION: Exam: XR Left Knee Exam date and time: 05/07/2021 17:45 Age: 40 years old Clinical indication: Knee; Left; Patient HX: Posterior pain, no known trauma TECHNIQUE: Imaging protocol: XR Left knee. Views: 4 or more views. COMPARISON: US LOWER EXTREMITY VENOUS LT 04/26/2021 11:17 FINDINGS: Bones/joints: Mild tricompartmental hypertrophic changes in the knee without significant narrowing of the joint spaces. No acute fracture or subluxation. Soft tissues: Trace joint fluid is suspected. IMPRESSION: 1. No acute bony pathology. 2. Mild tricompartmental hypertrophic changes in the knee without significant narrowing of the joint spaces HPI General Mode of arrival: ambulatory. Date/Time Provider Initiated Documentation: 05/07/21 17:17. Limitations to Documentation: no limitations. Information obtained by: patient. HPI Narrative: This is a 40-year-old female, past medical history of depression, fibromyalgia, lupus, presenting to the ER for ongoing left posterior knee pain. She states is atraumatic and began just a couple days prior to her visit to the ER on 04/23 when she was concerned for DVT and had a negative ultrasound. She states that her pain is mild worse with walking, weightbearing, especially up stairs. She has been occasionally taking wyfz-rxx-cuuveby anti-inflammatory medication. She denies any chest pain, shortness of breath, cough, swelling in her calf, fever. She made an appointment with her primary care provider but cannot be seen until May 25, so is coming to the ER for reevaluation, she states that she did not have an x-ray during her last ER visit. She has been to bear weight without any assistance. Related Data Home Medications Medication Instructions Recorded Confirmed metformin [Glucophage] 850 mg PO BID 06/05/17 05/07/21 Hydroxychloroquine Sulfate 200 mg PO BID #60 tab 11/15/17 05/07/21 [Plaquenil] albuterol sulfate [Proventil HFA] 2 puff INHALATION Q4H PRN PRN #1 11/15/17 05/07/21 inh acetaminophen [Mapap Extra 1,000 mg PO Q6H 5 Days #60 tab 02/20/18 05/07/21 Strength] cyclobenzaprine 10 mg PO HS PRN 08/26/18 05/07/21 folic acid 3 mg PO DAILY 03/18/19 05/07/21 duloxetine [Cymbalta] 60 mg PO DAILY 08/31/19 05/07/21 methotrexate (PF) 20 mg SUBCUT QWEEK 08/31/19 05/07/21 Previous Rx's Medication Instructions Recorded Hydroxychloroquine Sulfate 200 mg PO BID #60 tab 11/15/17 [Plaquenil] albuterol sulfate [Proventil HFA] 2 puff INHALATION Q4H PRN PRN #1 11/15/17 inh acetaminophen [Mapap Extra 1,000 mg PO Q6H 5 Days #60 tab 02/20/18 Strength] Allergies Allergy/AdvReac Type Severity Reaction Status Date / Time clindamycin Allergy Severe Anaphylaxsi Verified 05/07/21 17:16 s Penicillins Allergy Severe Anaphylaxsi Verified 05/07/21 17:16 s ciprofloxacin [From Cipro] Allergy Intermediate rash Verified 05/07/21 17:16 prednisone AdvReac Mild Agitation Verified 05/07/21 17:16 oxycodone [From Percocet] AdvReac N&V Verified 05/07/21 17:16 General Stated Complaint: Orthopedic GILSON: 4 Review of Systems Constitutional Constitutional: Denies fever(s) and Denies weakness Cardiovascular Cardiovascular: Denies chest pain and Denies dyspnea Respiratory Respiratory: Denies dyspnea Musculoskeletal Musculoskeletal: Denies deformity, Reports arthralgias, Denies numbness, Reports stiffness and Denies tingling Integumentary/Breasts Skin/Breast: Denies erythema and Denies rash Neurologic Neurologic: Denies numbness, Denies tingling and Denies weakness PFSH Medical History Depression Fibromyalgia Kidney stones Lupus Migraine PCOS (polycystic ovarian syndrome) Surgical History H/O section History of bilateral tubal ligation History of dilation and curettage History of renal stent History of tonsillectomy Hx of lithotripsy Social History Smoking/Tobacco Use Status: Former Tobacco Use Smoking risk assessment performed?: Yes Alcohol Intake: never Drug use: Never Substance use type: does not use Current gender identity: female Do you feel safe at home: Yes Do you feel safe in your relationship?: Yes Exam Const General: cooperative, healthy appearing, comfortable and no acute distress Orientation: alert and awake [facility] Head: normal to inspection, normocephalic and atraumatic Eyes General: appearance normal, both eyes and all related structures Conjunctivae: conjunctivae normal Neck Neck: normal visual inspection, trachea midline and supple Resp Effort & Inspection: normal respiratory effort and able to speak in complete sentences Auscultation: clear to auscultation bilaterally Cardio Rate: regular rate Rhythm: regular rhythm Skin General skin exam: no rashes or lesions noted Neuro General: patient alert, patient awake, moves all extremities and no focal motor deficits Cognition: normal cognition Speech: speech normal Gait: antalgic Motor: muscle tone normal throughout Sensory Exam: no sensory deficits noted Extrem General: normal to inspection, full ROM, capillary refill normal, no pedal edema and other (Left leg, negative Homans' sign) Left lower extremity: normal to inspection, full ROM, normal capillary refill and knee Details: normal to inspection, tenderness (Diffuse, mild, posterior aspect), normal ROM and knee ligament exam normal; no swelling and no ecchymosis Other: No palpable cord. Psych Appearance: grossly normal Mental Status: mental status grossly normal Course Vital Signs Vital signs: Vital Signs Temperature 36.6 C 05/07/21 17:12 Pulse 104 H 05/07/21 17:12 Respiratory Rate 18 05/07/21 17:12 Blood Pressure 137/80 05/07/21 17:12 Pulse Oximetry 97 05/07/21 17:12 Temperature 36.6 C 05/07/21 17:12 Temperature Source Temporal Artery Scan 05/07/21 17:12 Pulse 104 H 05/07/21 17:12 Respiratory Rate 18 05/07/21 17:12 Blood Pressure 137/80 05/07/21 17:12 Blood Pressure Position Sitting 05/07/21 17:12 Pulse Oximetry 97 05/07/21 17:12 Oxygen Delivery Method Room Air 05/07/21 17:12 Oxygen Flow Rate 0 05/07/21 17:12
--- NOTE | 2021-05-07 18:00 | DI.RAD_ITS ---
Exam(s) XR KNEE LT 4V+ EXAM: XR KNEE LT 4V+ CLINICAL HISTORY: posterior pain. TECHNIQUE: 2D digital imaging was performed. COMPARISON: No exams were available for comparison FINDINGS: BONES: No acute fracture is present. No bony destructive lesion is seen. JOINTS: The knee is normally aligned. No joint effusion is seen. Mild periarticular spurring SOFT TISSUE: Normal. IMPRESSION: No acute abnormality.. DATA REPOSITORY: RADIATION DOSE DELIVERED:
--- NOTE | 2021-05-07 18:43 | DI.VRAD_ITS ---
PROCEDURE INFORMATION: Exam: XR Left Knee Exam date and time: 05/07/2021 17:45 Age: 40 years old Clinical indication: Knee; Left; Patient HX: Posterior pain, no known trauma TECHNIQUE: Imaging protocol: XR Left knee. Views: 4 or more views. COMPARISON: US LOWER EXTREMITY VENOUS LT 04/26/2021 11:17 FINDINGS: Bones/joints: Mild tricompartmental hypertrophic changes in the knee without significant narrowing of the joint spaces. No acute fracture or subluxation. Soft tissues: Trace joint fluid is suspected. IMPRESSION: 1. No acute bony pathology. 2. Mild tricompartmental hypertrophic changes in the knee without significant narrowing of the joint spaces. Dictated and Authenticated by: Mily Rothman MD. Ordering:ELI Argueta MD
== END 2021-05-07 18:54 | disposition home or self-care (01) ==
PROVIDERS: Emergency Provider Physician Assistant; PCP Nurse Practitioner Family
DX: M25.562 Pain in left knee (principal)
CPT/HCPCS: 29505; 99284; 73564; 99283

== ENCOUNTER 2021-06-01 01:02 | Outpatient (CLI) | payer MEDICAID, SELFPAY ==
--- NOTE | 2021-06-01 06:45 | DI.MRI_ITS ---
Exam(s) MR LOWER JOINT LT WO EXAM: MR LOWER JOINT LT WO CLINICAL HISTORY: left knee pain,internal derangement,chondromalacia patella lt knee, m22.42, TECHNIQUE: Multiplanar multisequence MRI was performed.. COMPARISON: No exams were available for comparison FINDINGS: MR examination of the knee was performed according to the usual protocol. There is significant motion artifact on multiple pulse sequences which limits interpretation. There is a moderate sized joint effusion. There is abnormal signal in prepatellar bursa region. The re is mildly abnormal signal in distal quadriceps musculature consistent with prior trauma or strain. There are areas of abnormal signal in the proximal tibia, predominantly deep to the intercondylar nico nence but also in the posterior aspect of the medial tibial plateau. There is abnormal signal in sub chondral portions of the patella associated with patellar cartilage thinning. Medial tibiofemoral joint: The articular cartilage of the femur and tibia appears well maintained. M edial meniscus shows abnormal internal signal consistent with degeneration, additionally there is que stion of discontinuity of the posterior attachment of the medial meniscus raising the possibility of tear at this site.. The medial collateral ligament appears intact. No posteromedial corner injury s een. Lateral tibiofemoral joint: The articular cartilage of the femur and tibia appears well maintained. The meniscus and attachments appear intact. The lateral collateral ligament complex and posterolater al corner structures appear intact. Patellofemoral joint and extensor mechanism: The articular cartilage of the patellofemoral joint is t hinned in anechoic irregular fashion, particularly along the median ridge and the lateral aspect of t he patella period there are cysts subchondral signal changes associated with the areas of thinning. Findings are consistent with grade 3 chondromalacia . The superior and inferior patellar fat pads ap pear normal with no signal abnormality. The quadriceps tendon and patellar tendon appear intact with no evidence of a tear or significant leslie ma. The medial and lateral retinacula appear intact. Cruciate ligaments: Cruciate ligaments and attachments appear normal with no evidence of a tear. Tibiofibular joint: No specific abnormality involving the tibiofibular joint. IMPRESSION: There are articular cartilage changes of the patella consistent with grade 3 chondromalacia. Suspect attachment tear of posterior horn of medial meniscus. DATA REPOSITORY:
== END 2021-06-01 01:22 ==
PROVIDERS: PCP Nurse Practitioner Family; Visit Provider Physician Assistant Surgical
DX: M22.42 Chondromalacia patellae, left knee (principal)
CPT/HCPCS: 73721

== ENCOUNTER 2021-07-25 04:09 | Outpatient (CLI) | payer MEDICAID, SELFPAY | END 2021-07-25 04:10 | disposition home or self-care (01) | LOC: LBO 04:10 | PROVIDERS: PCP Nurse Practitioner Family; Visit Provider Internal Medicine Rheumatology ==

== ENCOUNTER 2021-08-04 01:58 | Outpatient (CLI) | payer MEDICAID, SELFPAY ==
[2021-08-04 13:24] LABS: Abs Immature Grans 0.07 10^3/uL (0.0-0.06); Absolute Basophil Count 0.04 10^3/uL (0.0-0.2); Absolute Eosinophil Count 0.12 10^3/uL (0.0-0.7); Absolute Lymphocyte Count 2.26 10^3/uL (1.2-3.4); Absolute Monocyte Count 0.25 10^3/uL (0.1-0.8); Absolute Neutrophil Count 4.21 10^3/uL (1.2-6.7); Basophils % 0.6; Eosinophils % 1.7; HCT 43.2 % (36.0-46.0); HGB 13.7 g/dL (11.2-15.7); Lymphocytes % 32.5; MCH 28.8 pg (27.0-33.0); MCHC 31.7 % (32.0-36.0); MCV 90.8 fL (80-95); MPV 9.1 fL (8.0-11.0); Monocytes % 3.6; Neutrophils % 60.6; Nucleated RBC 0 %; Platelet Count 313 10^3/uL (130-400); RBC 4.76 10^6/uL (3.93-5.22); RDW 12.5 % (11.7-14.6); RDW-SD 41.3 fL; WBC 6.95 10^3/uL (4.4-10.8)
[2021-08-04 14:58] LABS: ALT 44 U/L (14-59); AST 19 U/L (15-37); Albumin 3.5 g/dL (3.4-5.0); Alkaline Phosphatase 105 U/L (46-116); Anion Gap 5.3 mmol/L (3-11); BUN 12 mg/dL (7-18); Bilirubin, Total 0.2 mg/dL (0.2-1.0); CO2 30.7 mmol/L (21.0-32.0); CREATININE 0.8 mg/dL (0.55-1.02); Calcium 8.9 mg/dL (8.5-10.1); Chloride 103 mmol/L (98-107); Glucose 144 mg/dL (74-106); Potassium 4.3 mmol/L (3.5-5.1); Sodium 139 mmol/L (136-145); Total Protein 6.8 g/dL (6.4-8.2)
== END 2021-08-04 01:59 | disposition home or self-care (01) ==
LOC: LBO 01:59
PROVIDERS: PCP Nurse Practitioner Family; Visit Provider Internal Medicine Rheumatology
DX: L93.0 Discoid lupus erythematosus (principal)
CPT/HCPCS: 36415; 80053; 85025

== ENCOUNTER 2022-03-04 17:38 | Emergency (ER) | payer MEDICAID, SELFPAY ==
[2022-03-04 17:46] VITALS: BP 127/46; PULSE 90; RESP 18; O2SAT 98
--- NOTE | 2022-03-04 18:00 | DI.RAD_ITS ---
Exam(s) XR HAND LT COMPLETE EXAM: XR HAND LT COMPLETE CLINICAL HISTORY: Wrist pain TECHNIQUE: COMPARISON: No exams were available for comparison FINDINGS: Three views were obtained. There is no evidence of acute fracture or dislocation. Alignment appears within normal limits. IMPRESSION: RADIATION DOSE DELIVERED: Total DLP
--- NOTE | 2022-03-04 18:50 | DI.VRAD_ITS ---
PROCEDURE INFORMATION: Exam: XR Left Hand Exam date and time: 03/04/2022 6:21 PM Age: 41 years old Clinical indication: Other: Pain at base of 1st metacarpal TECHNIQUE: Imaging protocol: Radiologic exam of the Left hand. Views: 3 or more views. COMPARISON: No relevant prior studies available. FINDINGS: Bones/joints: Normal. Soft tissues: Normal. IMPRESSION: No acute findings. Dictated and Authenticated by: Christiano Toro MD. Ordering:KEE Brooks MD
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
== END 2022-03-04 19:59 | disposition home or self-care (01) ==
PROVIDERS: Emergency Provider Registered Nurse Emergency; PCP Nurse Practitioner Family
DX: S63.602A Unspecified sprain of left thumb, initial encounter (principal); Z87.891 Personal history of nicotine dependence; W06.XXXA Fall from bed, initial encounter
CPT/HCPCS: 99283; 73130; 99282

== ENCOUNTER 2022-06-22 18:53 | Emergency (ER) | payer MEDICAID, SELFPAY ==
[2022-06-22 19:31] VITALS: BP 129/90; PULSE 95; RESP 20; TEMP 34.9; O2SAT 96
[2022-06-22 20:23] LABS: COVID-19 PCR Negative (Negative); Influenza A PCR Positive (Negative); Influenza B PCR Negative (Negative); RSV PCR Negative (Negative)
[2022-06-22 20:30] LABS: Source Nasopharynx
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
[2022-06-22] MEDS: Budesonide/Formoterol 160/4.5 6 GM 60 PUFF INH IH (21:02)
== END 2022-06-22 21:07 | disposition home or self-care (01) ==
PROVIDERS: Emergency Provider Student in an Organized Health Care Education/Training Program; PCP Nurse Practitioner Family
DX: J10.1 Influenza due to other identified influenza virus with other respiratory manifestations (principal); J18.9 Pneumonia, unspecified organism; Z20.822 Contact with and (suspected) exposure to COVID-19
CPT/HCPCS: 87637; 94640; 99284

== ENCOUNTER 2022-09-21 12:44 | Outpatient (REF) | payer MEDICAID, SELFPAY ==
[2022-09-21 16:27] LABS: HCT 43.4 % (36.0-46.0); HGB 14.3 g/dL (11.2-15.7); MCH 28.8 pg (27.0-33.0); MCHC 32.9 % (32.0-36.0); MCV 88 fL (80-95); Platelet Count 301 10^3/uL (130-400); RBC 4.96 10^6/uL (3.93-5.22); RDW-SD 41.3 fL
[2022-09-21 16:52] LABS: ALT 41 U/L (14-59); AST 19 U/L (15-37); Albumin 3.5 g/dL (3.4-5.0); Alkaline Phosphatase 92 U/L (46-116); BUN 15 mg/dL (7-18); Bilirubin, Total 0.2 mg/dL (0.2-1.0); CREATININE 0.7 mg/dL (0.55-1.02); Calcium 8.6 mg/dL (8.5-10.1); Calculated LDL 107 mg/dL (<100); Chloride 105 mmol/L (98-107); Cholesterol 167 mg/dL (<200); Estimated GFR 111.36 (mL/min/1.73m2); Folate 8.1 ng/mL (8.6-20.0); Glucose 105 mg/dL (74-106); HDL Cholesterol 46 mg/dL (40-60); Potassium 4.5 mmol/L (3.5-5.1); Sodium 141 mmol/L (136-145); TSH (W/Ref FT4) 0.93 uIU/mL (0.36-3.74); Total Protein 6.9 g/dL (6.4-8.2); Triglyceride 74 mg/dL (<150)
== END 2022-09-21 12:45 | disposition home or self-care (01) ==
LOC: NCHCN 12:44
PROVIDERS: PCP Nurse Practitioner Family; Visit Provider Nurse Practitioner Family
DX: F32.89 Other specified depressive episodes (principal); L93.0 Discoid lupus erythematosus; R79.89 Other specified abnormal findings of blood chemistry; Z00.00 Encounter for general adult medical examination without abnormal findings
CPT/HCPCS: 80053; 80061; 85027; 82746; 84443

== ENCOUNTER 2023-02-20 12:47 | Emergency (ER) | payer MEDICAID, SELFPAY ==
[2023-02-20 12:56] VITALS: BP 137/96; PULSE 94; RESP 18; TEMP 37.1; O2SAT 97
[2023-02-20 13:25] LABS: Abs Immature Grans 0.02 10^3/uL (0.0-0.06); Absolute Basophil Count 0.01 10^3/uL (0.0-0.2); Absolute Eosinophil Count 0.04 10^3/uL (0.0-0.7); Absolute Lymphocyte Count 1.46 10^3/uL (1.2-3.4); Absolute Monocyte Count 0.46 10^3/uL (0.1-0.8); Absolute Neutrophil Count 4.87 10^3/uL (1.2-6.7); Basophils % 0.1; Eosinophils % 0.6; HCT 45.7 % (36.0-46.0); HGB 15.5 g/dL (11.2-15.7); Immature Grans % 0.3; Lymphocytes % 21.3; MCH 29.1 pg (27.0-33.0); MCHC 33.9 % (32.0-36.0); MCV 86 fL (80-95); MPV 9.1 fL (8.0-11.0); Monocytes % 6.7; Platelet Count 272 10^3/uL (130-400); RBC 5.32 10^6/uL (3.93-5.22); RDW 12.9 % (11.7-14.6); RDW-SD 39.9 fL; WBC 6.86 10^3/uL (4.4-10.8)
[2023-02-20] MEDS: Normal Saline 1,000 ML 1000 ML IV (13:30)
--- NOTE | 2023-02-20 13:30 | DI.CT_ITS ---
Exam(s) CT ABDOMEN PELVIS W EXAM: CT ABDOMEN PELVIS W CLINICAL HISTORY: Upper abd Pain, R/O Cholecystitis TECHNIQUE: Imaging Protocol: Axial computed tomography images with coronal and sagittal reformatted images were created and reviewed CONTRAST MATERIAL: Intravenous: Omnipaque 350 Contrast volume:100 mL Oral: No COMPARISON: CT CT renal colic wo from 08/26/[address] ABDOMEN PELVIS WO from 08/31/2019 FINDINGS: ABDOMEN: Lung Bases: Normal where visualized. Liver: Fatty infiltration. No measurable mass. Portal, Superior Mesenteric, and Splenic Veins: Unremarkable. Gallbladder and Biliary Tract: No radiodense calculus or dilation. Pancreas: Normal density, no abnormal calcifications or inflammatory process. Spleen: Normal. Adrenals: No masses seen. Kidneys: Normal size, contour and axis. 3 mm nonobstructing stone in the lower pole of the right kidn ey. 2 mm nonobstructing stone in the upper pole of the right kidney. No masses seen. Abdominal Aorta: Abdominal portion non-dilated. Bowel: No obstruction or bowel wall thickening. Appendix is unremarkable. Peritoneal Cavity: No ascites, collection or mesenteric inflammatory response. No free air. Lymph Nodes: Within normal limits. Bones: Within normal limits for the patient's age. Soft Tissues: Persistent soft tissue thickening in the subcutaneous tissues in the right lower abdomi nal wall. There is now 1.6 cm fluid collection within the soft tissue in this area. Abscess versus seroma. PELVIS: Bladder: Symmetric distention, no gross wall thickening. Reproductive Organs: Unremarkable as visualized. Lymph Nodes: Within normal limits. Bones: Within normal limits for the patient's age. IMPRESSION: 1. No acute abdominal or pelvic process. 2. Persistent area of scarring in the right lower subcutaneous abdominal wall. There is now 1.6 cm f luid collection within this area of scarring. This may represent a seroma or an abscess. Please cor relate clinically. 3. Findings were discussed with Cecilia Quiroz at 3:07 p.m. on 02/20/2023. RADIATION DOSE DELIVERED: 1,445.44mGy.cm Total DLP DATA REPOSITORY: All CT scans at this facility are submitted to the National Radiology Data Registry (NRDR) Dose Index Registry (DIR) with the [employer] ([employer]). RADIATION OPTIMIZATION: All CT scans at this facility use at least one of these dose optimization te chniques: automated exposure control; mA and/or kV adjustment per patient size (includes targeted exa ms where dose is matched to clinical indication); or iterative reconstruction.
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
[2023-02-20 13:50] LABS: ALT 32 U/L (14-59); AST 15 U/L (15-37); Albumin 3.6 g/dL (3.4-5.0); Alkaline Phosphatase 92 U/L (46-116); Anion Gap 7.2 mmol/L (3-11); BUN 12 mg/dL (7-18); Bilirubin, Total 0.5 mg/dL (0.2-1.0); CO2 28.8 mmol/L (21.0-32.0); CREATININE 0.8 mg/dL (0.55-1.02); Calcium 8.4 mg/dL (8.5-10.1); Chloride 103 mmol/L (98-107); Estimated GFR 94.87 (mL/min/1.73m2); Glucose 112 mg/dL (74-106); Lipase 39 U/L (16-77); Magnesium 1.9 mg/dL (1.8-2.4); Potassium 3.8 mmol/L (3.5-5.1); Sodium 139 mmol/L (136-145); Total Protein 7.4 g/dL (6.4-8.2)
[2023-02-20] MEDS: Ondansetron 4 MG/2 ML VIAL IVP (14:01)
[2023-02-20 14:19] LABS: Bilirubin Negative (Negative); Blood Negative (Negative); Clarity Clear (Clear); Glucose Negative (Negative); Ketones Negative (Negative); Leukocyte Esterase Negative (Negative); Nitrite Negative (Negative); Specific Gravity >= 1.030 (1.005-1.025)
[2023-02-20 14:28] LABS: Bacteria Few HPF (Negative); C & S Indicated? No/Sq. Contamination; Casts Negative LPF (Negative); Crystals Negative HPF (Negative); Epithelial Cells Moderate HPF (Negative); Mucus Moderate (Negative); Other Cells Negative (Negative); RBC Negative HPF (0-2); WBC Negative HPF (0-5)
[2023-02-20] MEDS: Omnipaque 350 MG/ML 100 ML BTL IJ (14:35)
[2023-02-20] MEDS: Normal Saline - Diluent 50 ML VIAL IJ (14:35)
[2023-02-20] MEDS: LORazepam 2 MG/ML VIAL 0.5 MG IVP (15:27)
[2023-02-20 15:28] VITALS: BP 123/60; PULSE 73; RESP 18; O2SAT 95
[2023-02-20 15:48] VITALS: BP 118/65; PULSE 95; RESP 16; TEMP 36.4; O2SAT 95
== END 2023-02-20 15:49 | disposition home or self-care (01) ==
PROVIDERS: Emergency Provider Registered Nurse Emergency; PCP Nurse Practitioner Family
DX: R11.2 Nausea with vomiting, unspecified (principal); R19.7 Diarrhea, unspecified; M32.9 Systemic lupus erythematosus, unspecified; E28.2 Polycystic ovarian syndrome; Z87.891 Personal history of nicotine dependence
CPT/HCPCS: 80053; 83690; 99285; 74177; 81003; 81015; 83735; 85025; 99284; J2060; J2405; J3490

== ENCOUNTER 2023-06-14 12:36 | Outpatient (REF) | payer MEDICAID, SELFPAY ==
[2023-06-14 15:51] LABS: ESR 30 mm/hr (0-20)
[2023-06-14 15:52] LABS: HCT 45.6 % (36.0-46.0); HGB 15.1 g/dL (11.2-15.7); MCH 29.2 pg (27.0-33.0); MCHC 33.1 % (32.0-36.0); MCV 88 fL (80-95); MPV 10.2 fL (8.0-11.0); Platelet Count 274 10^3/uL (130-400); RBC 5.17 10^6/uL (3.93-5.22); RDW 12.1 % (11.7-14.6); RDW-SD 39.1 fL; WBC 8.93 10^3/uL (4.4-10.8)
[2023-06-14 16:02] LABS: ALT 26 U/L (14-59); AST 14 U/L (15-37); Albumin 3.6 g/dL (3.4-5.0); Alkaline Phosphatase 108 U/L (46-116); Anion Gap 6.5 mmol/L (3-11); BUN 9 mg/dL (7-18); Bilirubin, Total 0.3 mg/dL (0.2-1.0); CO2 29.5 mmol/L (21.0-32.0); CREATININE 0.8 mg/dL (0.55-1.02); Chloride 104 mmol/L (98-107); Estimated GFR 94.87 (mL/min/1.73m2); Glucose 113 mg/dL (74-106); Potassium 4.3 mmol/L (3.5-5.1); Sodium 140 mmol/L (136-145); Total Protein 7.3 g/dL (6.4-8.2)
== END 2023-06-14 12:37 | disposition home or self-care (01) ==
LOC: NCHCN 12:36
PROVIDERS: PCP Nurse Practitioner Family; Visit Provider Physician Assistant
DX: L93.0 Discoid lupus erythematosus (principal); R70.0 Elevated erythrocyte sedimentation rate
CPT/HCPCS: 80053; 85027; 85652

== ENCOUNTER → 2023-06-27 01:49 | Outpatient (CLI) | payer MEDICAID, SELFPAY ==
--- NOTE | 2023-06-27 12:37 | DI.MAMMO_ITS ---
Exam(s) MAMMO SCREENING EXAM: MAMMO SCREENING CLINICAL HISTORY: SCREENING FOR BREAST CANCER Z12.39 TECHNIQUE: Mammograms were interpreted according to the usual protocol including computer analysis w My Visual [employer] CAD system, tomosynthesis and C-view imaging. COMPARISON: No exams were available for comparison. Baseline examination. FINDINGS: The breasts are composed of scattered fibroglandular densities, Breast Density category B. No suspicious masses or suspicious microcalcifications are seen. No skin thickening or abnormal axillary lymph nodes are seen. IMPRESSION: BI-RADS Category 1, Negative mammogram Yearly screening mammography is recommended. Breast Density - Category B, scattered fibroglandular densities. A negative radiographic report should not delay biopsy if a dominant or clinically suspicious mass is present. Up to ten percent of cancers are not identified on mammography. A negative report may reinforce clinical impression. Adenosis and dense breasts may obscure an underlying neoplasm. False positive reports average 6 to 10%. Patient will receive a letter notifying them of these results.
== END ==
PROVIDERS: PCP Nurse Practitioner Family; Visit Provider Physician Assistant
DX: Z12.31 Encounter for screening mammogram for malignant neoplasm of breast (principal)
CPT/HCPCS: 77063; 77067

== ENCOUNTER 2024-01-16 02:31 | Outpatient (CLI) | payer MEDICAID, SELFPAY ==
[2024-01-16 16:00] LABS: Abs Immature Grans 0.02 10^3/uL (0.0-0.06); Absolute Basophil Count 0.02 10^3/uL (0.0-0.2); Absolute Eosinophil Count 0.11 10^3/uL (0.0-0.7); Absolute Lymphocyte Count 2.03 10^3/uL (1.2-3.4); Absolute Monocyte Count 0.27 10^3/uL (0.1-0.8); Absolute Neutrophil Count 3.86 10^3/uL (1.2-6.7); Basophils % 0.3 %; ESR 16 mm/hr (0-20); Eosinophils % 1.7 %; HCT 42.8 % (36.0-46.0); HGB 14.3 g/dL (11.2-15.7); Immature Grans % 0.3 %; Lymphocytes % 32.2 %; MCH 29.9 pg (27.0-33.0); MCHC 33.4 % (32.0-36.0); MCV 89 fL (80-95); MPV 9.1 fL (8.0-11.0); Monocytes % 4.3 %; Neutrophils % 61.2 %; Platelet Count 227 10^3/uL (130-400); RBC 4.79 10^6/uL (3.93-5.22); RDW 13.4 % (11.7-14.6); RDW-SD 43.3 fL; WBC 6.31 10^3/uL (4.4-10.8)
[2024-01-16 16:39] LABS: ALT 23 U/L (14-59); AST 14 U/L (15-37); Albumin 3.5 g/dL (3.4-5.0); Alkaline Phosphatase 74 U/L (46-116); Anion Gap 7.2 mmol/L (3-11); BUN 8 mg/dL (7-18); Bilirubin, Total 0.45 mg/dL (0.2-1.0); C-Reactive Protein < 0.50 mg/dL (<or=0.5); CO2 27.8 mmol/L (21.0-32.0); CREATININE 0.9 mg/dL (0.55-1.02); Calcium 8.3 mg/dL (8.5-10.1); Chloride 104 mmol/L (98-107); Estimated GFR 81.86 (mL/min/1.73m2); Glucose 103 mg/dL (74-106); Potassium 3.8 mmol/L (3.5-5.1); Sodium 139 mmol/L (136-145); Total Protein 6.9 g/dL (6.4-8.2)
[2024-01-16 16:42] LABS: Bilirubin Negative (Negative); Blood Negative (Negative); Clarity Clear (Clear); Glucose Negative (Negative); Ketones Negative (Negative); Leukocyte Esterase Negative (Negative); Nitrite Negative (Negative); Specific Gravity 1.025 (1.005-1.025); Urobilinogen 0.2 mg/dL (Up to 0.2)
[2024-01-16 17:43] LABS: COMMENT (LAB VIEW ONLY) 178.09 mg/dL; PROTEIN 22.3 mg/dL; Prot/Crea Ur Ratio 0.12
[2024-01-21 09:36] LABS: C3 Complement 131 mg/dL (81-157); C4 Complement 27 mg/dL (13-39)
[2024-01-22 14:27] LABS: dsDNA Ab, IgG <22.0 IU/mL (<27.0)
== END 2024-01-16 02:32 | disposition home or self-care (01) ==
PROVIDERS: Visit Provider Internal Medicine
DX: L93.0 Discoid lupus erythematosus (principal)
CPT/HCPCS: 36415; 80053; 85652; 81003; 82565; 84156; 85025; 86140; 86160; 86225

== ENCOUNTER 2024-05-07 14:54 | Outpatient (REF) | payer MEDICAID, SELFPAY ==
[2024-05-07 20:12] LABS: HCT 43.8 % (36.0-46.0); HGB 14.5 g/dL (11.2-15.7); MCH 29.2 pg (27.0-33.0); MCHC 33.1 % (32.0-36.0); MCV 88 fL (80-95); MPV 9.4 fL (8.0-11.0); Platelet Count 319 10^3/uL (130-400); RBC 4.96 10^6/uL (3.93-5.22); RDW 12.4 % (11.7-14.6); RDW-SD 39.9 fL; WBC 9.31 10^3/uL (4.4-10.8)
[2024-05-07 20:21] LABS: Anion Gap 9.9 mmol/L (3-11); BUN 9 mg/dL (7-18); CO2 27.1 mmol/L (21.0-32.0); CREATININE 0.8 mg/dL (0.55-1.02); Calcium 9.1 mg/dL (8.5-10.1); Chloride 103 mmol/L (98-107); Estimated GFR 94.28 (mL/min/1.73m2); Glucose 96 mg/dL (74-106); Potassium 4.5 mmol/L (3.5-5.1); Sodium 140 mmol/L (136-145)
[2024-05-07 20:26] LABS: ESR 36 mm/hr (0-20)
[2024-05-07 20:32] LABS: Hemoglobin A1C 5.5 % (<5.7)
[2024-05-09 08:24] LABS: C3 Complement 145 mg/dL (81-157); C4 Complement 26 mg/dL (13-39)
[2024-05-12 15:31] LABS: dsDNA Ab, IgG <22.0 IU/mL (<27.0)
== END 2024-05-07 14:55 | disposition home or self-care (01) ==
LOC: NCHCN 14:54
PROVIDERS: Visit Provider Physician Assistant
DX: Z13.1 Encounter for screening for diabetes mellitus (principal); L93.0 Discoid lupus erythematosus
CPT/HCPCS: 80048; 85027; 85652; 83036; 86160; 86225

== ENCOUNTER 2024-06-09 11:16 | Emergency (ER) | payer MEDICAID, SELFPAY ==
--- NOTE | 2024-06-09 11:15 | RT.EKG_ITS ---
APPROVED REPORT Exam: Resting ECG Reason for Exam: Neck, Arm pain, mild diphoresis, no apparent cause Patient Location: E HR:88 bpm ECG Measurements Heart Rate 88 AXIS CO 134 P 23 QRSd 81 QRS 59 QT 364 T 23 QTc 440 Conclusion Sinus rhythm...normal P axis, V-rate 60- 99
--- OUTSIDE RECORDS SUMMARY | 2024-06-09 11:23 | XMS_ITS | Referral Summary ---
Author Organization [facility] Address [address] [place] [address] Care Team Providers Care Contract Driver Name Role Phone None, Provider Primary Care Provider Unavailabl e Encounters Date Type Department Care Team Description 05/08/2024 Lab Requisition [facility] Pathology & Laboratory Medicine - [address] [address] Outr Resulting Lab, Provider from Last 3 Months Social History Tobacco Use Types Packs/Day Years Used Date Smoking Tobacco: Never Assessed Comments Unknown Sex and Gender Information Value Date Recorded Sex Assigned at Not on file Legal Sex Female 18:18 EST Gender Identity Not on file Sexual Orientation Not on file Plan of Treatment Not on file Procedures Procedure Name Priority Date/Time Associated Diagnosis Comments DOUBLE STRANDED DNA ANTIBODY, IGG Routine 05/07/2024 14:30 EDT C3 COMPLEMENT Routine 05/07/2024 14:30 EDT C4 COMPLEMENT Routine 05/07/2024 14:30 EDT from Last 3 Months Results * DOUBLE STRANDED DNA ANTIBODY, IGG (05/07/2024 14:30 EDT) dsDNA Ab, IgG <22.0 <27.0 IU/mL 05/12/2024 15:26 EDT [facility] Comment: Negative: <27.0 IU/mL Indeterminate: 27.0 - 35.0 IU/mL Positive: >35.0 IU/mL Results were obtained with [employer] Flash dsDNA chemiluminescent immunoassay. Values obtained with different manufacturers' assay methods may not be used interchangeably. Blood VENOUS BLOOD / Unknown 05/07/2024 14:30 EDT 05/08/2024 19:22 EDT us Provider Outr Resulting Lab IMMUNOLOGY AND SEROL OGY ORDERABLES Final Result Performing Organization Address City/[facility]/ZIP Co de Phone Number [facility] [address] [place] [address] * C3 COMPLEMENT (05/07/2024 14:30 EDT) C3 Complement 145 81 - 157 mg/dL 05/09/2024 8:18 EDT [facility] Blood VENOUS BLOOD / Unknown 05/07/2024 14:30 EDT 05/08/2024 19:22 EDT us Provider Outr Resulting Lab CHEMISTRY & BLOOD GA S ORDERABLES Final Result Performing Organization Address City/[facility]/ZIP Co de Phone Number [facility] [address] [place] [address] * C4 COMPLEMENT (05/07/2024 14:30 EDT) C4 Complement 26 13 - 39 mg/dL 05/09/2024 8:18 EDT [facility] Blood VENOUS BLOOD / Unknown 05/07/2024 14:30 EDT 05/08/2024 19:22 EDT us Provider Outr Resulting Lab CHEMISTRY & BLOOD GA S ORDERABLES Final Result Performing Organization Address City/[facility]/ZIP Co de Phone Number [facility] [address], [place] [id number] from Last 3 Months Care Teams Contract Driver Relationship Specialty Start Date End Date None, Provider PCP - General 08/07/11
--- OUTSIDE RECORDS SUMMARY | 2024-06-09 11:23 | XMS_ITS | Continuity of Care Document ---
Author Organization [place] - [facility], [facility] Address [address] [place] [address] Assessment No assessment recorded. Plan of Treatment Reminders Order Date Submit Date Provider Last Modified By Organization Details Last Modified Time Details Appointments Follow Up 30 2024 11:00A M ESAU MELLO Not available Not available Not available Lab None recorded. Referral sleep medicine referral - daytime somnolenc e. Suspect bethel 2023 NADEEM [facility], [address] [place] [address] Dr, [address], [place], [address], 06/06/2024 10:07:51 physical therapist referral - right carpal tunnel 2023 NADEEM [facility], [address] [place] [address], [place], [address], 06/06/2024 10:18:[address] referral - emg only for right wrist discomfor t along with right hand/fing er numbness. 2023 NADEEM [facility], [address] [place] [address] , [place], [address], 06/06/2024 10:27:19 Procedures None recorded. Surgeries None recorded. Imaging None recorded. Medication Orders naltrexon e 50 mg tablet 2023 [facility], [address] [place], [address], 06/05/2024 11:23:18 Patient TargetsNo targets recorded. Patient Instructions Encounter Date Encounter Id Patient Instructions Last Modified By Organization Details Last Modified Time 06/05/2024 [id number] exercise [email or web address] Not available 11:27:55 Mami - jesse hogue refer to sleep study center for evaluation. We will try low dose naltrexone along with wellbutrin to help with weight loss. Get your pap smear. For carpal tunnel - we will refer to physical therapy and get a nerve conduction study. jerry Not available 06/05/2024 11:20:48 Reason for Referral Sleep Medicine Referral for Daytime somnolence daytime somnolence. Suspect bethel Referring Physician: Esau Mello [facility], Encounter Date: 06/05/2024 Physical Therapist Referral for Carpal tunnel syndrome of right wrist right carpal tunnel Referring Physician: Esau Mello [facility], Encounter Date: 06/05/2024 Neurologist Referral for Car pal tunnel syndrome of right wrist emg only for right wrist discomfort along with right hand/finger numbness. Referring Physician: Esau Mello [facility] Beckie, Encounter Date: 06/05/2024 Problems Name Problem SNOMED Code Status Onset Date Resolution Date Notes Provider Name and Address Organization Details Recorded Time Polycyst ic ovary syndrome 380965315 Active 201710/09/19 18 - Comments only - Marian To APRN - Well-man aged with metformi n, rx refilled . Problem Code: E28.2; Problem Code Type: ICD-10; Not Available [facility] 3 05:15:05 Counseli ng Completed 201710/22/2017 10/09/19 18 - Comments only - Marian To APRN - No preventi ve screenin g or immuniza tions due. Prioriti es at this time are with depressi on and weight loss. Problem Code: Z71.89; Problem Code Type: ICD-10; Not Available [facility] 3 05:15:05 Body mass index 40+ - severely obese 201915200 Active 201702/06/20 23 - Comments only - Esau Mello RPA - She is a good candidat e for Wegovy. This may also help with PCOS symptoms . She is currentl y taking metformi n. Reviewed side effect profile and mechanis m of action. Prescrip tion sent to the pharmacy . Problem Code: Z68.42; Problem Code Type: ICD-10; Not Available Count includes the [facility] 3 05:15:05 Fibromya lgia 626365813 Active 201702/06/20 23 - Comments only - Esau Mello RPA - She continue s to do fairly well with Cymbalta 90 mg daily. No changes in medicati on manageme nt made today. Encourag e routine exercise /activit y. Problem Code: M79.7; Problem Code Type: ICD-10; Not Available [facility] 3 05:15:05 Migraine 10219525 Active 201801/14/20 19 - Comments only - aMrian To APRN - Reportin g symptoms in office. Toradol injectio n given. Problem Code: G43.909; Problem Code Type: ICD-10; Not Available Count includes the [facility] 3 05:15:06 Nausea 953102441 Completed 201804/28/2019 04/14/20 19 - Comments only - Marian To APRN - See above. Problem Code: R11.0; Problem Code Type: ICD-10; Not Available Count includes the [facility] 3 05:15:06 Diarrhea 97665204 Completed 201804/28/2019 04/14/20 19 - Comments only - Marian To APRN - Assume viral gastroen teritis. Use ondanset justice as needed. Continue bland diet and extra hydratio n. FU if sxs worsen or do not improve in next 5 days. Problem Code: R19.7; Problem Code Type: ICD-10; Not Available [facility] 3 05:15:06 Acute pharyngi tis 355994861 Completed 201908/10/2019 Problem Code: J02.9; Problem Code Type: ICD-10; Not Available [facility] 3 05:15:06 Kidney stone 73582728 Active 201909/30/19 20 - Comments only - Marian To APRN - Bilatera l, non-obst ructing calculi. Not convince d this is cause of current sxs. Problem Code: N20.0; Problem Code Type: ICD-10; Not Available [facility] 3 05:15:06 Vesicula r eczema 760757346 Active 202008/12/19 21 - Comments only - Marian To [employer] - R palm. Rx for halobeta bakari cream to use BID. Advised protecti on from exposure to water, use moisturi zer several times daily. Problem Code: L30.1; Problem Code Type: ICD-10; Not Available [facility] 3 05:15:06 Adult health examinat ion Active 2020 Problem Code: Z00.00; Problem Code Type: ICD-10; Not Available Count includes the [facility] 3 05:15:06 Screenin g for malignan t neoplasm of breast Active 2022 Problem Code: Z12.39; Problem Code Type: ICD-10; Not Available Count includes the [facility] 3 05:15:07 Gastroes ophageal reflux disease without esophagi tis 827741950 Active 202202/24/20 23 - Comments only - Esau Mello RPA - More frequent reflux over the past several weeks. Precedes the acute nausea and vomiting . Likely compound ing her abdomina l symptoms . We will treat with PPI daily for the next 2 weeks with slow taper. Reviewed the classic dietary triggers . Problem Code: K21.9; Problem Code Type: ICD-10; Not Available Count includes the [facility] 3 05:15:07 Obesity 943739824 Completed 202008/12/2020 Problem Code: E66.9; Problem Code Type: ICD-10; Not Available Count includes the [facility] 3 05:15:08 Aftercar e Completed 201908/12/2020 Problem Code: Z51.89; Problem Code Type: ICD-10; Not Available Count includes the [facility] 3 05:15:09 Noninfec tious gastroen teritis 15274436 Completed 201909/01/2019 Not Available [facility] 3 05:15:11 Nausea 950418095 Completed 201902/05/2023 Problem Code: R11.0; Problem Code Type: ICD-10; Not Available Count includes the [facility] 3 05:15:12 Nicotine dependen ce 06422234 Completed 201702/05/2023 Problem Code: F17.200; Problem Code Type: ICD-10; Not Available Count includes the [facility] 3 05:15:13 Periapic al abscess 247045671 Completed 201809/01/2019 Problem Code: K04.7; Problem Code Type: ICD-10; Not Available Count includes the [facility] 3 05:15:13 Dyspnea 829485163 Completed 201702/05/2023 Problem Code: R06.00; Problem Code Type: ICD-10; Not Available Count includes the [facility] 3 05:15:13 Acute upper respirat ory infectio n 21093167 Completed 201706/18/2018 Problem Code: J06.9; Problem Code Type: ICD-10; Not Available Count includes the [facility] 3 05:15:17 Severe obesity 46954181950 104 Completed 201704/11/2023 02/09/20 18 - Deterior ated - Marian To APRN - Wt gain of over 15 lbs in past two months. Steroids likely have contribu celeste, along with decrease d activity d/t illness. Reviewed diet recommen dations, limit carbs and sugars. Problem Code: E66.01; Problem Code Type: ICD-10; Not Available Count includes the [facility] 3 05:15:17 Obesity 856744308 Completed 201704/11/2023 10/09/19 18 - Comments only - Marian To APRN - Will start Contrave and refer to [facility]. Problem Code: E66.9; Problem Code Type: ICD-10; Not Available Count includes the [facility] 3 05:15:18 Pain in thoracic spine 762788621 Completed 201802/05/2023 Problem Code: M54.9; Problem Code Type: ICD-10; Not Available Count includes the [facility] 3 05:15:21 Cervico- occipita l neuralgi a 77662818 Completed 201702/05/2023 Problem Code: M54.81; Problem Code Type: ICD-10; Not Available Count includes the [facility] 3 05:15:21 History of anaphyla xis 29832246771 016459 Completed 201702/05/2023 Problem Code: Z87.892; Problem Code Type: ICD-10; Not Available Count includes the [facility] 3 05:15:24 Pain of breast 96818056 Completed 201703/20/2019 Problem Code: N64.4; Problem Code Type: ICD-10; Not Available Count includes the [facility] 3 05:15:25 Chronic depressi on 567410677 Active [address], [facility] [address] , [facility] 12:05:01 Lupus erythema tosus 707133983 Active [address], [facility] [address] , [facility] 3 12:05:03 Asthma 060383995 Active 2023 mild intermit tent [address] Dr, [facility] [address] , [facility] 4 14:37:04 Problem Notes None recorded. Medical Equipment None Reported. Allergies Allergen ID Allergen Name Allergen Category Reaction Reaction Severity Criticality Documentation Date Start Date Code Code System Note Provider Name and Address Organization Details Recorded Time 07447 Medicinal product containin g penicilli n and acting as antibacte rial agent (product) medicatio n anaphylax is Not available Not available 05/25/20232017 67153 05 SNOMED anaph ylaxi s Aller gyCod e: '8340 61'; Aller gyNam e: 'PENI CILLI N'; Aller gyCon ceptT ype: 'RX Norm' ; Not Available Count includes the [facility] 16:11:20 69256 acetamino phen / oxycodone medicatio n other moderate Not available 05/25/20232017 13158 3 RxNorm GI upset Aller gyRea ction : 'GI upset '; Aller gyCod e: '7224 76681 12'; Aller gyNam e: 'PERC OCET' ; Aller gyCon ceptT ype: 'NDC' ; Not Available [facility] 3 16:11:20 10240 clindamyc in Not available anaphylax is Not available [facility] 06/14/2023 2582 RxNorm JIM MENON RN [facility], [place] - [facility] 3 10:54:44 Medications Name Sig Start Date Stop Date Status Note LastModified by Organization Details LastModified Time cyclobenz aprine 10 mg tablet TAKE ONE TABLET BY MOUTH AT BEDTIME active Not Available Not Available No t Available Flomax 0.4 mg capsule Take 1 tab by mouth daily 10/21 completed per [facility] Not Available Not Available Not Available prednison e 10 mg tablet TAKE 2 TABLETS BY MOUTH DAILY FOR 3 DAYS, 1 DAILY FOR 7 DAYS, THEN 1/2 DAILY FOR 8 DAYS 06/05 completed Not Available Not Available Not Available doxycycli ne hyclate 100 mg capsule Take 1 capsule by mouth twice a day 07/03 completed Not Available Not Available Not Available ipratropi um 0.5 mg-albute rol 3 mg (2.5 mg base)/3 mL nebulizat ion soln Use every four to six hours as needed 09/05 completed Not Available Not Available Not Available azithromy martha 250 mg tablet Take 2 by mouth now, then take 1 by mouth daily x 4 days 11/24 completed Not Available Not Available Not Available ibuprofen 800 mg tablet 1 tablet by mouth twice a day as needed for pain 09/05 completed Not Available Not Available Not Available ranitidin e 300 mg tablet 1 tab PO q 12 hrs 12/06 completed Not Available Not Available Not Available hydrocodo ne 5 mg-acetam inophen 325 mg tablet Take 1 tab by mouth three times daily as needed for pain 2020 active Not Available Not Available Not Avai lable Keflex 500 mg capsule Take 1 tab by mouth four times daily 09/07 completed Not Available Not Available Not Available naltrexon e 50 mg tablet Take 0.5 tablets twice a day by oral route. 2023 active Not Available Not Available Not Avai lable ondansetr on HCl 4 mg tablet TAKE ONE TABLET BY MOUTH EVERY 6 HOURS NEEDED FOR NAUSEA 01/14 completed Not Available Not Available Not Available dexametha sone 6 mg tablet 1 tab PO q 12 hrs 12/06 completed Not Available Not Available Not Available metformin 850 mg tablet TAKE 1 TABLET BY MOUTH TWO TIMES A DAY active Not Available Not Available No t Available Medrol 32 mg tablet Take 1 by mouth daily 02/07 completed per [facility] Not Available Not Available Not Available methotrex ate sodium 25 mg/mL injection solution INJECT 0.8ML SUBCUTAN EOUSLY ONCE WEEKLY active Not Available Not Available No t Available Tamiflu 75 mg capsule Take 1 capsule by mouth twice a day 06/28 completed Not Available Not Available Not Available BD Tuberculi n Syringe 1 mL 27 x 1/2 USE ONE SYRINGE ONCE PER WEEK 06/05 completed Not Available Not Available Not Available methotrex ate sodium 2.5 mg tablet take 6 every Sunday for Lupus 2018 active Not Available Not Available Not Avai lable Tylenol 500 mg tablet take 2 tablets PO Q6H PRN pain 02/25 completed [facility] Not Available Not Available Not Available pantopraz ole 40 mg tablet,de layed release TAKE ONE TABLET BY MOUTH EVERY DAY FOR 2 WEEKS THEN TAPER TOLERATE D active Not Available Not Available No t Available promethaz ine 25 mg tablet TAKE ONE TABLET BY MOUTH THREE TIMES A DAY NEEDED FOR NAUSEA/V OMITING 12/19 completed Not Available Not Available Not Available betametha sone, augmented 0.05 % topical ointment active Not Available Not Available Not Available folic acid 1 mg tablet TAKE THREE TABLETS BY MOUTH EVERY DAY active Not Available Not Available No t Available halobetas ol propionat e 0.05 % topical cream Apply to skin twice a day 06/14 completed Not Available Not Available Not Available mupirocin 2 % topical ointment APPLY A SMALL AMOUNT TO RIGHT NASAL PASSAGE TWICE DAILY FOR 2 WEEKS active Not Available Not Available No t Available hydroxych loroquine 200 mg tablet TAKE ONE TABLET BY MOUTH TWICE A DAY active Not Available Not Available No t Available ibuprofen 600 mg tablet Take 1 tab by mouth Q6H PRN pain 02/25 completed [facility] Not Available Not Available Not Available fluocinon clayton 0.05 % topical solution APPLY TOPICALL Y TO SCALP AT NIGHT AND WASH OUT IN THE MORNING IF DESIRED. USE 2-3 TIMES A WEEK NEEDED, ALTERNAT ING WITH ROTATION AL REGIME 06/14 completed Not Available Not Available Not Available ketoconaz ole 2 % topical cream APPLY TOPICALL Y TO FEET TWICE DAILY FOR 3 WEEKS, THEN 2 TO 3 TIMES A WEEK FOR MAINTENA NCE 06/14 completed Not Available Not Available Not Available ondansetr on 4 mg disintegr ating tablet DISSOLVE ONE TABLET ON THE TONGUE EVERY 8 HOURS FOR 7 DAYS 06/05 completed Not Available Not Available Not Available BD Insulin Syringe 1 mL 26 x 1/2 USE 1 SYRINGE FOR METHOTRE XATE INJECTIO NS ONCE EVERY WEEK. active Not Available Not Available No t Available doxycycli ne hyclate 100 mg tablet TAKE 1 TABLET BY MOUTH TWICE DAILY 06/14 completed Not Available Not Available Not Available dicyclomi ne 10 mg capsule TAKE ONE CAPSULE BY MOUTH THREE TIMES A DAY NEEDED FOR ABDOMINA L PAIN FOR 5 DAYS 06/14 completed Not Available Not Available Not Available loratadin e 10 mg tablet Take 1 tab by mouth daily 12/06 completed Not Available Not Available Not Available Ventolin HFA 90 mcg/actua tion aerosol inhaler INHALE ONE TO TWO PUFFS BY MOUTH EVERY 4 TO 6 HOURS NEEDED active Not Available Not Available No t Available oxycodone 5 mg tablet Take 1 tab by mouth daily as needed for pain every 6 hrs 10/21 completed per [facility] given on 08/26/18 Not Available Not Available Not Available Lexapro 10 mg tablet Take 1 tab by mouth daily 2017 active Not Available Not Available Not Avai lable Lexapro 20 mg tablet Take 1 tab by mouth daily 07/31 completed Not Available Not Available Not Available bupropion HCl XL 300 mg 24 hr tablet, extended release TAKE ONE TABLET BY MOUTH EVERY DAY active Not Available Not Available No t Available bupropion HCl XL 150 mg 24 hr tablet, extended release TAKE ONE TABLET BY MOUTH EVERY DAY 01/14 completed Not Available Not Available Not Available duloxetin e 30 mg capsule,d elayed release TAKE ONE CAPSULE BY MOUTH EVERY DAY WITH 60MG CAPSULE active Not Available Not Available No t Available duloxetin e 60 mg capsule,d elayed release TAKE ONE CAPSULE BY MOUTH EVERY DAY WITH 30MG CAPSULE active Not Available Not Available No t Available Albuterol Sulfate HFA 90 mcg/Actua tion aerosol inhaler Inhale 2 puff as directed every six hours as needed 2021 active Not Available Not Available Not Avai lable Plus (calcium carbonate ) 27 mg iron-1 mg tablet Take 1 tab by mouth daily 2017 active Not Available Not Available Not Avai lable Chantix Continuin g Month Box 1 mg tablet Take 1 tab by mouth twice daily 07/30 completed Not Available Not Available Not Available Chantix Starting Month Box 0.5 mg (11)-1 mg (42) tablets in dose pack 0.5mg qd x3, then 0.5mg bid x4, then 1mg bid 07/30 completed Not Available Not Available Not Available EpiPen 2-Candido 0.3 mg/0.3 mL injection , auto-inje ctor Administ er 1 pen injector intramus cularly as directed as needed 2023 active Not Available Not Available Not Avai lable ProAir RespiClic k 90 mcg/actua tion breath activated INHALE 2 PUFFS BY MOUTH EVERY 6 HOURS NEEDED 06/14 completed Not Available Not Available Not Available Wegovy 0.25 mg/0.5 mL subcutane ous pen injector Inject 1/4 mg subcutan eously once a week 02/23 completed Not Available Not Available Not Available Paxlovid 300 mg (150 mg x 2)-100 mg tablets in a dose pack Take 3 tablet by mouth twice a day Review all medicati ons/OTCs with jezkyleigh reyes g possible interact ions 10/24 completed Not Available Not Available Not Available Lagevrio 200 mg capsule (EUA) TAKE 4 CAPSULES BY MOUTH EVERY 12 HOURS FOR 5 DAYS 12/19 completed Not Available Not Available Not Available Vitals Date Recorded Body height Body mass index (BMI) Body weight Oxygen saturation Oxygen saturation in Arterial blood by Pulse oximetry Respiratory rate Body temperature Heart rate Systolic blood pressure Diastolic blood pressure Provider Name and Address Organization Details Last Updated DateTime 4 154.94 cm 49.1 kg/m2 313033. 02 g 98 % 98 % 16 /min 98.2 [degF] 91 /min 126 mm[Hg] 82 mm[Hg] KELSEY BROWN RN [facility] 4 10:58:35 Social History Question Answer Notes LastModified by Organizat ion Details LastModified Time Tobacco Smoking Status Former Smoker JIM MENON RN [facility], [facility] 06/14/2023 10:59:17 When Did You Quit Smoking? 1-5yearssinc elastcigaret te Information not available 06/14/2023 What Was The Date Of Your Most Recent Tobacco Screening? 01/15/2024 [email or web address] Information not available 01/15/2024 At What Age Did You Start Smoking Tobacco? 17 Information not available 06/14/2023 Has Tobacco Cessation Counseling Been Provided? Yes Information not available 01/15/2024 On What Date Was Tobacco Cessation Counseling Provided? 01/15/2024 [email or web address] Information not available 01/15/2024 Do You Or Have You Ever Used Any Other Forms Of Tobacco Or Nicotine? No Information not available 06/14/2023 Sex: Female Functional Status None recorded. Mental Status None recorded. Family History Relationship Description Onset Age of this Age Resolved Age Notes LastModified by Organization Details LastModified Time Father Family history of Hypercholest erolemia [email or web address] Not available 2022 03:52:31 Father Family history of Hypertension Not available 04/2023 03:52:32 Father Family history of acute medical disorder [place] son's Not available 05/25/2023 03:52:32 Father Family history of heart failure Not available 2022 03:52:33 Father Family history of diabetes mellitus type 1 Not available 2022 03:52:33 Brother Family history of acute medical disorder bloot clotti ng disord er Not available 05/25/2023 03:52:32 Mother Family history of malignant neoplasm Not available 2022 03:52:32 Mother Family history of kidney disease Not available 2022 03:52:33 Mother Family history of diabetes mellitus type 1 Not available 2022 03:52:33 Unspecified Relation Family history of seizure disorder Relati ve: 'Aunt' ; Not available 05/25/2023 03:52:34 Unspecified Relation Family history of seizure disorder Relati ve: 'Uncle '; Not available 05/25/2023 03:52:34 Notes:parents and younger br other with opioid dependence/ substance abuse. She left home at age 16 Medical History No medical history recorded. Gynecological HistoryNo gynecological history recorded. Obstetrics History GPAL:G 0 P 0 0 0 0 Immunizations Vaccine Type Date Status Provider Name and Address Organization Details Recorded Time Influenza, split virus, quadrivalent, PF 06/14/2023 completed JIM MENON RN [facility], [facility] 06/14/2023 11:57:32 Tdap 06/18/2018 completed Not Available [facility] 06:08:55 Influenza, split virus, quadrivalent, PF 04/14/2019 completed Not Available [facility] 05/25/2023 06:08:55 Influenza, split virus, quadrivalent, PF 04/23/2020 completed Not Available [facility] 05/25/2023 06:08:55 Influenza, split virus, quadrivalent, preservative 06/18/2018 completed Not Available [facility] 05/25/2023 06:08:55 pneumococcal polysaccharide PPV23 10/21/2018 completed Not Available [facility] 2022 06:08:55 influenza, unspecified formulation 06/15/2017 completed Not Available [facility] 05/25/2023 06:08:55 Past Encounters Encounter ID Performer Location Encounter Start Date Encounter Closed Date Diagnosis/Indication Diagnosis SNOMED-CT Code Diagnosis ICD10 Code [id number] ESAU MELLO PA-C [facility] [address] [place] [address] 05/07/2024 13:40:04 05/07/2024 14:42:05 Fibromyalgia 006524365 M79.7 Lupus erythematosus 2009 93761 L93.0 Diabetes m ellitus screening 861055947 Z13.1 Asthma 850515581 J45.90 9 History of anaphylaxis 2392712114 6775958 Z87.892 Carpal afua sailaja syndrome 64598652 G56.01 [id number] ESAU MELLO PA-C [facility] [address] [place] [address] 06/05/2024 10:47:48 06/05/2024 11:27:31 Body mass index 40+ - severely obese 369811054 Z68.42 Daytime somnolence 56973 51770 00 R40.0 Carpal afua sailaja syndrome of right wrist 8489025966 26717 G56.01 Lupus erythematosus 2009 75302 L93.0 Chronic depression 21498 0009 F32.A Health Concerns Section Related Observation LastModified by Organization Detai ls LastModified Time None Recorded Concern Status LastModified by Organization Details LastModified Time None Recorded Payers Encounter Date Sequence Insurance Name Policy Number Policy Mccann Covered Member ID Mccann Member ID Guarantor Name 06/05/2024 1 [facility] (MEDICAID) Mami Lerma [id number] Mami Lerma Notes Date Note Type Note Provider Name and Address Organization Details Recorded Time 06/05/2024 text/html Mami is here for followup of suspected lupus flare, obesity, depression. She responded well to recent prednisone course. Progressive right carpal tunnel symptoms despite using nighttime wrist brace. Numbness and tingling in the fingers of her right hand. Discomfort in her wrist. Hypersomnolence during the day. Despite getting a full night sleep. ESAU MELLO PA-C [address], [place], [address], [facility]. 06/05/2024 11:34:48 OBGyn Episode No OBEpisode recorded.
--- OUTSIDE RECORDS SUMMARY | 2024-06-09 11:23 | XMS_ITS | Encounter Summary ---
Author Organization [facility] Address [address] [place] [address] Care Team Providers Care Flagstone Layer Name Role Phone None, Provider Primary Care Provider Unavailabl e Encounter Details Date Type Department Care Team (Late st Contact Info) Description 11/07/2013 Results Only [facility] [phone] Missael Willams MD [address] [place] [address] Social History Tobacco Use Types Packs/Day Years Used Date Smoking Tobacco: Never Assessed Comments Unknown Sex and Gender Information Value Date Recorded Sex Assigned at Not on file Legal Sex Female 18:18 EST Gender Identity Not on file Sexual Orientation Not on file documented as of this encounter Plan of Treatment Not on file documented as of this encounter Procedures Procedure Name Priority Date/Time Associated Diagnosis Comments PAP TEST- RESULT ONLY Routine 11/07/2013 0:00 EDT documented in this encounter Results * PAP TEST- RESULT ONLY (11/07/2013 0:00 EDT) Pathology Report: CYTOPATHOLOGY REPORT Reports generated via electronic interface contain original data; however they are lacking the format of the original report. Caution should be taken when reading/interpreti ng unformatted reports. Name: ? MAMI EMANUEL ? Accession #: ? [id number] ? : ? 1980 (Age: 33) ??F ?Collect Date: ? 11/07/2013 ? Location: ? [facility] ? Receive Date: ? 11/10/2013 ? Provider: MISSAEL WILLAMS MD Copy to: ? Final Report SPECIMEN ADEQUACY ? Satisfactory for Evaluation - transformation zone component present GENERAL CATEGORIZATION ? Negative for Intraepithelial Lesion or Malignancy ?? Last Menstrual Period: 08/23/13 Menstrual/Pregnanc y Status: ?? Other: Additional clinical information: Last Pap 06/2011 WNL Specimen/Source: ??Pap Test, Cervix/Endocervix, ThinPrep Imaging System with manual evaluation Document reviewed and electronically signed by: ? WILD Dejesus(ASCP) ? Report ??Date: 11/17/2013 16:13 HPV with Pap Test ? Date Ordered: ? 11/20/2013 ? Status: ?? Signed Out ?Date Complete: ? 11/21/2013 ? By: ??System Interface ? Date Reported: ? 11/21/2013 ? Interpretation RESULT: Negative for HPV. No E6 or E7 mRNA is detected from HPV types 16,18,31,33,35, 39,45,51,52,56,58, 59,66, and 68 by business functional analyst mediated amplification. Comments Document reviewed and electronically signed by: ? System Interface ? Report date: 11/21/2013 By the signature above, the attending physician certifies that he/she has personally conducted a gross and/or microscopic examination of the described specimens and rendered or confirmed the above diagnosis. End of Report [facility] 11/07/2013 11/10/2013 us Missael Willams MD PATHOLOGY ORDERABLES Final Resu lt Performing Organization Address City/State/[facility] Co de Phone Number [facility] [address] [place] [address] documented in this encounter Visit Diagnoses Not on filedocumented in this encounter Care Teams Flagstone Layer Relationship Specialty Start Date End Date None, Provider PCP - General 08/07/11 documented as of this encounter
--- OUTSIDE RECORDS SUMMARY | 2024-06-09 11:23 | XMS_ITS | Encounter Summary ---
Author Organization [facility] Address [address] [place] [address] Care Team Providers Care Python Consultant Name Role Phone None, Provider Primary Care Provider Unavailabl e Encounter Details Date Type Department Care Team (Late st Contact Info) Description 01/17/2024 Lab Requisition [facility] Pathology & Laboratory Medicine - [address] [id number] Outr Resulting Lab, Provider Social History Tobacco Use Types Packs/Day Years [...] Procedure Name Priority Date/Time Associated Diagnosis Comments HOLD SST Today 01/16/2024 15:50 EDT DOUBLE STRANDED DNA ANTIBODY, IGG Today 01/16/2024 15:50 EDT C3 COMPLEMENT Today 01/16/2024 15:50 EDT C4 COMPLEMENT Today 01/16/2024 15:50 EDT documented in this encounter Results * HOLD SST (01/16/2024 15:50 EDT) Hold Hold 01/18/2024 18:31 EDT [facility] Blood VENOUS BLOOD / Unknown 01/16/2024 15:50 EDT 01/18/2024 17:16 EDT us Provider Outr Resulting Lab LAB INFO SERVICE AND SUPPORT & PHONE RESULT Final Result Performing Organization Address [facility] Co de Phone Number [facility] [address] [place] [address] * DOUBLE STRANDED DNA ANTIBODY, IGG (01/16/2024 15:50 EDT) [facility] dsDNA Ab, IgG <22.0 <27.0 IU/mL 01/22/2024 14:22 EDT [facility] Comment: Negative: <27.0 IU/mL Indeterminate: 27.0 - 35.0 IU/mL Positive: >35.0 IU/mL Results were obtained with [employer] Flash dsDNA chemiluminescent immunoassay. Values obtained with different manufacturers' assay methods may not be used interchangeably. Blood VENOUS BLOOD / Unknown 01/16/2024 15:50 EDT 01/18/2024 16:50 EDT us Provider Outr Resulting Lab IMMUNOLOGY AND SEROL OGY ORDERABLES Final Result Performing Organization Address [facility] Co de Phone Number [facility] [address] [place] [id number] * C3 COMPLEMENT (01/16/2024 15:50 EDT) [facility] C3 Complement 131 81 - 157 mg/dL 01/21/2024 9:31 EDT [facility] Blood VENOUS BLOOD / Unknown 01/16/2024 15:50 EDT 01/18/2024 16:50 EDT us Provider Outr Resulting Lab CHEMISTRY & BLOOD GA S ORDERABLES Final Result Performing Organization Address [facility] Co de Phone Number [facility] [address] [place] [address] * C4 COMPLEMENT (01/16/2024 15:50 EDT) C4 Complement 27 13 - 39 mg/dL 01/21/2024 9:31 EDT [facility] Blood VENOUS BLOOD / Unknown 01/16/2024 15:50 EDT 01/18/2024 16:50 EDT us Provider Outr Resulting Lab CHEMISTRY & BLOOD GA S ORDERABLES Final Result Performing Organization Address City/State/[facility] Co de Phone Number [facility] [address] [place], [place] [id number] documented in this encounter Visit Diagnoses Not on filedocumented in this encounter Care Teams Python Consultant Relationship Specialty Start Date End Date None, Provider PCP - General 08/07/11 documented as of this encounter
--- OUTSIDE RECORDS SUMMARY | 2024-06-09 11:23 | XMS_ITS | Encounter Summary ---
Author Organization [facility] Address [address] [place] [address] Care Team Providers Care Plasterer Maintenance Name Role Phone Unavailable Primary Care Provider Unavailabl e Encounter Details Date Type Department Care Team (Late st Contact Info) Description 03/02/2000 Results Only [facility] [address] [place] [address] Marely Bueno, [address] [place] [phone] Social History Tobacco Use Types Packs/Day Years [...] Procedure Name Priority Date/Time Associated Diagnosis Comments CYTOPATHOLOGY Routine 03/02/2000 0:00 EDT documented in this encounter Results * CYTOPATHOLOGY (03/02/2000 0:00 EDT) Pathology Report: CYTOPATHOLOGY REPORT Reports generated via electronic interface contain original data; however they are lacking the format of the original report. Caution should be taken when reading/interpreti ng unformatted reports. Name: ? MAMI EMANUEL ? Accession #: ? [id number] : ? 1980 (Age: 19) ??F ?Collect Date: ? 03/02/2000 Location: ? [facility] ? Receive Date: ? 03/06/2000 Provider: ?MARELY BUENO BONE DENSITY TECHNICIAN Copy to: ? Specimen/Source: ?ThinPrep Pap Test, Cervix/Endocervix Last Menstrual Period: ? [address] ? date ? SPECIMEN ADEQUACY ? Satisfactory for evaluation. GENERAL CATEGORIZATION ? Within Normal Limits ? Document reviewed and electronically signed by: ? Eber Huerta, [place](ASCP) ? Report Date: ??03/07/2000 09:57 End of Report [facility] 03/02/2000 03/06/2000 us Marely Bueno BONE DENSITY TECHNICIAN PATHOLOGY ORDERABLES Final R esult [facility] [address] [place] [address] documented in this encounter Visit Diagnoses Not on filedocumented in this encounter
--- OUTSIDE RECORDS SUMMARY | 2024-06-09 11:23 | XMS_ITS | Data Portability ---
Author Organization [facility] [place] [address] Assessment No assessment recorded. Plan of Treatment Reminders Order Date Submit Date Provider Last Modified By Organization Details Last Modified Time Details Appointments Follow Up 2024 11:00A Miguel PALOMO Not available Not available Not available Lab HbA1c (hemoglob in A1c), blood 2023 [facility] (Registration ), [address] [place] [address] [place], [address], 05/14/2024 07:44:48 CBC 2023 024 [facility] (Registration ), [address] [place] [address] [place], [address], 05/07/2024 20:28:10 BMP, serum or plasma 2023 [facility] (Registration ), [address] [place] [address] [place], [address], 05/14/2024 07:44:33 anti-dsdn a Ab titer, serum 2023 024 [facility] (Registration ), [address] [place] [address] [place], [address], 05/14/2024 07:45:30 C3 + C4 (compleme nt), serum 2023 024 [facility] (Registration ), [address] [place] [address] [place], [address], 05/14/2024 07:45:02 ESR (erythroc yte sedimenta tion rate), blood 2023 024 [facility] (Registration ), [address] [facility] , [place], [address], 05/14/2024 07:44:40 urinalysi s, dipstick 2023 024 [email or web address] 63 [facility], [address] , [place], [address], 05/07/2024 15:33:43 Referral sleep medicine referral - daytime somnolenc e. Suspect bethel 2023 024 [facility], [address] [place] [address] , [address], [place], [address], 06/06/2024 10:07:51 physical therapist referral - right carpal tunnel 2023 024 [facility], [address], [place], [address], 06/06/2024 10:18:[address] referral - emg only for right wrist discomfor t along with right hand/fing er numbness. 2023 024 [facility], [address] , [place], [address], 06/06/2024 10:27:19 Procedures None recorded. Surgeries None recorded. Imaging None recorded. Medication Orders bupropion HCl XL 300 mg 24 hr tablet, extended release 2023 024 [facility], [address] [place], [address], 07/18/2023 12:51:57 ondansetr on HCl 4 mg tablet 2023 024 [facility], [address] [place], [address], 01/15/2024 09:25:28 ondansetr on 4 mg disintegr ating tablet 2023 [facility], [address] [place] [address], [id number], 06/05/2024 10:59:56 EpiPen 2-Candido 0.3 mg/0.3 mL injection , auto-inje ctor 2023 [facility], [address] [place] [address], [id number], 05/07/2024 14:44:32 duloxetin e 30 mg capsule,d elayed release 2023 [facility], [address] [place] [address], [id number], 05/07/2024 14:44:38 Cymbalta 60 mg capsule,d elayed release 2023 [facility], [address] [place] [address], [id number], 05/07/2024 14:44:39 albuterol sulfate HFA 90 mcg/actua tion aerosol inhaler 2023 [facility], [address] [place] [address], [id number], 05/07/2024 14:44:33 naltrexon e 50 mg tablet 2023 [facility], [address] [place] [address], [id number], 06/05/2024 11:23:18 Patient TargetsNo targets recorded. Patient Instructions Encounter Date Encounter Id Patient Instructions Last Modified By Organization Details Last Modified Time 05/07/2024 [id number] Mami - I will call you with results of the blood work. No signs of bacteria infection on exam today. Possible lupus flare. Inhaler will be renewed. We will set you up with counseling and I will see you back in one month. jerry Not available 05/07/2024 14:28:12 06/05/2024 [id number] exercise jerry Not available 11:27:55 Mami hogue refer to sleep study center for evaluation. We will try low dose naltrexone along with wellbutrin to help with weight loss. Get your pap smear. For carpal tunnel - we will refer to physical therapy and get a nerve conduction study. jerry Not available 06/05/2024 11:20:48 Reason for Referral Sleep Medicine Referral for Daytime somnolence daytime somnolence. Suspect bethel Referring Physician: Esau Palomo [facility] Beckie, Encounter Date: 06/05/2024 Physical Therapist Referral for Carpal tunnel syndrome of right wrist right carpal tunnel Referring Physician: Esau Palomo [facility] Beckie, Encounter Date: 06/05/2024 Neurologist Referral for Car pal tunnel syndrome of right wrist emg only for right wrist discomfort along with right hand/finger numbness. Referring Physician: Esau Palomo [facility] Beckie, Encounter Date: 06/05/2024 Results Created Date Observation Date Name Description Value Unit Range Abnormal Flag Note LastModifiedBy Organization Detail LastModifiedTime 05/07/20 24 05/07/2024 BASIC METAB OLIC PANEL calcium 9.1 mg/dL 8.5-10 .1 normal Not Available [facility] (Registration ) [address] [place] [address] [place], [address], 05/07/2024 20:23:10 05/07/20 24 05/07/2024 BASIC METAB OLIC PANEL glucose 96 mg/dL 74-106 normal Not Available [facility] (Registration ) [address] [place] [address] [place], [address], 05/07/2024 20:23:10 05/07/20 24 05/07/2024 BASIC METAB OLIC PANEL BUN 9 mg/dL 7-18 normal Not Available [facility] (Registration ) [address] [place] [address] [place], [address], 05/07/2024 20:23:10 05/07/20 24 05/07/2024 BASIC METAB OLIC PANEL creatinine 0.8 mg/dL 0.55-1 .02 normal Not Available [facility] (Registration ) [address] [place] [address] [place], [address], 05/07/2024 20:23:10 05/07/20 24 05/07/2024 BASIC METAB OLIC PANEL estimated GFR 94.28 mL/min /1.73M 2 The eGFR is calcu lated from a serum creat inine using the CKD-E PI 2020 equat ion. Other varia bles requi red for the equat ion are gende r and age; this equat ion does not inclu de a race coeff icien t. This equat ion has simil ar overa ll perfo rmanc e to previ ous equat ions excep t value s may diffe r, in parti cular , in patie nts with highe r value s of eGFR and young er-ag ed adult s. Not Available [facility] (Registration ) [address] [place] [address] [place], [address], 05/07/2024 20:23:10 05/07/2005/07/2024 BASIC METAB OLIC PANEL sodium 140 mmol/ L 136-14 5 normal Not Available [facility] (Registration ) [address] [place] [address] [place], [address], 05/07/2024 20:23:10 05/07/2005/07/2024 BASIC METAB OLIC PANEL potassium 4.5 mmol/ L 3.5-5. 1 normal Not Available [facility] (Registration ) [address] [place] [address] [address] [facility] [place], [address], 05/07/2024 20:23:10 05/07/2005/07/2024 BASIC METAB OLIC PANEL chloride 103 mmol/ L 98-107 normal Not Available [facility] (Registration ) [address] [place] [address] [place], [address], 05/07/2024 20:23:10 05/07/20 24 05/07/2024 BASIC METAB OLIC PANEL CO2 27.1 mmol/ L 21.0-3 2.0 normal Not Available [facility] (Registration ) [address] [place] [address] [place], [address], 05/07/2024 20:23:10 05/07/20 24 05/07/2024 BASIC METAB OLIC PANEL anion gap 9.9 mmol/ L 3-11 normal Not Available [facility] (Registration ) [address] [place] [address] [place], [address], 05/07/2024 20:23:10 05/07/2005/07/2024 COMPL ETE BLOOD COUNT NO DIFF WBC 9.31 10_3/ uL 4.4-10 .8 normal Not Available [address] [place] [place], [address] 05/07/2024 20:28:10 05/07/2005/07/2024 COMPL ETE BLOOD COUNT NO DIFF RBC 4.96 10_6/ uL 3.93-5 .22 normal Not Available [address] [place], [address] 05/07/2024 20:28:10 05/07/2005/07/2024 COMPL ETE BLOOD COUNT NO DIFF HGB 14.5 g/dL 11.2-1 5.7 normal Not Available [address] [place] [place], [address] 05/07/2024 20:28:10 05/07/2005/07/2024 COMPL ETE BLOOD COUNT NO DIFF HCT 43.8 % 36.0-4 6.0 normal Not Available [address] [place], [address] 05/07/2024 20:28:10 05/07/2005/07/2024 COMPL ETE BLOOD COUNT NO DIFF MCV 88 fL 80-95 normal Not Available [address] [place], [address] 05/07/2024 20:28:10 05/07/2005/07/2024 COMPL ETE BLOOD COUNT NO DIFF MCH 29.2 pg 27.0-3 3.0 normal Not Available [address] [place], [address] 05/07/2024 20:28:10 05/07/20 24 05/07/2024 COMPL ETE BLOOD COUNT NO DIFF MCHC 33.1 % 32.0-3 6.0 normal Not Available [address] [place], [address] 05/07/2024 20:28:10 05/07/20 24 05/07/2024 COMPL ETE BLOOD COUNT NO DIFF RDW 12.4 % 11.7-1 4.6 normal Not Available [address] [place], [address] 05/07/2024 20:28:10 05/07/2005/07/2024 COMPL ETE BLOOD COUNT NO DIFF platelet count 319 10_3/ uL 130-40 0 normal Not Available [address] [place], [address] 05/07/2024 20:28:10 05/07/20 24 05/07/2024 COMPL ETE BLOOD COUNT NO DIFF MPV 9.4 fL 8.0-11 .0 normal Not Available [address] [place], [address] 05/07/2024 20:28:10 05/07/2005/07/2024 ESR ESR 36 mm/HR 0-20 high Not Available [facility] (Registration ) [address] [place] [address] [place], [address], 05/07/2024 20:30:11 05/07/20 24 05/07/2024 HEMOG LOBIN A1C hemoglobin A1C 5.5 % <5.7 Refer ence Range s <5.7 Corry l 5.7-6 .4% Predi abete s 6.5% or great er Diagn ostic for diabe mary ann (if confi rmed) Refer ences : 1. Ameri can Diabe mary ann Assoc iatio n. Clas sific ation and Diagn osis of Diabe mary ann. Diabe mary ann Care 2019 Jul;4 2(Sup pleme nt 1):S1 3-s28 . Not Available [facility] (Registration ) [address] [place] [address] [place], [address], 05/07/2024 20:35:11 05/07/20 24 05/09/2024 C4 COMPL EMENT C4 complement 26 mg/dL 13-39 Test perfo rmed or refer red by [facility] [address], [place] [address] Not Available [facility] (Registration ) [address] [place] [address] [address] [facility] [place], [address], 05/09/2024 08:26:47 05/07/2005/09/2024 C3 COMPL EMENT C3 complement 145 mg/dL 81-157 Test perfo rmed or refer red by [facility] [address], [place] [address] Not Available [facility] (Registration ) [address] [place] [address] [place], [address], 05/13/2024 09:17:39 05/07/20 24 05/09/2024 C4 COMPL EMENT C4 complement 26 mg/dL 13-39 Test perfo rmed or refer red by [facility] [address], [place] [address] Not Available [address] [place], [address] 05/13/2024 09:17:38 05/07/2005/12/2024 DSDNA AB, IGG dsdna Ab, IgG <22.0 IU/mL <27.0 Negat anabelle: <27.0 IU/mL Indet ermin ate: 27.0 - 35.0 IU/mL Posit anabelle: >35.0 IU/mL Resul ts were obtai an with Werfe n QUANT A Flash dsDNA chemi lumin escen t immun oassa y. Value s obtai an with diffe rent manuf actur ers' assay metho ds may not be used inter morataya eably . Test perfo rmed or refer red by [facility] [address], [place] [address] Not Available [facility] (Registration ) [address] [facility] , [place], [address], 05/13/2024 09:17:40 05/07/2005/07/2024 urina lysis , dipst ick Leukocytes Negati ve Not Available [facility] [address], [place], [address], 05/07/2024 14:23:50 05/07/2005/07/2024 urina lysis , dipst ick Nitrite negati ve Not Available [facility] [address], [place], [address], 05/07/2024 14:23:50 05/07/2005/07/2024 urina lysis , dipst ick Urobilinogen .2 Not Available [facility] [address], [place], [address], 05/07/2024 14:23:50 05/07/2005/07/2024 urina lysis , dipst ick Protein Trace Not Available [facility] [address], [place], [address], 05/07/2024 14:23:50 05/07/2005/07/2024 urina lysis , dipst ick pH 6.0 Not Available [facility] [address], [place], [address], 05/07/2024 14:23:50 05/07/2005/07/2024 urina lysis , dipst ick Blood Negati ve Not Available [facility] [address], [place], [address], 05/07/2024 14:23:50 05/07/2005/07/2024 urina lysis , dipst ick Specific [place] 1.020 Not Available [facility] [address], [place], [address], 05/07/2024 14:23:50 05/07/2005/07/2024 urina lysis , dipst ick Ketone Trace Not Available [facility] [address], [place], [address], 05/07/2024 14:23:50 05/07/2005/07/2024 urina lysis , dipst ick Bilirubin Negati ve Not Available [facility] [address], [place], [address], 05/07/2024 14:23:50 05/07/2005/07/2024 urina lysis , dipst ick Glucose Negati ve Not Available [facility] [address], [place], [address], 05/07/2024 14:23:50 05/07/2005/07/2024 urina lysis , dipst ick Appearance Clear Not Available [facility] [address], [place], [address], 05/07/2024 14:23:50 05/07/2005/07/2024 urina lysis , dipst ick Color Yellow Not Available [facility] [address], [place], [address], 05/07/2024 14:23:50 06/27/20 23 06/27/2023 mammo graph y imagi ng brock t Patien t Name: Joaquina Lerma Unit #: [id number] Loc: DI Orderi ng Provid er: Delia Butler Accoun t #: [id number] Status : REG CLI Primar y Care Provid er: [place],Rut h Date of Exam: 06/27 Sex: F Admiss ion Date: : 1980 Age: 42 Exam(s ) MG MAMMO SCREEN ING EXAM: MG MAMMO SCREEN ING CLINIC AL HISTOR Y: SCREEN ING FOR BREAST CANCER Z12.39 TECHNI QUE: Mammog keshav were interp reted accord ing to the usual protoc ol includ ing comput er analys is with CAD system , tomosy nthesi s and C-view imagin g. COMPAR JAZZMINE: No exams were availa ble for compar jazzmine. Baseli ne examin ation. FINDIN GS: The breast s are compos ed of scatte red fibrog landul ar densit ies, Breast Densit y catego ry B. No suspic ious masses or suspic ious microc alcifi cation s are seen. No skin thicke boston or abnorm al axilla ry lymph nodes are seen. IMPRES BRANT: BI-RAD S Catego ry 1, Negati ve mammog ly Yearly screen ing mammog ryann is recomm ended. Breast Densit y - Catego ry B, scatte red fibrog landul ar densit ies. A negati ve radiog raphic report should not delay biopsy if a domina nt or clinic ally suspic ious mass is presen t. Up to ten percen t of cancer s are not identi fied on mammog ryann. A negati ve report may reinfo rce clinic al impres brant. Adenos is and dense breast s may obscur e an underl wandy neopla sm. False positi ve report s averag e 6 to 10%. Patien t will receiv e a letter notify ing them of these result s. Ordere d By: Delia Butler CC: ------ ------ ------ ------ ------ ------ ------ ------ ------ ------ ------ ------ - Dictat ed By: Pia Laird 1425 1425 Transc ribed By: Kelly Man 1425 This is privil eged, confid ential inform ation intend ed only for the provid er named. Any use or distri bution by any person other than this provid er is strict ly prohib ited. If you receiv e this report in error, please notify us immedi ately at and return the origin al report to us at the addres s above. Thank- you. [email or web address] [facility] [address], [place], [address] 06/27/2023 14:44:30 03/31/20 24 11/07/2020 imagi ng/di agnos tic resul t No observ ation record ed. [email or web address] Not Available 03/31 00:56:50 03/31/20 24 05/08/2021 imagi ng/di agnos tic resul t No observ ation record ed. [email or web address] Not Available 03/31 00:56:51 03/31/20 24 03/05/2022 imagi ng/di agnos tic resul t No observ ation record ed. [email or web address] Not Available 03/31 00:56:53 03/31/20 24 09/03/2018 imagi ng/di agnos tic resul t No observ ation record ed. [email or web address] Not Available 03/31 00:56:54 03/31/20 24 09/12/2018 imagi ng/di agnos tic resul t No observ ation record ed. [email or web address] Not Available 03/31 00:56:55 03/31/20 24 03/18/2019 imagi ng/di agnos tic resul t No observ ation record ed. [email or web address] Not Available 03/31 00:56:56 03/31/20 24 08/27/2018 imagi ng/di agnos tic resul t No observ ation record ed. [email or web address] Not Available 03/31 00:57:24 09/16/10/24/2018 imagi ng/di agnos tic resul t No observ ation record ed. [email or web address] Not Available 03/31 00:57:25 03/31/20 24 09/01/2019 imagi ng/di agnos tic resul t No observ ation record ed. [email or web address] Not Available 03/31 00:57:26 03/31/20 24 04/26/2021 imagi ng/di agnos tic resul t No observ ation record ed. [email or web address] Not Available 03/31 00:57:27 03/31/20 24 10/11/2018 imagi ng/di agnos tic resul t No observ ation record ed. [email or web address] Not Available 03/31 00:57:27 03/31/20 24 02/20/2023 imagi ng/di agnos tic resul t No observ ation record ed. [email or web address] Not Available 03/31 00:57:28 03/31/20 24 06/01/2021 imagi ng/di agnos tic resul t No observ ation record ed. [email or web address] Not Available 03/31 00:57:29 03/31/20 24 03/04/2022 imagi ng/di agnos tic resul t No observ ation record ed. [email or web address] Not Available 03/31 00:57:35 03/31/20 24 10/23/2018 imagi ng/di agnos tic resul t No observ ation record ed. [email or web address] Not Available 03/31 00:57:35 03/31/20 24 08/26/2018 imagi ng/di agnos tic resul t No observ ation record ed. [email or web address] Not Available 03/31 00:57:36 03/31/20 24 08/31/2019 imagi ng/di agnos tic resul t No observ ation record ed. [email or web address] Not Available 03/31 00:57:37 03/31/20 24 11/07/2020 imagi ng/di agnos tic resul t No observ ation record ed. [email or web address] Not Available 03/31 00:57:38 03/31/2005/07/2021 imagi ng/di agnos tic resul t No observ ation record ed. [email or web address] Not Available 03/31 00:57:39 Result Notes None recorded. 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 Problem Code: E28.2; Problem Code Type: ICD-10; Not Available [facility] 3 05:15:05 Counseli ng Completed 201710/22/2017 10/09/19 18 - Comments only - Marian To APRN - No preventi ve screenin g or immuniza tions due. Prioriti es at this time are with depressi on and weight loss. Problem Code: Z71.89; Problem Code Type: ICD-10; Not Available [facility] 3 05:15:05 Body mass index 40+ - severely obese 693458249 Active 201702/06/20 23 - Comments only - Esau Palomo RPA - She is a good candidat e for Wegovy. This may also help with PCOS symptoms . She is currentl y taking metformi n. Reviewed side effect profile and mechanis m of action. Prescrip tion sent to the pharmacy . Problem Code: Z68.42; Problem Code Type: ICD-10; Not Available [facility] 3 05:15:05 Fibromya lgia 186786096 Active 201702/06/20 23 - Comments only - Esau Palomo RPA - She continue s to do fairly well with Cymbalta 90 mg daily. No changes in medicati on manageme nt made today. Encourag e routine exercise /activit y. Problem Code: M79.7; Problem Code Type: ICD-10; Not Available [facility] 3 05:15:05 Migraine 02568536 Active 201801/14/20 19 - Comments only - Marian To APRN - Reportin g symptoms in office. Toradol injectio n given. Problem Code: G43.909; Problem Code Type: ICD-10; Not Available [facility] 3 05:15:06 Nausea 751049458 Completed 201804/28/2019 04/14/20 19 - Comments only - Marian To APRN - See above. Problem Code: R11.0; Problem Code Type: ICD-10; Not Available [facility] 3 05:15:06 Diarrhea 68225054 Completed 201804/28/2019 04/14/20 19 - Comments only - Marian To APRN - Assume viral gastroen teritis. Use ondanset justice as needed. Continue bland diet and extra hydratio n. FU if sxs worsen or do not improve in next 5 days. Problem Code: R19.7; Problem Code Type: ICD-10; Not Available [facility] 3 05:15:06 Acute pharyngi tis 608143966 Completed 201908/10/2019 Problem Code: J02.9; Problem Code Type: ICD-10; Not Available [facility] 3 05:15:06 Kidney stone 47129253 Active 201909/30/19 20 - Comments only - Marian To APRN - Bilatera l, non-obst ructing calculi. Not convince d this is cause of current sxs. Problem Code: N20.0; Problem Code Type: ICD-10; Not Available [facility] 3 05:15:06 Vesicula r eczema 129186260 Active 202008/12/19 21 - Comments only - Marian To APRN - R palm. Rx for halobeta bakari cream to use BID. Advised protecti on from exposure to water, use moisturi zer several times daily. Problem Code: L30.1; Problem Code Type: ICD-10; Not Available [facility] 3 05:15:06 Adult health examinat ion Active 2020 Problem Code: Z00.00; Problem Code Type: ICD-10; Not Available [facility] 3 05:15:06 Screenin g for malignan t neoplasm of breast Active 2022 Problem Code: Z12.39; Problem Code Type: ICD-10; Not Available [facility] 3 05:15:07 Gastroes ophageal reflux disease without esophagi tis 860396237 Active 202202/24/20 23 - Comments only - Esau Palomo RPA - More frequent reflux over the past several weeks. Precedes the acute nausea and vomiting . Likely compound ing her abdomina l symptoms . We will treat with PPI daily for the next 2 weeks with slow taper. Reviewed the classic dietary triggers . Problem Code: K21.9; Problem Code Type: ICD-10; Not Available [facility] 3 05:15:07 Obesity 257470292 Completed 202008/12/2020 Problem Code: E66.9; Problem Code Type: ICD-10; Not Available [facility] 3 05:15:08 Aftercar e Completed 201908/12/2020 Problem Code: Z51.89; Problem Code Type: ICD-10; Not Available [facility] 3 05:15:09 Noninfec tious gastroen teritis 69100468 Completed 201909/01/2019 Not Available [facility] 3 05:15:11 Nausea 211039411 Completed 201902/05/2023 Problem Code: R11.0; Problem Code Type: ICD-10; Not Available [facility] 3 05:15:12 Nicotine dependen ce 11221333 Completed 201702/05/2023 Problem Code: F17.200; Problem Code Type: ICD-10; Not Available [facility] 3 05:15:13 Periapic al abscess 403202541 Completed 201809/01/2019 Problem Code: K04.7; Problem Code Type: ICD-10; Not Available [facility] 3 05:15:13 Dyspnea 449815190 Completed 201702/05/2023 Problem Code: R06.00; Problem Code Type: ICD-10; Not Available [facility] 3 05:15:13 Acute upper respirat ory infectio n 72394315 Completed 201706/18/2018 Problem Code: J06.9; Problem Code Type: ICD-10; Not Available [facility] 3 05:15:17 Severe obesity [id number] 104 Completed 201704/11/2023 02/09/20 18 - Deterior ated - Marian To APRN - Wt gain of over 15 lbs in past two months. Steroids likely have contribu celeste, along with decrease d activity d/t illness. Reviewed diet recommen dations, limit carbs and sugars. Problem Code: E66.01; Problem Code Type: ICD-10; Not Available [facility] 3 05:15:17 Obesity 092164058 Completed 201704/11/2023 10/09/19 18 - Comments only - Marian To APRN - Will start Contrave and refer to S. Problem Code: E66.9; Problem Code Type: ICD-10; Not Available [facility] 3 05:15:18 Pain in thoracic spine 532290804 Completed 201802/05/2023 Problem Code: M54.9; Problem Code Type: ICD-10; Not Available [facility] 3 05:15:21 Cervico- occipita l neuralgi a 07844770 Completed 201702/05/2023 Problem Code: M54.81; Problem Code Type: ICD-10; Not Available [facility] 3 05:15:21 History of anaphyla xis [id number] 748317 Completed 201702/05/2023 Problem Code: Z87.892; Problem Code Type: ICD-10; Not Available [facility] 3 05:15:24 Pain of breast 11717519 Completed 201703/20/2019 Problem Code: N64.4; Problem Code Type: ICD-10; Not Available [facility] 3 05:15:25 Chronic depressi on 962529276 Active [address], [place], [address] , [facility]. 3 12:05:01 Lupus erythema tosus 836659637 Active 2022 ESAU PALOMO PA-C [address], [place], [address] , [facility] 12:05:03 Asthma 441118771 Active 2023 mild intermit tent ESAU PALOMO PA-C [address], [place], [address] , [facility] 14:37:04 Problem Notes None recorded. Procedures Surgical History None recorded. Imaging Results Imaging Date Name Status LastModified by Organiz ation Details LastModified Time 06/27/2023 mammography imaging report completed [email or web address] [facility] [address] [facility] , [place], [address] 06/27/2023 14:44:30 11/07/2020 imaging/diagnos tic result completed Information not available 03/31/2024 00:56:50 05/08/2021 imaging/diagnos tic result completed Information not available 03/31/2024 00:56:51 03/05/2022 imaging/diagnos tic result completed Information not available 03/31/2024 00:56:53 09/03/2018 imaging/diagnos tic result completed Information not available 03/31/2024 00:56:54 09/12/2018 imaging/diagnos tic result completed Information not available 03/31/2024 00:56:55 03/18/2019 imaging/diagnos tic result completed Information not available 03/31/2024 00:56:56 08/27/2018 imaging/diagnos tic result completed Information not available 03/31/2024 00:57:24 10/24/2018 imaging/diagnos tic result completed Information not available 03/31/2024 00:57:25 09/01/2019 imaging/diagnos tic result completed Information not available 03/31/2024 00:57:26 04/26/2021 imaging/diagnos tic result completed Information not available 03/31/2024 00:57:27 10/11/2018 imaging/diagnos tic result completed Information not available 03/31/2024 00:57:27 02/20/2023 imaging/diagnos tic result completed Information not available 03/31/2024 00:57:28 06/01/2021 imaging/diagnos tic result completed Information not available 03/31/2024 00:57:29 03/04/2022 imaging/diagnos tic result completed Information not available 03/31/2024 00:57:35 10/23/2018 imaging/diagnos tic result completed Information not available 03/31/2024 00:57:35 08/26/2018 imaging/diagnos tic result completed Information not available 03/31/2024 00:57:36 08/31/2019 imaging/diagnos tic result completed Information not available 03/31/2024 00:57:37 11/07/2020 imaging/diagnos tic result completed Information not available 03/31/2024 00:57:38 05/07/2021 imaging/diagnos tic result completed Information not available 03/31/2024 00:57:39 Procedure Notes None recorded. Medical Equipment None Reported. Allergies Allergen ID Allergen Name Allergen Category Reaction Reaction Severity Criticality Documentation Date Start Date Code Code System Note Provider Name and Address Organization Details Recorded Time 87690 Medicinal product containin g penicilli n and acting as antibacte rial agent (product) medicatio n anaphylax is Not available Not available 05/25/20232017 77800 05 SNOMED anaph ylaxi s Aller gyCod e: '8340 61'; Aller gyNam e: 'PENI CILLI N'; Aller gyCon ceptT ype: 'RX Norm' ; Not Available [facility] 16:11:20 81574 acetamino phen / oxycodone medicatio n other moderate Not available 05/25/20232017 99765 3 RxNorm GI upset Aller gyRea ction : 'GI upset '; Aller gyCod e: '7224 67716 12'; Aller gyNam e: 'PERC OCET' ; Aller gyCon ceptT ype: 'NDC' ; Not Available [facility] 3 16:11:20 28958 clindamyc in Not available anaphylax is Not available high 06/14/2023 2582 RxNorm JIM MENON RN [facility] [place] - [facility] 3 10:54:44 Medications Name Sig Start Date Stop Date Status Note LastModified by Organization Details LastModified Time cyclobenz aprine 10 mg tablet TAKE ONE TABLET BY MOUTH AT BEDTIME active Not Available Not Available No t Available Flomax 0.4 mg capsule Take 1 tab by mouth daily 10/21 completed per [facility] ER Not Available Not Available Not [...] 1 by mouth daily 02/07 completed per [facility] Rheumato logy Not Available Not Available Not [...] pain every 6 hrs 10/21 completed per [facility] ER #7 given on 08/26/18 Not Available [...] a day Review all medicati ons/OTCs with jezi st abreu g possible interact ions 10/24 completed Not Available Not Available Not Available Lagevrio 200 mg capsule (EUA) TAKE 4 CAPSULES BY MOUTH EVERY 12 HOURS FOR 5 DAYS 12/19 completed Not Available Not Available Not Available Vitals Date Recorded Body height Body mass index (BMI) Body weight Respiratory rate Body temperature Heart rate Systolic blood pressure Diastolic blood pressure Provider Name and Address Organization Details Last Updated DateTime 4 154.94 cm 47.1 kg/m2 587325. 22 g 16 /min 97.7 [degF] 84 /min 122 mm[Hg] 80 mm[Hg] JIM MENON RN [facility], [facility] 4 12:40:33 Date Recorded Body height Body mass index (BMI) Body weight Body temperature Oxygen saturation Oxygen saturation in Arterial blood by Pulse oximetry Heart rate Systolic blood pressure Diastolic blood pressure Provider Name and Address Organization Details Last Updated DateTime 4 154.94 cm 46.5 kg/m2 457211. 44 g 96.5 [degF] 97 % 97 % 81 /min 118 mm[Hg] 84 mm[Hg] Africa Patricio RN [facility], [facility] 4 11:49:09 Date Recorded Body height Body mass index (BMI) Body weight Body temperature Oxygen saturation Oxygen saturation in Arterial blood by Pulse oximetry Heart rate Respiratory rate Systolic blood pressure Diastolic blood pressure Provider Name and Address Organization Details Last Updated DateTime 4 154.94 cm 45.3 kg/m2 361457. 17 g 97.5 [degF] 99 % 99 % 89 /min 18 /min 112 mm[Hg] 76 mm[Hg] Sandi Chan MA [facility], [facility]. 4 09:23:04 Date Recorded Body height Body mass index (BMI) Body weight Body temperature Oxygen saturation Oxygen saturation in Arterial blood by Pulse oximetry Heart rate Respiratory rate Systolic blood pressure Diastolic blood pressure Provider Name and Address Organization Details Last Updated DateTime 4 154.94 cm 48 kg/m2 498399. 46 g 97.9 [degF] 99 % 99 % 90 /min 14 /min 118 mm[Hg] 66 mm[Hg] KELSEY BROWN RN [facility], [facility] 4 14:02:17 Date Recorded Body height Body mass index (BMI) Body weight Oxygen saturation Oxygen saturation in Arterial blood by Pulse oximetry Respiratory rate Body temperature Heart rate Systolic blood pressure Diastolic blood pressure Provider Name and Address Organization Details Last Updated DateTime 4 154.94 cm 49.1 kg/m2 266083. 02 g 98 % 98 % 16 /min 98.2 [degF] 91 /min 126 mm[Hg] 82 mm[Hg] KELSEY BROWN RN [facility] 4 10:58:35 Social History Question Answer Notes LastModified by Organizat ion Details LastModified Time Tobacco Smoking Status Former Smoker JIM MENON RN [facility] [place], [facility] 06/14/2023 10:59:17 When Did You Quit Smoking? 1-5yearssinc elastcigaret te Information not available 06/14/2023 What Was The Date Of Your Most Recent Tobacco Screening? 01/15/2024 [email or web address] Information not available 01/15/2024 At What Age Did You Start Smoking Tobacco? 17 Information not available 06/14/2023 Has Tobacco Cessation Counseling Been Provided? Yes Information not available 01/15/2024 On What Date Was Tobacco Cessation Counseling Provided? 01/15/2024 [email or web address] Information not available 01/15/2024 Do You Or Have You Ever Used Any Other Forms Of Tobacco Or Nicotine? No Information not available 06/14/2023 Sex: Female Functional Status None recorded. Mental Status None recorded. Family History Relationship Description Onset Age of this Age Resolved Age Notes LastModified by Organization Details LastModified Time Father Family history of Hypercholest erolemia Not available 2022 03:52:31 Father Family history of Hypertension Not available 04/2023 03:52:32 Father Family history of acute medical disorder [place] son's Not available 05/25/2023 03:52:32 Father Family [...] quadrivalent, PF 06/14/2023 completed JIM MENON RN [facility] [place] - [facility] 06/14/2023 11:57:32 Tdap 06/18/2018 completed Not Available [facility] 06:08:55 Influenza, split virus, quadrivalent, PF 04/14/2019 completed Not Available [facility] 05/25/2023 06:08:55 Influenza, split virus, quadrivalent, PF 04/23/2020 completed Not Available [facility] 05/25/2023 06:08:55 Influenza, split virus, quadrivalent, preservative 06/18/2018 completed Not Available [facility] 05/25/2023 06:08:55 pneumococcal polysaccharide PPV23 10/21/2018 completed Not Available [facility] 2022 06:08:55 influenza, unspecified formulation 06/15/2017 completed Not Available [facility] 05/25/2023 06:08:55 Past Encounters Encounter ID Performer Location Encounter Start Date Encounter Closed Date Diagnosis/Indication Diagnosis SNOMED-CT Code Diagnosis ICD10 Code [id number] ESAU PALOMO PA-C [facility] [address] 06/14/2023 10:39:56 06/14/2023 11:43:58 Administration of influenza vaccine 35145295 Z23 Lupus erythematosus 2009 15974 L93.0 Chronic depression 54959 0009 F32.A [id number] ESAU PALOMO PA-C [facility] [address] [place] [address] 07/18/2023 12:16:21 07/18/2023 12:57:17 Chronic depression 061595959 F32.A [id number] ESAU PALOMO PA-C [facility] [address] [place] [address] 12/20/2023 11:38:49 12/20/2023 12:14:49 Nausea and vomiting 31191202 R11.2 [id number] FANNIE MEDINA, [address],[facility] [address] [place] [address] 01/15/2024 09:02:02 01/15/2024 09:44:20 Nausea and vomiting 05852814 R11.2 [id number] ESAU PALOMO PA-C [facility] [address] [place] [address] 05/07/2024 13:40:04 05/07/2024 14:42:05 Fibromyalgia 078053425 M79.7 Lupus erythematosus 2009 47078 L93.0 Diabetes m ellitus screening 870601151 Z13.1 Asthma 820581087 J45.90 9 History of anaphylaxis 4876821583 1786609 Z87.892 Carpal afua sailaja syndrome 99543014 G56.01 [id number] ESAU PALOMO PA-C [facility] [address] [place] [address] 06/05/2024 10:47:48 06/05/2024 11:27:31 Body mass index 40+ - severely obese 988095645 Z68.42 Daytime somnolence 38404 82899 00 R40.0 Carpal afua sailaja syndrome of right wrist 3658900051 73854 G56.01 Lupus erythematosus 2009 55011 L93.0 Chronic depression 04478 0009 F32.A Health Concerns Section Related Observation LastModified by Organization Detai ls LastModified Time None Recorded Concern Status LastModified by Organization Details LastModified Time None Recorded Advance Directives Directive None Recorded Payers Encounter Date Sequence Insurance Name Policy Number Policy Mccann Covered Member ID Mccann Member ID Guarantor Name 07/18/2023 1 [employer] ([employer]) Mami Lerma [id number] Mami Perezch 12/20/2023 1 [employer] ([employer]) Mami Damon Birch [id number] Mami Perezch 01/15/2024 1 [employer] ([employer]ICA[employer]) Mami Damon Birch [id number] Mami Perezch 05/07/2024 1 [employer] ([employer]) Mami Damon Birch [id number] Mami Birch 06/05/2024 1 [employer] ([employer]ICA[employer]) Mami Perezch [id number] Mami Lerma Notes Date Note Type Note Provider Name and Address Organization Details Recorded Time 07/18/2023 text/html Follow-up for depression after starting Wellbutrin. She feels the medication has been helpful.Her mood has been better. Feeling more herself. Wonders about a dose titration. [address], [place], [address], [facility]. 07/18/2023 16:42:21 12/20/2023 text/html Sweats, cold chi lls associated with nausea over the past several days. Worse over the past few hours. Woke up feeling fine this morning but then had sudden onset of sweats followed by nausea. Has vomited this morning. Some associated spinning dizziness. Wonders if she is perimenopausal. No fevers. No respiratory congestion. Denies any heart racing or palpitations. No shortness of breath.No diarrhea. Heartburn is flaring [address], [place], [address], [facility]. 12/20/2023 13:04:35 01/15/2024 text/html Patient with longstanding history of lupus X 10 years, followed by [facility] rheumatology, and had recent specialist visit via telehealth 01/10/24, with plans for updated bloodwork, and for now continuing MTX and Plaquenil. Has had approximately 1 week of what feels like active flare, with B eye clear, watery drainage, and associated edema to eyelids. Has had malar rash, as well as some mild R ear fullness that has since completely resolved.Woke this AM with vomiting and nausea.Took negative home COVID test.Last saw PCP for similar 1 month ago, for symptoms improving after a few days with use of PRN ondansetron, bland diet, and gradual advancement of diet. 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 FANNIE MEDINA, ELEVATOR SERVICE TECHNICIAN [address], [place], [address], [facility]. 01/15/2024 09:51:57 05/07/2024 text/html Mami has not been feeling well for the past couple of weeks. Wonders if she is having a lupus flare. Generalized arthralgias. Fatigue. Has developed chest congestion and cough over the past couple days. Nausea for the past couple weeks. No vomiting. Decreased appetite. No sore throat. No Raynaud's. Mild persistent headache. Home COVID tests have been negative.Has not noted any blood in her urine. No pain with urination but frequent urination. Getting up at nighttime to urinate.No significant rash.No chest pain, tightness, or palpitations.Mild exertional shortness of breath No change in bowels. No diarrhea or constipation [address], [place], [address], [facility]. 05/07/2024 15:37:28 06/05/2024 text/html Mami is here for followup of suspected lupus flare, obesity, depression. She responded well to recent prednisone course. Progressive right carpal tunnel symptoms despite using nighttime wrist brace. Numbness and tingling in the fingers of her right hand. Discomfort in her wrist. Hypersomnolence during the day. Despite getting a full night sleep. [address], [place], [address], [facility]. 06/05/2024 11:34:48 OBGyn Episode No OBEpisode recorded.
--- OUTSIDE RECORDS SUMMARY | 2024-06-09 11:23 | XMS_ITS | Encounter Summary ---
Author Organization [facility] Address [address] [place] [address] Care Team Providers Care Infrastructure Consultant Name Role Phone Unavailable Primary Care Provider Unavailabl e Encounter Details Date Type Department Care Team (Late st Contact Info) Description 07/06/2011 Results Only [facility] Laboratory Services - [facility] ([facility]) [address] [place], [place] [phone] Jen Wall MD [address] [place] [address] Social History Tobacco Use Types Packs/Day Years [...] Diagnosis Comments PAP TEST- RESULT ONLY Routine 07/06/2011 0:00 EST documented in this encounter Results * PAP TEST- RESULT ONLY (07/06/2011 0:00 EST) Pathology Report: CYTOPATHOLOGY REPORT Reports generated via electronic interface contain original data; however they are lacking the format of the original report. Caution should be taken when reading/interpreti ng unformatted reports. Name: ? MAMI EMANUEL ? Accession #: ? [id number] : ? 1980 (Age: 30) ??F ?Collect Date: ? 07/06/2011 Location: ? [facility] ? Receive Date: ? 07/07/2011 Provider: ?JEN WALL MD Copy to: ? Specimen/Source: ?Pap Test, Cervix/Endocervix, ThinPrep Imaging System with manual evaluation Last Menstrual Period: ? Hormonal/Contracep tive Status: ? Yes: Progestins ? SPECIMEN ADEQUACY ? Satisfactory for Evaluation - transformation zone component present GENERAL CATEGORIZATION ? Negative for Intraepithelial Lesion or Malignancy ? Document reviewed and electronically signed by: ? WILD Wright(ASCP) ? Report Date: ??07/13/2011 09:18 End of Report TONY MONROE 07/06/2011 07/07/2011 us Jen Wall MD PATHOLOGY ORDERABLES Final Re sult TONY MONROE [address] [place] [address] documented in this encounter Visit Diagnoses Not on filedocumented in this encounter
--- OUTSIDE RECORDS SUMMARY | 2024-06-09 11:23 | XMS_ITS | Clinical Summary ---
Author Organization [facility] Address [address] [place] [address] Care Team Providers Care Bilingual Middle School Teacher Name Role Phone None, Provider Primary Care Provider Unavailabl e Encounters Date Type Department Care Team Description 05/08/2024 Lab Requisition [facility] Pathology & Laboratory Medicine - [address] [address] Outr Resulting Lab, Provider from Last 3 Months Social History Tobacco Use Types Packs/Day Years Used Date Smoking Tobacco: Never Assessed Comments Unknown Sex and Gender Information Value Date Recorded Sex Assigned at Not on file Legal Sex Female 18:18 EST Gender Identity Not on file Sexual Orientation Not on file Plan of Treatment Health Maintenance Due Date Last Done Comments Hepatitis C Screen 1980 Hepatitis B Vaccine (1 of 3 - 19+ 3-dose series) 09/09 COVID-19 Vaccine ( season) 2024 Procedures Procedure Name Priority Date/Time Associated Diagnosis Comments DOUBLE STRANDED DNA ANTIBODY, IGG Routine 05/07/2024 14:30 EDT C3 COMPLEMENT Routine 05/07/2024 14:30 EDT C4 COMPLEMENT Routine 05/07/2024 14:30 EDT from Last 3 Months Results * DOUBLE STRANDED DNA ANTIBODY, IGG (05/07/2024 14:30 EDT) dsDNA Ab, IgG <22.0 <27.0 IU/mL 05/12/2024 15:26 EDT [facility] Comment: Negative: <27.0 IU/mL Indeterminate: 27.0 - 35.0 IU/mL Positive: >35.0 IU/mL Results were obtained with [employer] dsDNA chemiluminescent immunoassay. Values obtained with different manufacturers' assay methods may not be used interchangeably. Blood VENOUS BLOOD / Unknown 05/07/2024 14:30 EDT 05/08/2024 19:22 EDT us Provider Outr Resulting Lab IMMUNOLOGY AND SEROL OGY ORDERABLES Final Result Performing Organization Address [facility]/ZIP Co de Phone Number [facility] [address] [place] [address] * C3 COMPLEMENT (05/07/2024 14:30 EDT) C3 Complement 145 81 - 157 mg/dL 05/09/2024 8:18 EDT [facility] Blood VENOUS BLOOD / Unknown 05/07/2024 14:30 EDT 05/08/2024 19:22 EDT us Provider Outr Resulting Lab CHEMISTRY & BLOOD GA S ORDERABLES Final Result Performing Organization Address [facility] Co de Phone Number [facility] [address] [place] [address] * C4 COMPLEMENT (05/07/2024 14:30 EDT) C4 Complement 26 13 - 39 mg/dL 05/09/2024 8:18 EDT [facility] Blood VENOUS BLOOD / Unknown 05/07/2024 14:30 EDT 05/08/2024 19:22 EDT us Provider Outr Resulting Lab CHEMISTRY & BLOOD GA S ORDERABLES Final Result Performing Organization Address [facility] Co de Phone Number [facility] [address] [place] [address] from Last 3 Months Care Teams Bilingual [employer] Teacher Relationship Specialty Start Date End Date None, Provider PCP - General 08/07/11
--- OUTSIDE RECORDS SUMMARY | 2024-06-09 11:23 | XMS_ITS | Encounter Summary ---
Author Organization [facility] Address [address] [place] [address] Care Team Providers Care Extracorporeal Technician Name Role Phone Unavailable Primary Care Provider Unavailabl e Encounter Details Date Type Department Care Team (Late st Contact Info) Description 08/03/2011 Results Only [facility] Laboratory Services - [facility] ([facility]) [address] [place], [place] [phone] [place] [address] [place] [address],[address] [place] [address] Social History Tobacco Use Types [...] Procedure Name Priority Date/Time Associated Diagnosis Comments SURGICAL PATHOLOGY Routine 08/03/2011 0:00 EST documented in this encounter Results * SURGICAL PATHOLOGY (08/03/2011 0:00 EST) Pathology Report: SURGICAL PATHOLOGY REPORT Reports generated via electronic interface contain original data; however they are lacking the format of the original report. Caution should be taken when reading/interpreti ng unformatted reports. Name: ? MAMI EMANUEL ? Accession #: ? [id number] ? : ? 1980 (Age: 30) ??F ? Collect Date: ? 08/03/2011 ? Location: ? [facility] ? Receive Date: ? 08/04/2011 ? Provider: JEN WALL MD Copy to: ? Final Pathologic Diagnosis: ? Endometrium, curettage: 1. ?Polypoid fragments of endometrium with infarction, extensive breakdown, exogenous hormone effect, and architectural disarray. ??See comment. 2. ? Benign endometrial tissue. 3. ? No cytologic atypia identified. Comment: ? Collar Padder Blindstitch sections of this case have been reviewed at intradepartmental consultation conference. ??Some of the polypoid fragments show infarction and may represent infarcted endometrial polyps. ??The better-preserved polypoid fragments of endometrium show exogenous hormone effect superimposed on a background of architectural disarray, which may represent prior hyperplasia. No cytologic atypia is seen. ??(Dr. Valle)/[facility] ?? Document reviewed and electronically signed by: SHARA VALLE MD Report ??Date: 08/07/2011 15:22 By the signature above, the attending physician certifies that he/she has personally conducted a gross and/or microscopic examination of the described specimens and rendered or confirmed the above diagnosis. Specimen(s) Received: ? Endometrial curettings Clinical History: ? Hx of oligomenorrhea secondary to PCOS. ??Polypoid endometrium on hysteroscopy, prolonged bleeding x2+ months-unresponsiv e to progesterone Gross Description: ? Received in formalin labelled Nguyen, Mami and endometrial curettings is a 4.0 x 3.5 x 1.5 cm aggregate of corado-red and pink-corado, focally hemorrhagic soft tissue fragments admixed with red-brown blood clot. ??The specimen is entirely submitted in (A1)-(A6). (Deyanira Rendon)/mpl End of Report TONY MONROE 08/03/2011 08/04/2011 9:0 3 EST us Jen Wall MD PATHOLOGY ORDERABLES [facility] [address] [place] [address] documented in this encounter Visit Diagnoses Not on filedocumented in this encounter
--- OUTSIDE RECORDS SUMMARY | 2024-06-09 11:23 | XMS_ITS | Encounter Summary ---
Author Organization [facility] Address [address] [place] [address] Care Team Providers Care Roll Builder Name Role Phone Unavailable Primary Care Provider Unavailabl e Encounter Details Date Type Department Care Team (Late st Contact Info) Description 03/12/2001 Results Only [facility] - Maple conversion [address] [place] [address] Marely Bueno, [address] [place] [id number] Social History Tobacco Use Types Packs/Day Years [...] Priority Date/Time Associated Diagnosis Comments CYTOPATHOLOGY Routine 03/12/2001 0:00 EDT documented in this encounter Results * CYTOPATHOLOGY (03/12/2001 0:00 EDT) Pathology Report: CYTOPATHOLOGY REPORT Reports generated via electronic interface contain original data; however they are lacking the format of the original report. Caution should be taken when reading/interpreti ng unformatted reports. Name: ? MAMI EMANUEL ? Accession #: ? [id number] : ? 1980 (Age: 20) ??F ?Collect Date: ? 03/12/2001 Location: ? [facility] ? Receive Date: ? 03/14/2001 Provider: ?MARELY BUENO SALES REPRESENTATIVE MEATS Copy to: ? Specimen/Source: ?ThinPrep Pap Test, Cervix/Endocervix Last Menstrual Period: ? SPECIMEN ADEQUACY ? Satisfactory for evaluation. GENERAL CATEGORIZATION ? Within Normal Limits ? Document reviewed and electronically signed by: ? Eber Huerta, WILD(ASCP) ? Report Date: ??03/15/2001 10:47 End of Report [facility] 03/12/2001 03/14/2001 us Marely Bueno SALES REPRESENTATIVE MEATS PATHOLOGY ORDERABLES Final R esult [facility] [address] [place] [address] documented in this encounter Visit Diagnoses Not on filedocumented in this encounter
--- OUTSIDE RECORDS SUMMARY | 2024-06-09 11:23 | XMS_ITS | Encounter Summary ---
Author Organization [facility] Address [address] [place] [address] Care Team Providers Care Coil Winder Repair Name Role Phone None, Provider Primary Care Provider Unavailabl e Encounter Details Date Type Department Care Team (Late st Contact Info) Description 11/21/2020 Lab Requisition [facility] Pathology & Laboratory Medicine - [address] [address] Outr Resulting Lab, Provider Social History Tobacco [...] Procedure Name Priority Date/Time Associated Diagnosis Comments ZZCOVID-19 TEST [facility] PCR Today 11/20/2020 12:27 EDT COVID-19 TESTING Routine 11/20/2020 12:2 7 EDT documented in this encounter Results * COVID-19 TEST [facility] PCR (11/20/2020 12:27 EDT) Swab ENTIRE NASOPHARYNX / Unknown 11/20/2020 12:27 EDT 11/21/2020 15:40 EDT us Provider Outr Resulting Lab MICROBIOLOGY - GENER AL ORDERABLES Final Result [facility] [address] [place] [address] * COVID-19 TESTING (11/20/2020 12:27 EDT) COVID-19 rt-PCR Result Negative Negative 11/22/2020 16:03 EDT [facility] Comment: This test has not been FDA cleared or approved. This test has been authorized by FDA under an EUA for use by authorized laboratories. This test has been authorized only for detection of nucleic acid from 2019-nCoV, not for any other viruses or pathogens. This test is only authorized for the duration of the declaration that circumstances exist justifying the authorization of emergency use of in vitro diagnostic tests for detection and/or diagnosis of 2019-nCoV under section 564(b)(1) of Act, 21 U.S.C ?? 360bbb-3(b) (1), unless the authorization is terminated or revoked sooner. Negative results do not preclude 2019-nCoV infection and should not be used as the sole basis for treatment or other patient management decisions. Negative results must be combined with clinical observations, patient history, and epidemiological information. This test was developed and its performance characteristics determined by [facility]. It has not been cleared or approved by the US Food and Drug Administration. FDA does not require this test to go through premarket FDA review. This test is used for clinical purposes. It should not be regarded as investigational or for research. This laboratory is certified under the Clinical Laboratory Improvement Amendments (CLIA) as qualified to perform high complexity clinical laboratory testing. This test is based on the [facility] COVID-19 Emergency Use Authorization (EUA) assay, with minor modification as defined by the FDA Performed on the SendGrido 7 Flex RT-PCR System. Performing Lab [facility] 11/22/2020 16:03 EDT [facility] Swab 11/20/2020 12:2 7 EDT 11/21/2020 15:40 EDT us Provider Outr Resulting Lab MICROBIOLOGY - GENER AL ORDERABLES Final Result [facility] [address] [place] [address] documented in this encounter Visit Diagnoses Not on filedocumented in this encounter Care Teams Coil Winder Repair Relationship Specialty Start Date End Date None, Provider PCP - General 08/07/11 documented as of this encounter
--- OUTSIDE RECORDS SUMMARY | 2024-06-09 11:23 | XMS_ITS | Encounter Summary ---
Author Organization [facility] Address [address] [place] [address] Care Team Providers Care Freight Flagman Name Role Phone Unavailable Primary Care Provider Unavailabl e Encounter Details Date Type Department Care Team (Late st Contact Info) Description 04/04/2002 Results Only [facility] - Maple conversion [address] [place] [address] Marely Bueno, [address] [place] [phone] Social History Tobacco Use Types Packs/Day Years [...] Priority Date/Time Associated Diagnosis Comments CYTOPATHOLOGY Routine 04/04/2002 0:00 EDT documented in this encounter Results * CYTOPATHOLOGY (04/04/2002 0:00 EDT) Pathology Report: CYTOPATHOLOGY REPORT Reports generated via electronic interface contain original data; however they are lacking the format of the original report. Caution should be taken when reading/interpreti ng unformatted reports. Name: ? MAMI EMANUEL ? Accession #: ? [id number] : ? 1980 (Age: 21) ??F ?Collect Date: ? 04/04/2002 Location: ? [facility] ? Receive Date: ? 04/08/2002 Provider: ?MARELY BUENO MACHINE INSPECTOR Copy to: ? Specimen/Source: ?ThinPrep Pap Test, Cervix/Endocervix Last Menstrual Period: ? SPECIMEN ADEQUACY ? Satisfactory for Evaluation - transformation zone component present GENERAL CATEGORIZATION ? Negative for Intraepithelial Lesion or Malignancy ? Document reviewed and electronically signed by: ? WILD Paz(ASCP) ? Report Date: ??04/11/2002 14:21 End of Report TON[facility] MONROE 04/04/2002 04/08/2002 us Marely Bueno MACHINE INSPECTOR PATHOLOGY ORDERABLES Final R esult [facility] [address] [place] [address] documented in this encounter Visit Diagnoses Not on filedocumented in this encounter
--- OUTSIDE RECORDS SUMMARY | 2024-06-09 11:23 | XMS_ITS | Encounter Summary ---
Author Organization [facility] Address [address] [place] [id number] Care Team Providers Care Biztalk Administrator Name Role Phone None, Provider Primary Care Provider Unavailabl e Encounter Details Date Type Department Care Team (Late st Contact Info) Description 01/23/2014 Results Only [facility] [phone] Wilda Willams MD [address] [place] [address] Social History Tobacco Use Types Packs/Day Years [...] Procedure Name Priority Date/Time Associated Diagnosis Comments QUAD SCREEN (SECOND TRIMESTER) MATERNAL, S Routine 01/22/2014 16:50 EDT QUAD MARKER SCREEN Routine 01/22/2014 16 :50 EDT documented in this encounter Results * QUAD MARKER SCREEN (01/22/2014 16:50 EDT) Interpretation Negative [facility] Comment:INTERPRETATION: SCRE EN NEGATIVE AFP/QUAD Report Refer to supplemental report for complete [facility] Comment:interpretive informa tion. 01/22/2014 16:5 0 EDT 01/23/2014 16:36 EDT Wilda Willams MD CHEMISTRY & BLOOD GAS ORDERABLE S Final Result Performing Organization Address City/State/[facility] Co de Phone Number [facility] [address] [place] [address] * QUAD MARKERS (01/22/2014 16:50 EDT) AFP/QUAD Sample Sample received in the lab. [facility] 01/22/2014 16:5 0 EDT 01/23/2014 16:36 EDT us Wilda Willams MD CHEMISTRY & BLOOD GAS ORDERABLE S Final Result Performing Organization Address [facility] de Phone Number [facility] [address] [place] [address] documented in this encounter Visit Diagnoses Not on filedocumented in this encounter Care Teams Biztalk Administrator Relationship Specialty Start Date End Date None, Provider PCP - General 08/07/11 documented as of this encounter
--- OUTSIDE RECORDS SUMMARY | 2024-06-09 11:23 | XMS_ITS | Encounter Summary ---
Author Organization [facility] Address [address] [place] [address] Care Team Providers Care Laminator Name Role Phone None, Provider Primary Care Provider Unavailabl e Encounter Details Date Type Department Care Team (Late st Contact Info) Description 05/08/2024 Lab Requisition [facility] Pathology & Laboratory Medicine - [address] [id number] Outr Resulting Lab, Provider Social History Tobacco [...] EDT C4 COMPLEMENT Routine 05/07/2024 14:30 EDT documented in this encounter Results * DOUBLE STRANDED DNA ANTIBODY, IGG (05/07/2024 14:30 EDT) dsDNA Ab, IgG <22.0 <27.0 IU/mL 05/12/2024 15:26 EDT [facility] Comment: Negative: <27.0 IU/mL Indeterminate: 27.0 - 35.0 IU/mL Positive: >35.0 IU/mL Results were obtained with [employer] Convergence[employer] Flash dsDNA chemiluminescent immunoassay. Values obtained with different manufacturers' assay methods may not be used interchangeably. Blood VENOUS BLOOD / Unknown 05/07/2024 14:30 EDT 05/08/2024 19:22 EDT us Provider Outr Resulting Lab IMMUNOLOGY AND SEROL OGY ORDERABLES Final Result Performing Organization Address City/[facility]/ZIP Co de Phone Number [facility] [address] [place] [address] * C3 COMPLEMENT (05/07/2024 14:30 EDT) C3 Complement 145 81 - 157 mg/dL 05/09/2024 8:18 EDT [facility] Blood VENOUS BLOOD / Unknown 05/07/2024 14:30 EDT 05/08/2024 19:22 EDT us Provider Outr Resulting Lab CHEMISTRY & BLOOD GA S ORDERABLES Final Result Performing Organization Address [facility] Co de Phone Number [facility] [address] [place] [address] * C4 COMPLEMENT (05/07/2024 14:30 EDT) C4 Complement 26 13 - 39 mg/dL 05/09/2024 8:18 EDT [facility] Blood VENOUS BLOOD / Unknown 05/07/2024 14:30 EDT 05/08/2024 19:22 EDT us Provider Outr Resulting Lab CHEMISTRY & BLOOD GA S ORDERABLES Final Result Performing Organization Address [facility] Co de Phone Number [facility] [address] [place] [address] documented in this encounter Visit Diagnoses Not on filedocumented in this encounter Care Teams Laminator Relationship Specialty Start Date End Date None, Provider PCP - General 08/07/11 documented as of this encounter
--- OUTSIDE RECORDS SUMMARY | 2024-06-09 11:24 | XMS_ITS | Encounter Summary ---
Author Organization [facility] [place] [address] Care Team Providers Care Traffic Signal Repairer Name Role Phone Marian To APRN Primary Care Provider [phone] Encounter Details Date Type Department Care Team (Latest Contact Info) Description 11/07/2022 1:00 PM EDT Office [place] [phone] Bill Dos Santos MD [facility] [place] [address] Lupus erythematosus tumidus Social History Tobacco Use Types Packs/Day Years Used Date Smoking Tobacco: Former Cigarettes 0.5 20 0 02/17/2000 - 02/17/2020 Smokeless Tobacco: Never Tobacco Cessation:Counseling Given: Not Answered Alcohol Use Standard Drinks/Week Comments No 0 (1 standard drink = 0.6 oz pur e alcohol) Sex and Gender Information Value Date Recorded Sex Assigned at Not on file Gender Identity Not on file Sexual Orientation Not on file documented as of this encounter Last Filed Vital Signs Vital Sign Reading Time Taken Comments Blood Pressure 118/73 11/07/2022 12:55 PM EDT Pulse 71 11/07/2022 12:55 PM EDT Temperature 36.1 ??C (96.9 ??F) 11/07/2022 1 2:55 PM EDT Respiratory Rate 12 11/07/2022 12:5 5 PM EDT Oxygen Saturation 98% 11/07/2022 12: 55 PM EDT Inhaled Oxygen Concentration - - Weight 116.9 kg (257 lb 12.8 oz) 2022 12:55 PM EDT Height - - Body Mass Index 48.71 08/08/2021 10:24 AM EST documented in this encounter Patient Instructions * Patient Instructions* Bill Dos Santos MD - 11/07/2022 1:00 PM EDT For now continue MTX 0.8 cc weekly with folic acid 1 mg daily. HCQ 200 mg twice daily Labs every 3 months Will discuss with Drs. Saleh and janee about further treatment plans. 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 MTX SC 20 mg weekly and folic acid daily. Labs from 08-04-2022 normal. I do not have mostrecent labs from 2 weeks ago. Had appt with Dr. Mckeon today. Pt tells me Dr. Mckeon thinks she may have psoriasis and psoriatic arthritis. About one year ago she was seen by Ortho in [facility] and had left knee steroid injction. Worked for about 2-3 months. Last appointment in Rheumatology [facility] was about one year ago. Had a severe depressive episode whichcaused her to cancel appointnments ROS: Has had Covid twice. 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 Fatigue and malaiseafter taking MTX. General (-)fevers, (-)chills, night sweats HEENT (-)inflammatory eye disease, (-)vision loss, (-)epistaxis, (-)bleeding gums, (-)oral ulcers, (-)dry eyes, (-)dry mouth, (-)dysphagia, (-)GERD, (-)photo sensitivity, nasal sores over the last month CVS (-)chest pain, (-)palpitations Pulm (-)shortness of breath, (-)GRADY, (-)wheezes, (-)cough, (-)pleuritic pain GI )N/V after taking MTX, (-)abdominal pain, (-)hematochezia (-)hematuria, (-)dysuria MS (-)muscle weakness, (-)paralysis, joint [place] all over-knees, ankles, hands, wrists- Occasional dactylitis Endo (-)thyroid disorders, (-)diabetes Neuro (-)focal weakness, (-)paresthesias, (-)gait instability. Skin (-)Raynaud's, (-)rashes - ? psoriasis Psych (-) mood disorder. Physical Examination: BP 118/73 (BP Location (NBP): Right arm, Patient Position: Sitting, BP Cuff Sizes: Large Adult (32-43 cm)) Pulse 71 Temp 36.1 ??C (96.9 ??F) (Temporal) Resp 12 Wt 116.9 kg (257 lb 12.8 oz) SpO2 98% BMI 48.71 kg/m?? General: AAOx3, NAD HEENT: (-)scleral injection Skin: Lupus tumidus lesions on the upper arms and ? Psoriatic patch volar aspect of the right wrist Cardiovascular: RR, (-)murmurs, rubs, or gallops. Lungs: Clear to auscultation bilaterally. (-)R/R/W Back: Tender to palpation diffusely over entire back midline and paravertebral regions from interscapular region to lumbar spine and sacrum Neuro: Alert and oriented x3. Extremities: Shoulders: FROM, non-tender to palpation Elbows:FROM, (-)pain, (-)nodules Wrists: Both wrists TTP dorsally Hands: several PIPs are TTP without obvious swelling. MCPs are full left>right and TTP, full claw and fist. No nail pitting Laboratory Data: Pending Studies: None pending Impression: Maim WONG is a 42 y.o. female who presents today for follow-up of lupus 2 minutes. I am filling in for Dr. Saleh this afternoon. She arrived to the appointment 45 minutes late yet due to the fact that she lives 2 hours away I offered to see her in his place. She is currently treated with methotrexate 20 mg subcutaneously administered weekly and folic acid 1 mg daily. Additionally she is onhydroxychloroquine 400 mg daily. She had an appointment with Dr. Mckeon at [facility] in dermatology this morning. Unfortunately the note was not available for me to read at the time of the visit. By patient report Dr. Mckeon had considered the diagnosis of psoriatic arthritis and was considering r ecommendation for other treatment other than methotrexate possibly in addition to it or in place ofit. She does have skin findings on the volar aspect of the right wrist which appear to be consistent with psoriasis and the pattern of her inflammatory findings in the PIPs MCPs and wrists appear to be consistent with the diagnosis of psoriatic arthritis. At this time I will hold off on any change in therapy until Dr. Mckeon's recommendations are made known. I will also let Dr. Saleh know about the potential change of therapy or consideration of change. Most recent laboratory tests that were available for my review were from August 04, 2022. Patient reports she had laboratory test done morerecently. I will asked to have these sent to our attention and scanned into her medical record. Recommendations: ? Continue methotrexate 20 mg subcutaneously administered. Folic acid 1 mg daily ? Continue hydroxychloroquine 400 mg daily. ? Methotrexate monitoring labs every 3 months locally. Standing lab orders have been written. CC: Marian To On the day of this encounter, I the medical provider spent a total of at least 35 minutes providingthis patient's care. This includes time spent [id number] with the patient performing evaluation, examination, and counseling . It also includes non [id number] time preparing to see the patient, reviewing the chart, coordinating care, and documenting clinical information in the electronic healthrecord. documented in this encounter Plan of Treatment Not on file documented as of this encounter Visit Diagnoses Diagnosis Lupus erythematosus tumidus Lupus erythematosus documented in this encounter Care Teams Traffic Signal Repairer Relationship Specialty Start Date End Date Marian To, ANAHI [address] [place] [address] PCP - General Family Medicine 10/15/17 01/09/24 documented as of this encounter
--- OUTSIDE RECORDS SUMMARY | 2024-06-09 11:24 | XMS_ITS | Encounter Summary ---
Author Organization [facility] [place] [address] Care Team Providers Care Lens Mold Setter Name Role Phone Marian To APRN Primary Care Provider [phone] Encounter Details Date Type Department Care Team (Latest Contact Info) Description 11/07/2022 Travel Social History Tobacco Use Types Packs/Day Years Used Date Smoking Tobacco: Former Cigarettes 0.5 20 0 02/17/2000 - 02/17/2020 Smokeless Tobacco: Never Alcohol Use Standard Drinks/Week Comments No 0 (1 standard drink = 0.6 oz pur e alcohol) Sex and Gender Information Value Date Recorded Sex Assigned at Not on file Gender Identity Not on file Sexual Orientation Not on file documented as of this encounter Plan of Treatment Not on file documented as of this encounter Visit Diagnoses Not on filedocumented in this encounter Care Teams Lens Mold Setter Relationship Specialty Start Date End Date Marian To APRN [address] [place], [place] [id number] PCP - General Family Medicine 10/15/17 01/09/24 documented as of this encounter
--- OUTSIDE RECORDS SUMMARY | 2024-06-09 11:24 | XMS_ITS | Encounter Summary ---
[place] [address] Care Team Providers Care Regulator Tester Name Role Phone Marian To APRN Primary Care Provider [phone] Reason for Visit * Reason Onset Date Comments Medication Refill 09/30/2021 Encounter Details Date Type Department Care Team (Late st Contact Info) Description 09/30/2021 Refill [place] [address] Karine Saleh MD [facility] [place] [address] Nausea without vomiting Social History Tobacco Use Types Packs/Day Years [...] as of this encounter Visit Diagnoses Diagnosis Nausea without vomiting documented in this encounter Care Teams Regulator Tester Relationship Specialty Start Date End Date Marian To APRN [address] [place] [address] PCP - General Family Medicine 10/15/17 01/09/24 documented as of this encounter
--- OUTSIDE RECORDS SUMMARY | 2024-06-09 11:24 | XMS_ITS | Encounter Summary ---
[place] [address] Care Team Providers Care Literature Teacher Name Role Phone Marian To APRN Primary Care Provider [phone] Reason for Visit * Reason Onset Date Comments Medication Refill 03/09/2021 Encounter Details Date Type Department Care Team (Late st Contact Info) Description 03/09/2021 [place] [address] Karine Saleh MD [facility] [place] [address] Lupus erythematosus tumidus; Nausea without vomiting Social History Tobacco Use [...] Diagnoses Diagnosis Lupus erythematosus tumidus Lupus erythematosus Nausea without vomiting documented in this encounter Care Teams Literature Teacher Relationship Specialty Start Date End Date Marian To APRN [address] [place] [address] PCP - General Family Medicine 10/15/17 01/09/24 documented as of this encounter
--- OUTSIDE RECORDS SUMMARY | 2024-06-09 11:24 | XMS_ITS | Encounter Summary ---
Author Organization [facility] [place] [address] Care Team Providers Care Conduit Reamer Operator Name Role Phone Esau Palomo Primary Care Provider [phone] Reason for Visit * Reason Onset Date Comments Medication Refill 09/04/2022 Encounter Details Date Type Department Care Team (Late st Contact Info) Description 09/04/2022 [place] [address] Ash Menchaca MD [facility] [place] [address] Lupus erythematosus tumidus Social History Tobacco Use [...] on file documented as of this encounter Miscellaneous Notes * Telephone Encounter - Chanelle Hall RN - 09/05/2022 11:53 AM EST Refill Requests received from Mami for Flexeril 5 mg tablets, Phenergan 12.5 mg tablets and BD syringe 1 ml 26 X 4/2 once a week for administration of MTX injection NÉSTOR on 08/08/21 No show on 05/31/22 Letter sent on 06/07/22 - no response. Last labs on 08/04/21. Last script for Phenergan on 02/23/22 Disp 30, Refills 0, BD syringe on 12/20/21 12/20/21 Disp 100 Refills 0, Flexeril on 12/20/21 on 12/20/21 Disp 60 Refills 2 Refill requests refused. Patient needs to be seen and have labs. documented in this encounter Plan of Treatment Not on file documented as of this encounter Visit Diagnoses Diagnosis Lupus erythematosus tumidus Lupus erythematosus documented in this encounter Care Teams Conduit Reamer Operator Relationship Specialty Start Date End Date Esau Palomo PA [address] [place] [address] PCP - General Internal Medicine 01/10/24 documented as of this encounter
--- OUTSIDE RECORDS SUMMARY | 2024-06-09 11:24 | XMS_ITS | Encounter Summary ---
[place] [address] Care Team Providers Care Travel Counselor Automobile Club Name Role Phone Marian To APRN Primary Care Provider [phone] Encounter Details Date Type Department Care Team (Late st Contact Info) Description 01/10/2021 Telephone [place] [phone] Karine Saleh MD [facility] [place] [address] Social History Tobacco Use Types Packs/Day Years [...] erythematosus documented in this encounter Care Teams Travel Counselor [employer]obile Club Relationship Specialty Start Date End Date Marian To APRN [address] [place] [address] [place] [address] PCP - General Family Medicine 10/15/17 01/09/24 documented as of this encounter
--- OUTSIDE RECORDS SUMMARY | 2024-06-09 11:24 | XMS_ITS | Encounter Summary ---
[place] [address] Care Team Providers Care Bank Sales And Service Manager Name Role Phone Marian To APRN Primary Care Provider [phone] Encounter Details Date Type Department Care Team (Late st Contact Info) Description 02/13/2023 [place] [phone] Colleen Whitman Social History Tobacco Use Types Packs/Day Years [...] on filedocumented in this encounter Care Teams Bank Sales And Service Manager Relationship Specialty Start Date End Date Marian To APRN [address] [place] [address] PCP - General Family Medicine 10/15/17 01/09/24 documented as of this encounter
--- OUTSIDE RECORDS SUMMARY | 2024-06-09 11:24 | XMS_ITS | Encounter Summary ---
[place] [address] Care Team Providers Care Service Center Specialist Name Role Phone Marian To AGRICULTURAL TECHNICAL OFFICER Primary Care Provider Reason for Visit * Reason Onset Date Comments Medication Refill 12/06/2020 Encounter Details Date Type Department Care Team (Late st Contact Info) Description 12/06/2020 [place] [phone] Kristian Phillips, RN Lupus erythematosus tumidus Social History Tobacco Use [...] erythematosus documented in this encounter Care Teams Service Center Specialist Relationship Specialty Start Date End Date Marian To APRN [address] [place] [address] PCP - General Family Medicine 10/15/17 01/09/24 documented as of this encounter
--- OUTSIDE RECORDS SUMMARY | 2024-06-09 11:24 | XMS_ITS | Encounter Summary ---
Author Organization [facility] Address [facility] [place] [address] Care Team Providers Care Metal Burnisher Name Role Phone Marian To APRN Primary Care Provider [phone] Reason for Referral * Physical Therapy (Routine) - Specialty Diagnoses / Procedures Referred By Cuauhtemoc pete Referred To Contact Diagnoses Lupus erythematosus tumidus Karine Saleh MD [facility] [place] [address] Referral ID Status Reason Start Date Expiration Date V isits Requested Visits Authorized [id number] Evaluate and Treat 09/16/2020 03/15/2021 12 12 Encounter Details Date Type Department Care Team (Latest Contact Info) Description 09/16/2020 11:00 AM EST Office [place] [phone] Karine Saleh MD [facility] [address] Lupus erythematosus tumidus Social History Tobacco Use [...] Sign Reading Time Taken Comments Blood Pressure 123/90 09/16/2020 10:34 AM EST Pulse 80 09/16/2020 10:34 AM EST Temperature 36.7 ??C (98 ??F) 09/16/2020 10:34 AM EST Respiratory Rate - - Oxygen Saturation 99% 09/16/2020 10:34 AM EST Inhaled Oxygen Concentration - - Weight 112.9 kg (249 lb) 09/16/2020 10:34 AM EST Height 154.9 cm (5' 0.98) 09/16/2020 10:[address] Body Mass Index 47.07 09/16/2020 10:34 AM EST documented in this encounter Progress Notes * Karine Saleh - 09/16/2020 11:00 AM EST Rheumatology Outpatient Follow Up Note PCP: Marian To APRN Mami WONG is a 40 y.o. female who we are seeing for the continuing management of lupus tumidus. 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 Oneal, [place] dermatology); originally on upper extremity treated with HCQ, was well controlled. Outside labs (06/2017): JENNA negative, normal complements, neg anticardiolipin and lupus AC, lyme neg, neg CT head non-con. seen by dermatolog in [place] Jun 2017 for rash flare, was taken off HCQ as they did not think she had lupus Tumidus but rather allergic JENNA, WILLY, inflammatory markers, myositis panel, complements, CK, CMP and lyme all negative/normal (checked while on decadron) Photosensitivity: skin breaks out, she feels sick and tired, stomach will bother her as well. Was resumed on HCQ in early 2018 by Derm. Persistent skin rash- Discussed with Dermatology- patientwas started on MTX 15 mg weekly in 01/2019. Switched to SC MTX in 07/2019- better tolerated ?? # Rashes Had covered most of her body, resolved on steroids, was red, raised and itchy, some were painful also with areas around her eyes, neck, back and thighs with a purple hue - Evaluated by Dermatology at [facility]- Diagnosed with Chronic urticaria with dermatographic component - refer to allergy immunology, treated with Benadryl at night as needed, consider OTC Claritin or Magali??in the AM??as needed during the day ? # Fatigue # Myalgia # Headache, diplopia Diplopia started on steroids, left sided headache, has h/o of migraines Abnormal MRI head - Single nonspecific T2 hyperintensity left frontal lobe. Otherwise negative exam ?? Referral to neurology at [facility] 12/2017- Headaches thought to be related to Occipital Neuralgia on the left side. Flexeril HS advised. Non medication measures advised to treat fibromyalgia ?? White matter lesion of OIL LABORATORY ANALYST is a common finding in migraine sufferers.. No additional workup was recommended. I have reviewed the patient's medical, family and social history in detail; there are no changes tothe history as noted in the electronic medical record. Meds and Allergies: Reviewed in eDH Interval History: Patient reports having episodes of rash on arms and chest intermittently. When the rash comes on, he distaste for couple to few weeks. She uses the topical corticosteroids as prescribed by dermatology. Last seen by dermatology in November 2019. Has not followed up with them. She continues to have widespread joint pains but does not report any joint flareups, rash or sicca symptoms. She has poor sleep but has not been able to arrange for a sleep study as she does not want to go home due to COVID-19 concerns. She has been taking methotrexate and hydroxychloroquine but has not had her labs for more than a year and her last eye checkup was more than 2 years ago. ROS (positives in bold): Gen: No fevers, no chills, no night sweats Pulm: No SOB and no cough CV: No chest pain Abd: No abd pain, no nausea, no vomiting, no diarrhea MSK: See HPI Physical exam: BP 123/90 Pulse 80 Temp 36.7 ??C (98 ??F) (Temporal) Ht 154.9 cm (5' 0.98) Wt 112.9 kg (249 lb) SpO2 99% BMI 47.07 kg/m?? Gen: Well appearing, obese, alert and oriented x 3, NAD HEENT: Moist mucous membranes, no oral ulcers, normal sclerae Lymph: No cervical LAD Heart: Regular rate, no murmurs, rubs or gallops Lungs: Clear to auscultation b/l Abd: Soft, NT/ND, bowel sounds + Skin: Warm and dry, no rashes Joints: Shoulders: FROM, bilateral trapezial tenderness Elbows:FROM, bilateral lateral and medial epicondyles tenderness Wrists: FROM, no swelling, non-tender Hands: No synovitis, no MCP compression tenderness, full claw and fist Hips: FROM, no tenderness, bilateral trochanteric tenderness Knees: FROM, no effusion, no tenderness. Bilateral pes anserine tenderness Ankles: FROM, non-tender, no effusion Feet: no MTP compression tenderness Beighton scoring =9/9 Labs/Studies: Results for MAMI WONG ( ) as of 09/16/2020 11:01 Ref. Range 11/23/2017 16:53 JENNA Latest Ref Range: Neg Neg C3 Complement Latest Ref Range: 90 - 180 mg/dL 120 C4 Complement Latest Ref Range: 10 - 40 mg/dL 19 Complement Total Latest Ref Range: 30 - 75 unit/mL 69 DNA Ab (DS) Latest Ref Range: Neg Neg WILLY Ab Unknown ... Myositis Ab Panel Unknown ... CRP Latest Ref Range: <=4.9 mg/L <0.2 RNA Polymerase III Ab, IgG Latest Ref Range: <20.0 (Negative) U <10.0 Assessment: Mami WONG is a 40 y.o. female with the PMH of lupus tumidus diagnosed in 2015, presents todayfor follow up. ?? Patient reports having recurrent skin flares. She continues on hydroxychloroquine 200 mg orally BIDdaily and methotrexate 20 mg weekly subcu injection with daily folic acid. She has been using topical corticosteroids as prescribed by dermatology with some relief but has not followed up with them for long time. She has not had any labs for more than a year and she also has not had eye checkup forlast couple of years. She continues to have diffuse body aches and has poor sleep quality. Has not been able to get sleep study done as she does not want to go out due to COVID-19 concerns. On physical examination, there is no rash or synovitis noted today. She is hypermobile with Beighton score 9/9. This might be partly the reason for patient's diffuse joint pains along with fibromyalgia. Coexistence of TLE and systemic lupus erythematosus (SLE) is rare. Previous auto immune labs including JENNA, WILLY, myositis panel, CK, Lyme, TSH have been negative/normal, she had normal inflammatory markers and complements. No signs of systemic Lupus. Encourage patients to get her labs checked every 3 months. The hepatic toxicity and other side effects related to methotrexate and hydroxychloroquine were discussed with her in detail. Given her standing orders for every 3 months to be done at [facility]. Will have labs done today here. ? Plan: ?? # Lupus Tumidus - Check CBC, CMP, ESR and CRP - Continue hydroxychloroquine 200 mg PO BID - Continue methotrexate 20 mg subcu weekly, folic acid 3 mg PO daily - Continue topical corticosteroids as prescribed by dermatology - Follow-up with dermatology # Fibromyalgia/hypermobility spectrum disorder - Continue duloxetine and Flexeril as needed - Physical therapy referral given for joint hypermobility - Counseled for weight loss and maintaining sleep hygiene - Should have sleep study done as soon as possible ? RTC in 3 months. Patient was seen and discussed with Dr. Winter. Karine Saleh MD Rheumatology Fellow Pager: [phone] * Fadi Winter II, DO - 09/16/2020 11:00 AM EST Staff Addendum I have seen the patient and reviewed the above history and physical and I agree with the details aswritten. The assessment and plan were formulated in discussion with me and I agree with them as documented. Briefly, Ms. WONG presents today for f/u of Tumid Lupus on Plaquenil and methotrexate 20 mg subcu weekly. She has done well, though has had occasional skin flares for which she uses topical steroids. Much of our discussion today was around the need for ongoing methotrexate monitoring labs. She understands, and will have labs done today. Fadi Winter DO, MPH Rheumatology Staff documented in this encounter Plan of Treatment Scheduled Referrals Name Type Priority Associated Diagnoses Orde r Schedule Referral to Physical Therapy Outpatient Referral Routine Lupus erythematosus tumidus Ordered: 09/16/2020 documented as of this encounter Procedures Procedure Name Priority Date/Time Associated Diagnosis Comments HC C-REACTIVE PROTEIN Routine 09/16/2020 12:14 PM EST Lupus erythematosus tumidus HEMOGRAM Routine 09/16/2020 12:14 PM EST Lupus erythematosus tumidus DIFFERENTIAL, AUTOMATED Routine 09/16/2020 12:14 PM EST Lupus erythematosus tumidus HC ESR-SEDIMENTATION RATE, BLOOD Routine 09/16/2020 12:14 PM EST Lupus erythematosus tumidus HC CBC,PLT & AUTO DIFF Routine 09/16/2020 12:14 PM EST Lupus erythematosus tumidus COMPREHENSIVE METABOLIC PANEL Routine 09/16/2020 12:14 PM EST Lupus erythematosus tumidus documented in this encounter Results * Differential, Automated (09/16/2020 12:14 PM EST) Neutrophil % 62.1 % [facility] Neutrophil Absolute 4.50 1.70 - 6.10 x10(3)/[facility] Lymph % 27.8 % [facility] Lymphocytes Abs 2.0 0.9 - 3.2 x10(3)/[facility] Monocyte % 8.0 % [facility] Monocyte Abs 0.6 0.3 - 0.9 x10(3)/[facility] Eos % 1.1 % [facility] Eosinophils Abs 0.1 0.0 - 0.4 x10(3)/[facility] Basophil % 0.4 % [facility] Baso Absolute 0.0 0.0 - 0.1 x10(3)/[facility] LABOR[facility] Immature Gran % 0.60 % [facility] Comment: Immature granulocytes(IG's)percentage and absolute count will include metamyelocytes, myelocytes, and promyelocytes. Blood smears from CBCs yielding IG's will be scanned manually for concordance. If this scan disagrees with the automated IG or if promyelocytes are noted, a manual differential will be performed. Immature Gran Absolute 0.04 0.00 - 0.04 x10(3)/[facility] LABORAT[facility] Blood specimen (specimen) 09/16/2020 12:14 PM EST 09/16/2020 12:43 PM EST Narrative Resulting Agency Comment Spec In Lab Karine Saleh MD HEMATOLOGY ORDERABL ES [facility] [place] [address] * Hemogram (09/16/2020 12:14 PM EST) White Blood Cell 7.2 4.0 - 9.5 x10(3)/[facility] Red Blood Cell 4.84 4.00 - 5.21 x10(6)/[facility] Hemoglobin 14.3 11.7 - 15.5 gm/dL [facility] Hematocrit 43.7 35.7 - 45.8 % [facility] Mean Cell Volume 90.3 82.6 - 94.4 fL [facility] Mean Cell Hemoglobin 29.5 27.1 - 32.0 pg [facility] Mean Cell Hemoglobin Concentration 32.7 31.7 - 35.0 gm/dL [facility] Platelet 270 145 - 357 x10(3)/[facility] RDW Standard Deviation 41.1 37.0 - 46.0 [facility] RDW coefficient of variation 12.7 11.5 - 14.1 % [facility] Mean Platelet Volume 9.5 7.6 - 12.9 [facility] NRBC% auto 0.0 % [facility] NRBC Absolute 0.000 0.000 - 0.000 x10(3)/[facility] Blood specimen (specimen) 09/16/2020 12:14 PM EST 09/16/2020 12:43 PM EST Narrative Resulting Agency Comment Spec In Lab Karine Saleh MD HEMATOLOGY ORDERABL ES Performing Organization Address [facility] Co de Phone Number [facility] [place] [address] * Sedimentation rate (09/16/2020 12:14 PM EST) [facility] Sedimentation Rate Automated 25 2 - 37 mm/hr [facility] Comment: Effective June 25, 2019 new capillary photometric technology has resulted in a change in reference ranges. It is recommended that each ESR result be reviewed with its own age appropriate reference range. Blood specimen (specimen) 09/16/2020 12:14 PM EST 09/16/2020 12:43 PM EST Narrative Resulting Agency Comment Spec In Lab Fadi Winter II, DO HEMATOLOGY ORDER SHABBIR Performing Organization Address [facility] Co de Phone Number [facility] [place] [address] * CRP, acute inflammation (09/16/2020 12:14 PM EST) [facility] C-Reactive Protein 2.7 <=4.9 mg/L [facility] Blood specimen (specimen) 09/16/2020 12:14 PM EST 09/16/2020 12:43 PM EST Narrative Resulting Agency Comment Spec In Lab Fadi Winter II, DO CHEMISTRY ORDERA BLES Performing Organization Address [facility] Co de Phone Number [facility] [place] [address] * Comprehensive metabolic panel (non-fasting) (09/16/2020 12:14 PM EST) [facility] Glucose 100 65 - 199 mg/dL [facility] Comment:Diabetes: >=200 mg/d L plus symptoms Blood Urea Nitrogen 13 8 - 18 mg/dL [facility] Creatinine 0.71 0.70 - 1.20 mg/dL [facility] Sodium 137 135 - 145 mmol/L [facility] Potassium 4.3 3.5 - 5.0 mmol/L [facility] Comment: Please note: ??Patients with WBC >100,000 may have falsely elevated Potassium levels. ??For accurate Potassium quantification in these patients send serum separator tube (gold top) for subsequent determinations. ??Contact the Clinical Chemistry Laboratory if there are any questions. Chloride 101 98 - 107 mmol/L [facility] Carbon Dioxide 28 22 - 31 mmol/L [facility] Anion Gap 8 5 - 15 mmol/L [facility] Calcium 9.1 8.5 - 10.5 mg/dL [facility] Protein, Total 7.2 6.1 - 8.0 gm/dL [facility] Albumin 4.3 3.2 - 5.2 gm/dL [facility] Aspartate Aminotransferase 16 0 - 30 unit/L [facility] Alanine Aminotransferase 24 0 - 30 unit/L [facility] Alkaline Phosphatase 75 35 - 105 unit/L [facility] Bilirubin, Total 0.3 0.2 - 1.3 mg/dL [facility] Est Glomerular Filtration Rate 107 >=60 mL/min/1. 73 m?? [facility] Comment: This patient? s estimated glomerular filtration rate (eGFR) is between 107 mL/min/1.73 m2 (patients with less muscle mass) and 124 mL/min/1.73 m2 (patients with more muscle mass) as determined by the CKD-EPI equation. Assessment of eGFR is not appropriate when creatinine concentrations are rapidly changing. For clinical decisions where creatinine clearance will affect therapy, a 24-hour urine creatinine clearance may be advised. Assignment of CKD stage 1 ? 5 for patients with an eGFR near the transition point between stages may be based on clinical assessment of muscle mass and symptoms in addition to eGFR. Blood specimen (specimen) 09/16/2020 12:14 PM EST 09/16/2020 12:43 PM EST Narrative Resulting Agency Comment Spec In Lab Fadi Winter II, DO CHEMISTRY ORDERA BLES Performing Organization Address City/State/[facility] Co de Phone Number [facility] [place] [address] documented in this encounter Visit Diagnoses Diagnosis Lupus erythematosus tumidus Lupus erythematosus documented in this encounter Care Teams Metal Burnisher Relationship Specialty Start Date End Date Marian To, LIME FILTER OPERATOR [address] [place] [address] PCP - General Family Medicine 10/15/17 01/09/24 documented as of this encounter
--- OUTSIDE RECORDS SUMMARY | 2024-06-09 11:24 | XMS_ITS | Encounter Summary ---
[place] [address] Care Team Providers Care Maintenance Service Technician Name Role Phone Marian To APRN Primary Care Provider [phone] Reason for Visit * Reason Comments Medication Refill Encounter Details Date Type Department Care Team (Late st Contact Info) Description 10/24/2021 Refill [place] [address] Karine Saleh MD [facility] [place] [address] Social History Tobacco Use Types Packs/Day Years [...] on filedocumented in this encounter Care Teams Maintenance Service Technician Relationship Specialty Start Date End Date Marian To APRN [address] [place] [address] [place] [address] PCP - General Family Medicine 10/15/17 01/09/24 documented as of this encounter
--- OUTSIDE RECORDS SUMMARY | 2024-06-09 11:24 | XMS_ITS | Encounter Summary ---
Author Organization [facility] Address [facility] [place] [address] Care Team Providers Care Processing Archivist Name Role Phone Esau Palomo Primary Care Provider Reason for Referral * Consultation (Routine) - Authorized Specialty Diagnoses / Procedures Referred By Contac t Referred To Contact Otolaryngology Diagnoses Lupus erythematosus tumidus Nasal septal perforation Bill Dos Santos MD [facility] [place] [address] Referral ID Status Reason Start Date Expiration Date Visits Requested Visits Authorized [id number] Authorized Consult, Test & Treat 01/10/2024 07/08/2024 1 1 Reason for Visit * Reason Comments Follow-up Lupus tumidus Encounter Details Date Type Department Care Team (Latest Contact Info) Description 01/10/2024 2:00 PM EDT TH Visit (TeleHealth) [place] [address] Bill Dos Santos MD [facility] [place] [address] Lupus erythematosus tumidus; Nasal septal perforation Social History Tobacco Use Types Packs/Day Years [...] on file documented as of this encounter Patient Instructions * Patient Instructions* Bill Dos Santos MD - 01/10/2024 2:00 PM EDT Continue methotrexate 20 mg weekly. Folic acid 4 mg daily. Continue hydroxychloroquine 400 mg daily. Needs laboratory test done at [facility] for methotrexate monitoring as well as determination of lupus activity. Referral to otolaryngology for nasal septal perforation documented in this encounter Progress Notes * Bill Dos Santos MD - 01/10/2024 2:00 PM EDT This is a telemedicine visit that was performed with the originating site at that patients home address (please see electronic health record for applicable address) and the distant site at my [facility] office. Verbal consent to participate in telephone visit was obtained by Bill Dos Santos MD or the roomingassistant as documented in their note. I discussed with the patient the nature of our telemedicine visits, that: I would evaluate the patient and recommend diagnostics and treatments based on my assessment Our sessions are not being recorded and that personal health information is protected Our team would provide follow up care in person if/when the patient needs it The concept of ???Telemedicine?? has been described to the patient. Patient has been informed of the anticipated benefitsand possible risks. Patient understands the information provided regarding telemedicine, has had the opportunity to ask questions about this information, and all questions have been answered to patien t's satisfaction. Patient consents for the use of telemedicine in his/her medical care and authorizes the transmission of any relevant medical information to providers and their staff involved in patient's medical or mental health care. Reason for Visit: Follow up for lupus tumidus History of Present Illness: Mami WONG is a 43 y.o. female with lupus tumidus . Has [...] ago she was seen by Ortho in [facility] and had left knee steroid injction. Worked for about 2-3 months. Last appointment in Rheumatology [facility] was about one year ago. Had a severe depressive episode whichcaused her to cancel appointnments 01-10-2024 Interval events: Has had a few flares: facial rash. Blistering rash in the arms. Mouth and nasal sores. Septal perforation. Happened over the last 3 months. Saw PCP Esau Palomo. Was not sent to ENT. Taking MTX 0.8 cc weekly. Folic acid 4 mg daily. HCQ 400 mg daily No fevers. Duloxetine 90 mg daily. Prescribed by Dewey. ROS: Has had Covid twice. 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 Fatigue and malaiseafter taking MTX. General (-)fevers, (-)chills, night sweats HEENT (-)inflammatory eye disease, (-)vision loss, (-)epistaxis, (-)bleeding gums, (-)oral ulcers, (-)dry eyes, (-)dry mouth, (-)dysphagia, (-)GERD, (-)photo sensitivity, nasal sores over the last month; eye dryness. CVS (-)chest pain, (-)palpitations Pulm (-)shortness of breath, (-)GRADY, (-)wheezes, (-)cough, (-)pleuritic pain GI )N/V after taking MTX, (-)abdominal pain, (-)hematochezia (-)hematuria, (-)dysuria MS (-)muscle weakness, (-)paralysis, joint [place] all over-knees, ankles, hands, wrists- Occasional dactylitis Endo (-)thyroid disorders, (-)diabetes Neuro (-)focal weakness, (-)paresthesias, (-)gait instability. Skin Rashes face and arms. Psych (-) mood disorder. Physical Examination: There were no vitals taken for this visit. TH Alert. Oriented. No distress. Appropriate speech thought and content. Laboratory Data: No recent laboratory tests are available. Last ones are from last year about this time. Laboratory tests have been ordered and will be faxed locally for her to get these to determine if lupus is active Studies: None pending Impression: Mami WONG is a 43 y.o. female who presents today for follow-up of lupus tumidus. Current treatment involves methotrexate 20 mg weekly and hydroxychloroquine 400 mg daily. It sounds like she maybe having some active lupus symptoms. I am especially concerned about the report of the nasal septal perforation. I have written for a number of labs to look at safety of methotrexate and determine if there are any indications of toxicity. Additionally he will be getting labs to determine if her lupus is active. I think that she should be seen locally by ear nose and throat to determine if there are any other concerning lesions. Need to also consider other vasculitic conditions such as GPA. Recommendations: Continue methotrexate 20 mg weekly. Folic acid 4 mg daily. Continue hydroxychloroquine 400 mg daily. Needs laboratory test done at [facility] for methotrexate monitoring as well as determination of lupus activity. Referral to otolaryngology for nasal septal perforation CC: Marian To On the day of this encounter, I the medical provider spent a total of at least 36 minutes providingthis patient's care. This includes time spent [id number] with the patient performing evaluation, examination, and counseling . It also includes non [id number] time preparing to see the patient, reviewing the chart, coordinating care, and documenting clinical information in the electronic healthrecord. documented in this encounter Plan of Treatment Scheduled Orders Name Type Priority Associated Diagnoses Orde r Schedule CBC (with Diff) Lab Routine Lupus erythematosus tumidus Every 3 months for 4 Occurrences starting 01/10/2024 until 01/09/2025 Comprehensive metabolic panel (non-fasting) Lab Routine Lupus erythematosus tumidus Every 12 Weeks for 4 Occurrences starting 01/10/2024 until 01/09/2025 dsDNA Antibody Lab Routine Lupus erythematosus tumidus Expected: 01/10/2024, Expires: 01/09/2025 C3 Complement Lab Routine Lupus erythematosus tumidus Expected: 01/10/2024, Expires: 01/09/2025 C4 Complement Lab Routine Lupus erythematosus tumidus Expected: 01/10/2024, Expires: 01/09/2025 Urinalysis with reflex Culture Lab Routine Lupus erythematosus tumidus Expected: 01/10/2024, Expires: 01/09/2025 Protein/Creatinine Ratio, urine Lab Routine Lupus erythematosus tumidus Expected: 01/10/2024, Expires: 01/09/2025 Sedimentation rate Lab Routine Lupus erythematosus tumidus Expected: 01/10/2024, Expires: 01/09/2025 CRP, acute inflammation Lab Routine Lupus erythematosus tumidus Expected: 01/10/2024, Expires: 07/11/2024 Scheduled Referrals Name Type Priority Associated Diagnoses Orde r Schedule Referral to ENT Outpatient Referral Routine Lupus erythematosus tumidus Nasal septal perforation Ordered: 01/10/2024 documented as of this encounter Visit Diagnoses Diagnosis Lupus erythematosus tumidus Lupus erythematosus Nasal septal perforation Other diseases of nasal cavity and sinuses documented in this encounter Care Teams Processing Archivist Relationship Specialty Start Date End Date Esau Palomo PA [address] [place] [address] PCP - General Internal Medicine 01/10/24 documented as of this encounter
--- OUTSIDE RECORDS SUMMARY | 2024-06-09 11:24 | XMS_ITS | Encounter Summary ---
[place] [address] Care Team Providers Care Sales Team Member Name Role Phone Marian To APRN Primary Care Provider [phone] Reason for Visit * Reason Onset Date Comments Medication Refill 04/12/2020 Encounter Details Date Type Department Care Team (Late st Contact Info) Description 04/12/2020 Ref[place] [phone] Ashok Melendez, RN Social History Tobacco Use Types Packs/Day Years Used Date Smoking Tobacco: Every Day Cigarettes 0.5 20 Smokeless Tobacco: Never Alcohol Use Standard Drinks/Week Comments No 0 (1 standard drink = 0.6 oz pur e alcohol) Sex and Gender Information Value Date Recorded Sex Assigned at Not on file Gender Identity Not on file Sexual Orientation Not on file documented as of this encounter Miscellaneous Notes * Telephone Encounter - Ashok Melendez RN - 04/12/2020 9:17 AM EDT RTC to Mami and let her know that her request for a refill on Cymbalta was re submitted to her pharmacy, and to call them later today. * Telephone Encounter - Ashok Melendez RN - 04/12/2020 9:13 AM EDT RTC to pharmacy [facility] Insurance did not accept the Fellow's request. documented in this encounter Plan of Treatment Not on file documented as of this encounter Visit Diagnoses Not on filedocumented in this encounter Care Teams Sales Team Member Relationship Specialty Start Date End Date Marian To, ANAHI [address] [facility] [address] PCP - General Family Medicine 10/15/17 01/09/24 documented as of this encounter
--- OUTSIDE RECORDS SUMMARY | 2024-06-09 11:24 | XMS_ITS | Encounter Summary ---
[place] [address] Care Team Providers Care Deboner Name Role Phone Marian To APRN Primary Care Provider [phone] Encounter Details Date Type Department Care Team (Late st Contact Info) Description 06/07/2022 Telephone [place] [phone] Linda Argueta Social History Tobacco Use Types Packs/Day Years [...] on filedocumented in this encounter Care Teams Deboner Relationship Specialty Start Date End Date Marian To APRN [address] [place] [address] PCP - General Family Medicine 10/15/17 01/09/24 documented as of this encounter
--- OUTSIDE RECORDS SUMMARY | 2024-06-09 11:24 | XMS_ITS | Encounter Summary ---
Author [facility] [place] [address] Care Team Providers Care Lighting Specialist Name Role Phone Marian To APRN Primary Care Provider [phone] Reason for Visit * Reason Onset Date Comments Questions 10/10/2019 Encounter Details Date Type Department Care Team (Late st Contact Info) Description 10/10/2019 [place] [phone] Kristian Phillips, RN Questions Social History Tobacco Use Types Packs/Day Years [...] encounter Miscellaneous Notes * Telephone Encounter - Kristian Phillips RN - 10/10/2019 10:06 AM EDT Patient calls clinic for letter. Status has Lupus and on MTX. 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 States paula does not want her working d/t her being high risk. She has called unemployment, states they need a letter that states she has Lupus and is on MTX and is a high risk patient out of work due to COVID 19. Her mailing address is [facility] [address] [place] [address] States provider may contact patient if necessary. documented in this encounter Plan of Treatment Not on file documented as of this encounter Visit Diagnoses Not on filedocumented in this encounter Care Teams Lighting Specialist Relationship Specialty Start Date End Date Marian To, TUBULAR RIVETER [address] [place] [address] PCP - General Family Medicine 10/15/17 01/09/24 documented as of this encounter
--- OUTSIDE RECORDS SUMMARY | 2024-06-09 11:24 | XMS_ITS | Encounter Summary ---
[place] [address] Care Team Providers Care Rubber Goods Cutter Finisher Name Role Phone Marian To APRN Primary Care Provider [phone] Reason for Visit * Reason Onset Date Comments Medication Refill 10/07/2020 Encounter Details Date Type Department Care Team (Late st Contact Info) Description 10/07/2020 Refill [place] [phone] Ten Peoples RN Lupus erythematosus tumidus Social History Tobacco [...] encounter Miscellaneous Notes * Telephone Encounter - Ten Peoples RN - 10/07/2020 11:14 AM EDT Mami calls to request MTX, Cymbalta and Flexeril Refills. Cymbalta is the only one that is due at this time. Called Mami and advised of this and she states that she takes 10 mg nightly of the Flexeril and only 5 mg tabs have been ordered. I advised I will ask Dr. Saleh to order if he agrees with this. She has enough MTX on hand. documented in this encounter Plan of Treatment Not on file documented as of this encounter Visit Diagnoses Diagnosis Lupus erythematosus tumidus Lupus erythematosus documented in this encounter Care Teams Rubber Goods Cutter Finisher Relationship Specialty Start Date End Date Marian To, ANAHI [address] [place] [address] PCP - General Family Medicine 10/15/17 01/09/24 documented as of this encounter
--- OUTSIDE RECORDS SUMMARY | 2024-06-09 11:24 | XMS_ITS | Encounter Summary ---
[place] [address] Care Team Providers Care Space Control Supervisor Name Role Phone Marian To APRN Primary Care Provider [phone] Reason for Visit * Reason Onset Date Comments Prior Authorization 08/12/2021 Duloxetine Encounter Details Date Type Department Care Team (Late st Contact Info) Description 08/12/2021 Telephone [place] [address] La Ballesteros Prior Authorization (Duloxetine) Social History Tobacco Use Types Packs/Day Years [...] encounter Miscellaneous Notes * Telephone Encounter - La Ballesteros - 08/26/2021 2:51 PM EST Re-submitted * Telephone Encounter - La Ballesteros - 08/12/2021 8:42 AM EST Images from the original note were not included. Medication Prior Authorization Therese Medication name/dose/directions: Duloxetine 30mg - 3x daily Rationale for request: [employer] Health plan: [place] Medicaid ([facility]) Authorizing inside sales representative name: Faith Sent to health plan on: 08/12/21 Health plan decision: Denied Quantity approved: Authorization number: [id number] Start date: End date: documented in this encounter Plan of Treatment Not on file documented as of this encounter Visit Diagnoses Not on filedocumented in this encounter Care Teams Space Control Supervisor Relationship Specialty Start Date End Date Marian To, ANAHI [address] [place] [address] PCP - General Family Medicine 10/15/17 01/09/24 documented as of this encounter
--- OUTSIDE RECORDS SUMMARY | 2024-06-09 11:24 | XMS_ITS | Encounter Summary ---
[place] [address] Care Team Providers Care Bead Wrapper Name Role Phone Marian To APRN Primary Care Provider [phone] Encounter Details Date Type Department Care Team (Late st Contact Info) Description 05/30/2022 Telephone [place] [phone] Lisa Avina MA Social History Tobacco Use Types Packs/Day Years [...] encounter Miscellaneous Notes * Telephone Encounter - Lisa Avina RMA - 05/30/2022 2:38 PM EST Called patient for pre-charting, no answer. HEATHER MARTINES documented in this encounter Plan of Treatment Not on file documented as of this encounter Visit Diagnoses Not on filedocumented in this encounter Care Teams Bead Wrapper Relationship Specialty Start Date End Date Marian To APRN [address] [place] [address] PCP - General Family Medicine 10/15/17 01/09/24 documented as of this encounter
--- OUTSIDE RECORDS SUMMARY | 2024-06-09 11:24 | XMS_ITS | Encounter Summary ---
Author Organization [facility] [address] [place] [address] Care Team Providers Care Wax Room Supervisor Name Role Phone Marian To APRN Primary Care Provider [phone] Reason for Visit * Reason Onset Date Comments Medication Refill 04/26/2021 Encounter Details Date Type Department Care Team (Late st Contact Info) Description 04/26/2021 [place] [phone] Karine Saleh MD [facility] [place] [address] Lupus erythematosus tumidus Social History Tobacco Use [...] encounter Miscellaneous Notes * Telephone Encounter - Jennifer Tello LPN - 04/27/2021 8:34 AM EDT Requested Prescriptions Pending Prescriptions Disp Refills ??? BD Insulin Syringe 1 mL 26 x 1/2 Syringe Sig: USE 1 SYRINGE ONCE A WEEK ??? cyclobenzaprine (Flexeril) 5 mg Tablet 60 tablet 2 Sig: Take 2 tablets by mouth nightly as needed for Muscle spasms. ??? metHOTREXate 25 mg/mL Solution 10 mL 3 Sig: Inject 0.8 mLs subcutaneously once a week. Last office visit: 09/16/2020 Last refill: 08/13/2019, 12/06/2020, 01/10/2021 documented in this encounter Plan of Treatment Not on file documented as of this encounter Visit Diagnoses Diagnosis Lupus erythematosus tumidus Lupus erythematosus documented in this encounter Care Teams Wax Room Supervisor Relationship Specialty Start Date End Date Marian To APRN [address] [place] [address] PCP - General Family Medicine 10/15/17 01/09/24 documented as of this encounter
--- OUTSIDE RECORDS SUMMARY | 2024-06-09 11:24 | XMS_ITS | Encounter Summary ---
Author Organization [facility] [place] [address] Care Team Providers Care Practice Professional Name Role Phone Marian To APRN Primary Care Provider [phone] Reason for Visit * Reason Comments Follow-up Encounter Details Date Type Department Care Team (Late st Contact Info) Description 11/07/2022 10:30 AM EDT Office Visit Dermatology at [facility] [address] [place] [address] Dickson Mckeon MD [facility] [place] [address] Gifty Merchant, RN Skin tag; Psoriasis Social History Tobacco Use Types Packs/Day Years [...] on file documented as of this encounter Progress Notes * Dickson Mckeon MD - 11/07/2022 10:30 AM EDT Images from the original note were not included. DEPARTMENT OF DERMATOLOGY Medical Dermatology Clinic Provider: DICKSON MCKEON MD Patient's preferred name Mami Preferred contact method for results [x]Phone (Home or Cell) [x]myD-H []Letter Detailed phone message OK? Yes Are there any other people with whom we may discuss your care? ([place]) Past Medical History Date, location, treatment Melanoma No Dysplastic nevi No SCC No BCC No AKs No UV Exposure & Protection +History of blistering sunburns Other relevant past medical history Dyshidrotic eczema, fibromyalgia/hypermobility syndrome, PCOS Tumid lupus - Initially diagnosed??by showroom sales assistant in [place] in 2014- -? 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 Patient returns to clinic today for evaluation of a rash on the right hand. - Patient reports having a recurrent rash on the right palmar hand and wrist. She has not had a rash on her left hand or feet. She is not currently treating with any prescription topicals. She most recently (2020) tried augmented betamethasone ointment, which only minimally helped. - She also endorses joint pain in her knees and itching and flaking of her scalp. 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 She also carries a diagnosis of fibromyalgia. She was last seen in Rheumatology on 08/08/21 and is scheduled to see Dr. Saleh later today. Last visit at Dermatology: 10/07/20 Medications: Reviewed in eD-H Allergies: Reviewed in eD-H Skin Examination: Focused skin examination of the elbows, forearms, hands, lower back, gluteal cleft and feet was normal with the exception of the findings below. Assessment/Plan A. Favor psoriasis; unclear if joint symptoms may be inflammatory - Vesicles on the right palm (Figures 1-2). No nail pitting. Elbows, feet, and gluteal cleft are clear. - Recommended discussing this diagnosis with rheumatology today; could consider switching to an alternative systemic agent other than methotrexate for better control of skin disease. - Start Rx ketoconazole 2% cream: Apply topically to affected areas on the face twice daily as needed. - Start Rx fluocinonide (Lidex) 0.05% solution: Apply topically to scalp at night and wash out in the morning. Use 2-3 times a week as needed, alternating with rotational regimen of OTC anti-dandruffshampoos. B. Skin Tag - Flesh-colored papule on the right lower eyelid. - Discussed benign nature and provided reassurance. No treatment necessary at this time. Figure 1 (right palm) Figure 2 (patient photo of right palm from 10/05/22) Photo(s) taken and charted with patient's verbal consent. Other: ??? N/A RTC: 4-6 months for psoriasis follow up []Note routed to grated cheese maker [x]Recall placed in scheduling system []Appointment scheduled at checkout Scribe attestation: Gifty Merchant RN has performed the documentation for this encounter in the presence of and acting as a scribe for DICKSON MCKEON MD. I performed the above scribed service and agree with the accuracy of the documentation in this encounter. Reviewed and signed by: DICKSON MCKEON MD Dermatology [facility] documented in this encounter Plan of Treatment Not on file documented as of this encounter Visit Diagnoses Diagnosis Skin tag Unspecified hypertrophic and atrophic condition of skin Psoriasis Other psoriasis documented in this encounter Care Teams Practice Professional Relationship Specialty Start Date End Date Marian To, ANAHI [address] [place] [address] PCP - General Family Medicine 10/15/17 01/09/24 documented as of this encounter
--- OUTSIDE RECORDS SUMMARY | 2024-06-09 11:24 | XMS_ITS | Encounter Summary ---
Author Organization [facility] [place] [address] Care Team Providers Care Oncology Social Work Name Role Phone Marian To APRN Primary Care Provider [phone] Reason for Visit * Reason Onset Date Comments Medication Refill 12/13/2021 Encounter Details Date Type Department Care Team (Late st Contact Info) Description 12/13/2021 [address] at [address] [place] [address] Gypsy Mckeon MD [facility] [place] [address] Dyshidrotic hand dermatitis Social History Tobacco Use Types Packs/Day Years [...] as of this encounter Visit Diagnoses Diagnosis Dyshidrotic hand dermatitis Dyshidrosis documented in this encounter Care Teams Oncology Social Work Relationship Specialty Start Date End Date Marian To APRN [address] [place] [address] PCP - General Family Medicine 10/15/17 01/09/24 documented as of this encounter
--- OUTSIDE RECORDS SUMMARY | 2024-06-09 11:24 | XMS_ITS | Encounter Summary ---
[place] [address] Care Team Providers Care Stemhole Borer And Topper Name Role Phone Marian To APRN Primary Care Provider [phone] Reason for Visit * Reason Onset Date Comments Medication Refill 12/31/2020 Encounter Details Date Type Department Care Team (Late st Contact Info) Description 12/31/2020 Tele[place] [phone] Ashok Melendez, councilor Refill Social History Tobacco Use Types Packs/Day Years [...] encounter Miscellaneous Notes * Telephone Encounter - Karine Saleh - 01/05/2021 4:56 PM EDT Called and discussed with the pt about her concerns related to methotrexate prescription and the need for phenergan. I conveyed to her the importance of having the lab work done regularly on methotrexate and the possible relation of nausea with a liver issue. Pt is very upset that I have not prescribed her phenergan and renewed MTX. She related her disease might be getting worse without methotrexate and 'it would not be in anyone's best interest if that happened'. I again asked for the labs andshe assured me she is having these done on next Sunday. I have prescribed limited amount of MTX andphenergan for now. I also asked that she needs to schedule an appointment with us as she missed her last appointment. * Telephone Encounter - Ashok Melendez RN - 01/04/2021 10:37 AM EDT RTC to Mami and she reports she has missed her last dose of MTX, needs a refill, will be having labs done this week, and is requesting Phenergan, because she has some nausea when taking the MTX. Her PCP told her to ask Dr. Saleh to fill the script for Phenergan. * Telephone Encounter - Ashok Melendez RN - 12/31/2020 9:02 AM EDT RTC to Mami, but her vm has not been set up yet. Her message was a refill MTX and script for Phenergan, because the MTX makes her have some nausea, and her PCP wants Rheumatology to fill Phenerganscript. documented in this encounter Plan of Treatment Not on file documented as of this encounter Visit Diagnoses Diagnosis Lupus erythematosus tumidus Lupus erythematosus Nausea without vomiting documented in this encounter Care Teams Stemhole Borer And Topper Relationship Specialty Start Date End Date Marian To, ANAHI [address] [place] [address] PCP - General Family Medicine 10/15/17 01/09/24 documented as of this encounter
--- OUTSIDE RECORDS SUMMARY | 2024-06-09 11:24 | XMS_ITS | Encounter Summary ---
[place] [address] Care Team Providers Care Product Architect Name Role Phone Marian To APRN Primary Care Provider [phone] Reason for Visit * Reason Onset Date Comments Prior Authorization 11/03/2021 Encounter Details Date Type Department Care Team (Late st Contact Info) Description 11/03/2021 Telephone [place] [phone] La Ballesteros Prior Authorization Social History Tobacco Use Types Packs/Day Years [...] * Telephone Encounter - La Ballesteros - 11/03/2021 7:55 AM EDT Images from the original note were not included. Medication Prior Authorization Therese ? Medication name/dose/directions: Duloxetine 30mg - 3x daily ?? Rationale for request: Fibro ?? Health plan: [place] Medicaid ([facility]) ?? Authorizing product representative name: Faith ?? Sent to health plan on: 11/03/21 ?? Health plan decision: Denied ?? Quantity approved: ?? Authorization number: [id number] ?? Start date: End date: documented in this encounter Plan of Treatment Not on file documented as of this encounter Visit Diagnoses Not on filedocumented in this encounter Care Teams Product Architect Relationship Specialty Start Date End Date Marian To, ANAHI [address] [place] [address] PCP - General Family Medicine 10/15/17 01/09/24 documented as of this encounter
--- OUTSIDE RECORDS SUMMARY | 2024-06-09 11:24 | XMS_ITS | Encounter Summary ---
Author Organization [facility] Address [facility] [place] [address] Care Team Providers Care Equity Research Analyst Name Role Phone Esau Palomo Primary Care Provider [phone] Reason for Visit * Reason Onset Date Comments Medication Refill 10/04/2021 Encounter Details Date Type Department Care Team (Late st Contact Info) Description 10/04/[address] [place] [address] Gypsy Mckeon MD [facility] [place] [address] Dyshidrotic hand dermatitis Social History Tobacco Use [...] Dyshidrosis documented in this encounter Care Teams Equity Research Analyst Relationship Specialty Start Date End Date Esau Palomo PA [address] [place] [address] PCP - General Internal Medicine 01/10/24 documented as of this encounter
--- OUTSIDE RECORDS SUMMARY | 2024-06-09 11:24 | XMS_ITS | Encounter Summary ---
[place] [address] Care Team Providers Care Web Feeder Name Role Phone Marian To APRN Primary Care Provider [phone] Reason for Visit * Reason Onset Date Comments Medication Refill 04/08/2020 Encounter Details Date Type Department Care Team (Late st Contact Info) Description 04/08/2020 [place] [phone] Ten Peoples, RN Social History Tobacco Use Types Packs/Day [...] on filedocumented in this encounter Care Teams Web Feeder Relationship Specialty Start Date End Date Marian To APRN [address] [place] [address] PCP - General Family Medicine 10/15/17 01/09/24 documented as of this encounter
--- OUTSIDE RECORDS SUMMARY | 2024-06-09 11:24 | XMS_ITS | Encounter Summary ---
Author Organization [facility] [place] [address] Care Team Providers Care Core Analyst Name Role Phone Esau Palomo Primary Care Provider [phone] Reason for Visit * Reason Onset Date Comments Medication Refill 09/04/2022 Encounter Details Date Type Department Care Team (Late st Contact Info) Description 09/04/2022 [place] [address] Karine Saleh MD [facility] [place] [address] Nausea without vomiting Social History Tobacco Use [...] vomiting documented in this encounter Care Teams Core Analyst Relationship Specialty Start Date End Date Esau Palomo PA [address] [place], [place] [address] PCP - General Internal Medicine 01/10/24 documented as of this encounter
--- OUTSIDE RECORDS SUMMARY | 2024-06-09 11:24 | XMS_ITS | Encounter Summary ---
[place] [address] Care Team Providers Care Senior Project Coordinator Name Role Phone Marian To APRN Primary Care Provider [phone] Reason for Visit * Reason Onset Date Comments Medication Refill 01/02/2020 Encounter Details Date Type Department Care Team (Late st Contact Info) Description 01/02/2020 Ref[place] [phone] Kristian Phillips, RN Social History Tobacco Use Types Packs/Day [...] on filedocumented in this encounter Care Teams Senior Project Coordinator Relationship Specialty Start Date End Date Marian To APRN [address] [address] PCP - General Family Medicine 10/15/17 01/09/24 documented as of this encounter
--- OUTSIDE RECORDS SUMMARY | 2024-06-09 11:24 | XMS_ITS | Encounter Summary ---
[place] [address] Care Team Providers Care School Counsellor Name Role Phone Marian To STENCIL SPRAYER Primary Care Provider [phone] Encounter Details Date Type Department Care Team (Late st Contact Info) Description 11/28/2021 Telephone [place] [phone] Arabella Cruz Social History Tobacco Use Types Packs/Day Years [...] encounter Miscellaneous Notes * Telephone Encounter - Arabella Cruz - 11/28/2021 4:51 PM EDT Called pt to sudeep a bumped follow up, no answer and mail box was full. Sending letter. documented in this encounter Plan of Treatment Not on file documented as of this encounter Visit Diagnoses Not on filedocumented in this encounter Care Teams School Counsellor Relationship Specialty Start Date End Date Marian To APRN [address] [place] [address] PCP - General Family Medicine 10/15/17 01/09/24 documented as of this encounter
--- OUTSIDE RECORDS SUMMARY | 2024-06-09 11:24 | XMS_ITS | Encounter Summary ---
[place] [address] Care Team Providers Care Lead Systems Developer Name Role Phone Marian To APRN Primary Care Provider [phone] Reason for Visit * Reason Onset Date Comments Medication Refill 03/02/2020 Encounter Details Date Type Department Care Team (Late st Contact Info) Description 03/02/2020 Ref[place] [phone] Ashok Melendez, RN Social History Tobacco Use [...] on filedocumented in this encounter Care Teams Lead Systems Developer Relationship Specialty Start Date End Date Marian To APRN [address] [place] [address] PCP - General Family Medicine 10/15/17 01/09/24 documented as of this encounter
--- OUTSIDE RECORDS SUMMARY | 2024-06-09 11:24 | XMS_ITS | Encounter Summary ---
Author Organization [facility] [place] [address] Care Team Providers Care Center Director Name Role Phone Marian To APRN Primary Care Provider [phone] Reason for Visit * Reason Onset Date Comments Medication Refill 09/10/2022 Encounter Details Date Type Department Care Team (Late st Contact Info) Description 09/10/2022 Refill [place] [address] [facility] [place] [address] Nausea without vomiting Social History Tobacco Use [...] vomiting documented in this encounter Care Teams Center Director Relationship Specialty Start Date End Date Marian To APRN [address] [place] [address] PCP - General Family Medicine 10/15/17 01/09/24 documented as of this encounter
--- OUTSIDE RECORDS SUMMARY | 2024-06-09 11:24 | XMS_ITS | Encounter Summary ---
[place] [address] Care Team Providers Care Travel Professional Name Role Phone Marian To APRN Primary Care Provider [phone] Reason for Visit * Reason Onset Date Comments Medication Refill 07/15/2020 Encounter Details Date Type Department Care Team (Late st Contact Info) Description 07/15/2020 [place] [address] Kristian Phillips RN Lupus erythematosus tumidus (Primary Dx) Social History Tobacco Use Types Packs/Day Years [...] Telephone Encounter - Kristian Phillips RN - 07/15/2020 4:01 PM EST Rheumatology appointment in the last 6 months? No RN confirm MTX dose? 20 mg weekly Most recent labs: External labs? No [ WBC Date Value Ref Range Status 08/13/2019 8.6 4.0 - 9.5 x10(3)/mcL Final Hemoglobin Date Value Ref Range Status 08/13/2019 14.9 11.7 - 15.5 gm/dL Final MCV Date Value Ref Range Status 08/13/2019 89.9 82.6 - 94.4 fL Final Platelets Date Value Ref Range Status 08/13/2019 220 145 - 357 x10(3)/mcL Final Creatinine Date Value Ref Range Status 08/13/2019 0.72 0.70 - 1.20 mg/dL Final Albumin Date Value Ref Range Status 08/13/2019 4.2 3.2 - 5.2 gm/dL Final AST Date Value Ref Range Status 08/13/2019 14 0 - 30 unit/L Final ALT Date Value Ref Range Status 08/13/2019 18 0 - 30 unit/L Final ] If last labs >12 weeks, were new labs ordered per protocol by RN? Yes Follow-up appointment scheduled: Yes [facility] scheduling: No documented in this encounter Plan of Treatment Not on file documented as of this encounter Visit Diagnoses Diagnosis Lupus erythematosus tumidus- Primary Lupus erythematosus documented in this encounter Care Teams Travel Professional Relationship Specialty Start Date End Date Marian To APRN [address] [facility] [place] [address] PCP - General Family Medicine 10/15/17 01/09/24 documented as of this encounter
--- OUTSIDE RECORDS SUMMARY | 2024-06-09 11:24 | XMS_ITS | Encounter Summary ---
[place] [address] Care Team Providers Care Dispatcher Relay Name Role Phone Marian To APRN Primary Care Provider [phone] Reason for Visit * Reason Onset Date Comments Medication Refill 08/26/2020 Medication Refill 09/03/2020 Encounter Details Date Type Department Care Team (Late st Contact Info) Description 08/26/2020 [place] [address] Kristian Phillips vegetable farm manager Refill; Medication Refill Social History Tobacco Use Types Packs/Day [...] Telephone Encounter - Ten Peoples RN - 09/03/2020 4:31 PM EST Faxed labs to [facility]. * Telephone Encounter - Kristian Phillips RN - 09/03/2020 3:19 PM EST Patient requests lab orders be sent to [facility]. Orders from 07/15/20. documented in this encounter Plan of Treatment Not on file documented as of this encounter Visit Diagnoses Not on filedocumented in this encounter Care Teams Dispatcher Relay Relationship Specialty Start Date End Date Marian To, GASTROENTEROLOGIST [address] [facility] [place] [address] PCP - General Family Medicine 10/15/17 01/09/24 documented as of this encounter
--- OUTSIDE RECORDS SUMMARY | 2024-06-09 11:24 | XMS_ITS | Encounter Summary ---
Author Organization [facility] [place] [address] Care Team Providers Care Staff Electrical Engineer Name Role Phone Marian To APRN Primary Care Provider [phone] Reason for Visit * Reason Comments Follow-up Encounter Details Date Type Department Care Team (Latest Contact Info) Description 08/08/2021 10:30 AM EST [place] [address] Karine Saleh MD [facility] [address] [place] [address] Fibromyalgia; Lupus erythematosus tumidus Social History Tobacco Use [...] Sign Reading Time Taken Comments Blood Pressure 126/82 08/08/2021 10:24 AM EST Pulse 85 08/08/2021 10:24 AM EST Temperature 36.3 ??C (97.4 ??F) 08/08/2021 1 0:24 AM EST Respiratory Rate 16 08/08/2021 10:2 4 AM EST Oxygen Saturation 98% 08/08/2021 10: 24 AM EST Inhaled Oxygen Concentration - - Weight 113.5 kg (250 lb 3.2 oz) 022 10:24 AM EST Height 154.9 cm (5' 1) 08/08/2021 10:2 4 AM EST Body Mass Index 47.27 08/08/2021 10:24 AM EST documented in this encounter Progress Notes * Karine Saleh - 08/08/2021 10:30 AM EST Rheumatology Outpatient Follow Up Note PCP: Marina To APRN Mami WONG is a 40 y.o. female who we are seeing for the continuing management of lupus tumidus. 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 Oneal, [facility]); originally on upper extremity treated with HCQ, was well controlled. Outside labs (06/2017): JENNA negative, normal complements, neg anticardiolipin and lupus AC, lyme neg, neg CT head non-con. seen by dermatolog in [place] Jun 2017 for rash flare, was taken [...] purple hue - [place] [facility] Diagnosed with Chronic urticaria with dermatographic component [...] negative exam ?? Referral to neurology at [facility] [place]- Headaches thought to be related to Occipital Neuralgia on the left side. Flexeril HS advised. Non medication measures advised to treat fibromyalgia ?? 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 No additional workup was recommended. I have reviewed the patient's medical, family and social history in detail; there are no changes tothe history as noted in the electronic medical record. Meds and Allergies: Reviewed in eDH Interval History: Patient reports having an injury to her left knee and she is going for knee surgery soon. She denies any new rashes, photosensitivity, hair loss or frequent oral/nasal ulcerations. ROS (positives in bold): Gen: No fevers, no chills, no night sweats Pulm: No SOB and no cough CV: No chest pain Abd: No abd pain, no nausea, no vomiting, no diarrhea MSK: See HPI Physical exam: BP 126/82 Pulse 85 Temp 36.3 ??C (97.4 ??F) (Temporal) Resp 16 Ht 154.9 cm (5' 1) Wt 113.5 kg (250 lb 3.2 oz) SpO2 98% BMI 47.27 kg/m?? Gen: Well appearing, obese, alert and oriented x 3, NAD HEENT: Moist mucous membranes, no oral ulcers, normal sclerae Lymph: No cervical LAD Heart: Regular rate, no murmurs, rubs or gallops Lungs: Clear to auscultation b/l Abd: Soft, NT/ND, bowel sounds + Skin: Warm and dry, erythematous and peeling rash noted on the right palm Joints: Shoulders: FROM, bilateral trapezial tenderness Elbows:FROM, bilateral lateral and medial epicondyles tenderness Wrists: FROM, no swelling, non-tender Hands: No synovitis, no MCP compression tenderness, full claw and fist Hips: FROM, no tenderness, bilateral trochanteric tenderness Knees: FROM, no effusion, no tenderness. Bilateral pes anserine tenderness Ankles: FROM, non-tender, no effusion Feet: no MTP compression tenderness Beighton scoring =9/ Labs/Studies: 07/2021: Normal CBC and metabolic panel Assessment: Mami WONG is a 40 y.o. female with the PMH of lupus tumidus diagnosed in 2016 and fibromyalgia, who presents today for follow up. ?? Patient reports feeling stable with her skin symptoms but she recently had a left knee injury for which she is going for surgery in coming weeks. She continues on hydroxychloroquine 200 mg orally BIDdaily and methotrexate 20 mg weekly subcu injection with daily folic acid. She has been using topical corticosteroids as prescribed by dermatology with some relief. She continues to have diffuse bodyaches and has poor sleep quality. Has not been able to get sleep study done as she does not want togo out due to COVID-19 concerns. On physical examination, there is synovitis or oral ulcerations. She is hypermobile with Beighton score 9/9. Coexistence of TLE and systemic lupus erythematosus (SLE) is rare. Previous auto immune labs including JENNA, WILLY, myositis panel, CK, Lyme, TSH have been negative/normal, she had normal inflammatory markers and complements. No signs of systemic Lupus. For her fibromyalgia, patient is on 60 mg of Cymbalta and nightly Flexeril. She thinks this regimen gives her some relief but she is still has significant aches and pains. Again encouraged her to get a sleep study done which might be playing a big role with her fibromyalgia. For now, will go up on her Cymbalta to 90 mg daily. She does not have a history of depression. She does not respond to Cymbalta, could consider switching her to Lyrica or gabapentin. Encouraged patient to get her labs checked every 3 months. Order sent to [facility]. She had her eye checkup last year and according to her, everything was normal. She has an upcoming appointment again. ? Plan: ?? # Lupus Tumidus - Check CBC, CMP, ESR and CRP in October. - Continue hydroxychloroquine 200 mg PO BID - Continue methotrexate 20 mg subcu weekly, folic acid 3 mg PO daily - Continue topical corticosteroids as prescribed by dermatology - Follow-up with dermatology # Fibromyalgia/hypermobility spectrum disorder - Continue duloxetine and Flexeril as needed - Counseled for weight loss and maintaining sleep hygiene - Should have sleep study done as soon as possible ? Patient does not want to do a 3 months follow-up. She will have her labs done at [facility] in 3 months. RTC in 6 months. Patient was discussed with Dr. Dos Santos.. Karine Saleh MD Rheumatology Fellow Pager: [phone] * Bill Dos Santos MD - 08/08/2021 10:30 AM EST The patient's history was reviewed with Dr. Saleh, the rheumatology fellow. History of present illness and diagnosis discussed. Chief complaint and review of systems reviewed. Physical exam findings, serologic testing, and diagnostic imaging reviewed. I agree with his/her summary, findings, diagnostic and therapeutic plans. Bill Dos Santos MD Staff Sales Exhibitor documented in this encounter Plan of Treatment Not on file documented as of this encounter Visit Diagnoses Diagnosis Fibromyalgia Mylagia and myositis, unspecified Lupus erythematosus tumidus Lupus erythematosus documented in this encounter Care Teams Staff Electrical Engineer Relationship Specialty Start Date End Date Marian To, ANAHI [address] [place] [address] PCP - General Family Medicine 10/15/17 01/09/24 documented as of this encounter
--- OUTSIDE RECORDS SUMMARY | 2024-06-09 11:24 | XMS_ITS | Encounter Summary ---
[place] [address] Care Team Providers Care Glass Tube Bender Name Role Phone Marian To APRN Primary Care Provider [phone] Reason for Visit * Reason Onset Date Comments Medication Refill 10/07/2020 Encounter Details Date Type Department Care Team (Late st Contact Info) Description 10/07/2020 [place] [address] Kristian Phillips, RN Social History Tobacco Use [...] Telephone Encounter - Kristian Phillips RN - 10/07/2020 2:32 PM EDT Request received from [facility] via fax request 100 quantity of BD syringes to be used weekly. Pended Rx. documented in this encounter Plan of Treatment Not on file documented as of this encounter Visit Diagnoses Not on filedocumented in this encounter Care Teams Glass Tube Bender Relationship Specialty Start Date End Date Marian To APRN [address] [place], [place] [address] PCP - General Family Medicine 10/15/17 01/09/24 documented as of this encounter
--- OUTSIDE RECORDS SUMMARY | 2024-06-09 11:24 | XMS_ITS | Encounter Summary ---
[place] [address] Care Team Providers Care Safety Instructor Name Role Phone Marian To APRN Primary Care Provider [phone] Reason for Visit * Reason Onset Date Comments Medication Refill 02/22/2022 Encounter Details Date Type Department Care Team (Late st Contact Info) Description 02/22/2022 [place] [address] Ash Menchaca MD [facility] [place] [address] Nausea without vomiting Social History Tobacco Use [...] vomiting documented in this encounter Care Teams Safety Instructor Relationship Specialty Start Date End Date Marian To APRN [address] [place] [address] PCP - General Family Medicine 10/15/17 01/09/24 documented as of this encounter
--- OUTSIDE RECORDS SUMMARY | 2024-06-09 11:24 | XMS_ITS | Encounter Summary ---
Author Organization [facility] [place] [address] Care Team Providers Care Felt Strip Finisher Name Role Phone Marian To APRN Primary Care Provider [phone] Reason for Visit * Reason Onset Date Comments Medication Refill 04/26/2021 Encounter Details Date Type Department Care Team (Late st Contact Info) Description 04/26/2021 Refill [place] [phone] Karine Saleh MD [facility] [place] [address] Nausea without vomiting Social History Tobacco Use [...] Encounter - Jennifer Tello LPN - 04/27/2021 8:37 AM EDT Requested Prescriptions Pending Prescriptions Disp Refills ??? promethazine (PHENERGAN) 12.5 mg Tablet 30 tablet 0 Sig: Take 1 tablet by mouth every 12 hours as needed for Nausea. Last office visit: 09/16/2020, next appt. 05/16/2021 Last refill: 03/10/2021 documented in this encounter Plan of Treatment Not on file documented as of this encounter Visit Diagnoses Diagnosis Nausea without vomiting documented in this encounter Care Teams Felt Strip Finisher Relationship Specialty Start Date End Date Marian To, ANAHI [address] [place] [address] PCP - General Family Medicine 10/15/17 01/09/24 documented as of this encounter
--- OUTSIDE RECORDS SUMMARY | 2024-06-09 11:24 | XMS_ITS | Clinical Summary ---
Author Organization [facility] Address [address] [facility] [place] [address] Care Team Providers Care Systems Management Consultant Name Role Phone Esau Palomo Primary Care Provider Allergies Active Allergy Reactions Criticality Noted Date Comments Clindamycin 02/20/2018 Penicillins Hives,Shortness Of Breath High 12/25/2012 Oxycodone-Acetaminophen Nausea And Vomiting 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 05/14/2014 emt intermediate use causes patient to be anxious Medications Medication Sig Dispensed Refills Start Date End Date Status VIT/IRON FUMARATE/FA ( 19 ORAL) Take by mouth daily. Active metFORMIN (GLUCOPHAGE) 850 mg Tablet take 1 tablet by mouth twice a day 0 10/08/2017 Active EPINEPHrine 0.3 mg/0.3 mL Auto-Injector use as directed by prescriber 0 11/05/2017 Active PROAIR HFA 90 mcg/actuation HFA Aerosol Inhaler inhale 1 puff by mouth as directed if needed 0 06/20/2018 Active folic acid (Folvite) 1 mg Tablet Take 3 tablets by mouth daily. 270 tablet 3 10/06/2021 Active Additional Information Patient taking differently: 4 mgOral DAILY, Reported on 11/07/[address] (Cymbalta) 60 mg Capsule, Delayed Release(E.C.) TAKE 1 CAPSULE BY MOUTH DAILY 90 capsule 3 10/25/2021 Active Additional Information Patient taking differently: 90 mgOral DAILY, Reported on 11/07/2022 BD Insulin Syringe 1 mL 26 x 1/2 Syringe USE 1 SYRINGE ONCE A WEEK for Methotrexate Injections 100 each 12/20/2021 Active cyclobenzaprine (Flexeril) 5 mg TabletIndications:L upus erythematosus tumidus Take 2 tablets by mouth nightly as needed for Muscle spasms. 60 tablet 2 12/20/2021 Active Additional Information Patient not taking.Reported on 11/07/2022 promethazine (PHENERGAN) 12.5 mg TabletIndications:N ausea without vomiting Take 1 tablet by mouth every 12 hours as needed for Nausea. 30 tablet 02/23/[address] (Cymbalta) [address] capsule Take 30 mg by mouth daily. With the 60 mg Active cyclobenzaprine (Flexeril) 10 mg tablet Take 10 mg by mouth 3 times daily as needed. 10/30/2022 Active Syringe with Needle, Safety (Magellan Syringe) 1 mL 27 gauge x 1/2 Syringe 1 each by [facility]Non-Drug; Combo Route) route once a week. 100 each 1 11/07/2022 Active ketoconazole (Nizoral) 2 % Cream Apply topically to feet twice daily for 3 weeks, then 2-3 times a week for maintenance. 60 g 1 11/10/2022 Active fluocinonide (LIDEX) 0.05 % SolutionIndications :Psoriasis Apply topically to scalp at night and wash out in the morning if desired. Use 2-3 times a week as needed, alternating with rotational regimen of nodj-ulk-hbmbiom anti-dandruff shampoos. 60 mL 11/10/2022 Active hydroxychloroquine (Plaquenil) 200 mg tabletIndications:L upus erythematosus tumidus TAKE ONE TABLET BY MOUTH TWICE A DAY 60 tablet 3 09/25/2023 Active metHOTREXate 25 mg/mL SolutionIndications :Lupus erythematosus tumidus INJECT 0.8ML SUBCUTANEOUSLY ONCE A WEEK 10 mL 3 11/07/2023 Active BD Tuberculin Syringe 1 mL 27 x 1/2 Syringe USE ONE SYRINGE ONCE PER WEEK 25 each 1 01/01/2024 Active Active Problems Problem Noted Date Diagnosed Date Tobacco abuse 05/15/2014 Overview (05/15/2014): 1/2 ppd Right nephrolithiasis 05/14/2014 Morbid obesity 12/25/2012 Menses, irregular 12/25/2012 PCOS (polycystic ovarian syndrome) 12/25/2012 Social History Tobacco Use Types Packs/Day Years [...] on file Sexual Orientation Not on file Last Filed Vital Signs Vital Sign Reading [...] 12.8 oz) 2022 12:55 PM EDT Height 154.9 cm (5' 1) 08/08/2021 10:2 4 AM EST Body Mass Index 48.71 08/08/2021 10:24 AM EST Plan of Treatment Health Maintenance Due Date Last Done Comments Lipid Screening 1999 Tetanus/Diphtheria/Pertussis Vaccines (1 - Tdap) 2000 HPV test 2011 PAP Smear 2011 Breast Cancer Share Decision Needed 2021 Breast Cancer screening 2021 Diabetes Screening (HgbA1C o r Glucose) 09/17/2023 09/16/2020, 08/13/2019, 02/12/2019, Additional history exists Covid-19 Vaccine ( - 2023-2 5 season) 2024 Influenza (Flu) vaccine (1 o f 1 - Influenza standard series) 03/16/2024 HIV screen Completed 02/12/2019, 11/07/2013 Hepatitis C Screening Completed 02/12/2019 Medical Devices Implanted Type Area Sole Sewer Hand Device Identifier Shelf Expiration Date Model / Serial / Lot Stent,Contour- Vl,[id number] ([id number]) - [id number] Implanted:Qty: 1 on 05/16/2014 by Yakov Kohler Jr., MD at [facility] IMPLANTS Right: Ureter 02/12/2017 [id number] / [id number] / [id number] Procedures Procedure Name Priority Date/Time Associated Diagnosis Comments LAB SCAN 05/13/2024 12:00 AM EDT COMPREHENSIVE METABOLIC PANEL Routine 09/16/2020 12:14 PM EST Lupus erythematosus tumidus [place] SCREEN, 4TH GENERATION [place] [place] Routine 02/12/2019 10:17 AM EDT Lupus erythematosus tumidus HEPATITIS C ANTIBODY Routine 02/12/2019 10:17 AM EDT Lupus erythematosus tumidus from Last 3 Months or Most Recently Relevant to Health Maintenance Results * Scan Doc: Lab (05/13/2024 12:00 AM EDT) Narrative 05/13/2024 12:00 AM EDT Ordered by an unspecified provider. Scanning Provider MEDIA MGR SCAN EXT O RDR/RSLT * Comprehensive metabolic panel (non-fasting) (09/16/2020 12:14 PM EST) Glucose 100 65 - 199 mg/dL [facility] Comment:Diabetes: >=200 mg/d L plus symptoms Blood Urea Nitrogen 13 8 - 18 mg/dL [facility] Creatinine 0.71 0.70 - 1.20 mg/dL [facility] Sodium 137 135 - 145 mmol/L [facility] Potassium 4.3 3.5 - 5.0 mmol/L [facility] Comment: Please note: ??Patients with WBC >100,000 may have falsely elevated Potassium levels. ??For accurate Potassium quantification in these patients send serum separator tube (gold top) for subsequent determinations. ??Contact the Clinical Chemistry Laboratory if there are any questions. Chloride 101 98 - 107 mmol/L [facility] Carbon Dioxide 28 22 - 31 mmol/L [facility] Anion Gap 8 5 - 15 mmol/L [facility] Calcium 9.1 8.5 - 10.5 mg/dL [facility] Protein, Total 7.2 6.1 - 8.0 gm/dL [facility] Albumin 4.3 3.2 - 5.2 gm/dL [facility] Aspartate Aminotransferase 16 0 - 30 unit/L [facility] Alanine Aminotransferase 24 0 - 30 unit/L [facility] Alkaline Phosphatase 75 35 - 105 unit/L [facility] Bilirubin, Total 0.3 0.2 - 1.3 mg/dL [facility] Est Glomerular Filtration Rate 107 >=60 mL/min/1. 73 m?? [facility] Comment: This patient? s estimated [...] Fadi Winter II, DO CHEMISTRY ORDERA BLES [facility] [place] [address] * Hepatitis C Antibody (02/12/2019 10:17 AM EDT) Hepatitis C Antibody Negative Negative [facility] Blood specimen (specimen) 02/12/2019 10:17 AM EDT 02/12/2019 10:52 AM EDT Narrative Resulting Agency Comment Spec In Lab Nohelia Steele DO CHEMISTRY ORDERABL ES [facility] [place] [id number] * HIV Screen, 4th Generation ([place]/CGP/APD) (02/12/2019 10:17 AM EDT) HIV Ab/Ag Screen Negative Negative [facility] Comment: This 4th Generation HIV test screens for the presence of the HIV-1 p24 antigen as well as antibodies reactive against HIV-1 and HIV-2. A negative screen does not rule out an acute HIV infection. If acute HIV infection is suspected, testing should be repeated in 2 - 3 weeks or HIV nucleic acid testing performed. Blood specimen (specimen) 02/12/2019 10:17 AM EDT 02/12/2019 10:52 AM EDT Narrative Resulting Agency Comment Spec In Lab Nohelia Steele DO CHEMISTRY ORDERABL ES [facility] [place] [address] from Last 3 Months or Most Recently Relevant to Health Maintenance Advance Directives * Full Code (Latest Code Status on File) Date Activated Date Inactivated Comments 05/14/2014 10:36 AM 05/16/2014 5:45 PM Question Answer Comments Order Status: Initial Order Does patient have decision m aking capacity? Yes, Order is based on Patients wishes. Care Teams Systems Management Consultant Relationship Specialty Start Date End Date Esau Palomo PA [address] [place] [address] PCP - General Internal Medicine 01/10/24
--- OUTSIDE RECORDS SUMMARY | 2024-06-09 11:24 | XMS_ITS | Encounter Summary ---
Author Organization [facility] [place] [address] Care Team Providers Care Mill Labor Supervisor Name Role Phone Marian To APRN Primary Care Provider [phone] Reason for Visit * Reason Comments Rash Encounter Details Date Type Department Care Team (Late st Contact Info) Description 11/21/2019 11:15 AM EDT TH Visit (TeleHealth) Dermatology at [facility] [address] [place] [address] Gypsy Mckeon MD [facility] [place] [address] Tumid Lupus Social History Tobacco Use Types Packs/Day Years [...] as of this encounter Progress Notes * Gypsy Mckeon MD - 11/21/2019 11:15 AM EDT Images from the original note were not included. DERMATOLOGY ESTABLISHED PATIENT TELEHEALTH ENCOUNTER Date of Service: 11/21/2019 Mami WONG : 1980 Provider: Gypsy Mckeon MD Chief Complaint Patient presents with ??? Rash Relevant Skin History: - Okay to leave detailed voice message with results? 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 Family History: Melanoma: No aline Procedure Screening Questions: Allergies to lidocaine or epinephrine: no Blood thinners: no Pacemaker/defibrillator: no Patient Preferences: Preferred name: Mami Uses myD-H?: Yes Preferred contact method with results: phone Detailed message including biopsy results okay?: yes Are there any other people with whom we may discuss your care?: Stanley Preferred pharmacy: [facility] Mami WONG is a 39 y.o. female, established patient last seen by me on 11/20/18. Patient seen today via TeleHealth for rash. This visit is conducted remotely with patient in [place]. Patient understands that this will be billed as in-person office visit. Rash history: - Location: Hands, arms - Onset: 3 weeks - Evolution: same rash as always - Constant or episodic: Constant - Symptoms: painful and itchy (severity scale of 1-10: 9 for itchy and pain is a constant ache) - Treatments: No topical prescriptions on hand; she has tried everything OTC she can think of without benefit. - Alleviating factors: Nothing, but benadryl calms the itchy but makes her sleepy - Exacerbating factors: Denies increased sun exposure, cannot think of anything that triggered flare up. Question if stress from COVID could have triggered flare. - New medications or changes in medications within last year: Cymbalta started about 3 months ago, it was ordered at [facility] - Other relevant medications: plaquenil 200mg BID, methotrexate 0.8 injection once weekly - Other than rash she is feeling like her usual self. Denies oral sores. MEDS Current Outpatient Medications Medication Sig Dispense Refill ??? DULoxetine DR (Cymbalta) 60 mg Capsule, Delayed Release(E.C.) Take 1 capsule by mouth daily. 30tablet 3 ??? metHOTREXate 25 mg/mL Solution Inject 0.8 mLs subcutaneously once a week. 10 mL 3 ??? folic acid (Folvite) 1 mg Tablet Take 3 tablets by mouth daily. 90 tablet 3 ??? Syringe with Needle, Safety (Magellan Syringe) 1 mL 27 gauge x 1/2 Syringe 1 each by [facility].(Non-Drug; Combo Route) route once a week. 100 Syringe 1 ??? PROAIR HFA 90 mcg/actuation HFA Aerosol Inhaler inhale 1 puff by mouth as directed if needed 0 ??? metFORMIN (GLUCOPHAGE) 850 mg Tablet take 1 tablet by mouth twice a day 0 ??? EPINEPHrine 0.3 mg/0.3 mL Auto-Injector use as directed by prescriber 0 ??? hydroxychloroquine (PLAQUENIL) 200 mg Tablet take 1 tablet by mouth twice a day 0 ??? VIT/IRON FUMARATE/FA ( 19 ORAL) Take by mouth daily. ??? clobetasol (TEMOVATE) 0.05 % Cream Apply twice daily for 2 weeks. Take one week off. Repeat for2 more cycles. (Patient not taking: Reported on 02/12/2019) 60 g 1 ??? buPROPion (WELLBUTRIN XL) 300 mg Tablet Extended Release 24 hr take 1 tablet by mouth once daily 0 ??? cyclobenzaprine (FLEXERIL) 5 mg Tablet Take 1 tablet by mouth nightly. (Patient not taking: Reported on 11/21/2019) 30 tablet 0 ??? escitalopram (LEXAPRO) 20 mg Tablet take 1 tablet by mouth once daily 0 No current facility-administered medications for this visit. ADR Allergies Allergen Reactions ??? Penicillins Hives and Shortness Of Breath ??? Clindamycin ??? Percocet [Oxycodone-Acetaminophen] Nausea And Vomiting ??? 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 laborer marine terminal use causes patient to be anxious ROS General: feeling well Skin: denies other skin complaints EXAM (limited examination performed via TeleHealth) Constitutional: Patient was alert, well-appearing and in no noticeable distress. Skin: Skin exam of the hands and arms was performed via Telehealth. Patient is aware that assessment may be limited by the TeleHealth video resolution. Significant Skin Findings: A. Numerous small papules on the dorsal hands and arms ASSESSMENT/PLAN A. Favor Flaring Tumid Lupus - Start Rx: augmented betamethasone diproprionate 0.05% ointment: Apply topically to affected areasBID x 2-3 weeks. - Follow up in 2-3 weeks via TeleHealth; if rash has not improved will consider having patient comein for biopsy. Photos entered by Patient: Follow Up: Telehealth follow up in 2-3 weeks. Note routed to financial secretary to schedule. Instructed patient to call with questions or concerns. Length of visit: 10 minutes Note initiated by: Zulma Meadows LPN Scribe documenting this encounter for and in the presence of Dr. Mckeon: Zulma Meadows LPN and Ana Corey I performed the services documented by the scribe, and I agree with the accuracy of the documentation in this encounter. Gypsy Mckeon MD Handbag Designer of Dermatology Department of Surgery [facility] documented in this encounter Plan of Treatment Not on file documented as of this encounter Visit Diagnoses Diagnosis Tumid Lupus Systemic lupus erythematosus documented in this encounter Care Teams Mill Labor Supervisor Relationship Specialty Start Date End Date Marian To APRN [address] [place] [address] PCP - General Family Medicine 10/15/17 01/09/24 documented as of this encounter
--- OUTSIDE RECORDS SUMMARY | 2024-06-09 11:24 | XMS_ITS | Encounter Summary ---
Author Organization [facility] [place] [address] Care Team Providers Care Wind Turbine Service Technician Name Role Phone Marian To APRN Primary Care Provider [phone] Encounter Details Date Type Department Care Team (Latest Contact Info) Description 11/19/2019 10:30 AM EDT TH Visit (TeleHealth) [place] [address] Eva Álvarez MD [facility] [place] [address] Lupus erythematosus tumidus Social History Tobacco Use [...] as of this encounter Progress Notes * Eva Álvarez - 11/19/2019 10:30 AM EDT ?? 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 Oneal, [facility]); originally on upper extremity treated with HCQ, was well controlled. Outside labs (06/2017): JENNA negative, normal complements, neg anticardiolipin and lupus AC, lyme neg, neg CT head non-con. seen by dermatolog in [place] Jun 2017 for rash flare, was taken [...] to SC MTX in 07/2019- better tolerated # Rashes Had covered most of her body, resolved on steroids, was red, raised and itchy, some were painful also with areas around her eyes, neck, back and thighs with a purple hue - Evaluated by Dermatology at [facility]- Diagnosed with Chronic urticaria with dermatographic component - refer to allergy immunology, treated with Benadryl at night as needed, consider OTC Claritin or Magali in the AM as needed during the day # Fatigue # Myalgia # Headache, diplopia Diplopia started on steroids, left sided headache, has h/o of migraines Abnormal MRI head - Single nonspecific T2 hyperintensity left frontal lobe. Otherwise negative exam ?? Referral to neurology at [facility] 12/2017- Headaches thought to be related to Occipital Neuralgia on the left side. Flexeril HS advised. Non medication measures advised to treat fibromyalgia ?? White matter lesion of ENGINEERING TECHNOLOGY INSTRUCTOR is a common finding in migraine sufferers.. No additional workup was recommended. Interval History: Patient follow up today by telephone encounter. Patient verbally consents to this telephone visit. Patient reports skin symptoms were mild to moderately controlled on MTX ( was switched to sc MTX dose at last visit due to GI s/e while on PO dosing). Patient reports flare up of skin symptoms in the past few weeks, contributes this could be from all the stress. Reports rash in the chest and back area, also in upper extremities. Says this is itchy. She has not been using topical clobetasol cream, due to high co-pay(cost $300). She continues on [id number] mg orally daily. Last visit with Dermatology in 11/2018. -She denies any oral ulcers, hair loss, serositis symptoms, inflammatory arthritis symptoms, blood in urine, hemoptysis. -She has known history of fibromyalgia. She has poor quality sleep. 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 She has 5 kids at home. Reports having stressors at home and at work. She reports achy pain in the muscles. Reports Cymbalta 30 mg is helping some, and wondering if this can be uptitrated. - Not on Bupropion/ Lexapro for a while now. Previously on this for Depression, due to father's demise. - She denies any fevers chills. - She denies any respiratory/cardiovascular symptoms. - She has history of chronic urticaria. ROS: per interval history Medical History: Lupus Tumidus - dg by dermatology, [place] with plaquenil Depression - started on lexapro Obesity PCOD - Tx metformin Family Hx: Maternal Aunt - SLE Mother's aunt and cousin - SLE Medications: Current Outpatient Medications on File Prior to Visit Medication Sig Dispense Refill ??? metHOTREXate 25 mg/mL Solution Inject 0.8 mLs subcutaneously once a week. 10 mL 3 ??? folic acid (Folvite) 1 mg Tablet Take 3 tablets by mouth daily. 90 tablet 3 ??? Syringe with Needle, Safety (Magellan Syringe) 1 mL 27 gauge x 1/2 Syringe 1 each by [facility]Non-Drug; Combo Route) route once a week. 100 Syringe 1 ??? DULoxetine DR (Cymbalta) 30 mg Capsule, Delayed Release(E.C.) Take 1 capsule by mouth daily. 30tablet 11 ??? clobetasol (TEMOVATE) 0.05 % Cream Apply twice daily for 2 weeks. Take one week off. Repeat for2 more cycles. (Patient not taking: Reported on 02/12/2019) 60 g 1 ??? buPROPion (WELLBUTRIN XL) 300 mg Tablet Extended Release 24 hr take 1 tablet by mouth once daily 0 ??? PROAIR HFA 90 mcg/actuation HFA Aerosol Inhaler inhale 1 puff by mouth as directed if needed 0 ??? cyclobenzaprine (FLEXERIL) 5 mg Tablet Take 1 tablet by mouth nightly. (Patient taking differently: Take 10 mg by mouth nightly.) 30 tablet 0 ??? metFORMIN (GLUCOPHAGE) 850 mg Tablet take 1 tablet by mouth twice a day 0 ??? EPINEPHrine 0.3 mg/0.3 mL Auto-Injector use as directed by prescriber 0 ??? escitalopram (LEXAPRO) 20 mg Tablet take 1 tablet by mouth once daily 0 ??? hydroxychloroquine (PLAQUENIL) 200 mg Tablet take 1 tablet by mouth twice a day 0 ??? VIT/IRON FUMARATE/FA ( 19 ORAL) Take by mouth daily. No current facility-administered medications on file prior to visit. Allergies: Allergies Allergen Reactions ??? Penicillins Hives and Shortness Of Breath ??? Clindamycin ??? Percocet [Oxycodone-Acetaminophen] Nausea And Vomiting ??? 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 retirement use causes patient to be anxious Laboratory Data/Studies: 07/2019 CBC, CMP WNL Assessment: Mami WONG is a 39 y.o. female with a history of lupus tumidus diagnosed in 2015, presents today in follow up. Patient reports having recurrent skin flares. She was seen by dermatology and has had repeat skin biopsy in 11/2018. Per previous discussion with Dermatology- biopsy is consistent with lupus tumidus. She continues on hydroxychloroquine 200 mg orally BID daily, with poor control of symptoms. Per discussion with Dermatology- patient was started on PO methotrexate and daily folic acid. Patient reported improvement in lesions, but had s/e with PO MTX. Was switched to subcu methotrexate 20 mg weekly and tolerting this well, with good control of skin rash. Patient reports recent flare up of skin lesions, she contributes this to stress. She was prescribed topical clobetasol cream by Derm previosuly, but has not picked this up due to high co-pay(cost $300). She will likely benefit from trial of topical treatment, will hold off on further up titrating PO immunosuppressive therapy at this time. She was advised to make follow-up appointment with dermatology at the earliest for further recommendations. Coexistence of TLE and systemic lupus erythematosus (SLE) is rare. Previous auto immune labs including JENNA, WILLY, myositis panel, CK, Lyme, TSH have been negative/normal, she had normal inflammatory markers and complements. No signs of systemic Lupus. She has had diffuse pain, sleep problems, fatigue and on examination has multiple fibromyalgia tender points positive on examination, this is likely secondary to her known hx of Fibromyalgia. We discussed in detail about Fibromyalgia, and recommendations as detailed below. Plan: # Lupus Tumidus - Check CBC, CMP- Fax labs to [facility] per patient request - Continue hydroxychloroquine 200 mg PO BID - Continue methotrexate 20 mg subcu weekly, folic acid 3 mg PO daily - Patient has not been able to afford topical Steroid cream due to high Co-pay, Will request Dermatology to help patient if any other alternatives available. Also given persistent skin lesions, will request follow-up with dermatology. # Fibromyalgia- - Request PCP for evaluation for CLIFTON- Consider referral to Sleep medicine locally - Continue to work on weight loss. - Increase Cymbalta at 60 mg PO daily and monitor symptoms - Counseled to quit smoking - Consider SMA meeting at [facility] in the future, She deferred this previously RTC in 3 months Patient verbally consents to this telephone visit. I provided care to the patient today via telephone call, 26 minutes telephone visit was spent in discussion with patient on above. Eva Álvarez MD Rheumatology PGY5 CC: Marian To APRN * Kaylie Mei DO - 11/19/2019 10:30 AM EDT I was the attending physician supervising the resident in the above care. For the purposes of billing, the resident provided the care. documented in this encounter Plan of Treatment Not on file documented as of this encounter Visit Diagnoses Diagnosis Lupus erythematosus tumidus Lupus erythematosus documented in this encounter Care Teams Wind Turbine Service Technician Relationship Specialty Start Date End Date Marian To APRN [address] [place] [address] PCP - General Family Medicine 10/15/17 01/09/24 documented as of this encounter
--- OUTSIDE RECORDS SUMMARY | 2024-06-09 11:24 | XMS_ITS | Encounter Summary ---
[place] [address] Care Team Providers Care Ornamenter Name Role Phone Marian To APRN Primary Care Provider [phone] Reason for Visit * Reason Onset Date Comments Medication Refill 07/20/2021 Encounter Details Date Type Department Care Team (Late st Contact Info) Description 07/20/2021 [place] [address] Karine Saleh MD [facility] [place] [address] Lupus erythematosus tumidus; Nausea without vomiting Social [...] vomiting documented in this encounter Care Teams Ornamenter Relationship Specialty Start Date End Date Marian To APRN [address] [place] [address] PCP - General Family Medicine 10/15/17 01/09/24 documented as of this encounter
--- OUTSIDE RECORDS SUMMARY | 2024-06-09 11:24 | XMS_ITS | Encounter Summary ---
Author Organization [facility] [place] [address] Care Team Providers Care Life Insurance Specialist Name Role Phone Marian To APRN Primary Care Provider [phone] Reason for Visit * Reason Comments Follow-up Encounter Details Date Type Department Care Team (Late st Contact Info) Description 10/07/2020 4:30 PM EDT Office Visit Dermatology at [facility] [address] [place] [address] Gypsy Mckeon MD [facility] [place] [address] Dyshidrotic hand dermatitis Social History Tobacco Use [...] Progress Notes * Gypsy Mckeon MD - 10/07/2020 4:30 PM EDT DERMATOLOGY ESTABLISHED PATIENT CLINIC NOTE Date of Service: 10/07/2020 Mami WONG : 1980 Provider: Gypsy Mckeon MD Chief Complaint Patient presents with ??? Follow-up SKIN HX Personal History Y/N Date, location, treatment Melanoma N DN N SCC N BCC N AK or field cancerization therapy N 5FU/Carac: PDT: nicotinamide: [] Yes [] No Immunosuppression or malignancy Y Lupus Tumidus - dx'd??by dermatology in [place] with plaquenil and methotrexate 20 mg weekly (subq) Blistering sunburns or tanning bed use Y Blistering sunburn Other (i.e., eczema, psoriasis) Y -??Lupus Tumidus - dx'd??by dermatology in [place] with plaquenil -?Chronic Urticaria see Dr Favian Mckinley Note 02/20/19 Relevant social history Family History Y/N Parents, siblings, children Melanoma N NMSC N Patient is unsure Other N Many family members in the family have cancer Patient Preferences Preferred name Mami Preferred contact method [] Home [x] Cell [] myD-H [] Other: Permission to leave detailed message including results [x] Yes [] No Permission to discuss care with [facility] in [place], [place] Procedure Screening Questions Y/N Allergies to lidocaine or epinephrine N Blood thinners N Pacemaker or defibrillator N HPI Mami WONG is a 40 y.o. female, established patient last seen by me on 11/21/2019. Here today for a follow up of timid lupus and a rash on the hand with the following concerns: - Patient notes of a rash on the right palm that has been present for 1 month. She was seen by her PCP, who gave her halobetasol cream. She has been using halobetasol cream twice daily (under gloves at night) to her hand since then, which has had no improvement to the rash. The rash is very itchy and it hurts to make a fist. Last FSE: N/A MEDS Current Outpatient Medications Medication Sig Dispense Refill ??? DULoxetine DR (Cymbalta) 60 mg Capsule, Delayed Release(E.C.) Take 1 capsule by mouth daily. 30tablet 3 ??? BD Insulin Syringe 1 mL 26 x 1/2 Syringe USE 1 SYRINGE ONCE A WEEK 100 Syringe 0 ??? halobetasol (ULTRAVATE) 0.05 % Cream APPLY A THIN LAYER TOPICALLY TWICE DAILY TO RASH ON HAND ??? hydrOXYchloroQUINE (Plaquenil) 200 mg Tablet take 1 tablet by mouth twice a day Indications: Lupus tumidus 60 tablet 3 ??? metHOTREXate 25 mg/mL Solution Inject 0.8 mLs subcutaneously once a week. 10 mL 0 ??? cyclobenzaprine (Flexeril) 5 mg Tablet Take 1 tablet by mouth nightly as needed for Muscle spasms. 30 tablet 3 ??? folic acid (Folvite) 1 mg Tablet Take 3 tablets by mouth daily. 270 tablet 0 ??? augmented betamethasone dipropionate (DIPROLENE-AF) 0.05 % Ointment Apply topically to affectedareas BID x 2-3 weeks. 30 g 0 ??? Syringe with Needle, Safety (Magellan Syringe) 1 mL 27 gauge x 1/2 Syringe 1 each by [facility].(Non-Drug; Combo Route) route once a week. 100 Syringe 1 ??? clobetasol (TEMOVATE) 0.05 % Cream Apply [...] tablet by mouth once daily 0 ??? VIT/IRON FUMARATE/FA ( 19 ORAL) Take by mouth daily. No current facility-administered medications for this visit. ADR Allergies Allergen Reactions ??? Penicillins Hives and Shortness Of Breath ??? Clindamycin ??? Percocet [Oxycodone-Acetaminophen] Nausea And Vomiting ??? 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 MCC use causes patient to be anxious ROS General: Feeling well Skin: Denies other skin complaints EXAM General: NAD, pleasant, cooperative Skin: A focused skin examination of the hands, significant for the following: Significant Skin Findings: A. Right palm: Erythema with subcorneal vesicles. JIL skin scraping was negative for fungal elements. ASSESSMENT/PLAN A. Dyshidrotic Eczema - Explained etiology. - Reviewed treatment options, including a short course of prednisone and topical steroids. - Start Rx prednisone 20 mg:(D-30 tab, R-0) Take by mouth in the morning as follows: 3 tablets (60 mg) x 5 days; then 2 tablets (40 mg) x 5 days; then take 1 tablet (20 mg) x 5 days. - Start Rx augmented betamethasone diproprionate 0.05% ointment: apply twice daily to affected areas on the hands twice daily for 2 weeks. Take 1 week off, then repeat cycle as needed. - Recommended using a bland moisturizer (such as CeraVe cream or Neutrogena Colombian Formula hand cream) immediately after washing hands and nightly before bed. - specifically addressed experience with prednisone (per allergy list) - short course ok Follow Up: RTC PRN If any questions or concerns arise, patient is welcome to return to clinic. Note initiated by: Emma Figueredo CMA I am documenting this encounter acting as the scribe for and in the presence of Dr. Mckeon: Agnes Disla I performed the above scribed service and agree with the accuracy of the documentation in this encounter. Gypsy Mckeon MD Magistrate Judge of Dermatology Department of Dermatology [facility] cc: Marian To APRN documented in this encounter Plan of Treatment Not on file documented as of this encounter Visit Diagnoses Diagnosis Dyshidrotic hand dermatitis Dyshidrosis documented in this encounter Care Teams Life Insurance Specialist Relationship Specialty Start Date End Date Marian To APRN [facility] [place] [address] PCP - General Family Medicine 10/15/17 01/09/24 documented as of this encounter
--- OUTSIDE RECORDS SUMMARY | 2024-06-09 11:24 | XMS_ITS | Encounter Summary ---
[place] [address] Care Team Providers Care Semiconductor Wafers Tester Name Role Phone Marian To APRN Primary Care Provider [phone] Reason for Visit * Reason Onset Date Comments Medication Refill 07/27/2020 Encounter Details Date Type Department Care Team (Late st Contact Info) Description 07/27/2020 [place] [address] Kristian Phillips, RN Social History Tobacco Use [...] on filedocumented in this encounter Care Teams Semiconductor Wafers Tester Relationship Specialty Start Date End Date Marian To APRN [address] [place] [address] PCP - General Family Medicine 10/15/17 01/09/24 documented as of this encounter
--- OUTSIDE RECORDS SUMMARY | 2024-06-09 11:24 | XMS_ITS | Encounter Summary ---
[place] [address] Care Team Providers Care Ruling Machine Feeder Name Role Phone Esau Palomo Primary Care Provider Encounter Details Date Type Department Care Team (Late st Contact Info) Description 02/25/2024 Telephone [place] [address] Colleen Whitman Social History Tobacco Use Types [...] on filedocumented in this encounter Care Teams Ruling Machine Feeder Relationship Specialty Start Date End Date Esau Palomo PA [address] [place] [address] PCP - General Internal Medicine 01/10/24 documented as of this encounter
--- OUTSIDE RECORDS SUMMARY | 2024-06-09 11:24 | XMS_ITS | Encounter Summary ---
Author Organization [facility] [place] [address] Care Team Providers Care Building Custodian Name Role Phone Marian To APRN Primary Care Provider [phone] Reason for Visit * Reason Comments Medication Refill Encounter Details Date Type Department Care Team (Late st Contact Info) Description 09/24/2023 [place] [address] Bill Dos Santos MD [facility] [place] [address] Lupus erythematosus tumidus Social History Tobacco Use [...] erythematosus documented in this encounter Care Teams Building Custodian Relationship Specialty Start Date End Date Marian To APRN [address] [place] [address] PCP - General Family Medicine 10/15/17 01/09/24 documented as of this encounter
--- OUTSIDE RECORDS SUMMARY | 2024-06-09 11:24 | XMS_ITS | Encounter Summary ---
[place] [address] Care Team Providers Care Shaker Washer Name Role Phone Marian To APRN Primary Care Provider [phone] Reason for Visit * Reason Comments Medication Refill Encounter Details Date Type Department Care Team (Late st Contact Info) Description 05/31/2020 [place] [address] Jt Phelps, [facility] DR [place] [address] Social History Tobacco Use Types Packs/Day Years [...] on filedocumented in this encounter Care Teams Shaker Washer Relationship Specialty Start Date End Date Marian To APRN [address] [place], [place] [address] PCP - General Family Medicine 10/15/17 01/09/24 documented as of this encounter
--- OUTSIDE RECORDS SUMMARY | 2024-06-09 11:24 | XMS_ITS | Encounter Summary ---
[place] [address] Care Team Providers Care Spool Sorter Name Role Phone Marian To APRN Primary Care Provider [phone] Reason for Visit * Reason Onset Date Comments Medication Refill 09/10/2022 Encounter Details Date Type Department Care Team (Late st Contact Info) Description 09/10/2022 Ref[place] [address] Ash Menchaca MD [facility] [address] [place] [address] Lupus erythematosus tumidus Social History Tobacco Use [...] erythematosus documented in this encounter Care Teams Spool Sorter Relationship Specialty Start Date End Date Marian To APRN [address] [facility], [place] [address] PCP - General Family Medicine 10/15/17 01/09/24 documented as of this encounter
--- OUTSIDE RECORDS SUMMARY | 2024-06-09 11:24 | XMS_ITS | Encounter Summary ---
[place] [address] Care Team Providers Care Applied Psychology Chair Name Role Phone Marian To APRN Primary Care Provider [phone] Reason for Visit * Reason Onset Date Comments Medication Refill 10/25/2021 Encounter Details Date Type Department Care Team (Late st Contact Info) Description 10/25/2021 Refill [place] [address] Karine Saleh MD [facility] [place] [address] Lupus erythematosus tumidus; Fibromyalgia Social History Tobacco Use Types Packs/Day Years [...] Diagnoses Diagnosis Lupus erythematosus tumidus Lupus erythematosus Fibromyalgia Mylagia and myositis, unspecified documented in this encounter Care Teams Applied Psychology Chair Relationship Specialty Start Date End Date Marian To APRN [address] [place] [address] PCP - General Family Medicine 10/15/17 01/09/24 documented as of this encounter
--- OUTSIDE RECORDS SUMMARY | 2024-06-09 11:24 | XMS_ITS | Encounter Summary ---
[place] [address] Care Team Providers Care Commutator Undercutter Name Role Phone Marian To APRN Primary Care Provider [phone] Reason for Visit * Reason Onset Date Comments Referral 12/06/2020 PT Encounter Details Date Type Department Care Team (Late st Contact Info) Description 12/06/2020 Telephone [place] [address] Kristian Phillips stencil cutter machine (PT) Social History Tobacco Use Types Packs/Day Years [...] Telephone Encounter - Kristian Phillips RN - 12/14/2020 4:40 PM EDT Spoke with Dr. Saleh. Patient to be cleared by ortho prior to PT referral. Patient updated, expressed understanding. * Telephone Encounter - Kristian Phillips RN - 12/06/2020 3:11 PM EDT Spoke with patient. Referral for PT previously. Patient had gone twice, stepped out of truck and hurt foot, fx in ankle bone, seen by ortho. Some fragments, too small to remove, no sx at this time. Goes back on December 23 to make sure everything is ok, currently utilizing boot. Walking with boot and crutches. Requests new referral for Fibromyalgia to resume PT upon release from Orthopedics. Mail copy to patient. documented in this encounter Plan of Treatment Not on file documented as of this encounter Visit Diagnoses Not on filedocumented in this encounter Care Teams Commutator Undercutter Relationship Specialty Start Date End Date Marian To, DELIVERY RECRUITER [address] [facility], [place] [address] PCP - General Family Medicine 10/15/17 01/09/24 documented as of this encounter
--- OUTSIDE RECORDS SUMMARY | 2024-06-09 11:24 | XMS_ITS | Encounter Summary ---
Author Organization [facility] Address [facility] [place] [address] Care Team Providers Care Piano Assembler Name Role Phone Marian To APRN Primary Care Provider [phone] Encounter Details Date Type Department Care Team (Late st Contact Info) Description 11/24/2019 Refill Dermatology at [facility] [address] [place] [address] Gypsy Mckeon MD [facility] [place] [address] Social History Tobacco Use Types Packs/Day Years [...] encounter Miscellaneous Notes * Telephone Encounter - Zulma Meadows LPN - 11/25/2019 7:50 AM EDT Patient had a telehealth visit on 11/21/2019. Recommendation in note indicates starting betamethasone. Order pended to Dr Mckeon for review and approval. * Telephone Encounter - Sheryl Mehta - 11/24/2019 9:40 AM EDT Mami WONG called and is looking for her prescription of augmented betamethasone diproprionate0.05% ointment:. Please send to the [facility] in [place], [place]. Best number to reach the patient back is [phone]. documented in this encounter Plan of Treatment Not on file documented as of this encounter Visit Diagnoses Not on filedocumented in this encounter Care Teams Piano Assembler Relationship Specialty Start Date End Date Marian To, ANAHI [address] [place] [address] PCP - General Family Medicine 10/15/17 01/09/24 documented as of this encounter
--- OUTSIDE RECORDS SUMMARY | 2024-06-09 11:24 | XMS_ITS | Encounter Summary ---
Author Organization [facility] [place] [address] Care Team Providers Care Payroll And Benefits Specialist Name Role Phone Marian To APRN Primary Care Provider [phone] Reason for Visit * Reason Comments Medication Refill Encounter Details Date Type Department Care Team (Late st Contact Info) Description 11/07/2023 [place] [address] Bill Dos Santos MD [facility] [place] [address] Lupus erythematosus tumidus Social History Tobacco Use [...] Telephone Encounter - Ten Peoples RN - 11/07/2023 1:20 PM EDT Methotrexate Rx Refill : Last Labs: CBC, CMP or LFT within last 12 weeks YES [x] NO [] Partially. Last Appointment:11-07-22 Methotrexate Dosage:20 mg or 0.8 mls. Contacted patient to arrange labs: YES [] NO [x] Standing Orders in place: YES [x] NO [] Pended orders: YES [] NO [x] Sent to Construction Executive to schedule: Yes [x] NO [] documented in this encounter Plan of Treatment Not on file documented as of this encounter Visit Diagnoses Diagnosis Lupus erythematosus tumidus Lupus erythematosus documented in this encounter Care Teams Payroll And Benefits Specialist Relationship Specialty Start Date End Date Marian To APRN [address] [place] [address] PCP - General Family Medicine 10/15/17 01/09/24 documented as of this encounter
--- OUTSIDE RECORDS SUMMARY | 2024-06-09 11:24 | XMS_ITS | Encounter Summary ---
Author Organization [facility] [place] [address] Care Team Providers Care Pharmacy Teacher Name Role Phone Marian To APRN Primary Care Provider [phone] Reason for Visit * Reason Onset Date Comments Medication Refill 09/04/2022 Encounter Details Date Type Department Care Team (Late st Contact Info) Description 09/04/[address] [place] [address] Gypsy Mckeon MD [facility] [place] [address] Dyshidrotic hand dermatitis Social History Tobacco Use [...] encounter Miscellaneous Notes * Telephone Encounter - Skyla Everett MD - 09/04/2022 4:35 PM EST Needs visit for further refills. * Telephone Encounter - Ania Caceres CCMA - 09/04/2022 2:59 PM EST Medication requested to refill: Augmented Betamethasone Dipropionate 0.05% Ointment Last visit: 10/07/2020 Follow up recommended: PRN F/U Scheduled: No; myD-H message sent asking patient to schedule follow-up. Assessment/Plan for this/these medications: Dyshidrotic Eczema; apply twice daily to affected areason the hands for 2 weeks. Take 1 week of, then repeat cycle as needed. Appropriate to refill: Please advise. Special Considerations: No Order/orders pended and routed to Skyla Everett MD for review and approval. documented in this encounter Plan of Treatment Not on file documented as of this encounter Visit Diagnoses Diagnosis Dyshidrotic hand dermatitis Dyshidrosis documented in this encounter Care Teams Pharmacy Teacher Relationship Specialty Start Date End Date Marian To APRN [address] [place] [address] PCP - General Family Medicine 10/15/17 01/09/24 documented as of this encounter
--- OUTSIDE RECORDS SUMMARY | 2024-06-09 11:24 | XMS_ITS | Encounter Summary ---
[place] [address] Care Team Providers Care Controls Operator Molded Goods Name Role Phone Marian To APRN Primary Care Provider [phone] Reason for Visit * Reason Comments Medication Refill Encounter Details Date Type Department Care Team (Late st Contact Info) Description 06/24/2021 [place] [address] Karine Saleh MD [facility] [place] [address] Social History Tobacco Use Types Packs/Day Years [...] on filedocumented in this encounter Care Teams Controls Operator Molded Goods Relationship Specialty Start Date End Date Marian To APRN [address] [place] [address] [place] [address] PCP - General Family Medicine 10/15/17 01/09/24 documented as of this encounter
--- OUTSIDE RECORDS SUMMARY | 2024-06-09 11:24 | XMS_ITS | Encounter Summary ---
[place] [address] Care Team Providers Care Core Paster Name Role Phone Marian To APRN Primary Care Provider [phone] Reason for Visit * Reason Onset Date Comments Medication Refill 12/13/2021 Encounter Details Date Type Department Care Team (Late st Contact Info) Description 12/13/2021 [place] [address] Karine Saleh MD [facility] [place] [address] Nausea without vomiting; Lupus erythematosus tumidus Social History Tobacco Use [...] encounter Visit Diagnoses Diagnosis Nausea without vomiting Lupus erythematosus tumidus Lupus erythematosus documented in this encounter Care Teams Core Paster Relationship Specialty Start Date End Date Marian To APRN [address] [place] [address] PCP - General Family Medicine 10/15/17 01/09/24 documented as of this encounter
--- OUTSIDE RECORDS SUMMARY | 2024-06-09 11:24 | XMS_ITS | Encounter Summary ---
[place] [address] Care Team Providers Care Rooter Operator Name Role Phone Marian To APRN Primary Care Provider [phone] Reason for Visit * Reason Onset Date Comments Medication Refill 10/04/2021 Encounter Details Date Type Department Care Team (Late st Contact Info) Description 10/04/2021 Ref[place] [address] Karine Saleh MD [facility] [place] [address] Lupus erythematosus tumidus Social History Tobacco Use [...] erythematosus documented in this encounter Care Teams Rooter Operator Relationship Specialty Start Date End Date Marian To APRN [address] [facility] [place] [address] PCP - General Family Medicine 10/15/17 01/09/24 documented as of this encounter
--- OUTSIDE RECORDS SUMMARY | 2024-06-09 11:24 | XMS_ITS | Encounter Summary ---
Author Organization [facility] [place] [address] Care Team Providers Care Wellness Program Administrator Name Role Phone Marian To APRN Primary Care Provider [phone] Reason for Visit * Reason Comments Medication Refill Encounter Details Date Type Department Care Team (Late st Contact Info) Description 12/31/2023 Refill [place] [address] Bill Dos Santos MD [facility] [place] [address] Social History Tobacco Use Types Packs/Day Years [...] on filedocumented in this encounter Care Teams Wellness Program Administrator Relationship Specialty Start Date End Date Marian To APRN [address] [place] [address] [address] [place], [place] [address] PCP - General Family Medicine 10/15/17 01/09/24 documented as of this encounter
--- OUTSIDE RECORDS SUMMARY | 2024-06-09 11:24 | XMS_ITS | Encounter Summary ---
[place] [address] Care Team Providers Care Supervisor Pipe Manufacture Name Role Phone Marian To SAPPHIRE STYLUS GRINDER Primary Care Provider [phone] Reason for Visit * Reason Onset Date Comments Medication Refill 10/07/2020 Encounter Details Date Type Department Care Team (Late st Contact Info) Description 10/07/2020 Telephone [place] [address] Ashok Melendez, core cutter and reamer Refill Social History Tobacco Use Types Packs/Day [...] on filedocumented in this encounter Care Teams Supervisor Pipe Manufacture Relationship Specialty Start Date End Date Marian To APRN [address] [place] [address] PCP - General Family Medicine 10/15/17 01/09/24 documented as of this encounter
--- OUTSIDE RECORDS SUMMARY | 2024-06-09 11:24 | XMS_ITS | Encounter Summary ---
[place] [address] Care Team Providers Care Dye Range Feeder Name Role Phone Marian To APRN Primary Care Provider [phone] Reason for Visit * Reason Comments Medication Refill Encounter Details Date Type Department Care Team (Late st Contact Info) Description 11/03/2020 [place] [address] Karine Saleh MD [facility] [place] [address] Social History Tobacco Use Types Packs/Day Years [...] on filedocumented in this encounter Care Teams Dye Range Feeder Relationship Specialty Start Date End Date Marian To APRN [address] [place] [address] [place] [address] PCP - General Family Medicine 10/15/17 01/09/24 documented as of this encounter
--- OUTSIDE RECORDS SUMMARY | 2024-06-09 11:24 | XMS_ITS | Encounter Summary ---
[place] [address] Care Team Providers Care Rigging Up Worker Name Role Phone Esau Palomo Primary Care Provider [phone] Reason for Visit * Reason Onset Date Comments Medication Refill 09/30/2021 Encounter Details Date Type Department Care Team (Late st Contact Info) Description 09/30/2021 Refill [place] [address] Karine Saleh MD [facility] [place] [address] Fibromyalgia Social History Tobacco Use Types Packs/Day [...] Diagnoses Diagnosis Fibromyalgia Mylagia and myositis, unspecified documented in this encounter Care Teams Rigging Up Worker Relationship Specialty Start Date End Date Esau Palomo PA [address] [place] [address] PCP - General Internal Medicine 01/10/24 documented as of this encounter
--- OUTSIDE RECORDS SUMMARY | 2024-06-09 11:25 | XMS_ITS | Encounter Summary ---
Author Organization [facility] [place] [address] Care Team Providers Care Consumer Loan Processor Name Role Phone Marian To APRN Primary Care Provider Encounter Details Date Type Department Care Team (Late st Contact Info) Description 12/19/2017 8:30 AM EDT Office [place] [id number] Melanie Ghotra MD [facility] [place] [address] GRADY (dyspnea on exertion) Social History Tobacco Use Types Packs/Day Years [...] Sign Reading Time Taken Comments Blood Pressure 127/83 12/19/2017 8:28 AM EDT Pulse 85 12/19/2017 8:28 AM EDT Temperature - - Respiratory Rate - - Oxygen Saturation 100% 12/19/2017 8:28 AM EDT Inhaled Oxygen Concentration - - Weight - - Height - - Body Mass Index - - documented in this encounter Patient Instructions * Patient Instructions* Melanie Ghotra MD - 12/19/2017 8:30 AM EDT Medrol taper: 16mg for 5 days 12mg for 5 days 8mg for 5 days 4mg for 5 days then stop documented in this encounter Progress Notes * Melanie Ghotra MD - 12/19/2017 8:30 AM EDT Rheumatology Outpatient Follow Up Note RHEUMATOLOGY HX: # 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 Oneal, [facility]); originally on upper extremity treated with HCQ, was well controlled seen by dermatolog in [place] Jun 2017 for rash flare, was taken off HCQ as they did not think she had lupus Tumidus but rather allergic JENNA, WILLY, inflammatory markers, myositis panel, complements, CK, CMP and lyme all negative/normal (checked while on decadron) Photosensitivity: skin breaks out, she feels sick and tired, stomach will bother her as well. # Dyspnea W/ cough and chest tightness # Rashes Had covered most of her body, resolved on steroids, was red, raised and itchy, some were painful also with areas around her eyes, neck, back and thighs with a purple hue # Fatigue # Myalgia # Headache, diplopia Diplopia started on steroids, left sided headache, has h/o of migraines Abnormal MRI head - Single nonspecific T2 hyperintensity left frontal lobe. Otherwise negative exam Referral to neurology # Recurrent hospitalizations dyspnea, rash, fatigue, myalgias, weakness and overall feeling unwell, tx with decadron but had ongoing symptoms most notable for dyspnea. CT angio ([place], [place] ) - negative for PE or major vascular abnormality, no mediastinal or hilar adenopathy. Lungs are clear. Interval History: - Mami returns for follow up with her and mother - during our initial visit we started Mami on 32mg of medrol, she is currently on 24mg of medrol, overall she is feeling much better, her breathing is back to baseline, denies any dyspnea - all her blood work including JENNA, dsDNA, WILLY, myositis panel, complements and inflammatory markers were negative/normal; her brain MRI showed a non specific hyperintensity on the left frontal lobe -> neurology referral placed - still with daily headaches, can occur at any part of the day, lasts up to couple hours, only leftsided headache, feels like her left eye also hurts during headaches, ibuprofen does not help, + photosensitivity, starts with headache then eye pain, she has h/o of migraines since her 20s, current headache feels like previous migraine in the past; has been contacted by neurology, they are discussing whether Mami should see neuro or neurosurgery for her MRI finding - denies focal deficits, no dysphagia, still has transient blurry vision daily, no precipitating factors, independent of her headaches, not better with medrol - feeling achy all over, still some fatigue, poor quality sleep, denies joint pain - tolerating medrol, denies side effects - ongoing rashes, on her arms, legs, neck, face and face, rashes are itchy, not painful, not raised, last < 24 hours, no scaring/bruising - will bee seeing allergy at 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 Marital status: Spouse name: N/A ??? Number of children: N/A ??? Years of education: N/A Social History Main Topics ??? Smoking status: Current Every Day Smoker Packs/day: 0.50 Years: 20.00 Types: Cigarettes ??? Smokeless tobacco: Never Used ??? Alcohol use No ??? Drug use: No ??? Sexual activity: Yes Partners: Male Other Topics Concern ??? None Social History Narrative Lives with and 4 adopted children age 11, 10, 8 and 8 Medications: Current Outpatient Prescriptions on File Prior to Visit Medication Sig Dispense Refill ??? methylPREDNISolone (MEDROL) 8 mg Tablet Take 3 tablets by mouth daily. 90 tablet 0 ??? metFORMIN (GLUCOPHAGE) 850 mg Tablet take 1 tablet by mouth twice a day 0 ??? ranitidine (ZANTAC) 300 mg Tablet take 1 tablet by mouth every 12 hours 0 ??? cyclobenzaprine (FLEXERIL) 10 mg Tablet take 1 tablet by mouth three times a day if needed 0 ??? loratadine (CLARITIN) 10 mg Tablet take 1 tablet by mouth every 12 hours 0 ??? EPINEPHrine 0.3 mg/0.3 mL Auto-Injector use as directed by prescriber 0 ??? dexamethasone (DECADRON) 6 mg Tablet take 1 tablet by mouth every 12 hours 0 ??? escitalopram (LEXAPRO) 20 mg Tablet take 1 tablet by mouth once daily 0 ??? hydroxychloroquine (PLAQUENIL) 200 mg Tablet take 1 tablet by mouth twice a day 0 ??? methylPREDNISolone (MEDROL) 16 mg Tablet Take 2 tablets by mouth daily. Take in the morning with food 60 tablet 0 ??? VIT/IRON FUMARATE/FA ( 19 ORAL) Take by mouth daily. No current facility-administered medications on file prior to visit. Allergies: Allergies Allergen Reactions ??? Penicillins Hives and Shortness Of Breath ??? Percocet [Oxycodone-Acetaminophen] Nausea And Vomiting ??? 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 half-way use causes patient to be anxious Physical Examination: BP 127/83 (BP Location (NBP): Right arm, Patient Position: Sitting, BP Cuff Sizes: Large Adult (32-43 cm)) Pulse 85 SpO2 100% General: NAD, breathing comfortably Cardiovascular: RRR, no m/r/g, normal S1/S2, no lower extremity edema Lungs: CTA b/l no w/r/r Neuro: Alert and oriented x3. Skin: face and neck erythematous, faint erythematous/purple skin around her eyes Diffuse trigger point tenderness Musculoskeletal system: (???NML?? means normal; No swelling, warmth, tenderness, loss of range of motion, or deformity as applicable) Hands: MCP???s: NML PIP???s: NML DIP???s: NML, full fist and claw Wrists: NML Elbows: NML Shoulders: NML Knees: NML Ankles: NML Feet: NML, neg mtp compression Laboratory Data/Studies: Outside labs (06/2017): JENNA negative, normal complements, neg anticardiolipin and lupus AC, lyme neg, neg CT head non-con Ref. Range 11/23/2017 16:53 JNENA Latest Ref Range: Neg Neg C3 Complement Latest Ref Range: 90 - 180 mg/dL 120 C4 Complement Latest Ref Range: 10 - 40 mg/dL 19 Complement Total Latest Ref Range: 30 - 75 unit/mL 69 DNA Ab (DS) Latest Ref Range: Neg Neg WILLY Ab Unknown neg Myositis Ab Panel Unknown neg CRP Latest Ref Range: <=4.9 mg/L <0.2 RNA Polymerase III Ab, IgG Latest Ref Range: <20.0 (Negative) U <10.0 MRI brain (11/25/17) IMPRESSION Single nonspecific T2 hyperintensity left frontal lobe. Otherwise negative exam ?? Assessment: Ms. Lerma is a pleasant 37 y/o F presenting with a history of lupus tumidus diagnosed in 2016 with recurrent hospitalizations for dyspnea, rash, fatigue, myalgias, weakness and overall feeling unwellin 2018 who returns for follow up. She is doing much better on the medrol, and her breathing is back to normal. She continues to note rashes that come up unprovoked, last < 24 hours described to be pruritic and non-raised. None are present today. Work up so far including JENNA, WILLY, myositis panel, CK, Lyme, TSH have been negative/normal, and although on steroids, she had normal inflammatory markers and complements. At this time, there does notseem to have a unifying autoimmune disease to explain all of her symptoms, and in fact this may notbe autoimmune in nature given her negative autoimmune work up. With regards to her diffuse pain, this is likely at least in part myofascial rather than an inflammatory arthritis. Given her polyuria and steroid use, we checked a blood sugar today in the office which was normal. Plan: - continue medrol taper 16mg for 5 days 12mg for 5 days 8mg for 5 days 4mg for 5 days then stop - obtain PFTs and echo - depending on how her breathing is off steroids, may need pulmonology referral - follow up with neurology for MRI finding - will be seeing dermatology, immunology and opthalmology - will continue with HCQ for now until she sees dermatolgy RTC in 2 months Melanie Ghotra MD Rheumatology Fellow, PGY-5 documented in this encounter Plan of Treatment Not on file documented as of this encounter Results * Pulmonary Function Testing (12/19/2017 3:24 PM EDT) Narrative Hari Young Jr., MD - 12/19/2017 3:24 PM EDT Hari Young Jr., MD ? 12/19/2017 ??3:24 PM Pulmonary Function Testing Spirometry is normal. ??Lung volumes are normal. ??Diffusing capacity is normal. ??Oxygen saturation is normal. Hari Young MD Pulmonary Medicine Ashutosh Melendez MD PFT ORDERABLES documented in this encounter Visit Diagnoses Diagnosis GRADY (dyspnea on exertion) Other dyspnea and respiratory abnormality GRADY (dyspnea on exertion) Other dyspnea and respiratory abnormality documented in this encounter Care Teams Consumer Loan Processor Relationship Specialty Start Date End Date Marian To APRN [address] [place] [address] PCP - General Family Medicine 10/15/17 01/09/24 documented as of this encounter
--- OUTSIDE RECORDS SUMMARY | 2024-06-09 11:25 | XMS_ITS | Encounter Summary ---
Author Organization [facility] [facility] [place] [address] Care Team Providers Care Appointment Manager Name Role Phone None Primary Care Provider Unavailabl e Encounter Details Date Type Department Care Team (Late st Contact Info) Description 05/23/2014 Telephone Obstetrics [place] [address] Ania Frazier MD [facility] DR OBSTETRICS & [place] [address] Social History Tobacco Use Types Packs/Day Years Used Date Smoking Tobacco: Every Day Cigarettes 0.5 20 Smokeless Tobacco: Never Alcohol Use Standard Drinks/Week Comments No 0 (1 standard drink = 0.6 oz pur e alcohol) Comments Yes Sex and Gender Information Value Date Recorded Sex Assigned at Not on file Gender Identity Not on file Sexual Orientation Not on file documented as of this encounter Miscellaneous Notes * Telephone Encounter - Ania Frazier MD - 05/23/2014 10:59 AM EST Mami calls very worried after she received a letter in the mail yesterday informing her that sheis GBS positive. She googled this last night and found some very concerning information and is freaked out. I reviewed GBS with Mami, the fact that it is not an STI, that it does not cause harm to her, and the indication for antibiotics in labor, the possibility of transmission to the and the rare complication of GBS sepsis. She was reassured. She will call back with any other concerns. documented in this encounter Plan of Treatment Not on file documented as of this encounter Visit Diagnoses Not on filedocumented in this encounter Care Teams Appointment Manager Relationship Specialty Start Date End Date None None PCP - General 12/12/12 10/14/17 documented as of this encounter
--- OUTSIDE RECORDS SUMMARY | 2024-06-09 11:25 | XMS_ITS | Encounter Summary ---
[place] [address] Care Team Providers Care Maintenance Worker Municipal Name Role Phone Marian To APRN Primary Care Provider [phone] Reason for Visit * Reason Onset Date Comments Follow-up 08/15/2019 Encounter Details Date Type Department Care Team (Late st Contact Info) Description 08/15/2019 Telephone [place] [phone] Ten Peoples, RN Follow-up Social History Tobacco Use Types Packs/Day Years [...] Telephone Encounter - Ten Peoples RN - 08/15/2019 10:01 AM EST Mami calls to ask if all prescriptions were sent in for her. RTC and Mami states this has been done. documented in this encounter Plan of Treatment Not on file documented as of this encounter Visit Diagnoses Not on filedocumented in this encounter Care Teams Maintenance Worker Municipal Relationship Specialty Start Date End Date Marian To APRN [address] [place] [address] PCP - General Family Medicine 10/15/17 01/09/24 documented as of this encounter
--- OUTSIDE RECORDS SUMMARY | 2024-06-09 11:25 | XMS_ITS | Encounter Summary ---
Author Organization [facility] [place] [address] Care Team Providers Care Library Assistant Name Role Phone Marian To APRN Primary Care Provider [phone] Encounter Details Date Type Department Care Team (Late st Contact Info) Description 02/19/2019 Telephone [place] [phone] Eva Álvarez MD [facility] [place] [address] Social History Tobacco Use Types Packs/Day Years [...] encounter Miscellaneous Notes * Telephone Encounter - Eva Álvarez - 02/19/2019 3:48 PM EDT Call patient and discussed lab results. CBC, CMP within normal range. Infectious labs hepatitis C, quant, HIV negative. Hepatitis B immune Will start patient on methotrexate 15 mg weekly, folic acid 1 mg every day. Medication profile and side effects discussed with patient, all questions answered. She had no further questions. Eva Álvarez MD documented in this encounter Plan of Treatment Not on file documented as of this encounter Visit Diagnoses Not on filedocumented in this encounter Care Teams Library Assistant Relationship Specialty Start Date End Date Marian To, [employer] [address] [place] [address] PCP - General Family Medicine 10/15/17 01/09/24 documented as of this encounter
--- OUTSIDE RECORDS SUMMARY | 2024-06-09 11:25 | XMS_ITS | Encounter Summary ---
Author Organization [facility] [place] [address] Care Team Providers Care Certified Prosthetist Vice President Name Role Phone None Primary Care Provider Unavailabl e Reason for Visit * Reason Comments Kidney Pain Encounter Details Date Type Department Care Team (Late st Contact Info) Description 05/16/2014 10:30 AM EDT - 05/16/2014 1:25 PM EDT Surgery [place] [id number] Chloe Kohler Jr., MD [facility] [place] [address] CYSTO, STENT PLACEMENT (WRVU 2.82) Social History Tobacco Use Types Packs/Day Years Used Date Smoking Tobacco: Every Day Cigarettes 0.5 20 Smokeless Tobacco: Never Tobacco Cessation:Ready to Q uit: No Alcohol Use Standard Drinks/Week Comments No 0 (1 standard drink = 0.6 oz pur e alcohol) Comments Yes Sex and Gender Information Value Date Recorded Sex Assigned at Not on file Gender Identity Not on file Sexual Orientation Not on file documented as of this encounter Last Filed Vital Signs Vital Sign Reading Time Taken Comments Blood Pressure 105/57 05/16/2014 12:45 PM EDT Pulse 83 05/16/2014 12:45 PM EDT Temperature 36.8 ??C (98.2 ??F) 05/16/2014 12:45 PM E DT Respiratory Rate 16 05/16/2014 12:45 PM EDT Oxygen Saturation 94% 05/16/2014 12:45 PM EDT Inhaled Oxygen Concentration - - Weight 81.6 kg (180 lb) 05/14/2014 10:11 AM EDT Height 154.9 cm (5' 1) 05/14/2014 10:11 AM EDT Body Mass Index 34.01 05/14/2014 10:11 AM EDT documented in this encounter Discharge Instructions * Discharge Instructions* Sandy Freitas RN - 05/16/2014 3:30 PM EDT Instructions following Endourology Surgery with a Ureteral Stent Placement Follow-up: Please call [phone] (clinic number for appointments) to confirm date and time of your appointment if you do not receive your apointment in 1-2 weeks. You will be scheduled for follow up with Dr. Kohler with a renal bladder ultrasound in Urology [id number] in ~6wks Wound Care: None needed Activity/Diet: As tolerated by your comfort level. Please resume a regular healthy diet as suggested by your physician. Kidney Stone Patients: Try and drink enough fluid to make one half gallon of urine daily or 2.25 Liters of water. You should aim to have your urine be clear. Ureteral Stent Patients: You have a ureteral stent in place, it is normal for it to cause some irritation in your bladder and cause you to have blood in your urine. It may bother you when you urinate. This is normal. If you cannot tolerate this irritation or if you have severe back or side pain, you should call our office [phone] before 5PM or [phone] after hours. Please remember that this is a foreign body that must be removed or exchanged. If you do not return for your follow up appointment or procedure, you are at risk of having the stent become encrusted which may result in additional procedures. Urination: You will likely have a small amount of blood in your urine for the next several days, upto 10-14 days. This is normal; however, if you are passing large amounts of blood clots, bright redblood or are bleeding an unable to urinate please call our office at [phone] 5PM or [phone] after hours. Call Doctor for: Please call if you have copious blood in your urine, severe back or side pain, pain not controlled by pain medications, persistent nausea and vomiting, or for any fevers greater [id number] F. The number for questions is [phone] before 5 PM weekdays and [phone] after 5 PM and weekends. Medications: Pain Medication: No driving for 8 hours after any dose of opioid pain medication if one was prescribed for you. You may useTylenol in addition to this medication if your pain is not totally controlled by the opioid. If you are taking a narcotic combined with Tylenol, please be sure to keep track ofthe amount of Tylenol you are taking as to not exceed 3,000mg in a day. Nifedipine: This is a medication that will help to relax the bladder and ureter and will help to avoid irritation. This may cause dizziness so we recommend that you take it before bedtime. If you areunable to tolerate the medication, please stop the medication. Stool Stimulants: If you are requiring narcotic medications, please be sure to take a stool stimulant such as Senokot or Bisacodyl to help have a regular bowel movement without straining. This will also help to prevent bladder spasms. Driving: No driving while still taking opioid pain medications (wait at least 6- 8 hours since last dose). [address] to contact OB doctor [phone] to contact family doctor to contact management instructor Tee [email or web address] 3:30 PM Following your visit to [facility] Triage Reason for Visit: Chief Complaint Patient presents with ??? Kidney Pain Gestation - under 37 weeks Notify your provider if: You are feeling any cramping sensations in your abdomen more than 20 minutes apart Stephon-Bowen Contractions usually are irregular may get less painful or go away with walking, resting, or any other activities usually felt in the front and do not radiate to the back labor contractions may start irregular in frequency, then become regular and more frequent usually start in the front and radiate to the back. Some women experience pelvic pressure or back pain that may come and go. Resting, walking, and other activities will not take them away or may even make them worse If you are one month before your due date: any abdominal, back or pelvic pressure or pain that comes and goes as much or more than 4 times in an hour. You feeling a leakage of fluid may be a small leak of fluid may be a large gush note the time it started leaking, amount, and color of fluid (clear, yellow, green, pink, red) You notice vaginal bleeding spotting is normal following a vaginal exam in your doctor's or management instructor's office you should not bleed as much as a period You have noticed a marked decrease in your baby's movement refer to your kick count instructions in the Your Journey book Your baby should move at least 10 times in 2 hours You have had any direct trauma to your abdomen such as a car accident, fall, or impact Call your doctor or management instructor if you have the following symptoms: Headache Visual disturbance/spots in front of your eyes/blurry vision Pain under your ribs toward the right side of your abdomen Sudden swelling to your legs or any increase in swelling to your arms and face Pain or bleeding on urination A temperature at or above 100.4F Nausea or vomiting Flu-like symptoms: cough, fever, muscle aches General Instructions Drink plenty of non-caffeinated fluids throughout the day to prevent dehydratio Keep your regularly scheduled doctor or management instructor appointment Your medications: No current facility-administered medications on file prior to encounter. Current Outpatient Prescriptions on File Prior to Encounter Medication Sig Dispense Refill ??? VIT/IRON FUMARATE/FA ( 19 ORAL) Take by mouth daily. ??? metFORMIN (GLUCOPHAGE) 850 mg tablet Take 850 mg by mouth 2 times daily (with meals). ??? ibuprofen (ADVIL;MOTRIN) 600 mg tablet Take 600 mg by mouth every 8 hours as needed. ??? medroxyPROGESTERone (PROVERA) 10 mg tablet Take 10 mg by mouth daily. X 5 days Special instructions/Follow-up Care: Space for patient-specific care or instructions If you have any other questions or concerns please call your provider at their office number documented in this encounter Medications at Time of Discharge Medication Sig Dispensed Refills Start Date End Date VIT/IRON FUMARATE/FA ( 19 ORAL) Take by mouth daily. documented as of this encounter Progress Notes * Sandy Freitas RN - 05/16/2014 1:48 PM EDT 1100: Pt top OR27 via bed for scheduled procedure. This RN remained at bedside to monitor heart rate before, during and after procedure. Minimal variability after anesthesia administered, FHR remained steady as documented. Increased activity while in PACU, difficulty monitoring FHR due to movement. Pt back to BP7, FHR as documented. Pt tolerating ice chips, water, and padmini bárbara. Pt ambulated to the bathroom with standby assist, + void as documented. 1540: Pt discharged to home, stable undelivered. Discharge instructions reviewed, pt verbalized understanding. * Wilbert Bhakta RN - 05/16/2014 12:22 PM EDT Patient arrived from OR awake, VSS, lungs CTA, Sandy RN from at bedside to assess health. Patient relates minimal nausea, no pain. Will monitor. 1245 Sandy RN comfortable with patient returning to floor. Baby in good health, patient has no complaints. VSS, Patient sipping water with no complaints of nausea. Ready for transfer back to when transport arrives. * Eber Tran MD - 05/16/2014 7:27 AM EDT Obstetrical Antepartum Progress Note Tee Emanuel is a 33 y.o. female at 33w2d gestation, admitted for pain control secondaryto presumed nephrolithiasis. Echogenic foci seen on ultrasound at OSH in right ureter. No indication of pyelonephritis or UTI. No sign of nephrolithiasis on US here at , but moderate right hydronephrosis and mild right pelviectasis. Nephrology planning on stent placement today for pain control per pt request as her pain continues despite Dilaudid CENTRIFUGE OPERATOR. This is HD#3. Active Problems: Active Hospital Problems Diagnosis ??? Right nephrolithiasis ??? Tobacco abuse 1/2 ppd ??? Morbid obesity Resolved Hospital Problems Diagnosis Date Resolved No resolved problems to display. 24 Hour Events - plan for OR today for stent placement by urology, consented for stat CS, will have continuous FM Subjective: Tee reports being uncomfortable this AM as she slept soundly overnight and wasn't pressing her CENTRIFUGE OPERATOR button. She continues to have significant pain with position changes. Ambulating, was tolerating regular diet (NPO after MN), and voiding without difficulty. Denies fevers/chills, nausea/vomiting. Requesting extra IV Dilaudid push prior to shower this morning. Review of Systems Obstetric Review of Systems Total Weight Gain this Not found. Movement: normal Contractions: none Leaking: None Bleeding; none now Preeclampsia signs and symptoms: None Filed Vitals: 05/16/14 0325 BP: 111/72 Pulse: 85 Temp: 36.6 ??C (97.9 ??F) Resp: 18 Physical Exam Gen: AAOx3, NAD, appears well sitting up in bed Cardio: nl rhythm, S1, S2, no M/C/R/G Pulm: CTA BL, no W/C/R Abd: +BS, soft, NT, ND, gravid, obese Back: +R CVA/flank tenderness Ext: warm, well-perfused, trace CHASE, no calf tenderness Uterus: non-tender Heart Rate Interpretation: NST reactive yesterday (see separate documentation), pending today Most Recent Ultrasound Date: 05/15/14 GA: 33w1d Presentation: Cephalic Placenta: Anterior GISELA FV: Normal GISELA Sum: 21.7 cm Larg Pckt: 7.6 cm -------- Biometry -------- BPD: 80.0 mm G. Age: 32w 1d 18 % HC: 299.0 mm G. Age: 33w 1d 16 % AC: 317.0 mm G. Age: 35w 4d > 97 % FL: 61.0 mm G. Age: 31w 5d 9.3 % HUM: 56.0 mm G. Age: 32w 4d 47 % Est. FW: 2316 gm 5 lb 2 oz 82 % Renal US 05/14/14: Mild right renal pelvicaliectasis, can't tell if mild obstruction vs. physiological (3rd trimester ). Consider non-contrast low dose CT. Normal left kidney and bladder. GBS Pending Recent Labs Basename 05/14/14 1110 WBC 9.9 HGB 10.7* HCT 31.2* PLATELET 220 Recent Labs Basename 05/14/14 1415 NA 140 K 3.6 CL 100 CO2 25 BUN 5* CREATININE 0.62* No results found for this basename: AST:3,ALT:3,ALKPHOS:3,BILITOT:3,BILIDIR:3 in the last 168 hours Recent Labs Basename 05/14/14 1415 CALCIUM 8.9 PHOS -- Assessment & Plan: Tee Emanuel is a 33 y.o. female at 33w2d weeks gestational age, HD#3, hospitalized for pain control in the setting of right sided moderate hydronephrosis and mild pelviectasis. Urology has consulted is planning stent placement today as patient's pain is refractoryto Dilaudid CENTRIFUGE OPERATOR. ?? Obstetric issues: Right flank pain, hydronephrosis/pelviectasis, pain refractory to Dilaudid CENTRIFUGE OPERATOR ?? Presentation: vtx ?? Status: reassuring ?? surveillance: NST once daily, continuous EFM during surgery ?? GBS Management: GBS pending ?? Steroid status: beta complete 05/15/14 ?? Delivery Indications: maternal deterioration ?? Delivery Plan: Stat CS if needed during case - pt consented yesterday ?? Consultations: neonatology, urology ?? EFW 88%tile with AC >97%tile - consider repeat GCT a week after steroid administration Other issues: -Morbid obesity: Lovenox in the setting of immobility, consider post-op -Tobacco use: nicotine patch Dispo: Continues to require inpatient hospitalization for stent placement by urology today. Signed: JES BEST MD, PGY3 05/16/2014 Attending Progress Note EBER TRAN MD I reviewed the above note and discussed the patient at rounds with the team. I agree with the documented findings and plan of care. My evaluation is as below: Subjective: Good FM, denies contractions or leaking or bleeding. She is anxious for surgery this amand discharge home today if stable. Still having colic. Also c/o referred pain with movement. Objective: Temp: [36.6 ??C (97.9 ??F)-37.1 ??C (98.8 ??F)] Heart Rate: [68-85] Resp: [16-18] BP: (95-126)/(59-92) SpO2: [96 %-98 %] Abdomen: Soft, non-tender, not distended Uterus: Soft, Non-tender Extremities: trace edema NST: In progress for today, please see separate documentation. US: AC > 97% and fluid at upper end of normal. Impression & Plan 33w2d IUP with an GABY of 07/02/2014, by Ultrasound, admitted with renal colic, although stone not visualized. She has failed conservative treatment and will have a stent placed today with US guidanceand con't EFM in the OR. She is at low risk for requiring delivery due to the surgery. She inquiredabout anesthesia. I assured her she would not feel the procedure and if done under epidural, she wou ld have anxiolytics if needed. We discussed her US findings and my recommendations for a repeat 50 gram, 1 week after her steroids. She was not happy with this news. We discussed post-op pain control, she wants Vicodin. She has some at home and so does not need an Rx, but would like some oral vicodin prior to discharge. Delivery Indications: progressive labor and non reassuring status EBER TRAN MD 05/16/2014 * Chloe Kohler Jr., MD - 05/15/2014 6:12 PM EDT UROLOGY Progress Note ID 33 yo female with 33 weeks and right flank pain transferred to [facility] for management of renal colic in the setting of possible nephrolithiasis 24 hour events Afebrile Increasing pain Did not pass stone Patient Active Problem List Diagnosis Code ??? Morbid obesity 278.01 ??? Menses, irregular 626.4 ??? PCOS (polycystic ovarian syndrome) 256.4 ??? Right nephrolithiasis 592.0 ??? Tobacco abuse 305.1 Past Medical History Diagnosis Date ??? Asthma as child ??? Carpal tunnel syndrome ??? PCOS (polycystic ovarian syndrome) Past Surgical History Procedure Date ??? Dilation and curettage of uterus ??? Tear duct surgery History Social History ??? Marital Status: Spouse Name: N/A Number of Children: N/A ??? Years of Education: N/A Occupational History ??? Not on file. Social History Main Topics ??? Smoking status: Current Every Day Smoker -- 0.5 packs/day for 20 years Types: Cigarettes ??? Smokeless tobacco: Never Used ??? Alcohol Use: No ??? Drug Use: No ??? Sexually Active: Yes -- Male partner(s) Other Topics Concern ??? Not on file Social History Narrative Lives with and 4 adopted children age 11, 10, 8 and 8 No current facility-administered medications on file prior to encounter. Current Outpatient Prescriptions on File Prior to Encounter Medication Sig Dispense Refill ??? VIT/IRON FUMARATE/FA ( 19 ORAL) Take by mouth daily. ??? metFORMIN (GLUCOPHAGE) 850 mg tablet Take 850 mg by mouth 2 times daily (with meals). ??? ibuprofen (ADVIL;MOTRIN) 600 mg tablet Take 600 mg by mouth every 8 hours as needed. ??? medroxyPROGESTERone (PROVERA) 10 mg tablet Take 10 mg by mouth daily. X 5 days Allergies Allergen Reactions ??? Penicillins Hives and Shortness Of Breath ??? Percocet (Oxycodone-Acetaminophen) Nausea And Vomiting ??? 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 Last value Range last 24 hrs Temperature Temp: 37 ??C (98.6 ??F) Temp: [36.7 ??C (98.1 ??F)-37 ??C (98.6 ??F)] Heart Rate Heart Rate: 69 Heart Rate: [68-82] Blood Pressure BP: 126/74 mmHg BP: (101-126)/(52-92) Respiratory Rate Resp: 18 Resp: [16-18] SpO2 SpO2: 96 % SpO2: [96 %] Art BP BP (Arterial Line): -- Obese and gravid woman NAD, pleasant and cooperative +CVA tenderness at the right Abdomen softly palpated-non tender CTAB RRR Urine culture negative Renal US 05/14 RIGHT Mild hydro - unchanged when compared to prior study and no hydroureter. A/P I have had a very long conversation with Ms. Emanuel about her hydronephrosis and pain. At this point she would like some kind of intervention to reduce her pain. I discussed stenting with her and also nephrostomy tube. We went into great detail about the risks and benefits. We specifically discussed the risk of organ injury, the possible need to use fluoroscopy and the risks to the fetus. She would like to proceed with stent placement on the right NPO midnight Booked and consented STAFF ADDENDUM: I saw and examined Tee Emanuel with Dr. Martin and team and have independently reviewed her imaging studies. I agree with history, exam, impression, and plan as noted. Briefly, this very pleasant 33 yo woman, at 33 weeks gestational age, with suspected right urolithiasis, right flank pain and mild right hydronephrosis has not tolerated attempt at conservative management with trial of passage of suspected ureteral stone. We discussed management options including continued watchful waiting, temporizing stent placement, nephrostomy placement, or ureteroscopy,relative risks, benefits, and limitations, and risks of procedure, to both her and her baby, as well as possibility that there is no ureteral stone and pain is not related. With understanding of above, she requested to proceed with cystoscopy and right ureteral stent placement. * Shelby Steel RN - 05/15/2014 5:30 PM EDT Requested Pepcid orders from . Order rec'd. * Shelby Steel RN - 05/15/2014 4:05 PM EDT Pt in bed with family in room. Pt instructed to order her dinner now and she is NPO after midnight with stent placement scheduled for in the morning. TDAP and FLU vaccine given to PT's FOB. * Shelby Steel RN - 05/15/2014 2:39 PM EDT Pt has returned from ultrasound via stretcher. * Shelby Steel RN - 05/15/2014 11:09 AM EDT Strip reviewed by Kayce Macedo MD. * Soraida Snow MD - 05/15/2014 11:08 AM EDT NST Nonstress Test, Fetus A NST Start Time: 925 (05/15/14 1108) HR (beats/min): 135 (05/15/14 1108) Variability: moderate (amplitude range 6 to 25 bpm) (05/15/14 110) Accelerations: present (05/15/141107) Decelerations: none (05/15/141107) Contraction Frequency (min): none (05/15/14 110) Nonstress Test Interpretation: Reactive, >32 weeks: two 15 bpm accelerations lasting 15 seconds (05/15/14 1108) Overall Impression: Reassuring for gestational age (05/15/14 1108) KAYCE MACEDO MD PGY4 05/15/2014 I personally reviewed and interpreted this NST. * Shelby Steel RN - 05/15/2014 10:42 AM EDT Plan is for stent placement today. Pt will be an add on surgical case so no definate time for placement yet. Pt is now NPO. * Shelby Steel RN - 05/15/2014 10:41 AM EDT Pt moved to a med-surg bed for comfort. Pt stated it was much more comfortable. * Nam Don RN - 05/15/2014 6:05 AM EDT Pt verbalized good pain relief. * Nam Don RN - 05/15/2014 6:01 AM EDT Pt c/o right flank pain to Dr. Dimitris Sullivan. Dr. Sullivan assessed pt. Received order to give Dilaudid 0.2 mg IVP. Dilaudid given. Pt tolerated well. Applied warm pack to right flank area and encouraged PO hydration. Padmini-bárbara and water given and at bedside. * Eber Tran MD - 05/15/2014 5:30 AM EDT Obstetrical Antepartum Progress Note Tee Emanuel is a 33 y.o. female with an GABY of 07/02/2014, by Ultrasound who is at 33w1d gestation, admitted for pain control secondary to presumed nephrolithiasis. Echogenic foci seen onultrasound at OSH in right ureter. No indication of pyelonephritis or UTI. This is HD#2. Active Problems: Active Hospital Problems Diagnosis ??? Right nephrolithiasis ??? Tobacco abuse 1/2 ppd ??? Morbid obesity Resolved Hospital Problems Diagnosis Date Resolved No resolved problems to display. 24 Hour Events - urology consult completed - renal ultrasound Subjective: Tee is very uncomfortable this AM and is sitting in bed crying requesting more painmedication. She was able to sleep however awoke several minutes ago with increased right flank pain. Pain is the baseline pain the patient had been feeling before hospitalization. Ambulating, tolerating regular diet, and voiding without difficulty. Review of Systems Obstetric Review of Systems Total Weight Gain this Not found. Movement: normal Contractions: none Leaking: None Bleeding; none now Preeclampsia signs and symptoms: None Filed Vitals: 05/15/14 0333 BP: 105/60 Pulse: 73 Temp: Resp: 16 Physical Exam Constitutional: Patient sitting up in bed grabbing right flank crying. Denies contractions. Cardiovascular: Normal rate, regular rhythm and normal heart sounds. Pulmonary/Chest: Effort normal and breath sounds normal. Abdominal: Soft. She exhibits no distension. There is no tenderness. Flank pain on right side radiating to front of abdomen. Skin: Skin is warm and dry. Uterus: non-tender Heart Rate Interpretation: Mode: continuous external (05/14/14 1115) HR (beats/min): 140 Variability: moderate (amplitude range 6 to 25 bpm) Accelerations: present Decelerations: none Contraction Frequency (min): none Nonstress Test Interpretation: Reactive, >32 weeks: two 15 bpm accelerations lasting 15 seconds Overall Impression: Reassuring for gestational age Most Recent Ultrasound Date: 02/10/14 GA at US: 20 weeks 1 day EFW: 308 grams Growth appropriate for gestational age Amniotic fluid volumenormal Placenta anterior Presentation transverse, head right GBS Pending Day shift dilaudid dose 2.4 mg space and missile [employer] spacelift dilaudid dose until 0530 2.2 mg Additional 0.2mg IV dose given at 0600 Assessment & Plan: 33 y.o. female with an 07/02/2014, by Ultrasound who is at 33w1d weeks gestational age, HD#2, hospitalized for pain control in the setting of suspected right sided nephrolithiasis. Urology has consulted and recommended symptom management with follow-up in 3-4 weeks and possible intervention post-. Moderate right hydroureter with mild pelviectasis seen with no stone. ?? Obstetric Issues ?? Presentation: Will need to confirm if labor ensues ?? Status: reassuring ?? surveillance: NST once daily ?? GBS Management:: None Required ?? Steroid status Second dose of betamethasone given 05/14 ?? Delivery Indications: maternal deterioration ?? Delivery Plan: Vaginal delivery ?? Consultations: neonatology, urology Additional issues: ?? Will continue CENTRIFUGE OPERATOR for pain control and transition to po pain medication. ?? Formal OB ultrasound today ?? If can not tolerate po, displays signs of infection, or symptoms worsen without appropriate control patient may require intervention with urology. ?? Consented for c/s. ?? Will continue to strain urine. ?? Continue nifedipine 30 mg qd for ureter relaxation. ?? Continue IVF, may discontinue today Signed: LARRY SULLIVAN MD 05/15/2014 Attending Progress Note EBER TRAN MD I reviewed the above note and discussed the patient at rounds with the team. I agree with the documented findings and plan of care. My evaluation is as below: Subjective: C/o continued pain overnight. No bleeding or leaking or contractions, good FM. Objective: Temp: [36.7 ??C (98.1 ??F)-37 ??C (98.6 ??F)] Heart Rate: [68-82] Resp: [16-20] BP: (101-111)/(52-64) SpO2: -- Abdomen: Soft, non-tender, not distended Uterus: Soft, Non-tender Extremities: trace edema NST: In porgress for today, please see separate documentation. Impression & Plan 33w1d IUP with an GABY of 07/02/2014, by Ultrasound, admitted with probably R renal stone. She has failed outpatient management and has required round the clock narcotics and a CENTRIFUGE OPERATOR. We talked about a stent. While there is a risk of delivery it is very small. This must be weighed and against the high likelihood of AJ if she continues to require round the clock high dose narcotics. She is steroid complete. She is not interested in a nephrostomy tube. After discussion, she has decided to undergo a stent. We will notify the urology service and make her NPO. She ate breakfast this am (although she had emesis of most of it due to pain). Delivery Indications: progressive labor and non reassuring status EBER TRAN MD 05/15/2014 * Dara Kuo RN - 05/14/2014 7:15 PM EDT Report given to Delilah ENGLAND * Dara Kuo RN - 05/14/2014 6:32 PM EDT At the bedside to inform the patient of the updated orders and plan of care. Regarding SCDs', Kpad,New Medications, GBS culture, bowel regimen. All patients questions answered the patient verbalizesunderstanding of all education. * Dara Kuo RN - 05/14/2014 2:52 PM EDT Patient transported to US for scheduled renal ultrasound. * Dara Kuo RN - 05/14/2014 12:15 PM EDT Report received care assumed documented in this encounter H&P Notes * Carey Pollock MD - 05/14/2014 10:14 AM EDT Obstetrical Admission Note Referring Hospital: [facility] Initial Care Provider (if early referral or co-managed by M): Dr. Willams Chief Complaint: Tee Emanuel was transferred here today for evaluation and management of right nephrolithiasis. HPI: Tee Emanuel is a 33 y.o. female at 33w0d (07/02/2014, by Ultrasound) who presents with worsening right-sided back/flank pain over the past several weeks. She initially attributed the painto -related backache. On Sunday, the pain became more intense, and she presented to [facility] for evaluation. She was found to have R nephrolithiasis and mild right hydronephrosis and a 7 mm stone on right on renal ultrasound. She was discharged on Thursday 05/10 on PO pain medication as she wanted to attend her baby shower, but returned to the hospital for admission on Friday 05/11. She has been inpatient at [facility] since Sunday receiving pain control via a dilaudedPCA. An IV pyelogram was done again showing R hydronephrosis. She has not passed any stone on her own. At [facility] they were reluctant to place a ureteral stent given patient's , and so have transferred her here for further management and consultation with Urology. On arrival, she is having significant pain 7/10 associated with nausea and emesis, which she ascribes to the pain. She denies fever, chills, and dysuria. She has noticed that her urine has been darker over the past few days. She denies lof, vb, ctx, and reports good FM. Denies sob, cp, leg pain. Her antepartum course is significant for: 1. Right nephrolithiasis and mild hydronephrosis 2. Obesity (BMI 34) 3. Nicotine dependence - 1/2 ppd Review of Systems 6 systems reviewed as per HPI, otherwise negative Active Hospital Problems Diagnosis ??? Right nephrolithiasis ??? Morbid obesity Resolved Hospital Problems Diagnosis Date Resolved No resolved problems to display. Active Non-Hospital Problems Diagnosis ??? Menses, irregular ??? PCOS (polycystic ovarian syndrome) Past Medical History Diagnosis Date ??? Asthma as child ??? Carpal tunnel syndrome ??? PCOS (polycystic ovarian syndrome) Past Surgical History Procedure Date ??? Dilation and curettage of uterus ??? Tear duct surgery OB History Grav Para Term Abortions TAB SAB Ect Mult Living 1 0 # Outc Date GA Lbr Nasim/2nd Wgt Sex Del Anes PTL Lv 1 CUR Prior to Admission Medications Prescriptions prior to admission Medication Sig Dispense Refill ??? VIT/IRON FUMARATE/FA ( 19 ORAL) Take by mouth daily. ??? metFORMIN (GLUCOPHAGE) 850 mg tablet Take 850 mg by mouth 2 times daily (with meals). ??? ibuprofen (ADVIL;MOTRIN) 600 mg tablet Take 600 mg by mouth every 8 hours as needed. ??? medroxyPROGESTERone (PROVERA) 10 mg tablet Take 10 mg by mouth daily. X 5 days Allergies Allergies Allergen Reactions ??? Penicillins Hives and Shortness Of Breath ??? Percocet (Oxycodone-Acetaminophen) Nausea And Vomiting ??? 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 No family history on file. Social History Occupational History ??? Not on file. Social History Main Topics ??? Smoking status: Current Every Day Smoker -- 0.5 packs/day for 20 years Types: Cigarettes ??? Smokeless tobacco: Never Used ??? Alcohol Use: No ??? Drug Use: No ??? Sexually Active: Yes -- Male partner(s) Immunization History There is no immunization history on file for this patient. OSH Records: Tdap given 02/16/14; Flu given 04/28/14 Last Set of Vitals: BP 110/58 Pulse 77 Temp 36.9 ??C (98.4 ??F) (Oral) Resp 20 Ht 154.9 cm (5' 1) Wt 81.647 kg (180 lb) BMI 34.03 kg/m2 SpO2 98% LMP 08/23/2013 Physical Exam Gen: NAD, well appearing CV: RRR, no murmur Pulm: CTAB, no respiratory distress Back: R flank TTP Ext: mild b/l LE edema Uterine Size: S=D Heart Rate Interpretation: Mode: continuous external (05/14/14 1115)Category 1 HR (beats/min): 140 Variability: moderate (amplitude range 6 to 25 bpm) Accelerations: present Record Review Labs: From OSH Records: UA (05/10/14): negative except for large blood >50 cells, few bacteria, moderate epithelial cells OSH Labs (11/07/13): Blood Type: B+ VDRL/RPR: non reactive HBsAg: non reactive HIV: negative Chlamydia: negative Gonorrhea: negative Rubella: positive GDM screen: 139, 3h GTT 85, 147, 114, 78 (wnl) Most Recent Ultrasound Date: 02/10/14 GA at US: 20 weeks 1 day EFW: 308 grams Growth appropriate for gestational age Amniotic fluid volumenormal Placenta anterior Presentation transverse, head right Assessment & Plan: Tee Emanuel is a 33 y.o. at 33w0d admitted in transport from [facility] for management of right renal stone with associated hydronephrosis. status is reassuring, and patient has no signs of labor. Stone related pain is currently being managed via Dilauded CENTRIFUGE OPERATOR and nausea with zofran. Urology to consult. 1. Nephrolithiasis - right - Urology consult requested - strain urine - BMP and CBC - UA/UCx - IVF - dilaudid CENTRIFUGE OPERATOR 2. Obstetrics - daily NST - deliver for maternal deterioration, distress, labor - pt consented for c/s. Risks include infection including wound or uterine, bleeding, need for transfusion with associated risk of infectious disease transmission, need for hysterectomy, damage to adjacent structures including bowel, bladder, ureters, nerves, vessels, damage to , blood clots to legs and lungs. Pt and family had opportunity to ask questions and had them answered. She conveyed understanding of the procedure and signed the consent. 3. Obesity - BMI [address] Pollock, Attending KAYCE MACEDO MD PGY4 05/14/2014 I saw and evaluated the. I have reviewed the resident's history and confirmed it with the pateint and I agree with the details as written. My physical examination confirms Pacis' findings. The assessment and plan were formulated in discussion with me and I agree with them as documented. Pt. With symptomatic kidney stones. Will have urology consult to consider stent and pain control. ICN consult. documented in this encounter Procedure Notes * Provider, Scanning - 05/17/2014 12:00 AM EDTAssociated Order(s): SCAN DOC: ECG documented in this encounter Miscellaneous Notes * Miscellaneous - Provider, Scanning - 05/17/2014 12:00 AM EDT * Miscellaneous - Provider, Scanning - 05/17/2014 12:00 AM EDT * Miscellaneous - Provider, Scanning - 05/17/2014 12:00 AM EDT * Miscellaneous - Provider, Scanning - 05/17/2014 12:00 AM EDT * Op Note - Chloe Kohler Jr., MD - 05/16/2014 11:57 AM EDT [facility] Operative Note Patient Name: Tee Emanuel : [id number] MR#: [id number] Case Date: 05/16/2014 Surgeon: Surgeon(s) and Role: Panel 1: * Chloe Kohler Jr., MD - Primary * Jes Vidal MD - Resident-Surgeon Héctor Preoperative diagnosis: right hydronephrosis Ultrasound guided Postoperative diagnosis: right hydronephrosis Procedure(s): CYSTO, right STENT PLACEMENT General via ETT Estimated Blood Loss: minimal Drains: 6fr variable length ureteral stent Disposition: awakened from anesthesia, extubated and taken to the recovery room in a stable condition, having suffered no apparent untoward event. Condition: doing well without problems (Please see the Surgical Encounter Summary for any Implant and Specimen details pertinent to this patient.) HPI/Surgical Indications: This 33 yo woman, (33 weeks 2d), with suspected right urolithiasis, right flank pain and mild right hydronephrosis elected to proceed with right ureteral stent placement after attempting coservative management but finding pain and nausea not adequately controlled.We discussed management options including continued watchful waiting, temporizing stent placement, nephrostomy placement, or ureteroscopy, relative risks, benefits, and limitations, and risks of procedure, to both her and her baby, as well as possibility that there is no ureteral stone and pain is not related. With understanding of above, she requested to proceed with cystoscopy and right ureteral stent placement. She understands that stent may encrust more rapidly during and increased hydration is needed and possible interval stent exchanges may be required prior to delivery. Procedure Description: She was identified and greeted in the preoperative holding area. Surgical side marking and informed consent were confirmed, and she was brought to the operating room. She was placed supine on the OR table. monitoring confirmed appropriate heat rate and was continued throughout the procedure. General anesthesia was induced and she was moved to the dorsal lithotomy position, with a gel roll beneath the right hip to elevate the right pelvis. She was prepped and draped in the standard fashion. A timeout was performed. The 22 urdu rigid cystoscope was inserted.The bladder was surveyed, extrinsic impression on the bladder from the gravid uterus was noted; otherwise no intravesical abnormality was identified. The right ureteral orifice was cannulated with a pollock catheter and a glide wire was passed through this. The wire was confirmed in the renal pelvis on intraoperative ultrasound monitoring. The pollock was advanced over the wire into the renal pelvis and clear appearing urine was noted to drain. The pollock was withdrawn, leaving the wire in place. Over the glide wire, a 6 urdu, variable length ureteral stent was passed. Proximal curl of stent was seen on ultrasound in the upper pole calyx and a single, full distal curl was confirmed in the bladder. Clear urine effluxed from the stent. The bladder was emptied and the cystoscope removed. She was awakened from anesthesia and taken to the recovery area in stable condition. Intraop and immediate postop monitoring confirmed normal heart rate throughout. * Brief Op Note - Chloe Kohler Jr., MD - 05/16/2014 11:54 AM EDT Brief Operative Note Patient Name: Tee Emanuel : [id number] MR#: [id number] Case Date: 05/16/2014 Surgeon: Surgeon(s) and Role: Panel 1: * Chloe Kohler Jr., MD - Primary * Jes Vidal MD - Resident-Surgeon Héctor Preoperative diagnosis: right hydronephrosis Ultrasound guided Postoperative diagnosis: right hydronephrosis Procedure(s): CYSTO, STENT PLACEMENT under ultrasound guidance Anesthesia: General Findings: stent positioned with proximal curl in right upper pole calyx; distal curl in bladder Complications: none Fluids: 500 cc ml Estimated Blood Loss: none Drains: 6fr variable length right ureteral stent Disposition: awakened from anesthesia, extubated and taken to the recovery room in a stable condition, having suffered no apparent untoward event. Condition: doing well without problems (Please see the Surgical Encounter Summary for any Implant and Specimen details pertinent to this patient.) * OR Attestation - Chloe Kohler Jr., MD - 05/16/2014 11:54 AM EDT Attestation: Case Date: 05/16/2014 I was present and I participated during the entire procedure. CHLOE KOHLER JR, MD 05/16/2014 * Care Management - Eber Tran MD - 05/16/2014 9:54 AM EDT I called the referring provider and updated them regarding the surgery, US results and need for repeat 50 gram. * Consult Note - Taylor Reyna - 05/15/2014 8:27 AM EDT consult: We were asked by the obstetrical service, Dr. Tran to provide consultation on Tee Emanuel, a33 y.o. old patient on the birthing pavilion with nephrolithiasis at 33 weeks gestation. I reviewed history in chart as well as oral history from the OB service. She was referred as a maternal- transfer from [facility]. Relevant History: Tee has had an uncomplicated until a week ago when she presented to [facility] with severe pain and was diagnosed with nephrolithiasis. She was transferred to [facility] for further evaluation and potential surgical management of her nephrolithiasis. Recommendations and advice discussed: I met with Tee and her family to discuss the delivery and management of infant born at 33 week gestation. We discussed specific management likely for the anticipated problems of prematurity like resuscitation and stabilization after delivery, feeding issues, apnea of prematurity, jaundice, probable length of stay and the criteria for discharge to home. At this gestation with steroids, there is a low risk for serious problems of pulmonary immaturity, intraventricular hemorrhage or retinopathy of prematurity. Survival is nearly 100% in the absence of problems in addition to the prematurity. We discussed general issues of intensive care, including team composition, philosophy of parents as collaborators and active participants in patient care as well as policies regarding rounds, visitation by family members and friends. Parents asked appropriate question which were addressed during our discussion. Time in consultation: 40 minutes were spent in consultation, with 20 minutes spent directly counseling patient. Thank you for requesting consultation by the neonatology service. We will continue to follow coursealong with you. * Miscellaneous - Provider, Scanning - 05/15/2014 12:00 AM EDT * Consult Note - Chloe Kohler Jr., MD - 05/14/2014 7:37 PM EDT UROLOGY CONSULT We were consulted by OB-Human Services Care Specialist ID 33 yo female with 33 weeks and right flank pain transferred to [facility] for management of renal colic in the setting of possible nephrolithiasis HPI Patient with no prior history of nephrolithiasis who started with pain about 2 weeks ago. This increased progressively over her right flank and radiated toward her right abdomen. She also complained of back pain. This past Sunday the pain was excruciating and she went to the ED. Since then patient has been evaluated in the ED three times and was admitted to [facility] in [facility]. On 05/10 she had an US that showed mild hydronephrosis and a potential non [id number] calculi in the right kidney. Then had a low dose IVP that confirmed mild hydro and showed trajectory of proximal right ureter only, without definite identification of a ureteral stone. She has had no fever. Her pain has been marjorie challenging to control. While she is at home with narcotics she isnot able to control her pain and she has nausea and some emesis. She has had no dysuria, no suprapubic pain and no genitalia pain. She has not complained of contractions. Her pain is not steady and dull and she describes like colic stabbing pain at times,however this isnot constant. Outside hospital evaluation included CBC with no leukocytosis, pyuria WBC 4 and normal creatinine. Patient Active Problem List Diagnosis Code ??? Morbid obesity 278.01 ??? Menses, irregular 626.4 ??? PCOS (polycystic ovarian syndrome) 256.4 ??? Right nephrolithiasis 592.0 Past Medical History Diagnosis Date ??? Asthma as child ??? Carpal tunnel syndrome ??? PCOS (polycystic ovarian syndrome) Past Surgical History Procedure Date ??? Dilation and curettage of uterus ??? Tear duct surgery History Social History ??? Marital Status: Spouse Name: N/A Number of Children: N/A ??? Years of Education: N/A Occupational History ??? Not on file. Social History Main Topics ??? Smoking status: Current Every Day Smoker -- 0.5 packs/day for 20 years Types: Cigarettes ??? Smokeless tobacco: Never Used ??? Alcohol Use: No ??? Drug Use: No ??? Sexually Active: Yes -- Male partner(s) Other Topics Concern ??? Not on file Social History Narrative Lives with and 4 adopted children age 11, 10, 8 and 8 No current facility-administered medications on file prior to encounter. Current Outpatient Prescriptions on File Prior to Encounter Medication Sig Dispense Refill ??? VIT/IRON FUMARATE/FA ( 19 ORAL) Take by mouth daily. ??? metFORMIN (GLUCOPHAGE) 850 mg tablet Take 850 mg by mouth 2 times daily (with meals). ??? ibuprofen (ADVIL;MOTRIN) 600 mg tablet Take 600 mg by mouth every 8 hours as needed. ??? medroxyPROGESTERone (PROVERA) 10 mg tablet Take 10 mg by mouth daily. X 5 days Allergies Allergen Reactions ??? Penicillins Hives and Shortness Of Breath ??? Percocet (Oxycodone-Acetaminophen) Nausea And Vomiting ??? 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 Last value Range last 24 hrs Temperature Temp: 36.9 ??C (98.4 ??F) Temp: [36.9 ??C (98.4 ??F)] Heart Rate Heart Rate: 77 Heart Rate: [77] Blood Pressure BP: 106/52 mmHg BP: (106-110)/(52-58) Respiratory Rate Resp: 18 Resp: [18-20] SpO2 SpO2: 98 % SpO2: [98 %] Art BP BP (Arterial Line): -- Obese and gravid woman NAD, pleasant and cooperative Oral mucosa hydrated Supple, no JVD RRR CLTA bl Tender right paraspinal muscles with tender CVA on the right Gravid abd is soft nt nd Moves all four Alert orientedx3 Neurologically intact Skin anicteric 05/14 WBC 9.9 Creat 0.62 RBC 4 WBC 7 Nitrites negative Urine culture pending Renal US 05/14 RIGHT Mild hydro - unchanged when compared to prior study and no hydroureter. A/P Right flank pain associated with back pain during , clinically suspicious for possible ureteral calculus vs hydronephrosis of OSH Renal US findings suggest non obstructing nephrolithiasis, however non- obstructing renal stone would not account for hersymptoms. Her pain may could be due to a ureteral stone, although there is no direct evidence of this at thispoint. We discussed with patient that she might have a stone in the ureter that may be the culprit of her symptoms, and discussed options for further diagnostic options including repeat renal ultrasound to assess for progressive hydronephrosis, antegrade pyelogram, retrograde pyelogram, as well as low dose CT, with discussion of relative risks and benefits for her and her baby. We discussed role of interventions including trial of stent, ureteroscopy, nephrostomy tube, as well as trial of passage and medical expulsive therapy. At this point, she declines further imaging but agrees with planned repeat u/s in 2-3 weeks. She declines intervention, opts for trial of passage. She understands that in the setting of fever, inability to tolerate oral food/hydration, or inability to tolerate pain,intervention may be required. Recommendations As above. Patient at this moment would like to continue monitor and MET since her pain is now undercontrol with CENTRIFUGE OPERATOR. If suspicion of infection, not able to tolerate PO or not able to manage/control pain will recommend surgical intervention with either cysto stent or PERC neph tube. Thank you for having consulted us, will continue to follow along. STAFF ADDENDUM: I saw and examined Tee Emanuel with Dr. Larkin and have independently reviewed her imaging studies. I agree with history, exam, impression, and plan as noted. CHLOE KOHLER JR, MD * Discharge Summary - Larry Sullivan MD - 05/14/2014 3:00 PM EDT Discharge Summary Patient Name: Tee Emanuel Patient Age: 33 y.o. Language: Yakut Race: / Ethnicity: Not nor Admit date: 05/14/2014 Discharge date and time: 05/16/13 Attending Physician: Eber Tran MD Discharge Physician: Soraida Snow MD Follow-up Recommendations for Providers: - repeat 1 hour GTT due to AC > 97th percentile - follow-up with urology in 4-6 weeks post-. Repeat ultrasound 06/27/14. Inpatient Provider Contact Information: [facility] - [phone] Care Provider: Dr. Willams Referring Provider if applicable: Dr. Willams Discharge Diagnoses (Hospital Problems) and Secondary Diagnoses (Chronic Problems): Active Hospital Problems Diagnosis ??? Right nephrolithiasis ??? Tobacco abuse ??? Morbid obesity Resolved Hospital Problems Diagnosis Date Resolved No resolved problems to display. Active Non-Hospital Problems Diagnosis ??? Menses, irregular ??? PCOS (polycystic ovarian syndrome) Operations/Major Procedures: Cystoscopy Right ureteral stent placement Admission History and History of Presentation: (per admit note cut and paste) Tee Emanuel is a 33 y.o. female at 33w0d (07/02/2014, by Ultrasound) who presents with worsening right-sided back/flank pain over the past several weeks. She initially attributed the painto -related backache. On Sunday, the pain became more intense, and she presented to [facility] for evaluation. She was found to have R nephrolithiasis and mild right hydronephrosis and a 7 mm stone on right on renal ultrasound. She was discharged on Thursday 05/10 on PO pain medication as she wanted to attend her baby shower, but returned to the hospital for admission on Friday 05/11. She has been inpatient at [facility] since Sunday receiving pain control via a dilaudedPCA. An IV pyelogram was done again showing R hydronephrosis. She has not passed any stone on her own. At [facility] they were reluctant to place a ureteral stent given patient's , and so have transferred her here for further management and consultation with Urology. On arrival, she is having significant pain 7/10 associated with nausea and emesis, which she ascribes to the pain. She denies fever, chills, and dysuria. She has noticed that her urine has been darker over the past few days. She denies lof, vb, ctx, and reports good FM. Denies sob, cp, leg pain. Her antepartum course is significant for: 1. Right nephrolithiasis and mild hydronephrosis 2. Obesity (BMI 34) 3. Nicotine dependence - 1/2 ppd Hospital Course: On admission, Tee reported severe pain. She was afebrile. was started on a Dilaudid CENTRIFUGE OPERATOR for pain control. A Urology consult was requested. Per their recommendations, a renal ultrasound was performed, which revealed no sign of nephrolithiasis, right moderate hydronephrosis and mild pelviectasis.Urology recommended outpatient follow-up, however the patient reported that her pain was not controlled with Dilaudid CENTRIFUGE OPERATOR and therefore urology proceeded with stent placement on HD #3. This was uncomplicated. Formal OB US was performed on HD #2, which was notable only for EFW 88%tile with AC >97%tile. She had reactive, reassuring monitoring throughout her admission and continuous mo nitoring during surgery. She recovered well post-op and was medically stable for discharge on POD #0/HD #3 with follow-up planned with her referring OB provider and with urology as instructed. She had monitoring before, during, and post-procedure. The FHRT was reactive on discharge. [employer] Received if applicable: N/A Date Steroid Complete: 05/15/14 GBS status: Lab Results Component Value Date GBSSCREEN 139* 04/02/2014 Cervix at discharge: Dilation: Effacement: Station: Vital signs at Discharge: BP: 105/57 mmHg, Heart Rate: 83 , Temp: 36.8 ??C (98.2 ??F), Resp: 16 , BMI (Calculated): 34.1 Height: 154.9 cm (5' 1) (05/14/14 1011) Weight - Scale: 81.647 kg (180 lb) (05/14/14 1011) Functional and Cognitive status: Fully ambulatory and intact Important Studies and Lab Data: Most Recent Ultrasound Date: 05/15/14 GA: 33w1d Presentation: Cephalic Placenta: Anterior GISELA FV: Normal GISELA Sum: 21.7 cm Larg Pckt: 7.6 cm -------- Biometry -------- BPD: 80.0 mm G. Age: 32w 1d 18 % HC: 299.0 mm G. Age: 33w 1d 16 % AC: 317.0 mm G. Age: 35w 4d > 97 % FL: 61.0 mm G. Age: 31w 5d 9.3 % HUM: 56.0 mm G. Age: 32w 4d 47 % Est. FW: 2316 gm 5 lb 2 oz 82 % Renal US 05/14/14: Mild right renal pelvicaliectasis, can't tell if mild obstruction vs. physiological (3rd trimester ). Consider non-contrast low dose CT. Normal left kidney and bladder. GBS Pending Recent Labs Basename 05/14/14 1110 WBC 9.9 HGB 10.7* HCT 31.2* PLATELET 220 Recent Labs Basename 05/14/14 1415 NA 140 K 3.6 CL 100 CO2 25 BUN 5* CREATININE 0.62* No results found for this basename: AST:3,ALT:3,ALKPHOS:3,BILITOT:3,BILIDIR:3 in the last 168 hours Recent Labs Basename 05/14/14 1415 CALCIUM 8.9 PHOS -- Discharge Conditions/Prognosis: Stable Discharge to: Home Updated Allergies/ADRs: Allergies Allergen Reactions ??? Penicillins Hives and Shortness Of Breath ??? Percocet (Oxycodone-Acetaminophen) Nausea And Vomiting ??? 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 Immunizations Given this Hospitalization: There is no immunization history on file for this patient. Discharge Medications: Your Medications As of 05/16/2014 3:15 PM UNREVIEWED medications - Discuss With Your Provider Dose Details ibuprofen 600 mg Tab Commonly known as: ADVIL;MOTRIN Take 600 mg by mouth every 8 hours as needed. 600 mg Refills: 0 medroxyPROGESTERone 10 mg Tab Commonly known as: PROVERA Take 10 mg by mouth daily. X 5 days 10 mg Refills: 0 metFORMIN 850 mg Tab Commonly known as: GLUCOPHAGE Take 850 mg by mouth 2 times daily (with meals). 850 mg Refills: 0 19 ORAL Take by mouth daily. Refills: 0 Smoking Status at Discharge: History Smoking status ??? Current Every Day Smoker -- 0.5 packs/day for 20 years ??? Types: Cigarettes Smokeless tobacco ??? Never Used Ordered for After Discharge: No discharge procedures on file. Summary: Instructions Given to Patient at Discharge: There are no Patient Instructions on file for this visit. General Instructions Instructions following Endourology Surgery with a Ureteral Stent Placement Follow-up: Please call [phone] (clinic number for appointments) to confirm date and time of your appointment if you do not receive your apointment in 1-2 weeks. You will be scheduled for follow up with Dr. Kohler with a renal bladder ultrasound in Urology [id number] in ~6wks Wound Care: None needed Activity/Diet: As tolerated by your comfort level. Please resume a regular healthy diet as suggested by your physician. Kidney Stone Patients: Try and drink enough fluid to make one half gallon of urine daily or 2.25 Liters of water. You should aim to have your urine be clear. Ureteral Stent Patients: You have a ureteral stent in place, it is normal for it to cause some irritation in your bladder and cause you to have blood in your urine. It may bother you when you urinate. This is normal. If you cannot tolerate this irritation or if you have severe back or side pain, you should call our office [phone] before 5PM or [phone] after hours. Please remember that this is a foreign body that must be removed or exchanged. If you do not return for your follow up appointment or procedure, you are at risk of having the stent become encrusted which may result in additional procedures. Urination: You will likely have a small amount of blood in your urine for the next several days, upto 10-14 days. This is normal; however, if you are passing large amounts of blood clots, bright redblood or are bleeding an unable to urinate please call our office at [phone] 5PM or [phone] after hours. Call Doctor for: Please call if you have copious blood in your urine, severe back or side pain, pain not controlled by pain medications, persistent nausea and vomiting, or for any fevers greater [id number] F. The number for questions is [phone] before 5 PM weekdays and [phone] after 5 PM and weekends. Medications: Pain Medication: No driving for 8 hours after any dose of opioid pain medication if one was prescribed for you. You may useTylenol in addition to this medication if your pain is not totally controlled by the opioid. If you are taking a narcotic combined with Tylenol, please be sure to keep track ofthe amount of Tylenol you are taking as to not exceed 3,000mg in a day. Nifedipine: This is a medication that will help to relax the bladder and ureter and will help to avoid irritation. This may cause dizziness so we recommend that you take it before bedtime. If you areunable to tolerate the medication, please stop the medication. Stool Stimulants: If you are requiring narcotic medications, please be sure to take a stool stimulant such as Senokot or Bisacodyl to help have a regular bowel movement without straining. This will also help to prevent bladder spasms. Driving: No driving while still taking opioid pain medications (wait at least 6- 8 hours since last dose). Discharge References/Attachments None Referrals:Urology * Plan of Care - Colleen Herrmann RN - 05/14/2014 12:10 PM EDT Problem: General Plan of Care Goal: Plan of Care Review Outcome: Present (see interventions, notes) Patient oriented to room and call horne system. Patient reports nausea and 7/10 right sided abdominal pain on arrival. Dr. Maceod aware of patient arrival and orders obtained for IV Zofran and DilaudidPCA. VSS. Assessment WNL. EFM placed with reactive strip noted. Verbal order from Dr. Macedo to remove EFM. Labs and urine samples ordered and obtained. Patient reports relief noted from Zofran and improvement in pain noted from [employer]. Care assumed by Dara Kuo RN. documented in this encounter Plan of Treatment Not on file documented as of this encounter Procedures Procedure Name Priority Date/Time Associated Diagnosis Comments ECG SCAN 05/17/2014 12:00 AM EDT US GUIDANCE INTRAOPERATIVE Routine 05/16/2014 12:02 PM EDT CYSTO, STENT PLACEMENT (WRVU 2.82) 05/16/2014 11:00 AM EDT right hydronephrosis CYSTO, STENT PLACEMENT Routine 4 3:39 PM EDT US OB DETAILED MORPHOLOGY Routine 05/15/2014 2:26 PM EDT GROUP B STREP CULTURE SCREEN Routine 05/14/2014 6:47 PM EDT US RETROPERITONEAL COMPLETE STAT 05/14/2014 3:26 PM EDT BMP W/FASTING GLUCOSE STAT 05/14/2014 2:15 PM EDT URINE CULTURE Routine 05/14/2014 2:02 PM EDT ABO/RH TYPING Routine 05/14/2014 11:38 AM EDT ANTIBODY SCREEN Routine 05/14/2014 11:38 AM EDT TYPE AND SCREEN ([facility]/F[facility]TIMA) Routine 05/14/2014 11:38 AM EDT URINALYSIS WITH REFLEX CULTURE Routine 05/14/2014 11:28 AM EDT URINE CULTURE Routine 05/14/2014 11:28 AM EDT HEMOGRAM Routine 05/14/2014 11:10 AM EDT DIFFERENTIAL, AUTOMATED Routine 05/14/2014 11:10 AM EDT CBC (WITH DIFF) Routine 05/14/2014 11:10 AM EDT INITIAL EXTERNAL RESULTS PANEL Routine 04/02/2014 INITIAL EXTERNAL RESULTS PANEL Routine 11/07/2013 documented in this encounter Results * SCAN DOC: ECG (05/17/2014 12:00 AM EDT) Narrative 05/17/2014 8:52 AM EST Procedure Note Provider, Scanning - 05/17/2014 12:00 AM EDT Scanning Provider MEDIA MGR SCAN EXT O RDR/RSLT * US inter-op guidance - technical only (05/16/2014 12:02 PM EDT) Anatomical Region Laterality Modality Ultrasound 05/16/2014 12:0 2 PM EDT Narrative 05/16/2014 12:27 PM EDT Renal ?(Signed Final 05/16/2014 12:22 ? pm) Patient Info ID #: ? [id number] ?: ??[birth year] (33 yrs) Name: ? TEE Damon ?Visit Date: 05/16/2014 11:58 am ? JENAE Performed By Performed By: ?Marely Bush RDMS Associate: ? Dunia POTTER, Alex Mcmillan Attending: ? Gamaliel POTTER, Jacki Mark Referred By: ? CHLOE KOHLER MD Service(s) Provided ??UGINTOP- Ultrasound Intraoperative Guidance ??- ?[id number] ??[id number] ??URETROLIM- Retroperotoneal Limited - ?[id number] ??[id number] Indications ??33 yo female () 33 weeks 2 days, R renal ??calculi for stent placement ??Evaluate right kidney for degree of hydronephrosis, ??per verbal request from Dr. Kohler. Right Kidney Size (cm) ?L: ??13.1 Cortical Thickness: ?Normal Cortical Echogenicity: ?? Normal Hydronephrosis: ?Mild to mod pelvicaliectasis Comment: ?Ultrasound guidance was performed to place ? ureteral stent. ??Stent seen in upper pole of renal ? pelvis post-placement. ??Renal calculus visualized ? mid-pole, measuring 0.7 cm. Impression Ultrasound - Intraoperative Guidance- Summary US guidance was provided for stent placement. Following stent placement, there is mild to moderate pelvicaliectasis, improved from before the stent placement I ??viewed the images and agree with the above interpretation. ?Jacki Alston MD Electronically Signed Final Report ?? 05/16/2014 12:22 pm Film and interpretation reviewed by the attending Procedure Note Jacki Alston MD - 05/16/2014 Renal (Signed Final 05/16/2014 12:22 pm) Patient Info ID #: [id number] : [birth year] (33 yrs) Name: TEE Damon Visit Date: 05/16/2014 11:58 am JENAE Performed By Performed By: Marely Bush RDMS Associate: Dunia POTTERAlex Attending: Gamaliel POTTER, Jacki Mckee. Referred By: CHLOE KOHLER MD Service(s) Provided UGINTOP- Ultrasound Intraoperative Guidance - [id number] URETROLIM- Retroperotoneal Limited - [id number] Indications 33 yo female () 33 weeks 2 days, R renal calculi for stent placement Evaluate right kidney for degree of hydronephrosis, per verbal request from Dr. Kohler. Right Kidney Size (cm) L: 13.1 Cortical Thickness: Normal Cortical Echogenicity: Normal Hydronephrosis: Mild to mod pelvicaliectasis Comment: Ultrasound guidance was performed to place ureteral stent. Stent seen in upper pole of renal pelvis post-placement. Renal calculus visualized mid-pole, measuring 0.7 cm. Impression Ultrasound - Intraoperative Guidance- Summary US guidance was provided for stent placement. Following stent placement, there is mild to moderate pelvicaliectasis, improved from before the stent placement I viewed the images and agree with the above interpretation. Jacki Alston MD Electronically Signed Final Report 05/16/2014 12:22 pm Film and interpretation reviewed by the attending Eber Tran MD IMG US GEN ORDERABLE S * US OB Targeted Morphology (05/15/2014 2:26 PM EDT) Anatomical Region Laterality Modality Pelvis, Abdomen Ultrasound 05/15/2014 2:26 PM EDT Narrative 05/15/2014 2:33 PM EDT OBSTETRICS REPORT ? (Signed Final 05/15/2014 02:32 ? pm) Patient Info ID #: ? [id number] ?: ??[birth year] (33 yrs) Name: ? TEE EMANUEL ? Visit Date: 05/15/2014 02:20 pm Performed By Performed By: ?Tea Sanabria RDMS Attending: ? Liu POTTER, Carolyn Frey Referred By: ? LARRY SULLIVAN MD Service(s) Provided ??[facility] - Targeted Morphology - Genetics - ?[id number] ??[id number] Indications ??Transport from [facility] for nephrolithiasis, no ??ultrasound at [facility] Evaluation Num Of Fetuses: ? 1 Heart ? 144 Rate(bpm): Cardiac Activity: ?? Observed, normal rhythm Presentation: ? Cephalic Placenta: ? Anterior P. Cord Insertion: ??Within Normal Limits Amniotic Fluid GISELA FV: ?Normal GISELA Sum: ? 21.7 ?cm ?Larg Pckt: ?7.6 ??cm RUQ: ?? 3.4 ? cm ?LUQ: ?? 7.6 ?cm RLQ: ?? 5.4 ? cm ?LLQ: ?? 5.3 ?cm -------- Biometry -------- BPD: ?80.0 ??mm ?G. Age: ?? 32w 1d ?18 ??% HC: ?299.0 ??mm ?G. Age: ?? 33w 1d ?16 ??% AC: ?317.0 ??mm ?G. Age: ?? 35w 4d ?> 97 ??% FL: ? 61.0 ??mm ?G. Age: ?? 31w 5d ? 9.3 ??% HUM: ?56.0 ??mm ?G. Age: ?? 32w 4d ?47 ??% CI: ? 72.43 ??% ? 70 - 86 FL/HC: ? 20.4 ??% ? 19.9 - 21.5 HC/AC: ? 0.94 ?0.96 - 1.11 FL/BPD: ?76.3 ??% ? 71 - 87 FL/AC: ? 19.2 ??% ? 20 - 24 Est. FW: ?2316 ??gm ?5 lb 2 oz ?82 ??% Gestational Age Clinical GABY: ??33w 1d ?GABY: ?? 07/02/14 U/S Today: ? 33w 1d ?GABY: ?? 07/02/14 Best: ?33w 1d ?? Det. By: ??Clinical GABY ? GABY: ?? 07/02/14 Targeted Anatomy Central Nervous System Calvarium: ?Within Normal Limits Intracranial: ? Within Normal Limits Cavum: ?Within Normal Limits Lat. Ventricles: ?Within Normal Limits Cerebellum: ? Limited Views Choroid Plexus: ? Limited Views Cisterna Magna: ? Limited Views Spine Cervical: ? Visualized Thoracic: ? Visualized Lumbar: ? Visualized Sacral: ? Visualized Head/Neck Face: ? Within Normal Limits Lips: ? Visualized Nuchal Fold: ?Within Normal Limits Eyes: ? Limited Views Thorax Four Chamber: ? Within Normal Limits Cardiac Motion: ? Normal Rhythm R Outflow Tract: ?Visualized L Outflow Tract: ?Visualized Cardiac [place]: ? Visualized Diaphragm: ?Visualized Abdomen Ventral Wall: ? Visualized Stomach: ?Visualized Lt Kidney: ?Visualized Rt Kidney: ?Visualized Bladder: ?Visualized Extremities Lt Humerus: ? Within Nomal Limits Rt Humerus: ? Not well seen due to Lt Forearm: ? Limited Views Rt Forearm: ? Limited Views Lt Hand: ?Limited Views Rt Hand: ?Limited Views Lt Femur: ? Within Normal Limits Rt Femur: ? Within Normal Limits Lt Lower Leg: ? Within Normal Limits Rt Lower Leg: ? Within Normal Limits Lt Foot: ?Limited Views Rt Foot: ?Limited Views Other Umbilical Cord: ? 3 vessel cord Cord Insertion: ? Not well seen due to Comment: ? Nasal Bone: Visualized Doppler - Uterine Artery Right S/D Ratio: ? RI: ?PI: ?%Tile Left S/D Ratio: ?RI: ?PI: ?%Tile Cervix Uterus Adnexa Left Ovary Not visualized Right Ovary Not visualized Impression 3rd Trimester - Targeted Morphology- Summary Single intrauterine with a gestational age of 33w 4d based on clinical GABY. Composite age based on the current ultrasound alone is 33w 1d. Amniotic fluid volume is Normal, GISELA = 21.7 cm, MVP = 7.6 cm Current growth parameters are consistent indicating normal growth. An anatomic evaluation was performed and no structural abnormalities are noted. ?? Views were limited by late gestational age. I ??viewed the images and agree with the above interpretation. ? Carolyn Hatfield MD Electronically Signed Final Report ?? 05/15/2014 02:32 pm Procedure Note Carolyn Hatfield MD - 05/15/2014 OBSTETRICS REPORT (Signed Final 05/15/2014 02:32 pm) Patient Info ID #: [id number] : [birth year] (33 yrs) Name: TEE EMANUEL Visit Date: 05/15/2014 02:20 pm Performed By Performed By: Tea Sanabria RDMS Attending: Carolyn Hatfield MD Referred By: LARRY SULLIVAN MD Service(s) Provided [facility] - Targeted Morphology - Genetics - [id number] Indications Transport from [facility] for nephrolithiasis, no ultrasound at [facility] Evaluation Num Of Fetuses: 1 Heart 144 Rate(bpm): Cardiac Activity: Observed, normal rhythm Presentation: Cephalic Placenta: Anterior P. Cord Insertion: Within Normal Limits Amniotic Fluid GISELA FV: Normal GISELA Sum: 21.7 cm Larg Pckt: 7.6 cm RUQ: 3.4 cm LUQ: 7.6 cm RLQ: 5.4 cm LLQ: 5.3 cm -------- Biometry -------- BPD: 80.0 mm G. Age: 32w 1d 18 % HC: 299.0 mm G. Age: 33w 1d 16 % AC: 317.0 mm G. Age: 35w 4d > 97 % FL: 61.0 mm G. Age: 31w 5d 9.3 % HUM: 56.0 mm G. Age: 32w 4d 47 % CI: 72.43 % 70 - 86 FL/HC: 20.4 % 19.9 - 21.5 HC/AC: 0.94 0.96 - 1.11 FL/BPD: 76.3 % 71 - 87 FL/AC: 19.2 % 20 - 24 Est. FW: 2316 gm 5 lb 2 oz 82 % Gestational Age Clinical GABY: 33w 1d GABY: 07/02/14 U/S Today: 33w 1d GABY: 07/02/14 Best: 33w 1d Det. By: Clinical GABY GABY: 07/02/14 Targeted Anatomy Central Nervous System Calvarium: Within Normal Limits Intracranial: Within Normal Limits Cavum: Within Normal Limits Lat. Ventricles: Within Normal Limits Cerebellum: Limited Views Choroid Plexus: Limited Views Cisterna Magna: Limited Views Spine Cervical: Visualized Thoracic: Visualized Lumbar: Visualized Sacral: Visualized Head/Neck Face: Within Normal Limits Lips: Visualized Nuchal Fold: Within Normal Limits Eyes: Limited Views Thorax Four Chamber: Within Normal Limits Cardiac Motion: Normal Rhythm R Outflow Tract: Visualized L Outflow Tract: Visualized Cardiac [place]: Visualized Diaphragm: Visualized Abdomen Ventral Wall: Visualized Stomach: Visualized Lt Kidney: Visualized Rt Kidney: Visualized Bladder: Visualized Extremities Lt Humerus: Within Nomal Limits Rt Humerus: Not well seen due to Lt Forearm: Limited Views Rt Forearm: Limited Views Lt Hand: Limited Views Rt Hand: Limited Views Lt Femur: Within Normal Limits Rt Femur: Within Normal Limits Lt Lower Leg: Within Normal Limits Rt Lower Leg: Within Normal Limits Lt Foot: Limited Views Rt Foot: Limited Views Other Umbilical Cord: 3 vessel cord Cord Insertion: Not well seen due to Comment: Nasal Bone: Visualized Doppler - Uterine Artery Right S/D Ratio: RI: PI: %Tile Left S/D Ratio: RI: PI: %Tile Cervix Uterus Adnexa Left Ovary Not visualized Right Ovary Not visualized Impression 3rd Trimester - Targeted Morphology- Summary Single intrauterine with a gestational age of 33w 4d based on clinical GABY. Composite age based on the current ultrasound alone is 33w 1d. Amniotic fluid volume is Normal, GISELA = 21.7 cm, MVP = 7.6 cm Current growth parameters are consistent indicating normal growth. An anatomic evaluation was performed and no structural abnormalities are noted. Views were limited by late gestational age. I viewed the images and agree with the above interpretation. Carolyn Hatfield MD Electronically Signed Final Report 05/15/2014 02:32 pm Eber Tran MD IM US OB ORDERABLES * Group B Strep Culture Screen (05/14/2014 6:47 PM EDT) Group B Streptococcus Culture ? Patient Name: TEE EMANUEL ?Ordered By: EBER TRAN ? MR#: [id number] ?LOC: ??BP ? /Sex: ??1980 (33 years), ? Female ? PROCEDURE: Group B Streptococcus Culture ?SOURCE: Vag/Rectal ? COLLECTED: 05/14/2014 18:47 ?FREE TEXT SOURCE: Penicillin Allergy?->Yes ? STARTED: 05/14/2014 19:13 ? FINAL REPORT ? Final Report ? Verified:05/18/20 14 11:33 ? Beta Hemolytic Streptococci, Group B isolated ? D-Test Performed. ? PRELIMINARY REPORT ? Preliminary Report ? Verified:05/16/20 14 11:31 ? Beta Hemolytic Streptococci, Group B isolated ? Susceptibility testing in progress ? SUSCEPTIBILITY RESULTS ? Beta Hemolytic Streptococci, Group B ? __ ?KB Interp ? Clindamycin ?S ? S=Susceptible ??I=Intermediate ??R=Resistant ??NA=Not Applicable ? DDS=Dose dependent-suscept ible ??NS=Non-suscepti ble ? CERNER MILLENNIUM Pooled specimen from vaginal introitus and rectal swab (specimen) 05/14/2014 6:47 PM EDT 05/14/2014 7:13 PM EDT Comment:PENICILLIN ALLERGY?- >YES Narrative Resulting Agency Comment Spec In Lab Eber Tran MD MICROBIOLOGY - GENER AL ORDERABLES [facility] * US retroperitoneal complete (05/14/2014 3:26 PM EDT) Anatomical Region Laterality Modality Abdomen Ultrasound 05/14/2014 3:26 PM EDT Narrative 05/14/2014 3:43 PM EDT Renal ?(Signed Final 05/14/2014 03:32 ? pm) Patient Info ID #: ? [id number] ?: ??[birth year] (33 yrs) Name: ? TEE A ?Visit Date: 05/14/2014 03:25 pm ? JENAE Performed By Performed By: ?Juno SHEPPARD, ??Zamzam Attending: ? Isaac POTTER, Bonifacio Mark Referred By: ? WINDY STEVEN MD Service(s) Provided ??URETRO - Retroperitoneal Complete - [id number] ? [id number] Indications ??assess degree of hydro Comparison No prior studies for comparison. Right Kidney Size (cm) ?L: ??13.7 Cortical Thickness: ?Normal Cortical Echogenicity: ?? Normal Hydronephrosis: ?Moderate Left Kidney Size (cm) ?L: ??14.3 Cortical Thickness: ?Normal Cortical Echogenicity: ?? Normal Hydronephrosis: ?No sonographic evidence Urinary Bladder Comment: ?Not distended Impression Ultrasound - ??Retroperitoneal Complete - Summary: Mild right renal pelvicaliectasis, can't tell if mild obstruction vs. physiological (3rd trimester ). Consider non-contrast low dose CT. Normal left kidney and bladder. I ??viewed the images and agree with the above interpretation. ? Bonifacio Gray MD Electronically Signed Final Report ?? 05/14/2014 03:32 pm Procedure Note Bonifacio Gray MD - 05/14/2014 Renal (Signed Final 05/14/2014 03:32 pm) Patient Info ID #: [id number] : [birth year] (33 yrs) Name: TEE Damon Visit Date: 05/14/2014 03:25 pm JENAE Performed By Performed By: Zamzam Fraire RDMS Attending: Bonifacio Gray MD. Referred By: WINDY STEVEN MD Service(s) Provided URETRO - Retroperitoneal Complete - [id number] Indications assess degree of hydro Comparison No prior studies for comparison. Right Kidney Size (cm) L: 13.7 Cortical Thickness: Normal Cortical Echogenicity: Normal Hydronephrosis: Moderate Left Kidney Size (cm) L: 14.3 Cortical Thickness: Normal Cortical Echogenicity: Normal Hydronephrosis: No sonographic evidence Urinary Bladder Comment: Not distended Impression Ultrasound - Retroperitoneal Complete - Summary: Mild right renal pelvicaliectasis, can't tell if mild obstruction vs. physiological (3rd trimester ). Consider non-contrast low dose CT. Normal left kidney and bladder. I viewed the images and agree with the above interpretation. Bonifacio Gray MD Electronically Signed Final Report 05/14/2014 03:32 pm Eber Tran MD IMG US GEN ORDERABLE S * (ABNORMAL) BMP w/fasting Glucose (05/14/2014 2:15 PM EDT) Glucose Fasting 103(H) 65 - 99 mg/dL [facility] Comment: ?Fasting* Glucose Interpretive Criteria Normal ?65-99 mg/dL Impaired Fasting glucose ?100-125 mg/dL Consistent with Diabetes Mellitus ? >or= 126 mg/dL *Fasting is defined as no caloric intake for at least 8 hours In the absence of unequivocal hyperglycemia a plasma glucose value of >or= 126 mg/dL should be repeated on a subsequent day. Diagnosis and Classification of Diabetes Mellitus, Position Statement from the [place] [employer]. ??Diabetes Care, Volume 33, Supplement 1, Jul 2009 Blood Urea Nitrogen 5(L) 8 - 18 mg/dL CERNER MILLENNIUM Creatinine 0.62(L) 0.70 - 1.20 mg/dL CERNER MILLENNIUM Comment: Please note that the pediatric reference intervals supplied above were not validated at [facility]. Results from pediatric patients should be interpreted in conjunction to the patient's age, height and muscle mass. Sodium 140 135 - 145 mmol/L CERNER MILLENNIUM Potassium 3.6 3.5 - 5.0 mmol/L CERN[facility] MILLENNIUM Comment: Please note: ??Patients with WBC >100,000 may have falsely elevated Potassium levels. ??For accurate Potassium quantification in these patients send serum separator tube (gold top) for subsequent determinations. ??Contact the Clinical Chemistry Laboratory if there are any questions. Chloride 100 98 - 107 mmol/L CERNER MILLENNIUM Carbon Dioxide 25 22 - 31 mmol/L CERNER MILLENNIUM Anion Gap 15 5 - 15 mmol/L CERNER MILLENNIUM Calcium 8.9 8.5 - 10.5 mg/dL CERNER MILLENNIUM Est Glomerular Filtration Rate >60 >=60 [facility]ERNER MILLENNIUM Comment: This estimated GFR (eGFR) value was calculated using the MDRD equation which has been validated on patients between the ages of 18 and 70. The MDRD should not be used to assess kidney function in patients < 18 years of age or in patients with extremes of body mass, or in patients with acute kidney failure. This value should be multiplied by 1.2 for patients. For further information please copy and paste the following links into your internet browser. [email or web address] Blood specimen (specimen) 05/14/2014 2:15 PM EDT 05/14/2014 2:44 PM EDT Narrative Resulting Agency Comment Spec In Lab Eber Tran MD CHEMISTRY ORDERABLES Performing Organization Address [facility] de Phone Number [facility] * Urine culture Clean Catch Urine (05/14/2014 2:02 PM EDT) Urine Culture ? Patient Name: TEE EMANUEL ?Ordered By: EBER TRAN ? MR#: [id number] ?LOC: ??BP ? /Sex: ?? 2 (33 years), ? Female ? PROCEDURE: Urine Culture ?SOURCE: U CC ? COLLECTED: 05/14/2014 14:02 ? STARTED: 05/14/2014 14:54 ? FINAL REPORT ? Final Report ? Verified: 08:32 ? No growth (Less than 1,000 cfu/ml). ? ____ [facility] Urine specimen obtained by clean catch procedure (specimen) 05/14/2014 2:02 PM EDT 05/14/2014 2:54 PM EDT Narrative Resulting Agency Comment Spec In Lab Eber Tran MD MICROBIOLOGY - GENER AL ORDERABLES [facility] * Antibody screen (05/14/2014 11:38 AM EDT) Ab Screen Interp Negative [facility] Expires at [id number] on: [id number] [facility] Blood specimen (specimen) 05/14/2014 11:38 AM EDT 05/14/2014 11:38 AM EDT Narrative Resulting Agency Comment Spec In Lab Eber Tran MD BLOOD BANK LAB ORDER SHABBIR Performing Organization Address [facility] [employer] de Phone Number [facility] * ABO/Rh Typing (05/14/2014 11:38 AM EDT) ABORH Type B Pos [facility] Blood specimen (specimen) 05/14/2014 11:38 AM EDT 05/14/2014 11:38 AM EDT Narrative Resulting Agency Comment Spec In Lab Eber Tran MD BLOOD BANK LAB ORDER SHABBIR Performing Organization Address [facility] de Phone Number [facility] * Urine culture Clean Catch Urine (05/14/2014 11:28 AM EDT) Urine Culture ? Patient Name: TEE EMANUEL ?Ordered By: EBER TRAN ? MR#: [id number] ?LOC: ??BP ? /Sex: ??1980 (33 years), ? Female ? PROCEDURE: Urine Culture ?SOURCE: U CC ? COLLECTED: 05/14/2014 11:28 ? STARTED: 05/14/2014 12:13 ? FINAL REPORT ? Final Report ? Verified: 014 08:36 ? 10,000-49,000 cfu/ml mixed mucosal iva ? Note: Multiple bacterial morphotypes present. Suggest appropriate ? recollection with timely delivery to ? the laboratory, if clinically significant. ? CERNER MILLENNIUM Urine specimen obtained by clean catch procedure (specimen) 05/14/2014 11:28 AM EDT 05/14/2014 12:13 PM EDT Narrative Resulting Agency Comment Spec In Lab Eber Tran MD MICROBIOLOGY - GENER AL ORDERABLES [facility] * (ABNORMAL) Urinalysis with microscopic (05/14/2014 11:28 AM EDT) Glucose, Urine Dipstick Negative Negative mg/dL CERNER MILLENNIUM Protein, Urine Dipstick Negative Negative mg/dL CERNER MILLENNIUM Bilirubin, Urine Dipstick Negative Negative mg/dL CERNER MILLENNIUM Comment: Clinical correlation required for positive Urine Bilirubin results as false positive may occur with some drugs and drug related products. If a false positive is suspected a serum total bilirubin should be considered if clinically indicated. Urobilinogen, Urine Dipstick Normal Normal mg/dL CERNER MILLENNIUM pH, Urn (dipstick) 6.0 5.0 - 8.0 CERNER MILLENNIUM Blood, Urine Dipstick Small(A) Negative mg/dL CERNER MILLENNIUM Ketone, Urine Dipstick >=80(Critica l) Negative mg/dL CERNER MILLENNIUM Comment: Urinalysis result NOT critical without a combination of Glucose greater than or equal to 500mg/dl AND Ketones greater than or equal to 80mg/dl. Nitrite, Urine Dipstick Negative Negative CERNER MILLENNIUM Leukocytes, Urine Dipstick Small(A) Negative mcL CERNER MILLENNIUM Appearance, Urine Dipstick Hazy(A) Clear CERNER MILLENNIUM Specific [place] Urine Automated 1.015 1.002 - 1.030 CERNER MILLENNIUM Color, Urine Dipstick Yellow Yellow CERNER MILLENNIUM RBC, Urine 4 0 - 4 /HPF CERNER MILLENNIUM WBC, Urine 7(H) 0 - 5 /HPF CERNER MILLENNIUM Bacteria, Urine Occasional(A ) None /HPF CERNER MILLENNIUM Squamous Epithelial Cells, Urine 3 <=4 /HPF CERNER MILLENNIUM Urine specimen (specimen) 05/14/2014 11:28 AM EDT 05/14/2014 11:54 AM EDT Narrative Resulting Agency Comment Spec In Lab Eber Tran MD URINE ORDERABLES CERNER MILLENNIUM * (ABNORMAL) Differential, Automated (05/14/2014 11:10 AM EDT) Neutrophil % 77.5 % CERNER MILLENNIUM Neutrophil Absolute 7.70(H) 1.50 - 6.30 x10(3)/mc L CERNER MILLENNIUM Lymph % 15.6 % CERNER MILLENNIUM Lymphocytes Abs 1.6 1.0 - 3.6 x10(3)/mc L CERNER MILLENNIUM Monocyte % 6.2 % CERNER MILLENNIUM Monocyte Abs 0.6 0.2 - 1.0 x10(3)/mc L CERNER MILLENNIUM Eos % 0.2 % CERNER MILLENNIUM Eosinophils Abs 0.0 0.0 - 0.5 x10(3)/mc L CERNER MILLENNIUM Basophil % 0.0 % CERNER MILLENNIUM Baso Absolute 0.0 0.0 - 0.2 x10(3)/mc L CERNER MILLENNIUM Immature Gran % 0.50 % CERN ER MILLENNIUM Comment: Immature granulocytes(IG's)percentage and absolute count will include metamyelocytes, myelocytes, and promyelocytes. Blood smears from CBCs yielding IG's will be scanned manually for concordance. If this scan disagrees with the automated IG or if promyelocytes are noted, a manual differential will be performed. Immature Gran Absolute 0.05 0.00 - 0.05 x10(3)/mc L CERNER MILLENNIUM Blood specimen (specimen) 05/14/2014 11:10 AM EDT 05/14/2014 11:31 AM EDT Narrative Resulting Agency Comment Spec In Lab Eber Tran MD HEMATOLOGY ORDERABLE S [facility]ZIERENNIUM * (ABNORMAL) Hemogram (05/14/2014 11:10 AM EDT) White Blood Cell 9.9 4.0 - 10.0 x10(3)/mc L CERNER MILLENNIUM Red Blood Cell 3.54(L) 3.93 - 5.22 x10(6)/mc L CERNER MILLENNIUM Hemoglobin 10.7(L) 11.2 - 15.7 gm/dL CERNER MILLENNIUM Hematocrit 31.2(L) 34.0 - 45.0 % CERNER MILLENNIUM Mean Cell Volume 88.1 79.0 - 94.0 fL CERNER MILLENNIUM Mean Cell Hemoglobin 30.2 26.6 - 32.2 pg CERNER MILLENNIUM Mean Cell Hemoglobin Concentration 34.3 32.0 - 36.5 gm/dL CERNER MILLENNIUM Platelet 220 145 - 370 x10(3)/mc L CERNER MILLENNIUM RDW Standard Deviation 40.2 35.0 - 46.0 fL CERNER MILLENNIUM RDW coefficient of variation 12.5 10.9 - 14.4 % CERNER MILLENNIUM Mean Platelet Volume 9.8 9.0 - 12.0 fL CERNER MILLENNIUM Blood specimen (specimen) 05/14/2014 11:10 AM EDT 05/14/2014 11:31 AM EDT Narrative Resulting Agency Comment Spec In Lab Eber Tran MD HEMATOLOGY ORDERABLE S Performing Organization Address City/[facility]/ZIP Co de Phone Number BECK CONDEIUM * (ABNORMAL) - Initial External Results (04/02/2014) ABORH Type Ab Screen Interp Hemoglobin 11.4(Exte rnal Lab) 12.0 - 16.0 Hematocrit 36.0 - 46.0 Mean Cell Volume 82.0 - 108.0 Platelet Rubella Antibody IgG Syphilis IgG Hepatitis B Surface Antigen HIV 1/2 Ab Thyroid Stimulating Hormone Hemoglobin A1c Cystic Fibrosis Report Protein, 24 Hour Urine Creatinine Clearance, 24 Hour Urine Creatinine Aspartate Aminotransferase 13 - 35 Alanine Aminotransferase 7 - 35 Uric Acid Urine Culture GC Gene Amp Chlamydia Gene Amp Cytopathology Final Report GBS Screen 139(EXTER NAL/ABN) Gluc Baseline 85(Client Insights Consultant al Lab) Glucose 1 hour 147(Exter nal Lab) Glucose 2 hour 114(Exter nal Lab) Glucose 3 hour 78(Client Insights Consultant al Lab) Oral Glucose Dose 04/02/2014 Historical Provider POINT OF CARE RENALDO T ORDERABLES * (ABNORMAL) - Initial External Results (11/07/2013) ABORH Type B positive( External Lab) Ab Screen Interp Negative( External Lab) Hemoglobin 14.9(Exte rnal Lab) 12.0 - 16.0 Hematocrit 43.1(Exte rnal Lab) 36.0 - 46.0 Mean Cell Volume 88.9(Exte rnal Lab) 82.0 - 108.0 Platelet 241(Exter nal Lab) Rubella Antibody IgG positive( External Lab) Syphilis IgG Negative( External Lab) Hepatitis B Surface Antigen Negative( External Lab) HIV 1/2 Ab negative( External Lab) Thyroid Stimulating Hormone Hemoglobin A1c Cystic Fibrosis Report Protein, 24 Hour Urine Creatinine Clearance, 24 Hour Urine Creatinine Aspartate Aminotransferase 13 - 35 Alanine Aminotransferase 7 - 35 Uric Acid Urine Culture GC Gene Amp negative( External Lab) Chlamydia Gene Amp negative( External Lab) Cytopathology Final Report GBS Screen Gluc Baseline Glucose 1 hour Glucose 2 hour Glucose 3 hour Oral Glucose Dose 11/07/2013 Historical Provider POINT OF CARE RENALDO T ORDERABLES documented in this encounter Visit Diagnoses Not on filedocumented in this encounter Active and Recently Administered Medications Times are shown in EDT. Scheduled Medication Order 05/14/2014 05/15/2014 05/16/2014 docusate sodium (COLACE) capsule 100 mg (CANCELED) 100 mg, Oral, 2 TIMES DAILY, First dose on Sun05/14/14 at 2100, Until Discontinued, Routine 2023 (Given - Provider: Delilah Perla, TOMÁS) 0923 (Given - Provider: Shelby Steel, RN)1999 (Given - Provider: Marion Dsouza, RN) 0900 (Not Given - Provider: Sandy Freitas, TOMÁS - Reason: Patient/family refused)1100 (SEP Hold - Provider: Admin Adt - Reason: Transfer to a Procedural area)1221 (SEP Unhold - Provider: Wilbert Bhakta, RN) famotidine (PEPCID) injection 20 mg (CANCELED) 20 mg, Intravenous, EVERY 12 HOURS SCHEDULED (2 times per day), First dose on Sun05/15/14 at 1800, Until Discontinued 180 (Given - Provider: Shelby Steel, TOMÁS) 0900 (Not Given - Provider: Sandy Freitas, TOMÁS - Reason: Patient/family refused)1100 (SEP Hold - Provider: Admin Adt - Reason: Transfer to a Procedural area)1221 (SEP Unhold - Provider: Wilbert Bhakta, TOMÁS) HYDROmorphone (DILAUDID) injection 0.2 mg (COMPLETED) 0.2 mg, Intravenous, ONCE, 1 dose, On Sun05/15/14 at 0600, Routine 0600 (Given - Provider: Nam Don, TOMÁS) HYDROmorphone (DILAUDID) injection 0.2 mg (COMPLETED) 0.2 mg, Intravenous, ONCE, 1 dose, On Sun05/15/14 at 1345, STAT 1324 (Given - Provider: Shelby Steel, TOMÁS) HYDROmorphone (DILAUDID) injection 0.2 mg (COMPLETED) 0.2 mg, Intravenous, ONCE, 1 dose, On Sun05/16/14 at 0000, Routine 2348 (Given - Provider: Marion Dsouza, TOMÁS) nicotine (NICODERM CQ) 14 mg/24 hr patch 14 mg (CANCELED)(Linked Group 1) 14 mg, Transdermal, Administer over 24 Hours, DAILY, First dose on Sun05/14/14 at 1500, Until Discontinued, Routine 1615 (Given - Provider: Dara Kuo RN) 0923 (Given - Provider: Shelby Steel RN) 0900 (Given - Provider: Sandy Freitas, TOMÁS)1100 (SEP Hold - Provider: Admin Adt - Reason: Transfer to a Procedural area)1221 (SEP Unhold - Provider: Wilbert Bhakta, RN) nicotine (NICODERM CQ) patch REMOVAL (CANCELED)(Linked Group 1) Transdermal, DAILY, First dose on Sun05/15/14 at 0900, Until Discontinued, Remove Nicotine Patch 0924 (Given - Provider: Shelby Steel RN) 0900 (Given - Provider: Sandy Freitas, TOMÁS)1100 (SEP Hold - Provider: Admin Adt - Reason: Transfer to a Procedural area)1221 (SEP Unhold - Provider: Wilbert Bhakta, TOMÁS) NIFEdipine (ADALAT CC) CR tablet 30 mg (CANCELED) 30 mg, Oral, DAILY, First dose on Sun05/14/14 at 1900, Until Discontinued, Hold for BP < 90 systolic < 50 diastolic, Routine 1900 (Given - Provider: Delilah Perla RN - Comment: given by TOMÁS Kuo) 1003 (Given - Provider: Shelby Steel RN) 0900 (Given - Provider: Sandy Freitas, TOMÁS)1100 (SEP Hold - Provider: Admin Adt - Reason: Transfer to a Procedural area)1221 (SEP Unhold - Provider: Wlibert Bhakta, TOMÁS) vitamin 27 & [id number] 60 mg iron-1 mg tablet Tab 1 tablet (CANCELED) 1 tablet, Oral, DAILY, First dose on Sun05/14/14 at 1100, Until Discontinued, Routine 1100 (Due) 0924 (Given - Provider: Shelby Steel RN) 0900 (Not Given - Provider: Sandy Freitas RN - Reason: Patient/family refused)1100 (SEP Hold - Provider: Admin Adt - Reason: Transfer to a Procedural area)1221 (SEP Unhold - Provider: Wilbert Bhakta, TOMÁS) sodium chloride 0.9 % flush 5 mL (CANCELED) 5 mL, Intravenous, EVERY 12 HOURS, First dose on Sun05/14/14 at 1100, Until Discontinued, Routine 1058 (Given - Provider: Colleen Herrmann RN)2300 (Due) 1100 (Due)2300 (Given - Provider: Marion Dsouza, RN) 1100 (Given - Provider: Sandy Freitas, RN)1101 (SEP Hold - Provider: Admin Adt - Reason: Transfer to a Procedural area)1221 (SEP Unhold - Provider: Wilbert Bhakta RN) Continuous Medication Order 05/14/2014 05/15/2014 05/16/2014 HYDROmorphone (DILAUDID) 1 mg/mL CENTRIFUGE OPERATOR 30 mL (CANCELED) Intravenous, CENTRIFUGE OPERATOR ONLY, Starting on Rosibel 05/14/14 at 1045, Until 05/16/14 at 1745 1052 (New Syringe/Cartridge - Provider: Colleen Herrmann, RN)1156 (Rate/Dose Verify - Provider: Colleen Herrmann RN) 0022 (Rate/Dose Verify - Provider: Teresa Meng RN) 1100 (SEP Hold - Provider: Admin Adt - Reason: Transfer to a Procedural area)1221 (SEP Unhold - Provider: Wilbert Bhakta RN)1238 (Restarted - Provider: Wilbert Bhakta RN)1255 (Stopped - Provider: Sandy Freitas, TOMÁS) lactated ringers infusion 1,000 mL (CANCELED) 1,000 mL, at 100 mL/hr, Intravenous, CONTINUOUS, Starting on Rosibel 05/14/14 at 1100, Until 05/16/14 at 1745 1058 (New Bag - Provider: Colleen Herrmann RN) 1737 (New Bag - Provider: Shelby Steel, TOMÁS) 0326 (New Bag - Provider: Caryn Sanchez RN)1100 (SEP Hold - Provider: Admin Adt - Reason: Transfer to a Procedural area)1113 (New Bag - Provider: Hilton June MD)1220 (SEP Unhold - Provider: Wilbert Bhakta, RN)1238 (Restarted - Provider: Wilbert Bhakta RN)1255 (Stopped - Provider: Sandy Freitas, TOMÁS) PRN Medication Order 05/14/2014 05/15/2014 05/16/2014 ondansetron (ZOFRAN) injection 4 mg (CANCELED) 4 mg, Intravenous, EVERY 8 HOURS PRN, Starting on Rosibel 05/14/14 at 1021, Until 05/16/14 at 1745, Nausea, Routine 1059 (Given - Provider: Colleen Herrmann, TOMÁS) 0918 (Given - Provider: Shelby Steel, TOMÁS)1952 (Given - Provider: Marion Dsouza, RN) 1100 (MAR Hold - Provider: Admin Adt - Reason: Transfer to a Procedural area)1221 (MAR Unhold - Provider: Wilbert Bhakta, RN) polyethylene glycol (MIRALAX) packet 17 g (CANCELED) 17 g, Oral, DAILY PRN, Starting on Rosibel 05/14/14 at 1822, Until 05/16/14 at 1745, Constipation, Routine 2022 (Given - Provider: Delilah Perla RN) 1100 (SEP Hold - Provider: Admin Adt - Reason: Transfer to a Procedural area)1221 (MAR Unhold - Provider: Wilbert Bhakta, TOMÁS) senna (SENOKOT) tablet 8.6 mg (CANCELED) 8.6 mg, Oral, 2 TIMES DAILY PRN, Starting on Sun05/15/14 at 2129, Until 05/16/14 at 1745, Constipation, Routine 2142 (Given - Provider: Marion Dsouza, TOMÁS) 1100 (SEP Hold - Provider: Admin Adt - Reason: Transfer to a Procedural area)1221 (MAR Unhold - Provider: Wilbert Bhakta, TOMÁS) Linked Groups Order Group 1: nicotine (NICODERM CQ) 14 mg/24 hr patch 14 mg (CANCELED)Jump to med 14 mg, Transdermal, Administer over 24 Hours, DAILY, First dose on Sun05/14/14 at 1500, Until Discontinued, Routine And nicotine (NICODERM CQ) patch REMOVAL (CANCELED)Jump to med Transdermal, DAILY, First dose on Sun05/15/14 at 0900, Until Discontinued, Remove Nicotine Patch documented in this encounter Care Teams Certified Prosthetist Vice President Relationship Specialty Start Date End Date None None PCP - General 12/12/12 10/14/17 documented as of this encounter
--- OUTSIDE RECORDS SUMMARY | 2024-06-09 11:25 | XMS_ITS | Encounter Summary ---
[place] [address] Care Team Providers Care Shellfish Checker Name Role Phone Marian To APRN Primary Care Provider [phone] Encounter Details Date Type Department Care Team (Late st Contact Info) Description 12/12/2017 [place] [phone] Ten Peoples RN Social History Tobacco Use Types Packs/Day [...] Telephone Encounter - Ten Peoples RN - 12/12/2017 9:53 AM EDT Mami calls today to report that she has a Rash and Double Vision, reports PCP told her it was a side effect of Medrol and she should contact Rheumatology. RTC to Mami, she had rash prior to starting Medrol, she reports the rash comes and goes on her arms. Reports Double vision that is not new and she has an appointment with eye MD. Mami states she is frustrated and cranky due to Medrol. She wants to try something else. Requesting to discuss with Dr. Ghotra. documented in this encounter Plan of Treatment Not on file documented as of this encounter Visit Diagnoses Not on filedocumented in this encounter Care Teams Shellfish Checker Relationship Specialty Start Date End Date Marian To, UPHOLSTERY HANDLER [address] [place] [address] PCP - General Family Medicine 10/15/17 01/09/24 documented as of this encounter
--- OUTSIDE RECORDS SUMMARY | 2024-06-09 11:25 | XMS_ITS | Encounter Summary ---
Author Organization [facility] [place] [address] Care Team Providers Care Vp Software Support Name Role Phone None Primary Care Provider Unavailabl e Encounter Details Date Type Department Care Team (Late st Contact Info) Description 05/16/2014 11:03 AM EDT Anesthesia Event [place] [address] Samantha Plata MD [facility] [place] [address] Mami Lau CRNA [facility] [place] [address] Anesthesia Record Procedure Summary Procedure Name Responsible Anesthesiologist Anesthesia Start Time Anesthesia Stop Time CYSTO, STENT PLACEMENT (WRVU 2.82) (Right: Bladder) Samantha Plata MD 05/16/14 1103 05/16/14 1227 Events Date Time Event Comment 05/16/2014 1103 AN Verify 1103 Start 1103 An Start Data 1109 An Induction 1112 An Intubation 1117 Anesthesia Ready 1202 Extubation/LMA Out 1207 an stop data 1227 Stop 1359 Meds Name Total propofol 200 mg Rocuronium 20 mg dexAMETHasone 8 mg Neostigmine 3 mg Glycopyrrolate 0.6 mg succinylcholine 140 mg propofol INF 522.24 mg ceFAZolin 1 g metoclopramide 10 mg lactated ringers infusion 1,000 mL 0 mL * Agents Name O2 Air N2O Sevoflurane (et) * Blood No blood administrations on file. Lines, Drains, and Airways Type Details Placement Removal (RETIRED) Peripheral IV Line - Single Lumen 05/16/14; 05/16/14; 1459 05/16/14 0000 by Wilbert Bhakta RN 05/16/14 1459 by Sandy Freitas RN (RETIRED) Peripheral IV Line - Single Lumen 05/16/14; 0930; median cubital vein left (antecubital fossa); [id number] catheter system; 18 gauge; Deedee Freitas RN; tolerated well; 05/16/14; 1459 05/16/14 0930 by Sandy Freitas RN 05/16/14 1459 by Sandy Freitas, RN ETT Mask Ventilation: No t Attempted (0); ETT Type: Cuffed, Oral; ETT Size: 7 mm; Indirect: Video; Notes: Asleep, RSI, Pre-O2, Cricoid Pressure, Stylette; Attempts: 1; Laryngoscopy Grade: 1; Secured at Teeth: 22 cm; Inserted by: johnson; Removal Date: 05/16/14; Removal Time: 1202 05/16/14 1138 by 05/16/14 1202 by Hilton June MD documented in this encounter Social History Tobacco Use Types Packs/Day Years [...] on file documented as of this encounter OR Notes * Anesthesia Preprocedure Evaluation - Samantha Plata MD - 05/16/2014 10:41 AM EDT Images from the original note were not included. Pre-Anesthesia Evaluation for: Mami Cedillo a 33 y.o. female. Procedure(s): CYSTO, STENT PLACEMENT @ DELIVERY Patient Active Problem List Diagnosis ??? Tobacco abuse 1/2 ppd ??? Right nephrolithiasis ??? Morbid obesity ??? Menses, irregular ??? PCOS (polycystic ovarian syndrome) Past Medical History Diagnosis Date ??? Asthma as child ??? Carpal tunnel syndrome ??? PCOS (polycystic ovarian syndrome) Past Surgical History Procedure Date ??? Dilation and curettage of uterus ??? Tear duct surgery History Substance Use Topics ??? Smoking status: Current Every Day Smoker -- 0.5 packs/day for 20 years Types: Cigarettes ??? Smokeless tobacco: Never Used ??? Alcohol Use: No History Drug Use No Allergies Allergen Reactions ??? Penicillins Hives and Shortness Of Breath ??? Percocet (Oxycodone-Acetaminophen) Nausea And Vomiting ??? 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 Medications: MAR and/or home medications have been reviewed. Physical Exam: There were no vitals filed for this visit. There is no height or weight on file to calculate BMI. Airway Assessment: Mallampati: I TM distance: >3 FB Neck ROM: full Cardiovascular Assessment: Rhythm: regular Pulmonary Assessment: breath sounds clear to auscultation Dental Assessment: [facility] Assessment: Anesthesia Plan: ASA 2 general, with a(n) intravenous induction 33 y/o F with PMHx of PCOS, asthma, tobacco use who presents for cystoscopy. Plan for GETA/RSI, standard monitors + FHR monitoring. No previous airway notes H/H 10.7/31.2 K 3.6 Cr 0.62 Region - Other Informed Consent: Anesthetic plan and risks discussed with patient. Use of blood products discussed with whom consented to blood products. Plan discussed with resident. [facility]. Assessment: documented in this encounter Plan of Treatment Not on file documented as of this encounter Visit Diagnoses Not on filedocumented in this encounter Administered Medications Inactive Administered Medications - up to 3 most recent administrations Medication Order MAR Action Action Date Dose Rate Site ceFAZolin (ANCEF) 1g in dextrose 5% 50mL PRN, Starting on 05/16/14 at 1117, Until 05/16/14 at 1356, Administer over 30 Minutes, Anesthesia Intra-op Given 05/16/2014 11:17 AM EDT 1 g dexamethasone (DECADRON) injection PRN, Starting on 05/16/14 at 1148, Until 05/16/14 at 1356, Anesthesia Intra-op, Routine Given 05/16/2014 11:48 AM EDT 8 mg glycopyrrolate (ROBINUL) injection PRN, Starting on 05/16/14 at 1156, Until 05/16/14 at 1356, Anesthesia Intra-op, Routine Given 05/16/2014 11:56 AM EDT 0.6 mg lactated ringers infusion 1,000 mL 1,000 mL, at 100 mL/hr, Intravenous, CONTINUOUS, Starting on Rosibel 05/14/14 at 1100, Until 05/16/14 at 1745 Restarted 05/16/2014 12:38 PM EDT 1,000 mLs 100 mL/hr New Bag 05/16/2014 11:13 AM EDT mL New Bag 05/16/2014 3:26 AM EDT 1,000 mLs 100 mL/hr metoclopramide (REGLAN) injection PRN, Starting on 05/16/14 at 1117, Until 05/16/14 at 1356, Nausea, Anesthesia Intra-op, Routine Given 05/16/2014 11:17 AM EDT 10 mg neostigmine (PROSTIGMINE) injection PRN, Starting on 05/16/14 at 1156, Until 05/16/14 at 1356, Anesthesia Intra-op, Routine Given 05/16/2014 11:56 AM EDT 3 mg propofol (DIPRIVAN) 10 mg/mL bolus injection (Anesthesia) PRN, Starting on 05/16/14 at 1109, Until 05/16/14 at 1356, Anesthesia Intra-op Given 05/16/2014 11:09 AM EDT 200 mg propofol (DIPRIVAN) infusion CONTINUOUS PRN, Starting on 05/16/14 at 1123, Until 05/16/14 at 1356, Anesthesia Intra-op, Routine New Bag 05/16/2014 11:23 AM EDT 100 mcg/kg/min 49 mL/hr rocuronium (ZEMURON) injection PRN, Starting on 05/16/14 at 1119, Until 05/16/14 at 1356, Anesthesia Intra-op, Routine Given 05/16/2014 11:19 AM EDT 20 mg succinylcholine (ANECTINE) injection PRN, Starting on 05/16/14 at 1109, Until 05/16/14 at 1356, Anesthesia Intra-op, Routine Given 05/16/2014 11:09 AM EDT 140 mg documented in this encounter Care Teams Vp Software Support Relationship Specialty Start Date End Date None None PCP - General 12/12/12 10/14/17 documented as of this encounter
--- OUTSIDE RECORDS SUMMARY | 2024-06-09 11:25 | XMS_ITS | Encounter Summary ---
Author Organization [facility] [place] [address] Care Team Providers Care Research Manufacturing Operator Name Role Phone Marian To APRN Primary Care Provider [phone] Reason for Referral * Physical Therapy (Routine) - Specialty Diagnoses / Procedures Referred By Contelvie t Referred To Contact Diagnoses Fibromyalgia Eva Álvarez MD [facility] [place] [address] Referral ID Status Reason Start Date Expiration Date V isits Requested Visits Authorized [id number] Evaluate and Treat 06/25/2018 12/22/2018 12 12 Encounter Details Date Type Department Care Team (Late st Contact Info) Description 06/25/2018 4:15 PM EST Office [place] [address] Eva Álvarez MD [facility] [place] [address] Fibromyalgia Social History Tobacco Use Types Packs/Day [...] Sign Reading Time Taken Comments Blood Pressure 112/69 06/25/2018 4:03 PM EST Pulse 96 06/25/2018 4:03 PM EST Temperature 36.8 ??C (98.3 ??F) 06/25/2018 4:03 PM ES T Respiratory Rate - - Oxygen Saturation 97% 06/25/2018 4:03 PM EST Inhaled Oxygen Concentration - - Weight 101.2 kg (223 lb) 06/25/2018 4:03 PM EST Height 154.9 cm (5' 1) 06/25/2018 4:03 PM EST Body Mass Index 42.14 06/25/2018 4:03 PM EST documented in this encounter Progress Notes * Eva Álvarez - 06/25/2018 4:15 PM EST Rheumatology Outpatient Follow Up Note RHEUMATOLOGY HX: # 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 Oneal, [facility]); originally on upper extremity treated with HCQ, was well controlled seen by dermatolog in [place] Jun 2017 for rash flare, was taken [...] purple hue - Evaluated by Dermatology at [facility]- Diagnosed with Chronic urticaria with dermatographic component [...] negative exam ?? Referral to neurology at [facility] 12/2017- Headaches thought to be related to Occipital Neuralgia on the left side. Flexeril HS advised. Non medication measures advised to treat fibromyalgia ?? White matter lesion of NEONATOLOGIST is a common finding in migraine sufferers.. No additional workup was recommended. # Recurrent hospitalizations dyspnea, rash, fatigue, myalgias, weakness and overall feeling unwell, tx with decadron but had ongoing symptoms most notable for dyspnea. CT angio ([place], [place] ) - negative for PE or major vascular abnormality, no mediastinal or hilar adenopathy. Lungs are clear. PFTs- 12/2017- Spirometry is normal. Lung volumes are normal. Diffusing capacity is normal. Oxygen saturation is normal. Interval History: Mami returns for follow up for above today. - Patient reports being off of medrol for many months now without recurrence of skin rash. She was evaluated by Dermatology at [facility]- Diagnosed with Chronic urticaria with dermatographic component. Hehas been referred to allergy immunology, and will be seeing them in August. Continues to be on HCQ without any significant ADRs. Reports having recurrent hospitalizations for dyspnea, rash, fatigue, myalgias, weakness and overall feeling unwell, thinks this started within a few days of stopping HCQ. Recent PFTs and TTE with no abnormality. - Reports feeling achy all over, still some fatigue, poor quality sleep, denies joint pain. Was told that she has Fibromyalgia at last office visit and by the Neurologist, wants to discuss more information about this diagnosis. Reports sleeping roughly 5 hours everyday. Reports she has been told she snores at night. Does not exercise. - Reports having stressors- Has 5 kids at home, including two young kids < 5 years of age. Smokes- 5-6 cigarettes/ day. 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 Has Anxiety- has been on Wellbutrin and Lexapro daily. Reports taking motrin and tylenol prn for aches and pain, but this does not help. - Patient c/o daily headaches, can occur at any part of the day, lasts up to couple hours, ibuprofen does not help, + photosensitivity, has hx of Migraine. Was evaluated by Neurology at [facility], Headaches thought to be related to Occipital Neuralgia on the left side. Flexeril HS advised. She continuesto have daily QUINTEROS. 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 Marital status: Spouse name: None ??? Number of children: None ??? Years of education: None ??? Highest education level: None Social Needs ??? Financial resource strain: None ??? Food insecurity - worry: None ??? Food insecurity - inability: None ??? Transportation needs - medical: None ??? Transportation needs - non-medical: None Occupational History ??? None Tobacco Use ??? Smoking status: Current Every Day Smoker Packs/day: 0.50 Years: 20.00 Pack years: 10.00 Types: Cigarettes ??? Smokeless tobacco: Never Used Substance and Sexual Activity ??? Alcohol use: No ??? Drug use: No ??? Sexual activity: Yes Partners: Male Other Topics Concern ??? None Social History Narrative Lives with and 4 adopted children age 11, 10, 8 and 8 Medications: Current Outpatient Medications on File Prior to Visit Medication Sig Dispense Refill ??? buPROPion (WELLBUTRIN XL) 300 mg Tablet Extended Release 24 hr take 1 tablet by mouth once daily 0 ??? cyclobenzaprine (FLEXERIL) 5 mg Tablet Take 1 tablet by mouth nightly. 30 tablet 0 ??? metFORMIN (GLUCOPHAGE) 850 [...] 19 ORAL) Take by mouth daily. ??? PROAIR HFA 90 mcg/actuation HFA Aerosol Inhaler inhale 1 puff by mouth as directed if needed 0 ??? [DISCONTINUED] ranitidine (ZANTAC) 150 mg Capsule Take 1 capsule by mouth 2 times daily. 60 capsule 3 No current facility-administered medications on file prior to visit. Allergies: Allergies Allergen Reactions ??? Penicillins Hives and Shortness Of Breath ??? Clindamycin ??? Percocet [Oxycodone-Acetaminophen] Nausea And Vomiting ??? 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 intermodal customer service use causes patient to be anxious Physical Examination: BP 112/69 Pulse 96 Temp 36.8 ??C (98.3 ??F) (Oral) Ht 154.9 cm (5' 1) Wt 101.2 kg (223 lb) SpO2 97% BMI 42.14 kg/m?? General: NAD, breathing comfortably Cardiovascular: RRR, no [...] CT head non-con Ref. Range 11/23/2017 16:53 JENNA Latest Ref [...] left frontal lobe. Otherwise negative exam ?? TTE performed on 03/27/18 1 left ventricle the cavity size was normal. Wall thickness was normal. Systolic function was normal. The estimated ejection fraction was 60-65%. Wall motion was normal, there was no regional wall motion abnormalities. Diastolic parameters were normal. #2 mitral wall elongated anterior leaflet cords. No echocardiographic evidence for prolapse. There was trivial regurgitation. #3 right ventricle cavity size was normal, wall thickness was normal, systolic function was normal next. #4 pulmonary arteries pulmonary systolic pressure was within normal range, in the range of 30 mmHg to 35 mmHg. Spirometry is normal. ??Lung volumes are normal. ??Diffusing capacity is normal. ??Oxygen saturation is normal. Assessment: Mami WONG is a 37 y.o. female presented with a history of lupus tumidus diagnosed in 2016 with recurrent hospitalizations for dyspnea, rash, fatigue, myalgias, weakness (reports symptoms occurring within few days of stopping HCQ ) and overall feeling unwell in 2018 who returns for follow up. She was previously on medrol taper and has been off of it for many months now, with no recurrence ofskin rash. Evaluated by Dermatology at [facility]- Diagnosed rash likely due to chronic urticaria with dermatographic component and is currently waiting evaluation by Allergy. Previous auto immune labs including JENNA, WILLY, myositis panel, CK, Lyme, TSH have been negative/normal, she had normal inflammatory markers and complements. Recent PFTs and TTE with no abnormality. Based on Bx and result lab results low suspicion for Lupus tumidus. No indication to continue Hydroxychloroquine although patient was initially hesitant to completely stop HCQ, but agreeable to decrease dosing to once a day for couple of weeks and then discontinue it. She has had diffuse pain, sleep problems, fatigue and on examination has multiple fibromyalgia tender points positive on examination, this is likely secondary to Fibromyalgia. Diagnosis was briefly discussed at prior Rheumatology and Neurology visit. We discussed in detail about Fibromyalgia. Fibromyalgia packet given. Will refer to PT. Recommend referral to sleep medicine for non restorative sleep. Also Migraine QUINTEROS not well controlled, she was advised to follow up with Neurology for QUINTEROS. Plan: - Fibromyalgia packet given - Referral to PT for Fibromyalgia/ Weight loss - Recommend referral to Sleep medicine - Migraine QUINTEROS not well controlled, she was advised to follow up with Neurology for QUINTEROS. - Follow up with Allergy in August as scheduled - She is already on Wellbutrin 300 mg/day, Lexapro 20 mg/day and Flexeril 10 mg QHS. Will hold off on starting sedative medication for sleep till further worked up by Sleep medicine. - Decrease HCQ to once a day for 2 weeks, if tolerating taper then can discontinue it What is Fibromyalgia (FMS) ? A clinical syndrome of widespread muscle pain Affects as many as 1 in 30 Americans Most common in middle-aged women Men and children also get the disorder More likely with: Rheumatoid arthritis, lupus Runs in families - If patient has a close relative with fibromyalgia (mother, father, child, brother, sister) there is an 8 times higher chance of you developing the disorder as well Symptoms Triggers ??? Sleep problems ??? Fatigue ??? Memory and Concentration Problems ??? Headaches ??? Dry eyes and mouth ??? Swelling in the hands ??? Numbness/tingling in arms and legs ??? Irritable bladder ??? Irritable bowel syndrome ??? Increased sensitivity to touch, lights, sounds, smells ??? Trauma in dross skimmer ??? Other pain syndromes (RA, Lupus, OA) ??? Physical trauma ??? car accidents ??? surgery ??? Infection ??? Stress ??? Depression - can develop and should be treated ??? Central pain sensitization - ordinary sensations start to hurt Self-Empowerment and Self-Management Patient Goals: ??? Understand the disease ??? Become the expert on your condition and accept that pain may be a part of your life ??? Take care of your health ??? Exercise - Gradually and regularly often decreases symptoms. ??? Walking, Swimming, Biking, and water aerobics ??? Physical Therapy ??? Pace yourself: Don???t do too much on a good day ??? Eat well and maintain a healthy lifestyle ??? Eat healthy foods - No ???magic?? diet but think about avoiding the following foods and ingredients associated with fatigue (High Fat, Refined Sugars, White Flour, Fried Goods, Alcohol, Caffeine, ???Junk Foods?? , and Salts) ??? Stop smoking ??? Limit Alcohol intake ??? Get enough sleep ??? Go to bed and get up at the same time each day ??? Limit daytime napping. ??? Stress Management ??? Develop a plan to limit overexertion and emotional stress ??? Allow time each day to relax, Do something you enjoy everyday ??? Try not to change your routine completely, learn how to say no without guilt ??? People who quit work or drop all activity tend to do worse than do those who remain active ??? Deep-breathing or meditation. What about Medicine? Limited role compared to other treatments ??? Improvement in sleep quality ??? Pain relievers ??? Muscle relaxants ??? Treatment of underlying conditions like arthritis, thyroid conditions ??? Treatment of associated sleep problems like restless legs, sleep apnea Medications in Fibromyalgia Strong Evidence ???A list?? Amitriptyline (Elavil) 25-50 mg at bedtime Cyclobenzaprine (Flexeril) 10-30 mg / bedtime Pregabalin (Lyrica) 450 mg/day Gabapentin(Neurontin) 7389-0116 mg/day Duloxetine (Cymbalta) 60-120 mg/day Milnacipran (Savella) 100-200 mg/day Modest Evidence: ???B List?? Tramadol 200-300 mg/day SSRI???s (Fluoxetine, Sertraline) No Evidence Opioids (Narcotics) Ibuprofen, Naproxen Valium, Ativan, Xanax Alternative Therapies: ??? Acupuncture. ??? A Cymro medical system based on restoring normal balance of life forces by inserting very fine needles through the skin to various depths. ??? Some studies indicate that acupuncture helps relieve fibromyalgia symptoms, while others show no benefit. Alternative Therapies Continued: ??? Massage therapy. ??? Massage can reduce your heart rate, relax your muscles, improve range of motion in your joints and increase production of your body's natural painkillers. It often helps relieve stress and anxiety. ? Yoga and gatito chi. ??? These practices combine meditation, slow movements, deep breathing and relaxation. ??? Found to be helpful in controlling fibromyalgia symptoms. Tools and Resources ??? Education: support groups, reading, web-based information, this appointment ??? Cognitive behavioral therapy - learning tools to live despite pain and to help you feel in control of your condition ??? Family and Social Support ??? www.arthritis.org/arthritis-facts/disease-center/fibromyalgia.php RTC in 3 months Patient seen and discussed with Dr. Champ Álvarez MD Rheumatology Fellow, PGY-4 * Keith Oakes MD - 06/25/2018 4:15 PM EST I have seen the patient and reviewed the resident's above history and I agree with the details as written. The assessment and plan were formulated in discussion with me and I agree with them as documented. Pertinent History: History of lupus tumidus txed with plaquenil but land planner disagreed and withdrew it Pertinent Exam: No evidence of skin lupus today Major issues addressed: ICU event appears to be more c/w an allergic reaction Plan: will need to get data from derm and ICU to clarify previous issues but for now she needs treatment for fibromyalgia documented in this encounter Plan of Treatment Scheduled Referrals Name Type Priority Associated Diagnoses Orde r Schedule Referral to Physical Therapy Outpatient Referral Routine Fibromyalgia Ordered: 06/25/2018 documented as of this encounter Visit Diagnoses Diagnosis Fibromyalgia Mylagia and myositis, unspecified documented in this encounter Care Teams Research Manufacturing Operator Relationship Specialty Start Date End Date Marian To APRN [address] [place] [address] PCP - General Family Medicine 10/15/17 01/09/24 documented as of this encounter
--- OUTSIDE RECORDS SUMMARY | 2024-06-09 11:25 | XMS_ITS | Encounter Summary ---
Author Organization [facility] [place] [address] Care Team Providers Care Pediatric Cardiologist Name Role Phone Marian To APRN Primary Care Provider [phone] Reason for Visit * Reason Onset Date Comments Medication Refill 12/04/2018 Encounter Details Date Type Department Care Team (Late st Contact Info) Description 11/29/2018 Telephone Dermatology at [facility] [address] [place] [id number] Marifer Stapleton PA [facility] [address] [address] Medication Refill Social History Tobacco Use Types [...] encounter Miscellaneous Notes * Telephone Encounter - Olivia Elizalde - 12/04/2018 1:10 PM EDT Prescriber Info: Marifer Qureshi) DAVID Stapleton ( ) Medication: Clobetasol 0.05% cream Diagnosis: Tumid lupus (L93.2) Previous Medicines/Therapies: Plaquenil Insurance Company Contact Info: [place] Medicaid . . Pharmacy Info: [facility] in [place], [place] Status: Submitted to insurance company via CoverMyMeds. Response: TBD * Telephone Encounter - Lory Neumann - 12/04/2018 9:20 AM EDT Patient contacted the clinic today stating that a PA is required for the clobetasol (TEMOVATE) 0.05% Cream prescribed on 12/02. Please complete PA. * Telephone Encounter - NelLory gaitan - 11/29/2018 10:33 AM EDT Patient's insurance has denied coverage for clobetasol (TEMOVATE) 0.05 % Cream, but will cover a generic version. Per patient updated script for generic version needs to be sen to [facility] in [place], [place] documented in this encounter Plan of Treatment Not on file documented as of this encounter Visit Diagnoses Not on filedocumented in this encounter Care Teams Pediatric Cardiologist Relationship Specialty Start Date End Date Marian To APRN [address] [place] [address] PCP - General Family Medicine 10/15/17 01/09/24 documented as of this encounter
--- OUTSIDE RECORDS SUMMARY | 2024-06-09 11:25 | XMS_ITS | Encounter Summary ---
[place] [address] Care Team Providers Care Continuous Churn Buttermaker Name Role Phone Marian To APRN Primary Care Provider Reason for Visit * Reason Onset Date Comments Medication Refill 02/21/2019 Encounter Details Date Type Department Care Team (Late st Contact Info) Description 02/21/2019 [place] [id number] Martina Vyas RN Social History Tobacco Use Types Packs/Day [...] encounter Miscellaneous Notes * Telephone Encounter - Martina Ortiz RN - 02/21/2019 2:52 PM EDT Pharmacy calls again asking for a Folic Acid script from a provider who has an active [place] Medicaid license. I will cue the script and send to for approval per direction of . documented in this encounter Plan of Treatment Not on file documented as of this encounter Visit Diagnoses Not on filedocumented in this encounter Care Teams Continuous Churn Buttermaker Relationship Specialty Start Date End Date Marian To APRN [address] [place], [place] [address] PCP - General Family Medicine 10/15/17 01/09/24 documented as of this encounter
--- OUTSIDE RECORDS SUMMARY | 2024-06-09 11:25 | XMS_ITS | Encounter Summary ---
[place] [address] Care Team Providers Care Prepress Technician Name Role Phone Marian To APRN Primary Care Provider [phone] Encounter Details Date Type Department Care Team (Late st Contact Info) Description 11/23/2017 Telephone [place] [phone] Sonya Wong Social History Tobacco Use Types Packs/Day Years [...] encounter Miscellaneous Notes * Telephone Encounter - Sonya Wong - 11/26/2017 8:38 AM EDT The patient came to the Exit desk. The appropriate Radiology Safety questions were asked and the patient was scheduled for her MRI. documented in this encounter Plan of Treatment Not on file documented as of this encounter Visit Diagnoses Not on filedocumented in this encounter Care Teams Prepress Technician Relationship Specialty Start Date End Date Marian To APRN [address] [place] [address] PCP - General Family Medicine 10/15/17 01/09/24 documented as of this encounter
--- OUTSIDE RECORDS SUMMARY | 2024-06-09 11:25 | XMS_ITS | Encounter Summary ---
Author Organization [place] [id number] Care Team Providers Care Solutions Architect Name Role Phone Marian To APRN Primary Care Provider [phone] Reason for Referral * Allergy Testing (Routine) - Closed Specialty Diagnoses / Procedures Referred By Contac t Referred To Contact Allergy Diagnoses Chronic idiopathic urticaria chronic urticaria - plese evaluate for testing- thanks Favian Mckinley III, MD [facility] [place] [address] [facility] [address] [place] [address] Referral ID Status Reason Start Date Expiration Date V isits Requested Visits Authorized [id number] Closed Consult, Test & Treat 02/20/2018 02/20/2019 1 1 Reason for Visit * Reason Comments Follow-up Rash Encounter Details Date Type Department Care Team (Late st Contact Info) Description 02/20/2018 1:45 PM EDT Office Visit Dermatology at [facility] [address] [place] [address] Favian Mckinley III, MD [facility] [place] [address] Chronic idiopathic urticaria Social History Tobacco Use Types Packs/Day Years [...] as of this encounter Progress Notes * Riley Sanders, SYED - 02/20/2018 1:45 PM EDT DERMATOLOGY ESTABLISHED PATIENT CLINIC NOTE Date of service: 02/20/2018 Mami WONG : 1980 Provider: Favian Mckinley MD PROBLEM: follow up rash Relevant Skin History: Lupus Tumidus - dx'd by dermatology in [place], [place] with plaquenil HPI Mami WONG is a 37 y.o. female. Established patient last seen by Dr. Lezama on 12/31/17. Presents to the clinic for a follow up Chronic urticaria with dermatographic component. - The rash comes and goes and when she gets the rash it looks like little sores. - She had a rash about 1 week ago and she has photos. - When the rash presents it can be located all over. - whelps last a few hours then resolve, but new areas arise. - Denies a rash today. - Ithcing is a 3/10. - She never used Xyzal (Levocetirizine) BID. Due to cost. - She is taking the Ranitidine 150mg BID, but she has not noticed any improvement on it. - she has seen an hand folder In [facility] before who told her that they had no idea what to eventest her for. ADR: Allergies Allergen Reactions ??? Penicillins Hives and Shortness Of Breath ??? Percocet [Oxycodone-Acetaminophen] Nausea And Vomiting ??? 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 long term acute care registered nurse use causes patient to be anxious CURRENT MEDICATIONS: Current Outpatient Prescriptions Medication Sig Dispense Refill ??? ranitidine (ZANTAC) 150 mg Capsule Take 1 capsule by mouth 2 times daily. 60 capsule 3 ??? cyclobenzaprine (FLEXERIL) 5 mg Tablet Take [...] No current facility-administered medications for this visit. PROBLEM LIST: Patient Active Problem List Diagnosis Code ??? Morbid obesity E66.01 ??? Menses, irregular N92.6 ??? PCOS (polycystic ovarian syndrome) E28.2 ??? Right nephrolithiasis N20.0 ??? Tobacco abuse Z72.0 ROS General: feeling well. Oriented X 3. Skin: denies other skin complaints EXAM General: NAD, pleasant, cooperative Skin: no skin exam performed today Significant skin findings: A. Patient reports no active urticaria today Procedure Screening Questions: ? No? Yes ?? Defibrillator/Pacemaker?? x ?? Artificial Joints?? x ?? Heart Valves?? x ?? Blood Thinners?? x ?? Prophylactic Antibiotics?? x ?? ASSESSMENT/PLAN: A. Chronic urticaria with dermatographic component - nothing active today I discussed this condition with the patient and explored therapeutic options. Recommendations: - refer to allergy immunology for evaluation and scratch testing s appropriate. - continue Benadryl at night as needed - consider OTC Claritin or Magali in the AM as needed during the day - stop Ranitidine for now, but may start again when flaring RTC - PRN if other problems arise. I am documenting this encounter acting as the scribe for and in the presence of Dr. Mckinley.: RILEY SANDERS LPN I, Chantel Deluca, have performed the documentation for this encounter in the presence of and acting as a scribe for FAVIAN MCKINLEY III, MD. I performed the above scribed service and agree with the accuracy of the documentation in this encounter. Favian Mckinley MD Section of Dermatology [facility] documented in this encounter Plan of Treatment Scheduled Referrals Name Type Priority Associated Diagnoses Orde r Schedule Referral to Allergy Outpatient Referral Routine Chronic idiopathic urticaria Ordered: 02/20/2018 documented as of this encounter Visit Diagnoses Diagnosis Chronic idiopathic urticaria Idiopathic urticaria documented in this encounter Care Teams Solutions Architect Relationship Specialty Start Date End Date Marian To, ANAHI [address] [place] [address] PCP - General Family Medicine 10/15/17 01/09/24 documented as of this encounter
--- OUTSIDE RECORDS SUMMARY | 2024-06-09 11:25 | XMS_ITS | Encounter Summary ---
Author Organization Formerly [facility] Address [facility] [address] Care Team Providers Care Departure Clerk Name Role Phone Marian To APRN Primary Care Provider [phone] Reason for Referral * Consultation (Routine) - Specialty Diagnoses / Procedures Referred By Contac t Referred To Contact Ophthalmology Diagnoses Diplopia Melanie Ghotra MD [facility] [place] [address] Cesar Llamas MD [facility] [address] Referral ID Status Reason Start Date Expiration Date V isits Requested Visits Authorized [id number] Consult, Test & Treat 11/23/2017 11/23/2018 1 1 * Consultation (Routine) - Closed Specialty Diagnoses / Procedures Referred By Contac t Referred To Contact Dermatology Diagnoses Skin rash Melanie Ghotra MD [facility] [place] [address] [facility] [address] [place] [address] Referral ID Status Reason Start Date Expiration Date V isits Requested Visits Authorized [id number] Closed Consult, Test & Treat 11/23/2017 11/23/2018 1 1 * Diagnostic Test (Routine) - Closed Specialty Diagnoses / Procedures Referred By Cuauhtemoc pete Referred To Contact Radiology Diagnoses Diplopia Procedures MRI Brain wo Contrast Melanie Ghotra MD [facility] [place] [address] [place] [address] Referral ID Status Reason Start Date Expiration Date V isits Requested Visits Authorized [id number] Closed Specialty Service Requested 11/23/2017 02/21/2018 1 1 Reason for Visit * Consultation (Routine) - Specialty Diagnoses / Procedures Referred By Cuauhtemoc pete Referred To Contact Rheumatology Diagnoses Lupus Erythematosus Zuleika, Marian, TROMMEL TENDER [address] [place] [address] [facility] [place] Rheumatology [address] [place] [phone] Referral ID Status Reason Start Date Expiration Date V isits Requested Visits Authorized [id number] Consult, Test & Treat [facility] 10/16/2017 10/16/2018 1 1 Encounter Details Date Type Department Care Team (Late st Contact Info) Description 11/23/2017 2:30 PM EDT Office [place] [address] Nohelia Steele DO [facility] [place] [address] Melanie Ghotra MD [facility] [place] [address] GRADY (dyspnea on exertion); Skin rash; Diplopia Social History Tobacco Use Types Packs/Day Years [...] Sign Reading Time Taken Comments Blood Pressure 126/80 11/23/2017 2:28 PM EDT Pulse 72 11/23/2017 2:28 PM EDT Temperature - - Respiratory Rate - - Oxygen Saturation 99% 11/23/2017 2:28 PM EDT Inhaled Oxygen Concentration - - Weight - - Height - - Body Mass Index - - documented in this encounter Progress Notes * Melanie Ghotra MD - 11/23/2017 2:30 PM EDT Rheumatology Outpatient Consultation Note Reason for Consult: Mami LERMA is a 37 y.o. female who we are seeing at the request of Marian oT for evaluation of evaluation of possible SLE History of Present Illness: Mami LERMA is a 37 y.o. 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 Patient had been living in [place] until Feb2016 when she moved to [place]. 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 Oneal, [place] [facility]); was treated with HCQ, was well controlled. Was seen by dermatolog in [place] Jun 2017 for rash flare, was taken off HCQ as they did not think she had lupus Tumidus (was though to be an allergic rxn). She was treated with prednisone during this time. Her rash had beenon her arms at this time. About 2-3 weeks ago, patient developed diffuse rash covering most of her body, dyspnea and low blood pressure. She initially presented to [facility] [place] where she was given prednisone. However, as she started to taper the prednisone (she thinks she was given 40mg of prednisone and was decreasing to 20mg after 2- 3 days) her symptoms got worse and she went to [facility] where she was admitted. Her prednisone was changed to decadron and her symptoms improved. She was also restartedon HCQ 400mg. However, following discharge as she was tapering her steroids, her symptoms flared again and she was readmitted. During her admission it is unclear what blood work was done, but she reports a negative CXR and CT scan with contrast which was done for her dyspnea. She was discharged sometime last week on 6mg of decadron without a taper and was told to stay on this dose until she follows up with rheumatology. She does not recall having an echocardiogram during her hospital stay. She has also been referred to allergy, but has not had her appointment yet. Overall, she continues to feel unwell, although somewhat better then when she was admitted. She hasongoing fatigue and GRADY. She is also using a nebulizer which helps. She describes her rash, which is now mostly resolved, as covering her whole body, red, raised and itchy, some were painful but alsowith areas around her eyes, neck, back and thighs with a purple hue. She also had chest tightness and a dry cough with her dyspnea, which is somewhat improved. She denies any oral/nasal or genital ulcers but notes that the back of her tongue was soar. She is also having cold sweats without fevers, chills throughout the day and all over body aches. She denies any focal deficits but notes diffuse we akness. She is also having double vision and blurry vision for the past 2 weeks, has not responded to steroids, came after her other initial symptoms (was thought to be from adarax or decadron). She is also noting left sided headaches. NO imaging has been done of her head. She is also reporting abdominal pain with her cough and non-bloody diarrhea for the past few days. NO melena. She has increased urinary frequency, but denies dysuria. No sick contact prior to the start of her illness, however, her 3 year old currently has an ear infection. No h/o of blood clots; Half Brother with blood clotting disorder on eliquis. Has 2 children; with 2nd child had emergency (placenta was starting to separate and had swelling). No miscarriages She also reports photosensitivity where her skin breaks out, she feels sick and tired, stomach willbother her as well. H/o of shingles in her left. ROS: as per HPI Medical History: Lupus Tumidus - dg by [...] to Visit Medication Sig Dispense Refill ??? VIT/IRON FUMARATE/FA ( 19 ORAL) Take by mouth daily. No current facility-administered medications on file prior to visit. Allergies: Allergies Allergen Reactions ??? Penicillins Hives and Shortness Of Breath ??? Percocet [Oxycodone-Acetaminophen] Nausea And Vomiting ??? 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 Cranial nerves II through XII grossly intact. Strength grossly normal. NO focal deficits. Skin: face and neck erythematous, faint erythematous/purple skin around her eyes Nails: no nail pitting, onycholysis or periungual erythema noted. Musculoskeletal system: (???NML?? means normal; No swelling, warmth, tenderness, loss of range of motion, or deformity as applicable) Hands: MCP???s: NML PIP???s: NML DIP???s: NML, full fist and claw Wrists: NML Elbows: NML Shoulders: NML Cervical Spine: NML Thoracic Spine: NML Lumbosacral Spine: NML Hips: NML Knees: NML Ankles: NML Feet: NML, neg mtp compression Laboratory Data/Studies: Outside labs (06/2017): JENNA negative, normal complements, neg anticardiolipin and lupus AC, lyme neg, neg CT head non-con Assessment/Plan: Ms. Lerma is a pleasant 37 y/o F presenting with a history of lupus tumidus diagnosed in 2016 with recent recurrent hospitalizations for dyspnea, rash, fatigue, myalgias, weakness and overall feelingunwell. She is currently on decadron but has ongoing symptoms most notable for dyspnea. Her rash ismostly resolved except for some erythema on her face, neck and faint purple/erythematous rash around her eyes. She is also reporting transient episodes of diplopia, although this could not be reproduced today. Given her history, these is certainly concern that this may be an autoimmune process, alth ough blood work in the past showed negative JENNA and normal complements. The rash around her eyes and the rash which is not seen today but described by patient around her neck, back and thighs is concerning for possible dermatomyositis. We will start our work up by ordering blood work: JENNA, WILLY, inflammatory markers, myositis panel, complements, CK, CBC, CMP and lyme. We will also order MRI of her brain, echocardiogram and PFTs. We will refer her ophthalmology as well as dermatology. For now, we will switch her steroids to methylprednisolone 32mg daily and she will call us early next week to let us know how she is doing. We willplan to taper her dose over the next 1-2 weeks depending on how she does. We will also obtain records of her recent hospital admissions. RTC in 3 weeks The patient was seen and discussed with Dr. Steele. Melanie Ghotra MD Rheumatology Fellow, PGY-5 * Nohelia Steele DO - 11/23/2017 2:30 PM EDT ATTENDING ADDENDUM The patient's history was reviewed, and I interviewed and examined the patient with Dr. moncada. I agree with her summary, findings, and plan. documented in this encounter Plan of Treatment Scheduled Referrals Name Type Priority Associated Diagnoses Order Schedule Referral to Dermatology Outpatient Referral Routine Skin rash Ordered: 11/23/2017 Referral to Ophthalmology Outpatient Referral Routine Diplopia Ordered: 11/23/2017 documented as of this encounter Results * MRI Brain wo Contrast (11/25/2017 12:54 PM EDT) Anatomical Region Laterality Modality Head Magnetic Resonan ce Impressions 11/25/2017 1:27 PM EDT Single nonspecific T2 hyperintensity left frontal lobe. Otherwise negative exam Narrative 11/25/2017 1:27 PM EDT EXAMINATION: MRI BRAIN WO CONTRAST CLINICAL HISTORY: headaches, double vision TECHNIQUE: Brain MRI noncontrast COMPARISON: None FINDINGS: No restricted diffusion to suggest acute infarct. There is a single punctate focus of T2 hyperintensity in left frontal subcortical white matter image 32 series 10 without mass effect. There is otherwise normal signal characteristics the brain parenchyma.. The craniocervical junction is normal. Midline structures are unremarkable. No evidence of mass, mass effect, midline shift or extra-axial fluid collections. No ventriculomegaly. Procedure Note Fadi Conn MD - 11/25/2017 EXAMINATION: MRI BRAIN WO CONTRAST CLINICAL HISTORY: headaches, double vision TECHNIQUE: Brain MRI noncontrast COMPARISON: None FINDINGS: No restricted diffusion to suggest acute infarct. There is a single punctate focus of T2 hyperintensity in left frontal subcortical white matter image 32 series 10 without mass effect. Thereis otherwise normal signal characteristics the brain parenchyma.. The craniocervical junction is normal. Midline structures areunremarkable. No evidence of mass, mass effect, midline shift or extra-axial fluidcollections. No ventriculomegaly. IMPRESSION Single nonspecific T2 hyperintensity left frontal lobe. Otherwise negativeexam 1:27 PM Nohelia Steele DO IMG MRI ORDERABLES * CRP, acute inflammation (11/23/2017 4:53 PM EDT) C-Reactive Protein <0.2 <=4.9 mg/L [facility] Blood specimen (specimen) 11/23/2017 4:53 PM EDT 11/23/2017 5:11 PM EDT Narrative Resulting Agency Comment Spec In Lab Nohelia Steele DO CHEMISTRY ORDERABL ES Performing Organization Address [facility] de Phone Number [facility] [place] [address] * Sedimentation rate (11/23/2017 4:53 PM EDT) Pathologist [facility] Sedimentation Rate Automated 3 0 - 20 mm/hr [facility] Blood specimen (specimen) 11/23/2017 4:53 PM EDT 11/23/2017 5:11 PM EDT Narrative Resulting Agency Comment Spec In Lab Nohelia Steele DO HEMATOLOGY ORDERAB LES Performing Organization Address [facility] de Phone Number [facility] [place] [address] * CK (11/23/2017 4:53 PM EDT) Creatine Kinase 135 0 - 160 unit/L [facility] Blood specimen (specimen) 11/23/2017 4:53 PM EDT 11/23/2017 5:11 PM EDT Narrative Resulting Agency Comment Spec In Lab Nohelia Steele DO CHEMISTRY ORDERABL ES Performing Organization Address [facility] de Phone Number [facility] [place] [address] * Myositis Antibody Panel Plus (11/23/2017 4:53 PM EDT) Myositis Ab Panel Test ? Result ? Flag ??Unit ?? RefValue ------- MyoMarker Panel 2 ??Mi-2 ? Negative ?Negative ??PL-12 ?Negative ?Negative ??PL-7 ? Negative ?Negative ??EJ ? Negative ?Negative ??OJ ? Negative ?Negative ??SRP ?Negative ?Negative ??Ku ? Negative ?Negative ??U2 snRNP ? Negative ?Negative ??Anti-PM/Scl-100 Ab ? <20 ?Units ??<20 ??Anti-Didi-1 Ab ? <20 ?Units ??<20 ? ---ADDITIONAL INFORMATION------- ?EIA Interpretation: ?Negative ? <20 Units ?Weak Positive ?20-39 Units ?Moderate Positive ??40-80 Units ?Strong Positive ?>80 Units ?This panel was developed and its performance ?characteristics validated by [facility]. There is no FDA approved ?assay for the above tests. As a lab developed test (LDT), ?approval or clearance by the FDA is not required. This test ?may be used for clinical purposes and should not be ?regarded as investigational or for research. ?Test Performed by: ?[facility] ?[address] [facility] ?[place] [address] [facility] Blood specimen (specimen) 11/23/2017 4:53 PM EDT 11/26/2017 8:41 AM EDT Narrative Resulting Agency Comment Spec In Lab Nohelia Steele DO LAB SEND OUT ORDER SHABBIR Performing Organization Address [facility] [place] [address] * Complement, Total (11/23/2017 4:53 PM EDT) Complement, Total 69 30 - 75 unit/mL [facility] Comment: Test Performed by: [address] [address] Blood specimen (specimen) 11/23/2017 4:53 PM EDT 11/26/2017 9:46 AM EDT Narrative Resulting Agency Comment Spec In Lab Nohelia Steele DO CHEMISTRY ORDERABL ES Performing Organization Address [facility] [place] [address] * C4 Complement (11/23/2017 4:53 PM EDT) Complement C4 19 10 - 40 mg/dL [facility] Blood specimen (specimen) 11/23/2017 4:53 PM EDT 11/23/2017 5:11 PM EDT Narrative Resulting Agency Comment Spec In Lab Nohelia Steele DO CHEMISTRY ORDERABL ES Performing Organization Address [facility] Co de Phone Number [facility] [place] [address] * C3 Complement (11/23/2017 4:53 PM EDT) Complement C3 120 90 - 180 mg/dL [facility] Blood specimen (specimen) 11/23/2017 4:53 PM EDT 11/23/2017 5:11 PM EDT Narrative Resulting Agency Comment Spec In Lab Nohelia Steele DO CHEMISTRY ORDERABL ES Performing Organization Address City/[facility]/ZIP Co de Phone Number [facility] [place] [address] * DNA Antibody (Double-Stranded) (11/23/2017 4:53 PM EDT) DNA Ab (DS) Neg Neg [facility] Blood specimen (specimen) 11/23/2017 4:53 PM EDT 11/26/2017 7:38 AM EDT Narrative Resulting Agency Comment Spec In Lab Nohelia Steele DO LAB SEND OUT ORDER SHABBIR [facility] [place] [address] * Extractable Nuclear Antigen (WILLY) Ab (11/23/2017 4:53 PM EDT) WILLY Ab Test ?Result ?Flag ??Unit ??RefValue Ab to Extractable Nuclear Ag Eval,S ??SS-A/Ro Ab, IgG, S ?<0.2 ?U ? <1.0 (Negative) ??SS-B/La Ab, IgG, S ?<0.2 ?U ? <1.0 (Negative) ??Sm Ab, IgG, S ? <0.2 ?U ? <1.0 (Negative) ??MANUFACTURING TECH Ab, IgG, S ?<0.2 ?U ? <1.0 (Negative) ??Scl 70 Ab, IgG, S ? <0.2 ?U ? <1.0 (Negative) ??Didi 1 Ab, IgG, S ? <0.2 ?U ? <1.0 (Negative) ?Test Performed by: ?[facility] ?[address] [facility]ATORY Blood specimen (specimen) 11/23/2017 4:53 PM EDT 11/26/2017 8:41 AM EDT Narrative Resulting Agency Comment Spec In Lab Nohelia Steele DO LAB SEND OUT ORDER SHABBIR Performing Organization Address [facility] Co de Phone Number [facility] [place] [address] * JENNA (11/23/2017 4:53 PM EDT) JENNA Neg Neg [facility] Blood specimen (specimen) 11/23/2017 4:53 PM EDT 11/26/2017 7:38 AM EDT Narrative Resulting Agency Comment Spec In Lab Nohelia Steele DO LAB SEND OUT ORDER SHABBIR Performing Organization Address [facility]/ZIP Co de Phone Number [facility] [place] [address] * (ABNORMAL) Comprehensive metabolic panel (non-fasting) (11/23/2017 4:53 PM EDT) Glucose 93 65 - 199 mg/dL [facility] Comment:Diabetes: >=200 mg/d L plus symptoms Blood Urea Nitrogen 25(H) 8 - 18 mg/dL [facility] Creatinine 0.84 0.70 - 1.20 mg/dL [facility] Sodium 139 135 - 145 mmol/L [facility] Potassium 4.3 3.5 - 5.0 mmol/L [facility] Comment: Please note: ??Patients with WBC >100,000 may have falsely elevated Potassium levels. ??For accurate Potassium quantification in these patients send serum separator tube (gold top) for subsequent determinations. ??Contact the Clinical Chemistry Laboratory if there are any questions. Chloride 99 98 - 107 mmol/L [facility] Carbon Dioxide 25 22 - 31 mmol/L [facility] Anion Gap 15 5 - 15 mmol/L [facility] Calcium 9.0 8.5 - 10.5 mg/dL [facility] Protein, Total 6.3 6.1 - 8.0 gm/dL [facility] Albumin 3.8 3.2 - 5.2 gm/dL [facility] Aspartate Aminotransferase 11 0 - 30 unit/L [facility] Alanine Aminotransferase 22 0 - 30 unit/L [facility] Alkaline Phosphatase 56 40 - 104 unit/L [facility] Bilirubin, Total 0.4 0.2 - 1.3 mg/dL [facility] Est Glomerular Filtration Rate >60 >=60 [facility] Comment: The reported eGFR should be multiplied by 1.2 for patients. The MDRD is not an appropriate measure of renal function for patients with body mass extremes or in patients with acute kidney failure. http://[employer].BuzzDash/DHnkdep http://Kay[employer] technology/DHMCnkf Blood specimen (specimen) 11/23/2017 4:53 PM EDT 11/23/2017 5:11 PM EDT Narrative Resulting Agency Comment Spec In Lab Nohelia Steele DO CHEMISTRY ORDERABL ES Performing Organization Address [facility] Co de Phone Number [facility] [place] [address] * TSH (11/23/2017 4:53 PM EDT) Thyroid Stimulating Hormone 0.57 0.27 - 4.20 mlU/ML [facility] Blood specimen (specimen) 11/23/2017 4:53 PM EDT 11/23/2017 5:11 PM EDT Narrative Resulting Agency Comment Spec In Lab Nohelia Steele DO CHEMISTRY ORDERABL ES Performing Organization Address [facility] Co de Phone Number [facility] [place] [address] * Lyme IgG & IgM Antibody (11/23/2017 4:53 PM EDT) Lyme Antibody Neg Neg [facility] Blood specimen (specimen) 11/23/2017 4:53 PM EDT 11/26/2017 11:02 AM EDT Narrative Resulting Agency Comment Spec In Lab Nohelia D Cedric DO IMMUNOLOGY ORDERAB LES Performing Organization Address [facility] de Phone Number [facility] [place] [address] documented in this encounter Visit Diagnoses Diagnosis GRADY (dyspnea on exertion) Other dyspnea and respiratory abnormality Skin rash Rash and other nonspecific skin eruption Diplopia Diplopia documented in this encounter Care Teams Departure Clerk Relationship Specialty Start Date End Date Marian To, TROMMEL TENDER [address] [place] [address] PCP - General Family Medicine 10/15/17 01/09/24 documented as of this encounter
--- OUTSIDE RECORDS SUMMARY | 2024-06-09 11:25 | XMS_ITS | Encounter Summary ---
[place] [address] Care Team Providers Care Peritoneal Dialysis Registered Nurse Name Role Phone Marian To APRN Primary Care Provider [phone] Encounter Details Date Type Department Care Team (Late st Contact Info) Description 02/18/2019 Telephone [place] [id number] Esther Norman Social History Tobacco Use Types Packs/Day Years [...] encounter Miscellaneous Notes * Telephone Encounter - Esther Norman - 02/18/2019 12:03 PM EDT Mami calls wanting to find out the results of her lab results and also to find out if you are going to start new medication for her. Please call the alternate phone # which is her finance's phone. Ask for her. documented in this encounter Plan of Treatment Not on file documented as of this encounter Visit Diagnoses Not on filedocumented in this encounter Care Teams Peritoneal Dialysis Registered Nurse Relationship Specialty Start Date End Date Marian To APRN [address] [place] [address] PCP - General Family Medicine 10/15/17 01/09/24 documented as of this encounter
--- OUTSIDE RECORDS SUMMARY | 2024-06-09 11:25 | XMS_ITS | Encounter Summary ---
[place] [address] Care Team Providers Care Plugging Machine Operator Name Role Phone Marian To APRN Primary Care Provider [phone] Reason for Visit * Reason Onset Date Comments Labs Only 08/19/2019 Encounter Details Date Type Department Care Team (Late st Contact Info) Description 08/19/2019 Telephone [place] [address] Kristian Phillips, RN Labs Only Social History Tobacco Use Types Packs/Day Years [...] Telephone Encounter - Kristian Phillips RN - 08/19/2019 6:40 PM EST Message Hi, Please notify patient that her most recent labs- CBC, CMP are within normal range. Thanks, Eva. ----- Message ----- From: Fidel, Lab In seven Sent: 08/13/2019 ?? 2:52 PM EST To: Eva Álvarez MD Patient updated on above and expressed understanding. She has not questions or concerns at this time. documented in this encounter Plan of Treatment Not on file documented as of this encounter Visit Diagnoses Not on filedocumented in this encounter Care Teams Plugging Machine Operator Relationship Specialty Start Date End Date Marian To, ROTARY DRUM DYER [address] [place] [address] PCP - General Family Medicine 10/15/17 01/09/24 documented as of this encounter
--- OUTSIDE RECORDS SUMMARY | 2024-06-09 11:25 | XMS_ITS | Encounter Summary ---
[place] [address] Care Team Providers Care Multi Craft Maintenance Technician Name Role Phone Marian To APRN Primary Care Provider [phone] Encounter Details Date Type Department Care Team (Latest Contact Info) Description 12/19/2017 9:56 AM EDT - 12/19/2017 11:59 PM EDT Hospital En[place] [phone] GRADY (dyspnea on exertion) Discharge Disposition: Home Social History Tobacco Use Types Packs/Day Years Used Date Smoking Tobacco: Every Day Cigarettes 0.5 20 Smokeless Tobacco: Never Alcohol Use Standard Drinks/Week Comments No 0 (1 standard drink = 0.6 oz pur e alcohol) Sex and Gender Information Value Date Recorded Sex Assigned at Not on file Gender Identity Not on file Sexual Orientation Not on file documented as of this encounter Medications at Time of Discharge Medication Sig Dispensed Refills Start Date End Date metFORMIN (GLUCOPHAGE) 850 mg Tablet take 1 tablet by mouth twice a day 0 10/08/2017 EPINEPHrine 0.3 mg/0.3 mL Auto-Injector use as directed by prescriber 0 11/05/2017 VIT/IRON FUMARATE/FA ( 19 ORAL) Take by mouth daily. methylPREDNISolone (MEDROL) 8 mg Tablet Take 3 tablets by mouth daily. 90 tablet 12/12/2017 12/31/2017 ranitidine (ZANTAC) 300 mg Tablet take 1 tablet by mouth every 12 hours 0 11/07/2017 12/31/2017 cyclobenzaprine (FLEXERIL) 10 mg Tablet take 1 tablet by mouth three times a day if needed 0 11/20/2017 12/21/2017 loratadine (CLARITIN) 10 mg Tablet take 1 tablet by mouth every 12 hours 0 11/07/2017 12/31/2017 dexamethasone (DECADRON) 6 mg Tablet take 1 tablet by mouth every 12 hours 0 11/15/2017 12/31/2017 escitalopram (LEXAPRO) 20 mg Tablet take 1 tablet by mouth once daily 0 11/05/2017 08/08/2021 hydroxychloroquine (PLAQUENIL) 200 mg Tablet take 1 tablet by mouth twice a day 0 11/15/2017 09/16/2020 methylPREDNISolone (MEDROL) 16 mg Tablet Take 2 tablets by mouth daily. Take in the morning with food 60 tablet 11/23/2017 12/31/2017 documented as of this encounter Procedure Notes * Hari Young Jr., MD - 12/19/2017 3:24 PM EDTAssociated Order(s): PULMONARY FUNCTION TEST Pulmonary Function Testing Spirometry is normal. Lung volumes are normal. Diffusing capacity is normal. Oxygen saturation is normal. Hari Young MD Pulmonary Medicine documented in this encounter Plan of Treatment Not on file documented as of this encounter Procedures Procedure Name Priority Date/Time Associated Diagnosis Comments COMMON PULMONARY FUNCTION TEST Routine 12/19/2017 3:24 PM EDT GRADY (dyspnea on exertion) documented in this encounter Results * Pulmonary Function Testing [...] abnormality documented in this encounter Care Teams Multi Craft Maintenance Technician Relationship Specialty Start Date End Date Marian To, CAFETERIA AIDE [address] [place] [address] PCP - General Family Medicine 10/15/17 01/09/24 documented as of this encounter
--- OUTSIDE RECORDS SUMMARY | 2024-06-09 11:25 | XMS_ITS | Encounter Summary ---
[place] [address] Care Team Providers Care Pricer Bagger Name Role Phone Marian To APRN Primary Care Provider [phone] Encounter Details Date Type Department Care Team (Latest Contact Info) Description 11/23/2017 4:40 PM EDT Laboratory Appointment Lab [address] [place] [phone] GRADY (dyspnea on exertion); Skin rash Social History Tobacco Use Types Packs/Day Years [...] Procedure Name Priority Date/Time Associated Diagnosis Comments CRP, ACUTE INFLAMMATION Routine 11/23/2017 4:53 PM EDT GRADY (dyspnea on exertion) Skin rash RNA POLYMERASE III AB,IGG Routine 11/23/2017 4:53 PM EDT LYME IGG & IGM ANTIBODY Routine 11/23/2017 4:53 PM EDT GRADY (dyspnea on exertion) Skin rash EXTRACTABLE NUCLEAR ANTIGEN (WILLY) AB Routine 11/23/2017 4:53 PM EDT GRADY (dyspnea on exertion) Skin rash DNA ANTIBODY (DOUBLE-STRANDED) Routine 11/23/2017 4:53 PM EDT GRADY (dyspnea on exertion) Skin rash MYOSITIS ANTIBODY PANEL PLUS Routine 11/23/2017 4:53 PM EDT GRADY (dyspnea on exertion) Skin rash HEMOGRAM Routine 11/23/2017 4:53 PM EDT GRADY (dyspnea on exertion) Skin rash DIFFERENTIAL, AUTOMATED Routine 11/23/2017 4:53 PM EDT GRADY (dyspnea on exertion) Skin rash SEDIMENTATION RATE Routine 11/23/2017 4: 53 PM EDT GRADY (dyspnea on exertion) Skin rash CBC (WITH DIFF) Routine 11/23/2017 4:53 PM EDT GRADY (dyspnea on exertion) Skin rash COMPLEMENT, TOTAL Routine 11/23/2017 4:5 3 PM EDT GRADY (dyspnea on exertion) Skin rash C3 COMPLEMENT Routine 11/23/2017 4:53 PM EDT GRADY (dyspnea on exertion) Skin rash C4 COMPLEMENT Routine 11/23/2017 4:53 PM EDT GRADY (dyspnea on exertion) Skin rash JENNA ANTIBODY SCREEN Routine 11/23/2017 4 :53 PM EDT GRADY (dyspnea on exertion) Skin rash TSH Routine 11/23/2017 4:53 PM EDT GRADY (dyspnea on exertion) Skin rash CK Routine 11/23/2017 4:53 PM EDT GRADY (dyspnea on exertion) Skin rash COMPREHENSIVE METABOLIC PANEL Routine 11/23/2017 4:53 PM EDT GRADY (dyspnea on exertion) Skin rash documented in this encounter Results * RNA Polymerase III Ab,IgG (11/23/2017 4:53 PM EDT) RNA Polymerase III Ab, IgG (NOVEMBER) <10.0 <20.0 (Negative) U [facility] Comment: Test Performed by: [facility] - [address] [address] Blood specimen (specimen) Venous Draw / Unknown 11/23/2017 4:53 PM EDT 11/26/2017 8:41 AM EDT Narrative Resulting Agency Comment Spec In Lab Melanie Ghotra MD LAB SEND OUT ORDERAB LES [facility] [place] [address] * (ABNORMAL) Differential, Automated (11/23/2017 4:53 PM EDT) Neutrophil % 78.5 % [facility] Neutrophil Absolute 10.44(H) 1.70 - 6.10 x10(3)/mc L [facility] Lymph % 11.6 % [facility] Lymphocytes Abs 1.5 0.9 - 3.2 x10(3)/mc L [facility] Monocyte % 5.0 % [facility] Monocyte Abs 0.7 0.3 - 0.9 x10(3)/mc L [facility] Eos % 0.2 % [facility] Eosinophils Abs 0.0 0.0 - 0.4 x10(3)/mc L [facility] Basophil % 0.7 % [facility] Baso Absolute 0.1 0.0 - 0.1 x10(3)/mc L [facility] Immature Gran % 4.00 % [facility] Comment: Immature granulocytes(IG's)percentage and absolute count will include metamyelocytes, myelocytes, and promyelocytes. Blood smears from CBCs yielding IG's will be scanned manually for concordance. If this scan disagrees with the automated IG or if promyelocytes are noted, a manual differential will be performed. Immature Gran Absolute 0.53(H) 0.00 - 0.04 x10(3)/mc L [facility] Blood specimen (specimen) 11/23/2017 4:53 PM EDT 11/23/2017 5:11 PM EDT Narrative Resulting Agency Comment Spec In Lab Melanie Ghotra MD HEMATOLOGY ORDERABLE S [facility] [address] * (ABNORMAL) Hemogram (11/23/2017 4:53 PM EDT) White Blood Cell 13.3(H) 4.0 - 9.5 x10(3)/mc L [facility] Red Blood Cell 5.45(H) 4.00 - 5.21 x10(6)/mc L [facility] Hemoglobin 16.0(H) 11.7 - 15.5 gm/dL [facility] Hematocrit 48.7(H) 35.7 - 45.8 % [facility] Mean Cell Volume 89.4 82.6 - 94.4 fL [facility] Mean Cell Hemoglobin 29.4 27.1 - 32.0 pg [facility] Mean Cell Hemoglobin Concentration 32.9 31.7 - 35.0 gm/dL [facility] Platelet 218 145 - 357 x10(3)/mc L [facility] RDW Standard Deviation 42.9 37.0 - 46.0 fL [facility] RDW coefficient of variation 13.1 11.5 - 14.1 % [facility] Mean Platelet Volume 11.3 7.6 - 12.9 fL [facility] NRBC% auto 0.0 % [facility] NRBC Absolute 0.000 0.000 - 0.000 x10(3)/mc L [facility] Blood specimen (specimen) 11/23/2017 4:53 PM EDT 11/23/2017 5:11 PM EDT Narrative Resulting Agency Comment Spec In Lab Melanie Ghotra MD HEMATOLOGY ORDERABLE S Performing Organization Address City/[facility]/ZIP Co de Phone Number [facility] [place] [address] * TSH (11/23/2017 4:53 PM EDT) Thyroid Stimulating Hormone 0.57 0.27 - 4.20 mlU/ML [facility] Blood specimen (specimen) 11/23/2017 4:53 PM EDT 11/23/2017 5:11 PM EDT Narrative Resulting Agency Comment Spec In Lab Nohelia Steele DO CHEMISTRY ORDERABL ES Performing Organization Address [facility] Co de Phone Number [facility] [place] [address] * Lyme IgG & IgM Antibody (11/23/2017 4:53 PM EDT) Lyme Antibody Neg Neg [facility] Blood specimen (specimen) 11/23/2017 4:53 PM EDT 11/26/2017 11:02 AM EDT Narrative Resulting Agency Comment Spec In Lab Nohelia Steele DO IMMUNOLOGY ORDERAB LES Performing Organization Address [facility]/ZIP Co de Phone Number [facility] [place] [address] * CRP, acute inflammation (11/23/2017 4:53 PM EDT) C-Reactive Protein <0.2 <=4.9 mg/L [facility] Blood specimen (specimen) 11/23/2017 4:53 PM EDT 11/23/2017 5:11 PM EDT Narrative Resulting Agency Comment Spec In Lab Nohelia Steele DO CHEMISTRY ORDERABL ES Performing Organization Address [facility] Co de Phone Number [facility] [place] [address] * Sedimentation rate (11/23/2017 4:53 PM EDT) Sedimentation Rate Automated 3 0 - 20 mm/hr [facility] Blood specimen (specimen) 11/23/2017 4:53 PM EDT 11/23/2017 5:11 PM EDT Narrative Resulting Agency Comment Spec In Lab Nohelia Steele DO HEMATOLOGY ORDERAB LES Performing Organization Address [facility] Co de Phone Number [facility] [place] [address] * CK (11/23/2017 4:53 PM EDT) [facility] Creatine Kinase 135 0 - 160 unit/L [facility] Blood specimen (specimen) 11/23/2017 4:53 PM EDT 11/23/2017 5:11 PM EDT Narrative Resulting Agency Comment Spec In Lab Nohelia Steele DO CHEMISTRY ORDERABL ES Performing Organization Address [facility] de Phone Number [facility] [place] [address] * Myositis Antibody Panel Plus (11/23/2017 4:53 [...] developed and its performance ?characteristics validated by [facility]. There is no FDA approved ?assay for the above tests. As a lab developed test (LDT), ?approval or clearance by the FDA is not required. This test ?may be used for clinical purposes and should not be ?regarded as investigational or for research. ?Test Performed by: ?[facility] ?[id number] ?[place] [address] [facility] Blood specimen (specimen) 11/23/2017 4:53 PM EDT 11/26/2017 8:41 AM EDT Narrative Resulting Agency Comment Spec In Lab Nohelia Steele DO LAB SEND OUT ORDER SHABBIR [facility] [place] [address] * Complement, Total (11/23/2017 4:53 PM EDT) Complement, Total 69 30 - 75 unit/mL [facility] Comment: Test Performed by: [facility] - [address] [address] Blood specimen (specimen) 11/23/2017 4:53 PM EDT 11/26/2017 9:46 AM EDT Narrative Resulting Agency Comment Spec In Lab Nohelia Steele DO CHEMISTRY ORDERABL ES Performing Organization Address [facility]/ZIP Co de Phone Number [facility] [place] [address] * C4 Complement (11/23/2017 4:53 PM EDT) Complement C4 19 10 - 40 mg/dL [facility] Blood specimen (specimen) 11/23/2017 4:53 PM EDT 11/23/2017 5:11 PM EDT Narrative Resulting Agency Comment Spec In Lab Nohelia Steele DO CHEMISTRY ORDERABL ES Performing Organization Address [facility] Co de Phone Number [facility] [place] [address] * C3 Complement (11/23/2017 4:53 PM EDT) Complement C3 120 90 - 180 mg/dL [facility] Blood specimen (specimen) 11/23/2017 4:53 PM EDT 11/23/2017 5:11 PM EDT Narrative Resulting Agency Comment Spec In Lab Nohelia Steele DO CHEMISTRY ORDERABL ES Performing Organization Address [facility] Co de Phone Number [facility] [place] [address] * DNA Antibody (Double-Stranded) (11/23/2017 4:53 PM EDT) DNA Ab (DS) Neg Neg [facility] Blood specimen (specimen) 11/23/2017 4:53 PM EDT 11/26/2017 7:38 AM EDT Narrative Resulting Agency Comment Spec In Lab Nohelia Steele DO LAB SEND OUT ORDER SHABBIR Performing Organization Address City/[facility]/ZIP Co de Phone [place] [address] * Extractable Nuclear Antigen (WILLY) Ab (11/23/2017 4:53 PM EDT) WILLY Ab Test ?Result ?Flag ??Unit ??RefValue Ab to Extractable Nuclear Ag Eval,S ??SS-A/Ro Ab, IgG, S ?<0.2 ?U ? <1.0 (Negative) ??SS-B/La Ab, IgG, S ?<0.2 ?U ? <1.0 (Negative) ??Sm Ab, IgG, S ? <0.2 ?U ? <1.0 (Negative) ??FOOD TESTER Ab, IgG, S ?<0.2 ?U ? <1.0 (Negative) ??Scl 70 Ab, IgG, S ? <0.2 ?U ? <1.0 (Negative) ??Didi 1 Ab, IgG, S ? <0.2 ?U ? <1.0 (Negative) ?Test Performed by: ?[facility] ?[id number] [place] [address] LABORATORY Blood specimen (specimen) 11/23/2017 4:53 PM EDT 11/26/2017 8:41 AM EDT Narrative Resulting Agency Comment Spec In Lab Nohelia Steele DO LAB SEND OUT ORDER SHABBIR Performing Organization Address [facility] Co de Phone Number [facility] [place] [address] * JENNA (11/23/2017 4:53 PM EDT) JENNA Neg Neg [facility] Blood specimen (specimen) 11/23/2017 4:53 PM EDT 11/26/2017 7:38 AM EDT Narrative Resulting Agency Comment Spec In Lab Nohelia Steele DO LAB SEND OUT ORDER SHABBIR Performing Organization Address [facility] Co de Phone Number [facility] [place] [address] * (ABNORMAL) Comprehensive metabolic panel (non-fasting) (11/23/2017 4:53 PM EDT) Glucose 93 65 - 199 mg/dL [facility] Comment:Diabetes: >=200 mg/d L plus symptoms Blood Urea Nitrogen 25(H) 8 - 18 mg/dL [facility] Creatinine 0.84 0.70 - 1.20 mg/dL [facility] Sodium 139 135 - 145 mmol/L [facility] Potassium 4.3 3.5 - 5.0 mmol/L [facility] Comment: Please note: ??Patients with WBC >100,000 may have falsely elevated Potassium levels. ??For accurate Potassium quantification in these patients send serum separator tube (gold top) for subsequent determinations. ??Contact the Clinical Chemistry Laboratory if there are any questions. Chloride 99 98 - 107 mmol/L [facility] Carbon Dioxide 25 22 - 31 mmol/L [facility] Anion Gap 15 5 - 15 mmol/L [facility] Calcium 9.0 8.5 - 10.5 mg/dL [facility] Protein, Total 6.3 6.1 - 8.0 gm/dL [facility] Albumin 3.8 3.2 - 5.2 gm/dL [facility] Aspartate Aminotransferase 11 0 - 30 unit/L [facility] Alanine Aminotransferase 22 0 - 30 unit/L [facility] Alkaline Phosphatase 56 40 - 104 unit/L [facility] Bilirubin, Total 0.4 0.2 - 1.3 mg/dL [facility] Est Glomerular Filtration Rate >60 >=60 [facility] Comment: The reported eGFR should be multiplied by 1.2 for patients. The MDRD is not an appropriate measure of renal function for patients with body mass extremes or in patients with acute kidney failure. http://Mob[employer]ner.GliaCure/DHnkdep http://Ometrics/DHMCnkf Blood specimen (specimen) 11/23/2017 4:53 PM EDT 11/23/2017 5:11 PM EDT Narrative Resulting Agency Comment Spec In Lab Nohelia Steele DO CHEMISTRY ORDERABL ES [facility] [address] documented in this encounter Visit Diagnoses Diagnosis GRADY (dyspnea on exertion) Other dyspnea and respiratory abnormality Skin rash Rash and other nonspecific skin eruption documented in this encounter Care Teams Pricer Bagger Relationship Specialty Start Date End Date Marian To, ANAHI [address] [place] [address] PCP - General Family Medicine 10/15/17 01/09/24 documented as of this encounter
--- OUTSIDE RECORDS SUMMARY | 2024-06-09 11:25 | XMS_ITS | Encounter Summary ---
Author Organization Formerly [facility] [place] [address] Care Team Providers Care Logistics Solution Manager Name Role Phone Marian To APRN Primary Care Provider [phone] Reason for Visit * Reason Comments Follow-up Lupus Encounter Details Date Type Department Care Team (Latest Contact Info) Description 08/13/2019 1:00 PM EST Office [place] [address] Eva Álvarez MD [facility] [place] [address] Lupus erythematosus tumidus Social History Tobacco Use [...] Sign Reading Time Taken Comments Blood Pressure 106/71 08/13/2019 1:18 PM EST Pulse 92 08/13/2019 1:18 PM EST Temperature - - Respiratory Rate - - Oxygen Saturation 100% 08/13/2019 1:18 PM EST Inhaled Oxygen Concentration - - Weight 101.6 kg (224 lb) 08/13/2019 1:18 PM EST Height 154.9 cm (5' 1) 08/13/2019 1:18 PM EST Body Mass Index 42.32 08/13/2019 1:18 PM EST documented in this encounter Progress Notes * Eva Álvarez - 08/13/2019 1:00 PM EST Rheumatology Outpatient Follow Up Note RHEUMATOLOGY HX: # 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 Oneal, [facility]); originally on upper extremity treated with HCQ, was well controlled seen by dermatolog in [place] Jun 2017 for rash flare, was taken [...] purple hue - Evaluated by Dermatology at [facility]- Diagnosed with Chronic urticaria with dermatographic component [...] negative exam ?? Referral to neurology at [facility] 12/2017- Headaches thought to be related to Occipital Neuralgia on the left side. Flexeril HS advised. Non medication measures advised to treat fibromyalgia ?? White matter lesion of TERRA COT[place] ROOFER is a common finding in migraine sufferers.. No additional workup was recommended. # Recurrent hospitalizations Dyspnea, rash, fatigue, myalgias, weakness and overall feeling unwell, tx with decadron but had ongoing symptoms most notable for dyspnea. CT angio ([place], [place] ) - negative for PE or major vascular abnormality, no mediastinal or hilar adenopathy. Lungs are clear. PFTs- 12/2017- Spirometry is normal. Lung volumes are normal. Diffusing capacity is normal. Oxygen saturation is normal. Interval History: Mami returns for follow up for above today. -Patient reports since last seen she continues to have skin eruptions in the upper extremity, and in the past 2 weeks has seen new eruptions in the thighs in both legs that are itchy. This rash last for days to weeks, and then subsides. Some pigmentation post healing. She was seen by dermatology mid last year and had a repeat skin biopsy with pathology concerning for lupus tumidus. She was prescribed topical clobetasol cream, but did pick this up due to high co- pay(cost $300). She continues on hydroxychloroquine 200 mg orally daily. She was also started on methotrexate 15 mg p.o. weekly at last visit per discussion with dermatology. Patient reports mild improvement in the skin rash-patient reports the lesions are smaller and tend to heal a little sooner while on methotrexate. Although shecontinues to have new eruptions. She is currently not using any topical cream. She has not had any recent dermatology follow-up. -She has some side effects post methotrexate dosing. She feels nauseous and fatigued. -She denies any oral ulcers, hair loss, serositis symptoms, inflammatory arthritis symptoms, blood in urine, hemoptysis. Had couple of episodes of epistaxis, they use a pellet stove at home and thinks it could be from the dry air. -She has known history of fibromyalgia. She has poor quality sleep. 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 She has 5 kids at home. Reports having stressors at home and at work. She is trying to quit smoking.She reports achy pain in the muscles. She is trying to exercise, walking a lot. Lost 25 pounds in the past 6 months. - Patient has hx of Migraine- Was previously evaluated by Neurology at [facility], Headaches thought to be related to Occipital Neuralgia on the left side. - Not on Bupropion/ Lexapro for a [...] education: None ??? Highest education level: None Occupational History ??? None Social Needs ??? Financial resource strain: None ??? Food insecurity Worry: None Inability: None ??? Transportation needs Medical: None Non-medical: None Tobacco Use ??? Smoking status: Current Every Day Smoker Packs/day: 0.50 Years: 20.00 Pack years: 10.00 Types: Cigarettes ??? Smokeless tobacco: Never Used Substance and Sexual Activity ??? Alcohol use: No ??? Drug use: No ??? Sexual activity: Yes Partners: Male Lifestyle ??? Physical activity Days per week: None Minutes per session: None ??? Stress: None Relationships ??? Social connections Talks on phone: None Gets together: None Attends voodoo service: None Active member of club or organization: None Attends meetings of clubs or organizations: None Relationship status: None ??? Intimate partner violence Fear of current or ex partner: None Emotionally abused: None Physically abused: None Forced sexual activity: None Other Topics Concern ??? None Social History Narrative Lives with and 4 adopted children age 11, 10, 8 and 8 Medications: Current Outpatient Medications on File Prior to Visit Medication Sig Dispense Refill ??? PROAIR HFA 90 mcg/actuation HFA Aerosol Inhaler inhale 1 puff by mouth as directed if needed 0 ??? metFORMIN (GLUCOPHAGE) 850 mg Tablet take 1 tablet by mouth twice a day 0 ??? hydroxychloroquine (PLAQUENIL) 200 mg Tablet [...] by mouth nightly.) 30 tablet 0 ??? EPINEPHrine 0.3 mg/0.3 mL Auto-Injector use as directed by prescriber 0 ??? escitalopram (LEXAPRO) 20 mg Tablet take 1 tablet by mouth once daily 0 No current facility-administered medications on file prior to visit. Allergies: Allergies Allergen Reactions ??? Penicillins Hives and Shortness Of Breath ??? Clindamycin ??? Percocet [Oxycodone-Acetaminophen] Nausea And Vomiting ??? 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 snf use causes patient to be anxious Physical Examination: BP 106/71 (BP Location (NBP): Right arm, Patient Position: Sitting, BP Cuff Sizes: Large Adult (32-43 cm)) Pulse 92 Ht 154.9 cm (5' 1) Wt 101.6 kg (224 lb) SpO2 100% BMI 42.32 kg/m?? General: NAD, breathing comfortably Cardiovascular: RRR, no m/r/g, normal S1/S2, no lower extremity edema Lungs: CTA b/l no w/r/r Neuro: Alert and oriented x3. Skin: Small pink maculopapular lesions in the right posterior arm, also scattered on bilateral thighs Diffuse trigger point tenderness Musculoskeletal system: (???NML?? [...] Ab (DS) Latest Ref Range: Neg Neg WLILY Ab Unknown neg Myositis Ab Panel Unknown [...] capacity is normal. ??Oxygen saturation is normal. DIAGNOSIS A. Skin, right upper arm, punch biopsy: - Superficial and deep perivascular and periadnexal dermatitis ? (see discussion) Electronically signed by: ??Mamie Casiano MD Verified: ??11/25/2018 ?Dermatopathologist Performed at: ??-[facility] Dept. of Pathology, [place], [place] DISCUSSION Sections show a relatively unremarkable epidermis. Within the dermis, there is a ??dense superficial and deep perivascular and periadnexal lymphocytic inflammation. ??Eosinophils are not prominent. Colloidal iron stain shows subtle increase in dermal ??and interstitial mucin. Focally the basement membrane is mildly thickened, as ??highlighted by PAS stain. 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 The density and distribution of the ??perivascular lymphocytic inflammation is beyond what would be expected for urticaria ??and the predominant absence of neutrophils and eosinophils would not support ??an urticarial-type reaction pattern. While a robust hypersensitivity reaction ??such as in the setting of an arthropod bite could share some of these histologic ??findings, the absence of tissue eosinophils is not typical. ??Clinical correlation is ??recommended. Assessment: Mami WONG is a 38 y.o. female with a history of lupus tumidus diagnosed in 2016, presents today in follow up. Patient reports having recurrent skin flares. She was seen by dermatology and has had repeat skin biopsy in 11/2018. Per previous discussion with Dermatology- biopsy is consistent with lupus tumidus. She was prescribed topical clobetasol cream, but has not picked this up due to high co-pay(cost $300). She continues on hydroxychloroquine 200 mg orally BID daily, with poor control of symptoms. Per Dr. Mckeon's recommendations- Patient was started on methotrexate 15 mg weekly and daily folic acid. Patient reports some improvement in lesions, but this has not completely resolved. Also new lesions appearing in her thighs. She is also experiencing some GI side effects and fatigue with p.o. methotrexate. We will switch to subcu methotrexate 20 mg weekly and increase folic acid to 3 mg daily. She was advised to make follow-up appointment with dermatology at the earliest for further recommendations. Previous auto immune labs including JENNA, WILLY, [...] Plan: # Lupus Tumidus - Check CBC, CMP - Continue hydroxychloroquine 200 mg PO BID - Stop MTX 15 mg PO weekly, switch to methotrexate 20 mg subcu weekly, increase folic acid 3 mg PO daily - Patient has not been able to afford topical Steroid cream due to high Co-pay, Will request Dermatology to help patient if any other alternatives available. Also given persistent skin lesions, will request follow-up with dermatology (last visit in 11/2018) # Fibromyalgia- - Request PCP for evaluation for [place]- Consider referral to Sleep medicine locally - Continue to work on weight loss. - Will start Cymbalta at 30 mg PO daily and monitor symptoms - Follow up with Neurology for Migraine QUINTEROS. - Counseled to quit smoking - Consider SMA meeting at [facility] in the future, She deferred this previously RTC in 3 months Eva Álvarez MD Rheumatology PGY5 CC: Marian To APRN documented in this encounter Plan of Treatment Not on file documented as of this encounter Procedures Procedure Name Priority Date/Time Associated Diagnosis Comments HEMOGRAM Routine 08/13/2019 2:23 PM EST Lupus erythematosus tumidus DIFFERENTIAL, AUTOMATED Routine 08/13/2019 2:23 PM EST Lupus erythematosus tumidus HC CBC,PLT & AUTO DIFF Routine 08/13/2019 2:23 PM EST Lupus erythematosus tumidus HC VENIPUNCTURE Routine 08/13/2019 2:23 PM EST Lupus erythematosus tumidus documented in this encounter Results * Differential, Automated (08/13/2019 2:23 PM EST) Neutrophil % 64.5 % [facility] Neutrophil Absolute 5.52 1.70 - 6.10 x10(3)/[facility] Lymph % 28.7 % [facility] Lymphocytes Abs 2.4 0.9 - 3.2 x10(3)/[facility] Monocyte % 4.9 % [facility] Monocyte Abs 0.4 0.3 - 0.9 x10(3)/[facility] Eos % 1.3 % [facility] Eosinophils Abs 0.1 0.0 - 0.4 x10(3)/[facility] Basophil % 0.4 % [facility] Baso Absolute 0.0 0.0 - 0.1 x10(3)/[facility] Immature Gran % 0.20 % [facility] Comment: Immature granulocytes(IG's)percentage and absolute count will include metamyelocytes, myelocytes, and promyelocytes. Blood smears from CBCs yielding IG's will be scanned manually for concordance. If this scan disagrees with the automated IG or if promyelocytes are noted, a manual differential will be performed. Immature Gran Absolute 0.02 0.00 - 0.04 x10(3)/[facility] Blood specimen (specimen) 08/13/2019 2:23 PM EST 08/13/2019 2:34 PM EST Narrative Resulting Agency Comment Spec In Lab Eva Álvarez MD HEMATOLOGY ELIZABETH TIWARI [facility] [place] [address] * Hemogram (08/13/2019 2:23 PM EST) Pathologist [facility] White Blood Cell 8.6 4.0 - 9.5 x10(3)/[facility] Red Blood Cell 4.93 4.00 - 5.21 x10(6)/[facility] Hemoglobin 14.9 11.7 - 15.5 gm/dL [facility] Hematocrit 44.3 35.7 - 45.8 % [facility] Mean Cell Volume 89.9 82.6 - 94.4 fL [facility] Mean Cell Hemoglobin 30.2 27.1 - 32.0 pg [facility] Mean Cell Hemoglobin Concentration 33.6 31.7 - 35.0 gm/dL [facility] Platelet 220 145 - 357 x10(3)/[facility] RDW Standard Deviation 42.0 37.0 - 46.0 [facility] RDW coefficient of variation 12.9 11.5 - 14.1 % [facility] Mean Platelet Volume 10.1 7.6 - 12.9 [facility] NRBC% auto 0.0 % [facility] NRBC Absolute 0.000 0.000 - 0.000 x10(3)/[facility] Blood specimen (specimen) 08/13/2019 2:23 PM EST 08/13/2019 2:34 PM EST Narrative Resulting Agency Comment Spec In Lab Eva Álvarez MD HEMATOLOGY ELIZABETH TIWARI [facility] [place] [address] * Comprehensive metabolic panel (non-fasting) (08/13/2019 2:23 PM EST) [facility] Glucose 86 65 - 199 mg/dL [facility] Comment:Diabetes: >=200 mg/d L plus symptoms Blood Urea Nitrogen 11 8 - 18 mg/dL [facility] Creatinine 0.72 0.70 - 1.20 mg/dL [facility] Sodium 142 135 - 145 mmol/L [facility] Potassium 3.9 3.5 - 5.0 mmol/L [facility] Comment: Please note: ??Patients with WBC >100,000 may have falsely elevated Potassium levels. ??For accurate Potassium quantification in these patients send serum separator tube (gold top) for subsequent determinations. ??Contact the Clinical Chemistry Laboratory if there are any questions. Chloride 103 98 - 107 mmol/L [facility] Carbon Dioxide 26 22 - 31 mmol/L [facility] Anion Gap 13 5 - 15 mmol/L [facility] Calcium 8.9 8.5 - 10.5 mg/dL [facility] Protein, Total 6.7 6.1 - 8.0 gm/dL [facility] Albumin 4.2 3.2 - 5.2 gm/dL [facility] Aspartate Aminotransferase 14 0 - 30 unit/L [facility] Alanine Aminotransferase 18 0 - 30 unit/L [facility] Alkaline Phosphatase 79 35 - 105 unit/L [facility] Bilirubin, Total 0.3 0.2 - 1.3 mg/dL [facility] Est Glomerular Filtration Rate 107 >=60 mL/min/1. 73 m?? [facility] Comment: The eGFR was calculated using the CKD-EPI equation. As with all creatinine based estimates of kidney function, eGFR values calculated with the CKD-EPI equation are not accurate in patients with acute kidney failure, extremes of body mass or the acutely ill. http://Outerstuff/DHMCnkf eGFR 124 >=60 mL/min/1. 73 m?? [facility] Comment: The eGFR was calculated using the CKD-EPI equation. As with all creatinine based estimates of kidney function, eGFR values calculated with the CKD-EPI equation are not accurate in patients with acute kidney failure, extremes of body mass or the acutely ill. http://Outerstuff/DHMCnkf Blood specimen (specimen) 08/13/2019 2:23 PM EST 08/13/2019 2:34 PM EST Narrative Resulting Agency Comment Spec In Lab Kaylie Mei DO CHEMISTRY ORDERA BLES Performing Organization Address City/State/[facility] Co de Phone Number [facility] [place] [address] documented in this encounter Visit Diagnoses Diagnosis Lupus erythematosus tumidus Lupus erythematosus documented in this encounter Care Teams Logistics Solution Manager Relationship Specialty Start Date End Date Marian To, ANAHI [address] [place] [address] PCP - General Family Medicine 10/15/17 01/09/24 documented as of this encounter
--- OUTSIDE RECORDS SUMMARY | 2024-06-09 11:25 | XMS_ITS | Encounter Summary ---
[place] [address] Care Team Providers Care Clinical Dietetic Technician Name Role Phone Marian To APRN Primary Care Provider [phone] Encounter Details Date Type Department Care Team (Late st Contact Info) Description 12/20/2017 Telephone [place] [id number] Melanie Ghotra MD [facility] [place] [address] Social History Tobacco Use Types Packs/Day Years [...] encounter Miscellaneous Notes * Telephone Encounter - Melanie Ghotra MD - 12/20/2017 4:25 PM EDT Spoke with patient to let her know about her normal PFTs. documented in this encounter Plan of Treatment Not on file documented as of this encounter Visit Diagnoses Not on filedocumented in this encounter Care Teams Clinical Dietetic Technician Relationship Specialty Start Date End Date Marian To APRN [address] [place] [address] [place] [address] PCP - General Family Medicine 10/15/17 01/09/24 documented as of this encounter
--- OUTSIDE RECORDS SUMMARY | 2024-06-09 11:25 | XMS_ITS | Encounter Summary ---
[place] [address] Care Team Providers Care Licensed Psychologist Director Name Role Phone Marian To APRN Primary Care Provider [phone] Reason for Visit * Reason Onset Date Comments Medication Refill 02/21/2019 Encounter Details Date Type Department Care Team (Late st Contact Info) Description 02/21/2019 [place] [phone] Martina Vyas RN Social History Tobacco Use [...] Encounter - Martina Ortiz RN - 02/21/2019 9:03 AM EDT Refill request per - her [place] Medicaid is not currently active - med was never filled. Requested to send to . Will cue script and route to for approval as requested. documented in this encounter Plan of Treatment Not on file documented as of this encounter Visit Diagnoses Not on filedocumented in this encounter Care Teams Licensed Psychologist Director Relationship Specialty Start Date End Date Marian To APRN [address] [place] [address] PCP - General Family Medicine 10/15/17 01/09/24 documented as of this encounter
--- OUTSIDE RECORDS SUMMARY | 2024-06-09 11:25 | XMS_ITS | Encounter Summary ---
Author Organization [facility] [place] [address] Care Team Providers Care Armor Reconnaissance Vehicle Crewman Name Role Phone Marian To APRN Primary Care Provider Reason for Referral * Consultation (Routine) - Closed Specialty Diagnoses / Procedures Referred By Contac t Referred To Contact Neurology Diagnoses Chronic nonintractable headache, unspecified headache type Melanie Ghotra MD [facility] [place] [address] [facility] [address] [place] [address] Referral ID Status Reason Start Date Expiration Date V isits Requested Visits Authorized [id number] Closed Consult, Test & Treat 12/12/2017 12/12/2018 1 1 Encounter Details Date Type Department Care Team (Late st Contact Info) Description 12/12/2017 Tele[place] [address] Melanie Ghotra MD [facility] [place] [address] Social History Tobacco Use Types Packs/Day Years [...] Telephone Encounter - Melanie Ghotra MD - 12/12/2017 3:45 PM EDT Spoke with Mami, she continues to be on 32mg of medrol, her breathing is much better, back to normal, but having ongoing rash, still having headaches and occasional blurry vision. Seen by her social work faculty member -> reports normal eye exam, was told could be muscle weakness. Has appt with dermatology and ophtho later next months. Plan to decrease her medrol to 24mg until her follow up next week. She will call dermatology to try to get sooner appointment. Has been taking pictures of her rash. Given her ongoing headaches and non specific hyperintensity on the left frontal lobe noted on MRI, will refer to neurology. documented in this encounter Plan of Treatment Scheduled Referrals Name Type Priority Associated Diagnoses Orde r Schedule Referral to Neurology Outpatient Referral Routine Chronic nonintractable headache, unspecified headache type Ordered: 12/12/2017 documented as of this encounter Visit Diagnoses Diagnosis Chronic nonintractable headache, unspecified headache type documented in this encounter Care Teams Armor Reconnaissance Vehicle Crewman Relationship Specialty Start Date End Date Marian To, ANAHI [address] [place] [address] PCP - General Family Medicine 10/15/17 01/09/24 documented as of this encounter
--- OUTSIDE RECORDS SUMMARY | 2024-06-09 11:25 | XMS_ITS | Encounter Summary ---
Author Organization [facility] [place] [address] Care Team Providers Care Thermal Engineer Name Role Phone Marian To APRN Primary Care Provider [phone] Encounter Details Date Type Department Care Team (Latest Contact Info) Description 02/12/2019 9:00 AM EDT Office [place] [id number] Eva Álvarez MD [facility] [place] [address] Lupus erythematosus tumidus Social History Tobacco Use [...] Sign Reading Time Taken Comments Blood Pressure 124/88 02/12/2019 9:06 AM EDT Pulse 93 02/12/2019 9:06 AM EDT Temperature 37 ??C (98.6 ??F) 02/12/2019 9:06 AM EDT Respiratory Rate - - Oxygen Saturation 98% 02/12/2019 9:06 AM EDT Inhaled Oxygen Concentration - - Weight 109.1 kg (240 lb 9.6 oz) 02/12/2019 9:06 AM EDT Height 154.9 cm (5' 1) 02/12/2019 9:06 AM EDT Body Mass Index 45.46 02/12/2019 9:06 AM EDT documented in this encounter Progress Notes * Eva Álvarez - 02/12/2019 9:00 AM EDT Rheumatology Outpatient Follow Up Note RHEUMATOLOGY HX: # 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 Oneal, [facility]); originally on upper extremity treated with HCQ, was well controlled seen by dermatolog in [place] Jun 2017 for rash flare, was taken [...] treat fibromyalgia ?? White matter lesion of CANAL STRUCTURE OPERATOR is a common finding in migraine sufferers.. No additional workup was recommended. # Recurrent hospitalizations Dyspnea, rash, fatigue, myalgias, weakness and overall feeling unwell, tx with decadron but had ongoing symptoms most notable for dyspnea. CT angio ([place], [place] ) - negative for PE or major vascular abnormality, no mediastinal or hilar adenopathy. Lungs are clear. PFTs- 12/2017- Spirometry is normal. Lung volumes are normal. Diffusing capacity is normal. Oxygen saturation is normal. Interval History: Mami returns for follow up for above today. - Patient reports having recurrent skin flares. She reports having 4 flares in the past 6 months. She was seen by dermatology and has had repeat skin biopsy, pathology concerning for lupus tumidus. She has been prescribed topical clobetasol cream, but has not picked this up due to high co-pay(cost $300). She gets multiple skin eruptions in her upper extremities and scalp that are itchy. Last for days to weeks, and subsides on its own. She continues on hydroxychloroquine 200 mg orally daily. Shedoes not think her skin symptoms are well-controlled currently. -She denies any oral ulcers, hair loss, serositis symptoms, arthritis, blood in urine, hemoptysis, epistaxis. -She has known history of fibromyalgia. She complains of fatigue, poor quality sleep. Reports she has been told she snores at night. 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 Reports having stressors at home and at work (Has 5 kids). - Smokes- 5-6 cigarettes/ day, not ready to quit. - Has history of anxiety-currently not on Wellbutrin/ Lexapro. - Patient c/o daily headaches, has hx of Migraine. Was [place] [facility] Headaches thought to be related to Occipital Neuralgia on the left side. She continues to have daily QUINTEROS. -She denies any fevers chills, unusual weight loss. -She denies any respiratory/cardiovascular symptoms. - She has [...] ??? Financial resource strain: None ??? Food insecurity: Worry: None Inability: None ??? Transportation needs: Medical: None Non-medical: None Tobacco Use ??? Smoking status: Current Every Day Smoker Packs/day: 0.50 Years: 20.00 Pack years: 10.00 Types: Cigarettes ??? Smokeless tobacco: Never Used Substance and Sexual Activity ??? Alcohol use: No ??? Drug use: No ??? Sexual activity: Yes Partners: Male Lifestyle ??? Physical activity: Days per week: None Minutes per session: None ??? Stress: None Relationships ??? Social connections: Talks on phone: None Gets together: None Attends evangelical service: None Active member of club or organization: None Attends meetings of clubs or organizations: None Relationship status: None ??? Intimate partner violence: Fear of current or ex partner: None [...] tablet by mouth once daily 0 ??? meloxicam (MOBIC) 15 mg Tablet Take 1 tablet by mouth daily. (Patient not taking: Reported on 02/12/2019) 30 tablet 3 ??? escitalopram (LEXAPRO) 20 mg Tablet take 1 tablet by mouth once daily 0 No current facility-administered medications on file prior to visit. Allergies: Allergies Allergen Reactions ??? Penicillins Hives and Shortness Of Breath ??? Clindamycin ??? Percocet [Oxycodone-Acetaminophen] Nausea And Vomiting ??? 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 terminal manager use causes patient to be anxious Physical Examination: BP 124/88 Pulse 93 Temp 37 ??C (98.6 ??F) Ht 154.9 cm (5' 1) Wt 109.1 kg (240 lb 9.6 oz) SpO2 98% BMI 45.46 kg/m?? General: NAD, breathing comfortably Cardiovascular: RRR, no m/r/g, normal S1/S2, no lower extremity edema Lungs: CTA b/l no w/r/r Neuro: Alert and oriented x3. Skin: No active lesions seen on skin today. Diffuse trigger point tenderness Musculoskeletal system: (???NML?? [...] Casiano MD Verified: ??11/25/2018 ?Dermatopathologist Performed at: ??-[facility] [place]. [place], [place], [place] DISCUSSION Sections show a relatively unremarkable [...] Mami WONG is a 38 y.o. female presented with a history of lupus tumidus diagnosed in 2016. Patient reports having recurrent skin flares. She reports having 4 flares in the past 6 months. Shewas seen by dermatology and has had repeat skin biopsy in 11/2018. Per discussion with Dr. Mckeon- biopsy is consistent with lupus tumidus. She has been prescribed topical clobetasol cream, but has not picked this up due to high co-pay(cost $300). She continues on hydroxychloroquine 200 mg orally norma ly, with poor control of symptoms. Per discussion with Dr. Mckeon- recommends methotrexate 15 mg weekly and daily folic acid as the next step in the treatment of her skin lesions. We will obtain baseline infectious labs today, if negative will start MTX. Hydroxychloroquine dosing was decreased at last visit, per previous dermatology evaluation from last year which showed chronic urticaria as a possible cause of her skin symptoms. She has since then had a repeat biopsy confirming lupus tumidus, as detailed above, we will increase her hydroxychloroquine dosing back to 200 mg twice daily. Previous auto immune labs including JENNA, WILLY, myositis panel, CK, Lyme, TSH have been negative/normal, she had normal inflammatory markers and complements. Recent PFTs and TTE with no abnormality. Nosigns of systemic Lupus. She has had diffuse pain, sleep problems, fatigue and on examination has multiple fibromyalgia tender points positive on examination, this is likely secondary to Fibromyalgia. We discussed in detail about Fibromyalgia, and recommendations as detailed below. We will send note to primary care doctor,for management. Plan: # Lupus Tumidus - Check CBC, CMP, ESR, CRP, Hep B and Hep C serology, HIV, Quant TB - Increase Hydroxychloroquine back to 200 mg PO BID - Start MTX 15 mg PO weekly pending above labs, start folic acid 1 mg PO daily - Patient has not been able to afford topical Steroid cream due to high Co-pay, Will request Dermatology to help patient if any other alternatives available. # Fibromyalgia- Defer management to PCP - Consider referral to Sleep medicine locally for evaluation of CLIFTON - Recommend referral to PT for Fibromyalgia/ Weight loss - Consider trial of Cymbalta/ Lyrica for management of Fibromyalgia if appropriate given her co-morbidities - Migraine QUINTEROS not well controlled, she was advised to follow up with Neurology for QUINTEROS. - Counseled to quit smoking, patient is in the pre contemplative stage and not ready to quit yet - Patient was offered SMA meeting [place] [facility], She deferred this for now RTC in 3 months Patient discussed with Dr. Steele. Eva Álvarez MD Rheumatology PGY5 CC: Marian To APRN documented in this encounter Plan of Treatment Not on file documented as of this encounter Procedures Procedure Name Priority Date/Time Associated Diagnosis Comments QUANTIFERON-TB GOLD Routine 02/12/2019 1 0:17 AM EDT Lupus erythematosus tumidus HEMOGRAM Routine 02/12/2019 10:17 AM EDT Lupus erythematosus tumidus DIFFERENTIAL, AUTOMATED Routine 02/12/2019 10:17 AM EDT Lupus erythematosus tumidus HEPATITIS C ANTIBODY Routine 02/12/2019 10:17 AM EDT Lupus erythematosus tumidus HEPATITIS B CORE ANTIBODY, TOTAL Routine 02/12/2019 10:17 AM EDT Lupus erythematosus tumidus HIV SCREEN, 4TH GENERATION ([facility]CGP/APD/[facility]) Routine 02/12/2019 10:17 AM EDT Lupus erythematosus tumidus HEPATITIS B SURFACE ANTIBODY Routine 02/12/2019 10:17 AM EDT Lupus erythematosus tumidus HEPATITIS B SURFACE ANTIGEN Routine 02/12/2019 10:17 AM EDT Lupus erythematosus tumidus CBC (WITH DIFF) Routine 02/12/2019 10:17 AM EDT Lupus erythematosus tumidus COMPREHENSIVE METABOLIC PANEL Routine 02/12/2019 10:17 AM EDT Lupus erythematosus tumidus documented in this encounter Results * Differential, Automated (02/12/2019 10:17 AM EDT) Neutrophil % 58.8 % [facility] Neutrophil Absolute 4.22 1.70 - 6.10 x10(3)/[facility] Lymph % 30.7 % [facility] Lymphocytes Abs 2.2 0.9 - 3.2 x10(3)/[facility] Monocyte % 7.1 % [facility] Monocyte Abs 0.5 0.3 - 0.9 x10(3)/[facility] Eos % 2.2 % [facility] Eosinophils Abs 0.2 0.0 - 0.4 x10(3)/[facility] Basophil % 0.6 % [facility] Baso Absolute 0.0 0.0 - 0.1 x10(3)/[facility] Immature Gran % 0.60 % [facility] Comment: Immature granulocytes(IG's)percentage and absolute count will include metamyelocytes, myelocytes, and promyelocytes. Blood smears from CBCs yielding IG's will be scanned manually for concordance. If this scan disagrees with the automated IG or if promyelocytes are noted, a manual differential will be performed. Immature Gran Absolute 0.04 0.00 - 0.04 x10(3)/[facility] Blood specimen (specimen) 02/12/2019 10:17 AM EDT 02/12/2019 10:53 AM EDT Narrative Resulting Agency Comment Spec In Lab Eva Álvarez MD HEMATOLOGY ELIZABETH TIWARI [facility] [place] [address] * Hemogram (02/12/2019 10:17 AM EDT) White Blood Cell 7.2 4.0 - 9.5 x10(3)/[facility] Red Blood Cell 4.91 4.00 - 5.21 x10(6)/[facility] Hemoglobin 14.1 11.7 - 15.5 gm/dL [facility] Hematocrit 43.7 35.7 - 45.8 % [facility] Mean Cell Volume 89.0 82.6 - 94.4 fL [facility] Mean Cell Hemoglobin 28.7 27.1 - 32.0 pg [facility] Mean Cell Hemoglobin Concentration 32.3 31.7 - 35.0 gm/dL [facility] Platelet 246 145 - 357 x10(3)/[facility] RDW Standard Deviation 42.1 37.0 - 46.0 [facility] RDW coefficient of variation 12.9 11.5 - 14.1 % [facility] Mean Platelet Volume 9.8 7.6 - 12.9 fL [facility] NRBC% auto 0.0 % [facility] NRBC Absolute 0.000 0.000 - 0.000 x10(3)/mcL [facility] Blood specimen (specimen) 02/12/2019 10:17 AM EDT 02/12/2019 10:53 AM EDT Narrative Resulting Agency Comment Spec In Lab Eva Álvarez MD HEMATOLOGY ELIZABETH TIAWRI [facility] [place] [address] * QuantiFERON-TB Gold (02/12/2019 10:17 AM EDT) Quantiferon Nil 0.030 IU/mL [facility] QFT TB Ag1-Nil 0.080 IU/mL [facility] QFT TB Ag2-Nil 0.070 IU/mL [facility] Quantiferon Mitogen-Nil >10.000 IU/mL [facility] Quantiferon-TB Gold Negative Negative [facility] Quantiferon Tb Interp M. tuberculosis infection NOT likely A negative specimen should have a TB1 Ag minus Nil value and TB2 Ag minus Nil value of less than 0.35 IU/mL OR a TB1 Ag minus Nil or TB2 Ag minus Nil value greater than or equal to 0.35 IU/mL AND a TB Ag minus Nil value from the same tube of less than 25% of the Nil value. A negative specimen must also have a mitogen minus Nil value greater than or equal to 0.5 IU/mL. A negative QFT-Plus result does not preclude the possibility of M. tuberculosis infection. False negative results can occur due to stage of infection (specimen obtained prior to the development of immune response), co-morbid conditions which affect immune function, or other immunological factors. [facility] Comment: The performance of the QFT-Plus assay has not been extensively evaluated with specimens from the following individuals: Individuals who have impaired or altered immune functions, such as those who have HIV infection or AIDS, those who have transplantation managed with immunosuppressive treatment or others who receive immunosuppressive drugs (e.g., corticosteroids, methotrexate, azathioprine, cancer chemotherapy), those who have other clinical conditions, such as diabetes, silicosis, chronic renal failure, and hematological disorders (e.g., leukemia and lymphomas), or those with other specific malignancies (e.g., carcinoma of the head or neck and lung). Individuals younger than age 17 years women. Diagnosis of, or the exclusion of tuberculosis disease, and assessment of Latent Tuberculosis Infection (LTBI) requires a combination of epidemiological, historical, Medical and diagnostic findings that should be taken into account when interpreting QFT-Plus results. Blood specimen (specimen) 02/12/2019 10:17 AM EDT 02/13/2019 8:00 AM EDT Narrative Resulting Agency Comment Spec In Lab Nohelia Steele DO CHEMISTRY ORDERABL ES Performing Organization Address [facility]/ZIP Co de Phone Number [facility] [place] [address] * Hepatitis C Antibody (02/12/2019 10:17 AM EDT) Hepatitis C Antibody Negative Negative [facility] Blood specimen (specimen) 02/12/2019 10:17 AM EDT 02/12/2019 10:52 AM EDT Narrative Resulting Agency Comment Spec In Lab Nohelia Rylee Steele DO CHEMISTRY ORDERABL ES Performing Organization Address [facility] Co de Phone Number [facility] [place] [address] * HIV Screen, 4th Generation (Leb/CGP/APD) (02/12/2019 10:17 AM EDT) HIV Ab/Ag Screen Negative Negative [facility] Comment: This 4th Generation HIV [...] DO CHEMISTRY ORDERABL ES Performing Organization Address [facility] Co de Phone Number [facility] [place] [address] * Hepatitis B Surface Antigen (02/12/2019 10:17 AM EDT) Hepatitis B Surface Antigen Negative Negative [facility] Blood specimen (specimen) 02/12/2019 10:17 AM EDT 02/12/2019 10:52 AM EDT Narrative Resulting Agency Comment Spec In Lab Nohelia Steele DO CHEMISTRY ORDERABL ES Performing Organization Address [facility] Co de Phone Number [facility] [place] [address] * Hepatitis B Core Antibody, Total (02/12/2019 10:17 AM EDT) Hepatitis B Core Antibody Negative Negative [facility] Blood specimen (specimen) 02/12/2019 10:17 AM EDT 02/12/2019 10:52 AM EDT Narrative Resulting Agency Comment Spec In Lab Nohelia Steele DO CHEMISTRY ORDERABL ES Performing Organization Address [facility] Co de Phone Number [facility] [place] [address] * Hepatitis B Surface Antibody (02/12/2019 10:17 AM EDT) Hepatitis B Surface Antibody, Quantitative 375.0 IU/L [facility] Comment: HepB Surface Ab Quant: Unvaccinated: < 8.5 IU/L Vaccinated: > 11.5 IU/L Hepatitis B Surface Antibody Positive [facility] Comment: Patient is considered to be immune to HBV infection. Expected Results: Vaccinated: Positive Unvaccinated: Negative Blood specimen (specimen) 02/12/2019 10:17 AM EDT 02/12/2019 10:52 AM EDT Narrative Resulting Agency Comment Spec In Lab Nohelia Rylee Steele DO CHEMISTRY ORDERABL ES [facility] [place] [address] * Comprehensive metabolic panel (non-fasting) (02/12/2019 10:17 AM EDT) Glucose 102 65 - 199 mg/dL [facility] Comment:Diabetes: >=200 mg/d L plus symptoms Blood Urea Nitrogen 15 8 - 18 mg/dL [facility] Creatinine 0.74 0.70 - 1.20 mg/dL [facility] Sodium 140 135 - 145 mmol/L [facility] Potassium 4.8 3.5 - 5.0 mmol/L [facility] Comment: Please note: ??Patients with WBC >100,000 may have falsely elevated Potassium levels. ??For accurate Potassium quantification in these patients send serum separator tube (gold top) for subsequent determinations. ??Contact the Clinical Chemistry Laboratory if there are any questions. Chloride 107 98 - 107 mmol/L [facility] Carbon Dioxide 23 22 - 31 mmol/L [facility] Anion Gap 10 5 - 15 mmol/L [facility] Calcium 8.8 8.5 - 10.5 mg/dL [facility] Protein, Total 6.9 6.1 - 8.0 gm/dL [facility] Albumin 4.0 3.2 - 5.2 gm/dL [facility] Aspartate Aminotransferase 10 0 - 30 unit/L [facility] Alanine Aminotransferase 18 0 - 30 unit/L [facility] Alkaline Phosphatase 75 35 - 105 unit/L [facility] Bilirubin, Total 0.2 0.2 - 1.3 mg/dL [facility] Est Glomerular Filtration Rate 103 >=60 mL/min/1. 73 m?? [facility] Comment: The eGFR was calculated using the CKD-EPI equation. As with all creatinine based estimates of kidney function, eGFR values calculated with the CKD-EPI equation are not accurate in patients with acute kidney failure, extremes of body mass or the acutely ill. [email or web address] eGFR 120 >=60 mL/min/1. 73 m?? [facility] Comment: The eGFR was calculated using the CKD-EPI equation. As with all creatinine based estimates of kidney function, eGFR values calculated with the CKD-EPI equation are not accurate in patients with acute kidney failure, extremes of body mass or the acutely ill. [email or web address] Blood specimen (specimen) 02/12/2019 10:17 AM EDT 02/12/2019 10:52 AM EDT Narrative Resulting Agency Comment Spec In Lab Nohelia Steele DO CHEMISTRY ORDERABL ES [facility] [place] [id number] documented in this encounter Visit Diagnoses Diagnosis Lupus erythematosus tumidus Lupus erythematosus documented in this encounter Care Teams Thermal Engineer Relationship Specialty Start Date End Date Marian To, ANAHI [address] [facility] [place] [address] PCP - General Family Medicine 10/15/17 01/09/24 documented as of this encounter
--- OUTSIDE RECORDS SUMMARY | 2024-06-09 11:25 | XMS_ITS | Encounter Summary ---
Author Organization [facility] Address [facility] [place] [address] Care Team Providers Care Bonding Agent Name Role Phone Marian To APRN Primary Care Provider [phone] Reason for Visit * Reason Comments Rash Encounter Details Date Type Department Care Team (Late st Contact Info) Description 11/20/2018 11:00 AM EDT Office Visit Dermatology at [facility] [address] [place] [address] Dickson Mckeon MD [facility] [place] [address] Marifer Stapleton PA [facility] [place] [address] Rash; Neoplasm of uncertain behavior of skin Social History Tobacco Use Types Packs/Day Years [...] this encounter Patient Instructions * Patient Instructions* Olivia Elizalde - 11/20/2018 11:00 AM EDT ABOUT YOUR TREATMENTS Your Treatment today: You had a biopsy of your skin (removal of a small piece of tissue for examination under microscope). You had a punch biopsy and suture removal should be completed as discussed with nurse. Wound care Instructions: 1. Keep wound dry and covered for 24 hours then clean area with soap and water. 2. Pat dry completely 3. Cover with Vaseline and a new bandage daily, do this everyday until the wound is healed Please call [phone] if you have questions or concerns * Please allow one or two weeks for the biopsy results to return. *Based on your biopsy results we will either call you or send you a letter with the results. *If in two weeks, you have not heard from us, please feel free to call and request your biopsy results. SUTURE REMOVAL: 10-14 DAYS documented in this encounter Progress Notes * Marifer Stapleton PA - 11/20/2018 11:00 AM EDT Images from the original note were not included. DERMATOLOGY - ESTABLISHED PATIENT FOLLOW-UP Date of service: 11/20/2018 Mami WONG : 1980, 38 y.o. CC: Chief Complaint Patient presents with ??? Rash HPI: Mami WONG is a 38 y.o. female last seen by Dr. Mckinley on 02/20/2018. Patient is new to me, Ms. WONG returns today for a lupus flare on the arms and right thigh, which she has been treating with Plaquenil for the last four years. The rash first appeared a few weeks ago and has persisted during that time on her bilateral arms and right thigh. She is itchy and describes the rash as painful. She denies any involvement of the groin or wrists. 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 Past treatments include potent topical steroids. She has never had any lesions injected. She has been seen in rheumatology, allergy anddermatology with a working diagnosis of chronic urticaria. Relevant Skin History: - Okay to leave detailed voice message with results? 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 buPROPion (WELLBUTRIN XL) 300 mg Tablet Extended Release 24 hr take 1 tablet by mouth once daily 0 ??? PROAIR HFA 90 mcg/actuation HFA Aerosol Inhaler inhale 1 puff by mouth as directed if needed 0 ??? meloxicam (MOBIC) 15 mg Tablet Take 1 tablet by mouth daily. 30 tablet 3 ??? cyclobenzaprine (FLEXERIL) 5 mg Tablet [...] No current facility-administered medications for this visit. Allergies: Allergies Allergen Reactions ??? Penicillins Hives and Shortness Of Breath ??? Clindamycin ??? Percocet [Oxycodone-Acetaminophen] Nausea And Vomiting ??? 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 senior care use causes patient to be anxious Review of Systems: - General: Feels well. - Skin: No other skin concerns. Examination: - Constitutional: Patient was alert, well-appearing and in no noticeable distress. - Skin: A focused examination of the arms and legs was performed. Diagnosis/Skin findings/Assessment/Plan: 1. Tumid lupus vs urticaria vs dermal hypersensitivity reaction vs bite reaction (patient with previously diagnosed tumid lupus) - Right anterior thigh and right upper arm: Edematous pink papules. - Joint decision to proceed with punch biopsy today. Procedure: Skin biopsy by punch technique. Location: Right upper arm Discussed indications for the procedure and expectations including risks and benefits. Verbal consent obtained. Skin prep with alcohol. Local anesthesia: 1% lidocaine with 1/100,000 epinephrine. A 4mm punch biopsy to the level of the subcutis was performed. Wound closed with monofilament suture. There were no complications; the patient tolerated the procedure well. The wound was dressed. Post-procedure expectations (including discomfort management), wound care and activity restrictions were reviewed. Follow-up based on pathology results. Suture removal: 10-14 days Photo taken (by Elmira Stapleton) and documented with patient consent. LOS [id number] RTC: 10-14 days for suture removal and follow up. Scheduled upon exiting. Note initiated by Evelyn Grubbs CMA. I, Evelyn Grubbs CMA, have performed the documentation for this encounter in the presence of and acting as a scribe for Marifer Stapleton PA-C (Bri). I performed the services which were documented by the scribe, and I agree with the accuracy of the documentation in this encounter. Marifer Stapleton PA-C Reviewed and signed by Marifer Stapleton PA-C [facility] Patient seen in conjunction with staff gaming dealer: Dickson Mckeon MD Section of Dermatology [facility] * Dickosn Mckeon MD - 11/20/2018 11:00 AM EDT [place], edematous papules on the Right posterior upper arm, a few of which are centrally heme crusted. 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 documented in this encounter Plan of Treatment Scheduled Orders Name Type Priority Associated Diagnoses Orde r Schedule Pathology Order Update Pathology/Cytol ogy Routine Neoplasm of uncertain behavior of skin Ordered: 11/20/2018 documented as of this encounter Procedures Procedure Name Priority Date/Time Associated Diagnosis Comments SURGICAL PATHOLOGY REPORT Routine 11/20/2018 11:59 AM EDT SPECIMEN TO PATHOLOGY Routine 11/20/2018 11:59 AM EDT Neoplasm of uncertain behavior of skin documented in this encounter Results * Surgical Pathology Report (11/20/2018 11:59 AM EDT) Final Diagnosis [id number] ? Location: [facility] The signing pathologist has (i) examined the relevant preparation(s) for the specimen(s) and (ii) rendered or confirmed the diagnosis(es). . ?Surgical Pathology DIAGNOSIS A. Skin, right upper arm, punch biopsy: - Superficial and deep perivascular and periadnexal dermatitis ? (see discussion) Electronically signed by: ??Mamie Casiano MD Verified: ??11/25/2018 ?Dermatopathologis t Performed at: ??-[facility], [place], [place] DISCUSSION Sections show a relatively unremarkable epidermis. Within the dermis, there is a dense superficial and deep perivascular and periadnexal lymphocytic inflammation. Eosinophils are not prominent. Colloidal iron stain shows subtle increase in dermal and interstitial mucin. Focally the basement membrane is mildly thickened, as highlighted by PAS stain. Overall, the histologic findings are suggestive of connective tissue disease (clinically considered tumid lupus). The density and distribution of the perivascular lymphocytic inflammation is beyond what would be expected for urticaria and the predominant absence of neutrophils and eosinophils would not support an urticarial-type reaction pattern. While a robust hypersensitivity reaction such as in the setting of an arthropod bite could share some of these histologic findings, the absence of tissue eosinophils is not typical. ? Clinical correlation is recommended. ADDITIONAL STUDIES Multiple step-leveled sections were reviewed. CLINICAL INFORMATION Specimen Submitted: A - Skin, right upper arm, punch (1) Clinical History and Diagnosis: Edematous pink papules. Tumid lupus versus urticaria versus dermal hypersensitivity reaction versus bite reaction (patient with previously diagnosed tumid lupus) SPECIMEN PROCESSING A - Labeled/Fixative: Right upper arm, formalin. Quantity/Size: ??Single, 0.5 x 0.5 x 0.2 cm. Tissue Description: Punch of corado-white skin. Sections/Processing : Inked, bisected and entirely submitted in 1 cassette labeled A1. ??apb 11/25/2018 12:33 PM EDT [facility] SPECIMEN FROM SKIN / Unknown 11/20/2018 11:59 AM EDT 11/20/2018 11:59 AM EDT Marifer CHE PATHOLOGY/CYTOLOGY ORDERABLES Performing Organization Address City/[facility]/[place] [address] * Specimen to Pathology (11/20/2018 11:59 AM EDT) AP Specimen 11/20/2018 11:5 9 AM EDT 11/20/2018 6:33 PM EDT Narrative [facility] - 11/20/2018 6:33 PM EDT Specimen requisition ordered. ??Separate Pathology report to follow Resulting Agency Comment Spec In Lab Dickson Mckeon MD PATHOLOGY/CYTOLOGY ORDERABLES Performing Organization Address City/[facility]/[place] [address] documented in this encounter Visit Diagnoses Diagnosis Rash Rash and other nonspecific skin eruption Neoplasm of uncertain behavior of skin documented in this encounter Care Teams Bonding Agent Relationship Specialty Start Date End Date Marian To, GUNSMITH APPRENTICE [address] [place] [address] PCP - General Family Medicine 10/15/17 01/09/24 documented as of this encounter
--- OUTSIDE RECORDS SUMMARY | 2024-06-09 11:25 | XMS_ITS | Encounter Summary ---
Author Organization [facility] [place] [address] Care Team Providers Care Belting Inspector Name Role Phone Marian To APRN Primary Care Provider [phone] Reason for Referral * Diagnostic Test (Routine) - Closed Specialty Diagnoses / Procedures Referred By Cuauhtemoc pete Referred To Contact Radiology Diagnoses Diplopia Procedures MRI Brain wo Contrast Melanie Ghotra MD [facility] [place] [address] [place] [address] Referral ID Status Reason Start Date Expiration Date V isits Requested Visits Authorized [id number] Closed Specialty Service Requested 11/23/2017 02/21/2018 1 1 Reason for Visit * Diagnostic Test (Routine) - Closed Specialty Diagnoses / Procedures Referred By Contac t Referred To Contact Radiology Diagnoses Diplopia Procedures MRI Brain wo Contrast Melanie Ghotra MD [facility] [address] [place] [address] Referral ID Status Reason Start Date Expiration Date V isits Requested Visits Authorized [id number] Closed Specialty Service Requested 11/23/2017 02/21/2018 1 1 Encounter Details Date Type Department Care Team (Late st Contact Info) Description 11/25/2017 12:10 PM EDT - 11/25/2017 11:59 PM EDT Hospital Encounter MRI at [facility] [place] [address] Nohelia Steele, [facility] [address] Diplopia Discharge Disposition: Home Social History Tobacco Use [...] ( 19 ORAL) Take by mouth daily. ranitidine (ZANTAC) 300 mg Tablet take 1 [...] 11/23/2017 12/31/2017 documented as of this encounter Plan of Treatment Not on file documented as of this encounter Procedures Procedure Name Priority Date/Time Associated Diagnosis Comments MRI BRAIN WO CONTRAST Routine 11/25/2017 12:54 PM EDT Diplopia documented in this encounter Results * MRI Brain wo [...] Otherwise negativeexam 1:27 PM Nohelia Steele DO [facility] ORDERABLES documented in this encounter Visit Diagnoses Diagnosis Diplopia documented in this encounter Care Teams Belting Inspector Relationship Specialty Start Date End Date ZuleikaMarian, MIX MILL TENDER [address] [place] [address] PCP - General Family Medicine 10/15/17 01/09/24 documented as of this encounter
--- OUTSIDE RECORDS SUMMARY | 2024-06-09 11:25 | XMS_ITS | Encounter Summary ---
Author Organization [facility] Address [facility] [place] [address] Care Team Providers Care Sap Functional Analyst Name Role Phone Marian To APRN Primary Care Provider [phone] Reason for Visit * Reason Comments Rash * Consultation (Routine) - Closed Specialty Diagnoses / Procedures Referred By Cuauhtemoc t Referred To Contact Dermatology Diagnoses Skin rash Melanie Ghotra MD [facility] [address] [facility] [address] [place] [address] Referral ID Status Reason Start Date Expiration Date V isits Requested Visits Authorized [id number] Closed Consult, Test & Treat 11/23/2017 11/23/2018 1 1 Encounter Details Date Type Department Care Team (Late st Contact Info) Description 12/31/2017 3:00 PM EDT Office Visit Dermatology at [facility] [address] [place] [address] Karolyn Lezama MD [facility] [address] [place] [address] Dermographic urticaria Social History Tobacco Use Types Packs/Day [...] this encounter Patient Instructions * Patient Instructions* Marta Griffiths V - 12/31/2017 3:00 PM EDT - Over the counter Xyzal (Levocetirizine) Take 1 tablet twice daily - Rx: Ranitidine Take 150mg twice daily - Rx: Hydroxyzine Take 20mg nightly - will make you drowsy documented in this encounter Progress Notes * Karolyn Lezama - 12/31/2017 3:00 PM EDT Images from the original note were not included. DERMATOLOGY - NEW PATIENT NOTE Date of service: 12/31/2017 Mami WONG : 1980, 37 y.o. Chief Complaint: Chief Complaint Patient presents with ??? Rash HPI: Mami WONG is a 37 y.o. female with hx of tumid lupus (dx'd by bx in [place] 2014 per patient) on HCQ, depression, and PCOS referred by Melanie Ghotra with the following concerns: - She is here for a very itchy, transient rash that occurs every day a few times per day for the past 5-6 months. It is so itchy that it keeps her up at night. She was admitted in in October 2017 at [facility] for suspected anaphylaxis with hypotension and elevated IgE. She was put on severalsteroid courses and antihistamines. Specifically, she was taking Claritin and ranitidine. She notesthat the oral steroids did not help her rash. While she was on the antihistamines, she felt that there were fewer flares, although it was not gone. - She last took methylpred 2 days ago. - Rash flares multiple times daily, takes 30-45 mins to resolve. Rash leaves scars. Not sure if anything makes it better or worse, potentially the sun triggers. No blisters, including in the mouth/vaginal area. Endorses muscle weakness, fatigue. No joint swelling or redness. Denies blood in urine/stool, numbness. - She is also followed for her muscle weakness/fatigue by rheumatology who has found JENNA, WILLY, myositis panel, CK, Lyme, TSH have been negative/normal. - Going for allergy testing at [facility] 01/14/18 with the manager client support there. - Denies hx of Raynauds. No hx of blood clots. Brother has an unknown clotting disorder (she is notsure what). No hx of miscarriage. Medication hx: Flexeril - started 12/21/17 Plaquenil - restarted 11/15/17 (originally started 2014 and stopped during her admit at [facility]) Ranitidine - stopped a month ago Loratadine - stopped a month ago Lexapro - started about 3 months ago Metformin - started about 7 years ago Relevant Skin History: Lupus Tumidus - dx'd by dermatology in [place] with plaquenil Medical History: Depression - started on lexapro Obesity PCOS - Tx metformin ?? Family Hx: Maternal Aunt - SLE Mother's aunt and cousin - SLE ?? Social Hx: - 2 children, ages 2 and 3 - Smokes 1/2 pack per day, for about 20 years - Here today with her partner Meds: Current Outpatient Prescriptions Medication Sig Dispense Refill ??? cyclobenzaprine (FLEXERIL) 5 mg Tablet Take 1 tablet by mouth nightly. 30 tablet 0 ??? methylPREDNISolone (MEDROL) 8 mg Tablet Take 3 tablets by mouth daily. (Patient not taking: Reported on 12/31/2017) 90 tablet 0 ??? metFORMIN (GLUCOPHAGE) 850 mg Tablet take 1 tablet by mouth twice a day 0 ??? ranitidine (ZANTAC) 300 mg Tablet take 1 tablet by mouth every 12 hours 0 ??? loratadine (CLARITIN) 10 mg Tablet [...] daily. Take in the morning with food (Patient not taking: Reported on 12/31/2017) 60 tablet 0 ??? VIT/IRON FUMARATE/FA ( 19 ORAL) Take by mouth daily. No current facility-administered medications for this visit. Allergies: Allergies Allergen Reactions ??? Penicillins Hives and Shortness Of Breath ??? Percocet [Oxycodone-Acetaminophen] Nausea And Vomiting ??? 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 exterminator use causes patient to be anxious Review of Systems: - General: Feels well. - Skin: No other skin concerns. Examination: - Constitutional: Patient was alert, well-appearing and in no noticeable distress. - Skin: Skin examination of the face, neck, back, chest, axillae, abdomen, right and left upper extremities, right and left lower extremities, hands was normal with the exception of the findings listed below. Genitalia not examined. Diagnosis/Skin findings/Assessment/Plan: 1. Chronic urticaria with dermatographic component - Medial inner arms, medial upper thighs, upper abdomen, submental and neck: faint pink edematous geometric plaques, some with koebnerization and peripheral pale halo. Few purpuric macules of left upper inner arms. Patient is dermatographic. - Reviewed dx. Urticaria can be related to many causes: medications, food allergies, previous infections, cold, heat, pressure, etc...Reviewed that often the etiology is never found. Workup by rheumatology has been negative. - Patient has allergy appt in January which I think will be helpful. May elucidate cause. - Discussed treatment options. Joint decision to start an antihistamine regimen. Reviewed she should continue to take the antihistamines daily as prevention, even if her skin completely clears. - Follow up s/p allergy testing Regimen: - Over the counter Xyzal (Levocetirizine) BID - Rx: Ranitidine 150mg BID - Benadryl 25-50mg nightly (avoiding hydroxyzine for now given interaction with patient's Lexapro and potential for QTc prolongation) RTC: February 2018 for follow up, routed for scheduling. The following photos were obtained with patient consent: Note initiated by KINJAL CID LPN. Clinical scribe: Marta Griffiths- I am documenting this encounter acting as the scribe for and in the presence of KAROLYN LEZAMA MD I performed the above scribed service and agree with the accuracy of the documentation in this encounter. Reviewed and signed by KAROLYN LEZAMA MD Resident in Dermatology [facility] Patient seen in conjunction with staff roper operator: Favian Mckinley MD Section of Dermatology [facility] * Favian Mckinley III, MD - 12/31/2017 3:00 PM EDT I directly supervised Dr. Karolyn Lezama during this office visit. Dr. Lezama presented the historyand physical exam to me. I then saw and examined this patient with Dr. Lezama. We reviewed the history and pertinent details and I confirmed the physical findings. I agree with the details of the history and physical exam as documented in Dr. Lezama's note. FAVIAN MCKINLEY III, MD Staff Physician documented in this encounter Plan of Treatment Not on file documented as of this encounter Visit Diagnoses Diagnosis Dermographic urticaria Dermatographic urticaria documented in this encounter Care Teams Sap Functional Analyst Relationship Specialty Start Date End Date Marian To APRN [address] [place] [address] PCP - General Family Medicine 10/15/17 01/09/24 documented as of this encounter
--- OUTSIDE RECORDS SUMMARY | 2024-06-09 11:25 | XMS_ITS | Encounter Summary ---
Author Organization [facility] Address [facility] [place] [address] Care Team Providers Care Polymerization Oven Operator Name Role Phone Marian To SENIOR ANALYTICAL CHEMIST Primary Care Provider [phone] Encounter Details Date Type Department Care Team (Late st Contact Info) Description 11/26/2018 Orders Only Dermatology at [facility] [address] [place] [address] Marifer Stapleton PA [facility] [address] [place] [address] Social History Tobacco Use Types Packs/Day Years [...] on filedocumented in this encounter Care Teams Polymerization Oven Operator Relationship Specialty Start Date End Date Marian To APRN [address] [place] [address] PCP - General Family Medicine 10/15/17 01/09/24 documented as of this encounter
--- OUTSIDE RECORDS SUMMARY | 2024-06-09 11:25 | XMS_ITS | Encounter Summary ---
Author Organization [facility] [place] [address] Care Team Providers Care Pneumatic Tube Operator Name Role Phone Marian To APRN Primary Care Provider [phone] Reason for Referral * Physical Therapy (Routine) - Specialty Diagnoses / Procedures Referred By Cuauhtemoc t Referred To Contact Diagnoses Occipital neuralgia of left side Jett Contreras MD [facility] [place] [place] [address] Referral ID Status Reason Start Date Expiration Date V isits Requested Visits Authorized [id number] Evaluate and Treat 12/21/2017 06/19/2018 12 12 Reason for Visit * Consultation (Routine) - Closed Specialty Diagnoses / Procedures Referred By Contac t Referred To Contact Neurology Diagnoses Chronic nonintractable headache, unspecified headache type Melanie Ghotra MD [facility] [place] [address] [facility] [address] [place] [phone] Referral ID Status Reason Start Date Expiration Date V isits Requested Visits Authorized [id number] Closed Consult, Test & Treat 12/12/2017 12/12/2018 1 1 Encounter Details Date Type Department Care Team (Late st Contact Info) Description 12/21/2017 7:30 AM EDT [place] [address] Jett Contreras MD [facility] [address] [facility] Occipital neuralgia of left side; Fibromyalgia; White matter lesion of central nervous system Social History Tobacco Use Types Packs/Day Years [...] as of this encounter Progress Notes * Jett Contreras MD - 12/21/2017 7:30 AM EDT Images from the original note were not included. NEUROLOGY CLINIC [facility] [place] [address] 12/21/2017 Patient name: Mami WONG Date of : 1980 Referring provider: Melanie Ghotra MD [facility] [place] [address] REASON FOR REFERRAL/CHIEF COMPLAINT: Headache HISTORY OF PRESENTING COMPLAINTS: She says she has really bad headaches which makes her eye hurt on the left side. Its been going on for a while, few months. She is having headaches every day. It usually stays for couple of hours andthen less intense. Then eventually it stops. No nausea or vomiting. She has sensitivity to light sometimes. She takes ibuprofen which doesn't work. She had some double vision in the past. She would see double chito coming against her even though there is only a single chito. She had ophthalmologic evaluation done which was unremarkable. She used to have headaches when younger. She has lupus and fibromyalgia and is being followed by rheumatology. She has been on steroids for the past 2 months. She keeps getting rashes over her body. She says her BP dropped low during those episodes. She had MRI done for evaluation which showed a white matter lesion. She was referred here followingit. PMHx: Past Medical History: Diagnosis Date ??? Asthma as child ??? Carpal tunnel syndrome ??? PCOS (polycystic ovarian syndrome) SLE + Past Surgical History: Procedure Laterality Date ??? DILATION AND CURETTAGE OF UTERUS ??? PRO CYSTOSCOPY, INSERT URETERAL STENT 05/16/2014 CYSTO, STENT PLACEMENT performed by Yakov Kohler Jr., MD at [facility] ??? TEAR DUCT SURGERY Family History: No family history on file. Father had parkinsons disease. Social History: reports that she has been smoking Cigarettes. She has a 10.00 pack-year smoking history. She has never used smokeless tobacco. She reports that she does not drink alcohol or use illicit drugs. No flowsheet data found. She has not been working for over a month now. Smokes 0.5 PPD. Review of systems: Constitutional: No fever/chills, sweating Eyes: No vision problems ENT: No nose bleed Cardiovascular: No chest pain or palpitations Respiratory: + cough No shortness of breath Gastrointestinal: No nausea, vomiting, diarrhea or constipation Genitourinary: No dysuria, no incontinence Hematologic: No bleeding or bruising Endocrine: No heat or cold intolerance Musculoskeletal: +Joint pains Integumentary: +skin rashes. Neurologic: See HPI Psychiatric: No depression, poor sleep Allergy/ Immunology: Allergy as documented. [x] Review of systems otherwise negative Medications: Current Outpatient Prescriptions on File Prior [...] And Vomiting ??? 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 intermediate use causes patient to be anxious PHYSICAL EXAMINATION Vitals: There were no vitals taken for this visit. General Examination: Appearance: alert, no distress. High BMI, steroid facies. Buffallo hump ENT, Throat: oral mucosa moist, no thrush, no carotid bruits, no thyromegaly, no lymphadenopathy Cardiovascular: Rate regular, S1S2 normal, no murmur Respiratory: Symmetric expansion, lungs clear to auscultation Gastrointestinal: Abdomen soft, nontender Extremity: no edema Skin: No rashes noted Neurological Examination o Higher functions: - Speech: fluent, no aphasia/dysarthria or dysphonia - Alert and oriented. o Cranial Nerves - II-XII: Pupils bilaterally equal and symmetric conjugate gaze, reacting to light. No ptosis/nystagmus. Vision normal. No field deficits. EOMI. No facial droop. No weakness of jaw/uvula/ palate o Reflexes - +2 Bilaterally biceps, knee and ankle. o Motor and Coordination - Normal tone, bulk strength and coordination of right and left sided muscles o Sensory - Normal sensations bilaterally. o Skull and Spine/ Gait - Multiple tender points bilaterally. - Occipital nerve tenderness on left side. - Normal gait - Tandem: Mild imbalance. LABS/IMAGING: Labs GENERAL THYROID: Lab Results Component Value Date TSH 0.57 11/23/2017 FolateNo results found for: SFOLATE ESR Lab Results Component Value Date SEDRATE 3 11/23/2017 CRP Lab Results Component Value Date CRP <0.2 11/23/2017 B12No results found for: [id number] CK Lab Results Component Value Date CK 135 11/23/2017 Angiotensin ConvertaseNo results found for: PAPITO INFECTIONS HIV Lab Results Component Value Date HIV12 negative (External Lab) 11/07/2013 HEPATITIS PANEL Lab Results Component Value Date HEPBSAG Negative (External Lab) 11/07/2013 AUTOIMMUNE PANEL JENNA Lab Results Component Value Date JENNA Neg 11/23/2017 DSDNA Lab Results Component Value Date DNAABDS Neg 11/23/2017 WILLY WILLY Ab Date Value Ref Range Status 11/23/2017 Final Test Result Flag Unit RefValue Ab to Extractable Nuclear Ag Eval,S SS-A/Ro Ab, IgG, S <0.2 U <1.0 (Negative) SS-B/La Ab, IgG, S <0.2 U <1.0 (Negative) Sm Ab, IgG, S <0.2 U <1.0 (Negative) EDGE DRUMMER Ab, IgG, S <0.2 U <1.0 (Negative) Scl 70 Ab, IgG, S <0.2 U <1.0 (Negative) Didi 1 Ab, IgG, S <0.2 U <1.0 (Negative) Test Performed by: [facility] [address] [address] C3,C4, COMPLEMENTS Lab Results Component Value Date C3 120 11/23/2017 C4 19 11/23/2017 CARDIOLIPIN, LUPUSNo components found for: CARDIOLIPINANTIBODY, LUPUS, ANTICOAGULANT CELIAC: TTG, GLIADIN, ENDOMYSIALNo components found for: TTRANSGLUTAMINASEANTIBODY ANTIGLIADINANTIBODY VASCULITIS: C,P,ANCA, MPONo results found for: PANCA, CANCA, MYELOP, PR3AB NMONo components found for: NEUROMYELITISOPTICAANTIBODY MG: ACHRAB, Anit MuSK, LEMSNo components found for: ACETYLCHOLINERECEPTORABBINDING, LEMSANTIBODY, ANTISKELETALMUSCLEANTIBODY CRYOGLOBULINSNo components found for: CRYOGLOBULINS METABOLIC CERULOPLASMINNo components found for: CERULOPLASMIN BETA 2 MICROGLOBULINNo results found for: B2MG No results found for: TPROTEINPEP, ALBELECT, ALPHA1, ALPHA2, GAMMAGLOB, APB1 CORTISOLNo results found for: CORTISOL LDH No results found for: LDH NUTRITIONAL VITAMIN DNo results found for: 25OHVITD PRE ALBUMINNo results found for: PREALBUMIN FERRITINNo results found for: IRON COPPERNo results found for: COPPER PERIPHERAL NEUROPATHY HEMOGLOBIN A1CNo results found for: HA1C LIPID PROFILENo results found for: CHLPL, HDL, CHOLHDL, TRIG, LDLCHOL, LDLDIRECT JESSE 65No results found for: QUO59YK ANTI GM1,ANTI SGPG, MAG@RESUFAST (MAGAUTOAB,SGPG,MAGWB,GM1AB)@ HEAVY METAL SCREENNo results found for: LEAD, ARSENIC METHYLMLONIC ACIDNo results found for: METHYLMAL IgA, IGG No results found for: IGA, IGG CSF PANEL Lab Results Component Value Date LYMEAB Neg 11/23/2017 PARANEOPLASTIC PANEL No results found for: PARANEOINTRP, ANNA1, ANNA2, ANNA3, AGNA1, PCA1, PCA2, PCATYPETR, AMPHIPHYSIN,VSIV5GHM, STRIATMSCLAB, CACHABPQTYPE, CACHABNTYPE, ACHRBINDAB, NEUROKCHAB, NMDARECEPTOR, GBL80WM THROMBOSIS HOMEOCYSTEINENo results found for: HOMOCYSTEINE THROMBOSIS PANELNo results found for: ACAIGM, X7NCJBOHOUR FACTOR V LEIDEN No components found for: FACTORVLEIDEN PROTEIN C,SNo components found for: PROTEINC, PROTEINS ANTITHROMBIN IIINo components found for: ANTITHROMBINIII Miscellaneous Send outsNo results found for: MISCSENDOUT, MISCMAYO MRI Brain: ASSESSMENT: 37 Y F with history of migraines, fibromyalgia, lupus etc referred for evaluation of left sided headache with retro-orbital pain and vision symptoms and white matter abnormality on MRI brain. On evaluation she has high BMI with fat pads around neck and back. She has fibromyalgia features with diffuse tender points. She also has left sided occipital neuralgia. MRI shows a single non specific WM lesion. IMPRESSION: 1. Fibromyalgia 2. Occipital Neuralgia left. 3. Non specific WM lesion brain PLAN/RECOMMENDATIONS: Her headache seems to be related to occipital neuralgia on the left side. This could be triggering migraines in her. Underlying fibromyalgia component is lowering the sensory threshold. She was given referral to neck physical therapy to help with her symptoms. Flexeril HS advised. Non medication measures advised to treat fibromyalgia White matter lesion of HYDROELECTRIC PLANT STRUCTURAL ENGINEER is a common finding in migraine sufferers. Her lesion doesn't appear pathologic in nature or contributing to any of her symptoms. No additional workup needed at this time Follow up as needed. Jett Contreras MD Department of Neurology [facility] documented in this encounter Plan of Treatment Scheduled Referrals Name Type Priority Associated Diagnoses Orde r Schedule Referral to Physical Therapy Outpatient Referral Routine Occipital neuralgia of left side Ordered: 12/21/2017 documented as of this encounter Visit Diagnoses Diagnosis Occipital neuralgia of left side Fibromyalgia Mylagia and myositis, unspecified White matter lesion of central nervous system documented in this encounter Care Teams Pneumatic Tube Operator Relationship Specialty Start Date End Date Marian To, DRUGLESS PHYSICIAN [address] [place] [address] PCP - General Family Medicine 10/15/17 01/09/24 documented as of this encounter
--- OUTSIDE RECORDS SUMMARY | 2024-06-09 11:25 | XMS_ITS | Encounter Summary ---
[place] [address] Care Team Providers Care Entry Level Manufacturing Engineer Name Role Phone Marian To APRN Primary Care Provider [phone] Reason for Visit * Reason Onset Date Comments Medication Refill 06/04/2019 Encounter Details Date Type Department Care Team (Late st Contact Info) Description 06/04/2019 [place] [id number] Kristian Phillips, RN Social History Tobacco Use [...] on filedocumented in this encounter Care Teams Entry Level Manufacturing Engineer Relationship Specialty Start Date End Date Marian To APRN [address] [place] [address] PCP - General Family Medicine 10/15/17 01/09/24 documented as of this encounter
[2024-06-09 11:26] VITALS: BP 125/85; PULSE 97; RESP 15; TEMP 36.7; O2SAT 95
--- OUTSIDE RECORDS SUMMARY | 2024-06-09 11:26 | XMS_ITS | Encounter Summary ---
Author Organization [facility] [place] [address] Care Team Providers Care Air Conditioning Unit Assembler Name Role Phone None Primary Care Provider Unavailabl e Encounter Details Date Type Department Care Team (Late st Contact Info) Description 05/14/2014 11:59 PM EDT [place] [address] Georgette Holt MD [facility] [place] [address] Anesthesia Record Procedure Summary Procedure Name Responsible Anesthesiologist Anesthesia Start Time Anesthesia Stop Time L&D anesthesia and analgesia Events No events on file. Meds * Agents No agents on file. * Blood No blood administrations on file. Lines, Drains, and Airways No LDAs on file. documented in this encounter Social History Tobacco [...] OR Notes * Anesthesia Preprocedure Evaluation - Ca Valdez MD - 05/14/2014 2:03 PM EDT Images from the original note were not included. Pre-Anesthesia Evaluation for: Mami Cedillo a 33 y.o. female. Patient Active Problem List Diagnosis ??? Right nephrolithiasis ??? Morbid obesity ??? [...] file to calculate BMI. Airway Assessment: Mallampati: II TM distance: >3 FB Neck ROM: full Cardiovascular Assessment: Rhythm: regular Rate: normal Pulmonary Assessment: breath sounds clear to auscultation Dental Assessment: Misc Assessment: Patient is wearing No contact(s). IV access: Peripheral line Anesthesia Plan: ASA 2 33 y.o. year old female who is at 33w0d weeks gestation being admitted for RIGHT nephrolithiasis/urological consult. Medical history, medications, allergies, and social history reviewed. She hasa history of PCOS, tobacco use (1/2 ppd down from 1 pdd), asthma. otherwise uncomplicated. She does not have any other significant pmhx, no personal or family hx of bleeding disorders nor prior issues with regional or general anesthesia (has tolerated GA for T&A as a teenager, D&C, and tear duct surgery as an infant). Discussed spinal/epidural/general anesthesia for labor or section. Also discussed anesthesia for urological procedure (including possible stent placement). Ms. Cedillo's pain is presently moderately well controlled on a dilaudid HUMAN RESOURCES DESIGNATE and she is discussing surgical options with Dr. Kohler (Urology). All questions answered with respect to anesthesia and analgesia. Discussed risks including (but not limited to) bleeding, infection, PDPH, intrinsic failure rate, nerve injury, and exposure of her to anesthesia. Consent was obtained and placed inthe patient's paper chart. Labs Recent Results (from the past 24 hour(s)) Hemoglobin gm/dL 10.7 (*)Range: 11.2 - 15.7 gm/dL Platelets x10(3)/mcL 220 Range: 145 - 370 x10(3)/mcL -URINALYSIS WITH MICROSCOPIC Glucose UA mg/dL Negative Range: Negative mg/dL Protein UA mg/dL Negative Range: Negative mg/dL Bilirubin UA mg/dL Negative Range: Negative mg/dL Urobilinogen UA mg/dL Normal Range: Normal mg/dL pH UA 6.0 Range: 5.0 - 8.0 Blood UA mg/dL Small (*)Range: Negative mg/dL Ketones UA mg/dL >=80 (*)Range: Negative mg/dL Nitrite UA Negative Range: Negative Leukocytes UA mcL Small (*)Range: Negative mcL Appearance UA Hazy (*)Range: Clear Spec [place] UA 1.015 Range: 1.002 - 1.030 Color UA Yellow Range: Yellow RBC UA /HPF 4 Range: 0 - 4 /HPF WBC UA /HPF 7 (*) Range: 0 - 5 /HPF Bacteria UA /HPF Occasional (*)Range: None /HPF Squam Epith UA /HPF 3 Range: <=4 /HPF ABORh Type B Pos Ab Screen Interp Negative Specimen OD [id number] Allergies: -- Penicillins -- Hives and Shortness Of Breath -- Percocet (Oxycodone-Acetaminophen) -- Nausea And Vomiting -- Prednisone -- Nausea And Vomiting CA VALDEZ MD 05/14/2014 2:03 PM Informed Consent: Anesthetic plan and risks discussed with patient and mother. Use of blood products discussed with patient and mother whom. [facility] Assessment: documented in this encounter Plan of Treatment Not on file documented as of this encounter Visit Diagnoses Not on filedocumented in this encounter Care Teams Air Conditioning Unit Assembler Relationship Specialty Start Date End Date None None PCP - General 12/12/12 10/14/17 documented as of this encounter
--- OUTSIDE RECORDS SUMMARY | 2024-06-09 11:26 | XMS_ITS | Encounter Summary ---
Author Organization [facility] [address] [place] [address] Care Team Providers Care Hybrid Technologist Name Role Phone None Primary Care Provider Unavailabl e Reason for Visit * Reason Comments Establish Care Amenorrhea Polycystic Ovarian Syndrome Encounter Details Date Type Department Care Team (Late st Contact Info) Description 12/25/2012 1:00 PM EDT Office Visit Obstetrics [place] [phone] Janay Watts APRN [facility] [place] [address] Irregular menses (Primary Dx); PCOS (polycystic ovarian syndrome) Discharge Disposition: Home Social History Tobacco Use Types Packs/Day Years Used Date Smoking Tobacco: Every Day Cigarettes Smokeless Tobacco: Never Alcohol Use Standard Drinks/Week Comments No 0 (1 standard drink = 0.6 oz pur e alcohol) Sex and Gender Information Value Date Recorded Sex Assigned at Not on file Gender Identity Not on file Sexual Orientation Not on file documented as of this encounter Last Filed Vital Signs Vital Sign Reading Time Taken Comments Blood Pressure 128/76 12/25/2012 12:52 PM EDT Pulse - - Temperature - - Respiratory Rate - - Oxygen Saturation - - Inhaled Oxygen Concentration - - Weight 111.6 kg (246 lb 1.6 oz) 013 12:52 PM EDT Height 152.4 cm (5') 12/25/2012 12:52 PM EDT Body Mass Index 48.06 12/25/2012 12:52 PM EDT documented in this encounter Progress Notes * Janay Watts APRN - 12/25/2012 1:40 PM EDT Patient Active Problem List Diagnoses Code ??? Morbid obesity with BMI of 45.0-49.9, adult 278.01 ??? Menses, irregular 626.4 ??? PCOS (polycystic ovarian syndrome) 256.4 S: Mami is a 32 year old G0 who comes to clinic today for discussion surrounding her irregular cycles and desire to conceive. She would like to begin ovulation induction with the Reproductive Endocrinology here at [facility]. She is currently under the care of Benito Wall at [facility]. She has lifelong history of oligoanovulation and has been diagnosed with PCOS. She is currently taking Metformin 850mgBID. She is actively pursuing weight loss and has lost 40 lbs in last year. Mami has had regular withdrawal bleeds when on OCPs but has oligoanovulation when on her own. She came off OCPs and had withdrawal bleed in Aug 2012, Spontaneous menses lasting 2.5 days of light flow. NNP HX: Menarche age 10, lifelong irregular cycles, has had up to one year of amenorrhea in past Last pap 2010 normal No hx of abnormal paps No hx of STIs Sexually active with same partner x 14 years Episode of DUB with thickened irregular endometrium tx with D&C, revealing benign endometrial tissue, polypoid fragments, no cytologic atypia noted LABS 2011 TSH normal FSH/LH ratio elevated DHEAS normal Free and Total Testosterone normal Hgb A1C was 5.7 Ultrasound revealed thickened irregular endometrium Endocrine: no acne/oily skin, mildly hirsute, no acanthosis, no striae Past Surgical History Procedure Date ??? Dilation and curettage of uterus ??? Tear duct surgery FAM HX: MGM Diabetes Mat Aunt ovarian cancer Mother renal cell carcinoma History Social History ??? Marital Status: Spouse Name: N/A Number of Children: N/A ??? Years of Education: N/A Occupational History ??? Not on file. Social History Main Topics ??? Smoking status: Current Everyday Smoker -- 0.5 packs/day Types: Cigarettes ??? Smokeless tobacco: Never Used ??? Alcohol Use: No ??? Drug Use: Not on file ??? Sexually Active: Yes -- Male partner(s) Other Topics Concern ??? Not on file Social History Narrative Lives with and 4 adopted children age 11, 10, 8 and 8 Allergies Allergen Reactions ??? Penicillins Hives and Shortness Of Breath No current outpatient prescriptions on file prior to visit. O: Filed Vitals: 12/25/12 1252 BP: 128/76 Height: 152.4 cm (5') Weight: 111.63 kg (246 lb 1.6 oz) A/P: PCOS, oligoanovulation, desire for ovulation induction. I spent all of this 50 minute visit in face to face consultation. Reviewed diagnosis of PCOS and discussed increased lifelong risk of uterine cancer, type II diabetes and cardiovascular disease. 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 Morbid obesity. I reviewed with her the risks associated with obesity. These include structural abnormalities, miscarriage, stillbirth, prematurity, and macrosomia. Maternal risks include hypertension, diabetes, section, morbidity from section, morbidity from anesthesia, thromboembolism and maternal . I acknowledged the difficulty with weight loss but was encouraging that even a modest weight loss can improve outcome. Ac knowledged and applauded her 40 lb weight loss over the last year and encouraged her to continue low carb diet high in lean protein and vegetables. Encouraged quit smoking as this also can have effect on fertility and and raising children in a smoking household . Discussed our program requirements of BMI 40 or less before beginning fertility treatment. Reviewed BMI and Fertility chart and discussed current BMI of 48.6 and weight loss necessary to have BMI of 40 or less. She discussed that her NNP provider may be willing to prescribe clomid. Reviewed clomid and the following risks: an approximate 7-10% risk of multiple with the majority resulting in twin gestation (< 1% risk of higher order multiples), ovarian discomfort from follicular stimulation, rarelyovarian torsion or ovarian hysperstimulation syndrome, persistent unruptured enlarged follicles that could require aspiration and/or ovarian rest and a delay in continued therapy. Possible side effects include: headache, breast tenderness, transient hot flashes (10-20%) and visual symptoms including scotomata or blurred vision (1- 2%). She was counseled to stop the clomiphene and report visual symptoms if they occur on more than one occasion. She will discuss further with NNP. I am happy to see her back for further discussion and pursue ovulation induction when BMI is 40 or less. documented in this encounter Miscellaneous Notes * Miscellaneous - Provider, Scanning - 01/02/2013 10:10 AM EDT documented in this encounter Plan of Treatment Not on file documented as of this encounter Visit Diagnoses Diagnosis Irregular menses- Primary Irregular menstrual cycle PCOS (polycystic ovarian syndrome) Polycystic ovaries documented in this encounter Care Teams Hybrid Technologist Relationship Specialty Start Date End Date None None PCP - General 12/12/12 10/14/17 documented as of this encounter
--- OUTSIDE RECORDS SUMMARY | 2024-06-09 11:26 | XMS_ITS | Encounter Summary ---
Author Organization [facility] [place] [address] Care Team Providers Care Construction Technology Instructor Name Role Phone None Primary Care Provider Unavailabl e Encounter Details Date Type Department Care Team (Late st Contact Info) Description 05/13/2014 [place] [address] Yakov Kohler Jr., MD [facility] [place] [address] Social History Tobacco Use Types Packs/Day Years [...] Procedure Name Priority Date/Time Associated Diagnosis Comments FILM LIBRARY STORAGE ONLY DX ABDOMEN Routine 05/13/2014 1:19 PM EDT documented in this encounter Results * Film Library- Storage only DX Abdomen (05/13/2014 1:19 PM EDT) Anatomical Region Laterality Modality Other 05/13/2014 1:19 PM EDT Narrative 05/13/2014 1:20 PM EDT This is a Non-reportable exam Procedure Note ERIKA, UNSIGNED REPORT - 05/13/2014 This is a Non-reportable exam Yakov Kohler Jr., MD [facility] [place]RARY O RDERABLES documented in this encounter Visit Diagnoses Not on filedocumented in this encounter Care Teams Construction Technology Instructor Relationship Specialty Start Date End Date None None PCP - General 12/12/12 10/14/17 documented as of this encounter
--- OUTSIDE RECORDS SUMMARY | 2024-06-09 11:26 | XMS_ITS | Encounter Summary ---
Author Organization [facility] [place] [address] Care Team Providers Care Women Designer Name Role Phone None Primary Care Provider Unavailabl e Encounter Details Date Type Department Care Team (Late st Contact Info) Description 05/10/2014 [place] [id number] Yakov Kohler Jr., MD [facility] [place] [address] Social History Tobacco Use Types Packs/Day Years [...] Associated Diagnosis Comments FILM LIBRARY STORAGE ONLY ULTRASOUND STUDY Routine 05/10/2014 1:19 PM EDT documented in this encounter Results * Film Library- Storage only Ultrasound Study (05/10/2014 1:19 PM EDT) Anatomical Region Laterality Modality Other 05/10/2014 1:19 PM EDT Narrative 05/13/2014 1:20 PM EDT This is a Non-reportable exam Procedure Note ERIKA, UNSIGNED REPORT - 05/13/2014 This is a Non-reportable exam Yakov Kohler Jr., MD [facility] [place]RARY O RDERABLES documented in this encounter Visit Diagnoses Not on filedocumented in this encounter Care Teams Women Designer Relationship Specialty Start Date End Date None None PCP - General 12/12/12 10/14/17 documented as of this encounter
--- OUTSIDE RECORDS SUMMARY | 2024-06-09 11:26 | XMS_ITS | Encounter Summary ---
Author Organization [facility] [place] [address] Care Team Providers Care Dinkey Brakeman Name Role Phone None Primary Care Provider Unavailabl e Reason for Visit * Reason Comments Kidney Pain Encounter Details Date Type Department Care Team (Latest Contact Info) Description 05/14/2014 9:57 AM EDT - 05/16/2014 3:43 PM EDT [place] [id number] Eber Tran MD [facility] [address] [facility]ETR[facility] [place] [address] Right nephrolithiasis Discharge Disposition: Home Social History Tobacco Use [...] a Ureteral Stent Placement Follow-up: Please call [phone] (clinic number for appointments) to confirm date and time of your appointment if you do not receive your apointment in 1-2 weeks. You will be scheduled for follow up with Dr. Kohler with a renal bladder ultrasound in Urology [id number] in ~6wks Wound Care: None needed Activity/Diet: [...] side pain, you should call our office [phone] before 5PM or [phone] after hours. Please remember that this is [...] to urinate please call our office at [phone] 5PM or [phone] after hours. Call Doctor for: Please call if you have copious blood in your urine, severe back or side pain, pain not controlled by pain medications, persistent nausea and vomiting, or for any fevers greater [id number] F. The number for questions is [phone] before 5 PM weekdays and [phone] after 5 PM and weekends. Medications: Pain [...] least 6- 8 hours since last dose). [address] to contact OB doctor [phone] to contact family doctor to contact facility service manager Tee Emanuel @[email or web address]@ 3:30 PM Following your visit to [facility] Triage Reason for Visit: Chief Complaint Patient presents with ??? Kidney Pain Gestation - under 37 weeks Notify your provider if: You are feeling any cramping sensations in your abdomen more than 20 minutes apart [place] Contractions usually are irregular may get less [...] a vaginal exam in your doctor's or facility service manager's office you should not bleed as much as a period You have noticed a marked decrease in your baby's movement refer to your kick count instructions in the Your Journey book Your baby should move at least 10 times in 2 hours You have had any direct trauma to your abdomen such as a car accident, fall, or impact Call your doctor or facility service manager if you have the following symptoms: Headache [...] dehydratio Keep your regularly scheduled doctor or facility service manager appointment Your medications: No current facility-administered medications [...] awake, VSS, lungs CTA, Sandy RN from BP at bedside to assess health. Patient relates [...] request as her pain continues despite Dilaudid DISPOSAL WORKER. This is HD#3. Active Problems: Active Hospital [...] slept soundly overnight and wasn't pressing her DISPOSAL WORKER button. She continues to have significant pain [...] today as patient's pain is refractoryto Dilaudid DISPOSAL WORKER. ?? Obstetric issues: Right flank pain, hydronephrosis/pelviectasis, pain refractory to Dilaudid DISPOSAL WORKER ?? Presentation: vtx ?? Status: reassuring ?? [...] weeks and right flank pain transferred to [facility] for management of renal colic in [...] (amplitude range 6 to 25 bpm) (05/15/14 1108) Accelerations: present (05/15/14 1108) Decelerations: none (05/15/14 1108) Contraction Frequency (min): none (05/15/14 1108) Nonstress Test Interpretation: Reactive, >32 weeks: two [...] Pending Day shift dilaudid dose 2.4 mg chief cook dilaudid dose until 0530 2.2 mg Additional [...] neonatology, urology Additional issues: ?? Will continue DISPOSAL WORKER for pain control and transition to po [...] required round the clock narcotics and a DISPOSAL WORKER. We talked about a stent. While there [...] AM EDT Obstetrical Admission Note Referring Hospital: [facility] Initial Care Provider (if early referral or [...] became more intense, and she presented to [facility] for evaluation. She was found to have R nephrolithiasis and mild right hydronephrosis and a 7 mm stone on right on renal ultrasound. She was discharged on Thursday 05/10 on PO pain medication as she wanted to attend her baby shower, but returned to the hospital for admission on Friday 05/11. She has been inpatient at [facility] since Sunday receiving pain control via a dilaudedPCA. An IV pyelogram was done again showing R hydronephrosis. She has not passed any stone on her own. At [facility] they were reluctant to place a ureteral [...] 1 0 # Outc Date GA Lbr Ansim/2nd Wgt Sex Del Anes PTL Lv 1 [...] y.o. at 33w0d admitted in transport from [facility] for management of right renal stone with associated hydronephrosis. status is reassuring, and patient has no signs of labor. Stone related pain is currently being managed via Dilauded DISPOSAL WORKER and nausea with zofran. Urology to consult. 1. Nephrolithiasis - right - Urology consult requested - strain urine - BMP and CBC - UA/UCx - IVF - dilaudid DISPOSAL WORKER 2. Obstetrics - daily NST - deliver for maternal deterioration, distress, labor - pt consented for c/s. Risks include infection including wound or uterine, bleeding, need for transfusion with associated risk of infectious disease transmission, need for hysterectomy, damage to adjacent structures including bowel, bladder, ureters, nerves, vessels, damage to infant, blood clots to legs and lungs. Pt [...] Jr., MD - 05/16/2014 11:57 AM EDT [facility] Operative Note Patient Name: Tee Emanuel : [id number] MR#: [id number] Case Date: 05/16/2014 Surgeon: Surgeon(s) and Role: [...] fashion. A timeout was performed. The 22 indonesian rigid cystoscope was inserted.The bladder was surveyed, [...] place. Over the glide wire, a 6 indonesian, variable length ureteral stent was passed. Proximal [...] Operative Note Patient Name: Tee Emanuel : [id number] MR#: [id number] Case Date: 05/16/2014 Surgeon: Surgeon(s) and Role: [...] repeat 50 gram. * Consult Note - Axel Taylor P - 05/15/2014 8:27 AM EDT consult: We were asked by the obstetrical service, Dr. Tran to provide consultation on Tee Emanuel, a33 y.o. old patient on the birthing pavilion with nephrolithiasis at 33 weeks gestation. I reviewed history in chart as well as oral history from the OB service. She was referred as a maternal- transfer from [facility]. Relevant History: Tee has had an uncomplicated until a week ago when she presented to [facility] with severe pain and was diagnosed with nephrolithiasis. She was transferred to [facility] for further evaluation and potential surgical [...] EDT UROLOGY CONSULT We were consulted by OB-Order Puller ID 33 yo female with 33 weeks and right flank pain transferred to [facility] for management of renal colic in [...] ED three times and was admitted to [facility] in [facility]. On 05/10 she had an US that showed mild hydronephrosis and a potential non [id number] calculi in the right kidney. Then had [...] since her pain is now undercontrol with DISPOSAL WORKER. If suspicion of infection, not able to [...] Tee Emanuel Patient Age: 33 y.o. Language: Latvian Race: / Ethnicity: Not nor Admit date: 05/14/2014 Discharge date and time: 05/16/13 Attending Physician: Eber Tran MD Discharge Physician: Soraida Snow MD Follow-up Recommendations for Providers: - repeat 1 hour GTT due to AC > 97th percentile - follow-up with urology in 4-6 weeks post-. Repeat ultrasound 06/27/14. Inpatient Provider Contact Information: [facility] - [phone] Care Provider: Dr. Willams Referring Provider if [...] became more intense, and she presented to [facility] for evaluation. She was found to have R nephrolithiasis and mild right hydronephrosis and a 7 mm stone on right on renal ultrasound. She was discharged on Thursday 05/10 on PO pain medication as she wanted to attend her baby shower, but returned to the hospital for admission on Friday 05/11. She has been inpatient at [facility] since Sunday receiving pain control via a dilaudedPCA. An IV pyelogram was done again showing R hydronephrosis. She has not passed any stone on her own. At [facility] they were reluctant to place a ureteral [...] Obesity (BMI 34) 3. Nicotine dependence - /2 ppd Hospital Course: On admission, Tee reported severe pain. She was afebrile. was started on a Dilaudid DISPOSAL WORKER for pain control. A Urology consult was requested. Per their recommendations, a renal ultrasound was performed, which revealed no sign of nephrolithiasis, right moderate hydronephrosis and mild pelviectasis.Urology recommended outpatient follow-up, however the patient reported that her pain was not controlled with Dilaudid DISPOSAL WORKER and therefore urology proceeded with stent placement [...] a Ureteral Stent Placement Follow-up: Please call [phone] (clinic number for appointments) to confirm date and time of your appointment if you do not receive your apointment in 1-2 weeks. You will be scheduled for follow up with Dr. Kohler with a renal bladder ultrasound in Urology [id number] in ~6wks Wound Care: None needed Activity/Diet: [...] side pain, you should call our office [phone] before 5PM or [phone] after hours. Please remember that this is [...] to urinate please call our office at [phone] 5PM or [phone] after hours. Call Doctor for: Please call if you have copious blood in your urine, severe back or side pain, pain not controlled by pain medications, persistent nausea and vomiting, or for any fevers greater [id number] F. The number for questions is [phone] before 5 PM weekdays and [phone] after 5 PM and weekends. Medications: Pain [...] right sided abdominal pain on arrival. Dr. Macedo aware of patient arrival and orders obtained for IV Zofran and DilaudidPCA. VSS. Assessment WNL. EFM placed with reactive strip noted. Verbal order from Dr. Macedo to remove EFM. Labs and urine samples ordered and obtained. Patient reports relief noted from Zofran and improvement in pain noted from DISPOSAL WORKER. Care assumed by Dara Kuo RN. documented in this encounter Plan of Treatment Not on file documented as of this encounter Procedures Procedure Name Priority Date/Time Associated Diagnosis Comments ECG SCAN 05/17/2014 12:00 AM EDT US GUIDANCE INTRAOPERATIVE Routine 05/16/2014 12:02 PM EDT CYSTO, STENT PLACEMENT (WRVU 2.82) 05/16/2014 11:00 AM EDT right hydronephrosis CYSTO, STENT PLACEMENT Routine 10/31/201 4 3:39 PM EDT US OB DETAILED [...] ? pm) Patient Info ID #: ? [id number] ?: ??[birth year] (33 yrs) Name: ? TEE Damon ?Visit Date: 05/16/2014 11:58 am ? JENAE Performed By Performed By: ?Marely Bush RDMS Associate: ? Dunia POTTER, Alex Mcmillan Attending: ? Gamaliel POTTER, Jacki Mark Referred By: ? CHLOE KOHLER MD Service(s) Provided ??UGINTOP- Ultrasound Intraoperative Guidance ??- ?[id number] ??[id number] ??URETROLIM- Retroperotoneal Limited - ?[id number] ??[id number] Indications ??33 yo female () 33 weeks [...] 05/16/2014 12:22 pm) Patient Info ID #: [id number] : [birth year] (33 yrs) Name: TEE Damon Visit Date: 05/16/2014 11:58 am JENAE Performed By Performed By: Marely Bush RDMS Associate: Dunia POTTER, Alex Mcmillan Attending: Gamaliel POTTER, Jacki Mckee. Referred By: CHLOE KOHLER MD Service(s) Provided UGINTOP- Ultrasound Intraoperative Guidance - [id number] URETROLIM- Retroperotoneal Limited - [id number] Indications 33 yo female () 33 weeks [...] ? pm) Patient Info ID #: ? [id number] ?: ??[birth year] (33 yrs) Name: ? TEE EMANUEL ? Visit Date: 05/15/2014 02:20 pm Performed By Performed By: ?Tea Sanabria RDMS Attending: ? Liu POTTER, Carolyn Frey Referred By: ? LARRY SULLIVAN MD Service(s) Provided ??[facility] - Targeted Morphology - Genetics - ?[id number] ??[id number] Indications ??Transport from [facility] for nephrolithiasis, no ??ultrasound at [facility] Evaluation Num Of Fetuses: ? 1 [...] Age Clinical GABY: ??33w 1d ?GABY: ?? 12/18/14 U/S Today: ? 33w 1d ?GABY: ?? [...] Tract: ?Visualized L Outflow Tract: ?Visualized Cardiac Boissevain: ? Visualized Diaphragm: ?Visualized Abdomen Ventral Wall: [...] 05/15/2014 02:32 pm) Patient Info ID #: [id number] : [birth year] (33 yrs) Name: TEE EMANUEL Visit Date: 05/15/2014 02:20 pm Performed By Performed By: Tea Sanabria RDMS Attending: Carolyn Hatfield MD Referred By: LARRY SULLIVAN MD Service(s) Provided [facility] - Targeted Morphology - Genetics - [id number] Indications Transport from [facility] for nephrolithiasis, no ultrasound at [facility] Evaluation Num Of Fetuses: 1 Heart [...] Best: 33w 1d Det. By: Clinical GABY AGBY: 07/02/14 Targeted Anatomy Central Nervous System Calvarium: [...] Tract: Visualized L Outflow Tract: Visualized Cardiac Boissevain: Visualized Diaphragm: Visualized Abdomen Ventral Wall: Visualized [...] Report 05/15/2014 02:32 pm Eber Tran MD IMG US OB ORDERABLES * Group B Strep Culture Screen (05/14/2014 6:47 PM EDT) Group B Streptococcus Culture ? Patient Name: TEE EMANUEL ?Ordered By: EBER TRAN ? MR#: [id number] ?LOC: ??BP ? /Sex: ??1980 (33 years), [...] ? pm) Patient Info ID #: ? [id number] ?: ??[birth year] (33 yrs) Name: ? TEE Damon ?Visit Date: 05/14/2014 03:25 pm ? JENAE Performed By Performed By: ?Juno SHEPPARD, ??Zamzam Attending: ? Isaac POTTER, Bonifacio Mark Referred By: ? WINDY STEVEN MD Service(s) Provided ??URETRO - Retroperitoneal Complete - [id number] ? [id number] Indications ??assess degree of hydro Comparison No [...] 05/14/2014 03:32 pm) Patient Info ID #: [id number] : [birth year] (33 yrs) Name: TEE Damon Visit Date: 05/14/2014 03:25 pm JENAE Performed By Performed By: Zamzam Fraire RDMS Attending: Bonifacio Gray MD Referred By: WINDY STEVEN MD Service(s) Provided URETRO - Retroperitoneal Complete - [id number] Indications assess degree of hydro Comparison No [...] Report 05/14/2014 03:32 pm Eber Tran MD IM US GEN ORDERABLE S * (ABNORMAL) BMP w/fasting Glucose (05/14/2014 2:15 PM EDT) Glucose Fasting 103(H) 65 - 99 mg/dL [facility] Comment: ?Fasting* Glucose Interpretive Criteria Normal [...] of Diabetes Mellitus, Position Statement from the [place] [employer]. ??Diabetes Care, Volume 33, Supplement 1, Jul 2009 Blood Urea Nitrogen 5(L) 8 - 18 mg/dL CERNER MILLENNIUM Creatinine 0.62(L) 0.70 - 1.20 mg/dL CERNER MILLENNIUM Comment: Please note that the pediatric reference intervals supplied above were not validated at [facility]. Results from pediatric patients should be [...] the following links into your internet browser. [email or web address] Blood specimen (specimen) 05/14/2014 2:15 PM EDT 05/14/2014 2:44 PM EDT Narrative Resulting Agency Comment Spec In Lab Eber Tran MD CHEMISTRY ORDERABLES Performing Organization Address [facility] Co de Phone Number [facility] * Urine culture Clean Catch Urine (05/14/2014 2:02 PM EDT) Urine Culture ? Patient Name: TEE EMANUEL ?Ordered By: EBER TRAN ? MR#: [id number] ?LOC: ??BP ? /Sex: ?? 2 (33 [...] Tran MD MICROBIOLOGY - GENER AL ORDERABLES Performing Organization Address [facility]/ZIP Co de Phone Number BECK CONDESTIVEN * Antibody screen (05/14/2014 11:38 AM EDT) Ab Screen Interp Negative [facility] Expires at [id number] on: [id number] [facility] Blood specimen (specimen) 05/14/2014 11:38 AM EDT 05/14/2014 11:38 AM EDT Narrative Resulting Agency Comment Spec In Lab Eber Tran MD BLOOD BANK LAB ORDER SHABBIR Performing Organization Address City/[facility]/ZIP Co de Phone Number [facility] * ABO/Rh Typing (05/14/2014 11:38 AM EDT) ABORH Type B Pos [facility] Blood specimen (specimen) 05/14/2014 11:38 AM EDT 05/14/2014 11:38 AM EDT Narrative Resulting Agency Comment Spec In Lab Eber Tran MD BLOOD BANK LAB ORDER SHABBIR Performing Organization Address [facility] Co de Phone Number [facility] * Urine culture Clean Catch Urine (05/14/2014 11:28 AM EDT) Urine Culture ? Patient Name: TEE EMANUEL ?Ordered By: EBER TRAN ? MR#: [id number] ?LOC: ??BP ? /Sex: ??1980 (33 years), [...] Tran MD MICROBIOLOGY - GENER AL ORDERABLES CERNER MILLENNIUM * (ABNORMAL) Urinalysis with microscopic (05/14/2014 [...] Urine Dipstick Hazy(A) Clear CERNER MILLENNIUM Specific [place] Urine Automated 1.015 1.002 - 1.030 CERNER [...] MD HEMATOLOGY ORDERABLE S Performing Organization Address City/[facility]/ZIP Co de Phone Number CERNER MILLENNIUM * (ABNORMAL) Hemogram (05/14/2014 11:10 AM EDT) [...] Resulting Agency Comment Spec In Lab Eber rTan MD HEMATOLOGY ORDERABLE S BECK FRAZIERENNIUM * (ABNORMAL) - Initial External Results (04/02/2014) [...] Report GBS Screen 139(EXTER NAL/ABN) Gluc Baseline 85(Clinical Biochemist al Lab) Glucose 1 hour 147(Exter nal Lab) Glucose 2 hour 114(Exter nal Lab) Glucose 3 hour 78(Clinical Biochemist al Lab) Oral Glucose Dose 04/02/2014 Historical [...] documented in this encounter Visit Diagnoses Diagnosis Right nephrolithiasis- Primary Calculus of kidney Right nephrolithiasis Calculus of kidney Morbid obesity Tobacco abuse Tobacco use disorder documented in this encounter Administered Medications Inactive Administered Medications - up to 3 most recent administrations Medication Order MAR Action Action Date Dose Rate Site docusate sodium (COLACE) capsule 100 mg 100 mg, Oral, 2 TIMES DAILY, First dose on Sun05/14/14 at 2100, Until Discontinued, Routine Given 05/15/2014 8:00 PM EDT 100 mg Given 05/15/2014 9:23 AM EDT 100 mg Given 05/14/2014 8:24 PM EDT 100 mg famotidine (PEPCID) injection 20 mg 20 mg, Intravenous, EVERY 12 HOURS SCHEDULED (2 times per day), First dose on Sun05/15/14 at 1800, Until Discontinued Given 05/15/2014 6:09 PM EDT 20 mg HYDROmorphone (DILAUDID) 1 mg/mL DISPOSAL WORKER 30 mL Intravenous, DISPOSAL WORKER ONLY, Starting on Rosibel 05/14/14 at 1045, Until 05/16/14 at 1745 Restarted 05/16/2014 12:38 PM EDT 30 mg Rate/Dose Verify 05/15/2014 12:22 AM EDT Rate/Dose Verify 05/14/2014 11:56 AM EDT HYDROmorphone (DILAUDID) injection 0.2 mg 0.2 mg, Intravenous, ONCE, 1 dose, On Sun05/15/14 at 0600, Routine Given 05/15/2014 6:00 AM EDT 0.2 mg HYDROmorphone (DILAUDID) injection 0.2 mg 0.2 mg, Intravenous, ONCE, 1 dose, On Sun05/15/14 at 1345, STAT Given 05/15/2014 1:24 PM EDT 0.2 mg HYDROmorphone (DILAUDID) injection 0.2 mg 0.2 mg, Intravenous, ONCE, 1 dose, On 05/16/14 at 0000, Routine Given 05/15/2014 11:48 PM EDT 0.2 mg lactated ringers infusion 1,000 mL 1,000 mL, at 100 mL/hr, Intravenous, CONTINUOUS, Starting on Sun05/14/14 at 1100, Until 05/16/14 at 1745 Restarted 05/16/2014 12:38 PM EDT 1,000 mLs 100 mL/hr New Bag 05/16/2014 11:13 AM EDT mL New Bag 05/16/2014 3:26 AM EDT 1,000 mLs 100 mL/hr nicotine (NICODERM CQ) 14 mg/24 hr patch 14 mg 14 mg, Transdermal, Administer over 24 Hours, DAILY, First dose on Sun05/14/14 at 1500, Until Discontinued, Routine Given 05/16/2014 9:00 AM EDT 14 mg Given 05/15/2014 9:23 AM EDT 14 mg 04 - Shoulder (Right) Given 05/14/2014 4:15 PM EDT 14 mg 03 - Shoulder (Left) nicotine (NICODERM CQ) patch REMOVAL Transdermal, DAILY, First dose on Sun05/15/14 at 0900, Until Discontinued, Remove Nicotine Patch Given 05/16/2014 9:00 AM EDT 1 patch Given 05/15/2014 9:24 AM EDT 1 patch NIFEdipine (ADALAT CC) CR tablet 30 mg 30 mg, Oral, DAILY, First dose on Sun05/14/14 at 1900, Until Discontinued, Hold for BP < 90 systolic < 50 diastolic, Routine Given 05/16/2014 9:00 AM EDT 30 mg Given 05/15/2014 10:03 AM EDT 30 mg Given 05/14/2014 7:00 PM EDT 30 mg ondansetron (ZOFRAN) injection 4 mg 4 mg, Intravenous, EVERY 8 HOURS PRN, Starting on Sun05/14/14 at 1021, Until 05/16/14 at 1745, Nausea, Routine Given 05/15/2014 7:52 PM EDT 4 mg Given 05/15/2014 9:18 AM EDT 4 mg Given 05/14/2014 10:59 AM EDT 4 mg polyethylene glycol (MIRALAX) packet 17 g 17 g, Oral, DAILY PRN, Starting on Sun05/14/14 at 1822, Until 05/16/14 at 1745, Constipation, Routine Given 05/14/2014 8:23 PM EDT 17 g vitamin 27 & [id number] 60 mg iron-1 mg tablet Tab 1 tablet 1 tablet, Oral, DAILY, First dose on Sun05/14/14 at 1100, Until Discontinued, Routine Given 05/15/2014 9:24 AM EDT 1 tablet senna (SENOKOT) tablet 8.6 mg 8.6 mg, Oral, 2 TIMES DAILY PRN, Starting on Sun05/15/14 at 2129, Until 05/16/14 at 1745, Constipation, Routine Given 05/15/2014 9:42 PM EDT 8.6 mg sodium chloride 0.9 % flush 5 mL 5 mL, Intravenous, EVERY 12 HOURS, First dose on Rosibel 05/14/14 at 1100, Until Discontinued, Routine Given 05/16/2014 11:00 AM EDT 5 mLs Given 05/15/2014 11:00 PM EDT 5 mLs Given 05/14/2014 10:58 AM EDT 5 mLs documented in this encounter Active and Recently Administered Medications Times are shown in EDT. Scheduled Medication Order 05/14/2014 05/15/2014 05/16/2014 docusate sodium (COLACE) capsule 100 mg (CANCELED) 100 mg, Oral, 2 TIMES DAILY, First dose on Rosibel 05/14/14 at 2100, Until Discontinued, Routine 2023 (Given - Provider: Delilah Perla, TOMÁS) 0923 (Given - Provider: Shelby Steel, TOMÁS)2000 (Given - Provider: Marion Dsouza RN) 0900 (Not Given - Provider: Sandy Freitas RN - Reason: Patient/family refused)1100 (SEP Hold - Provider: Admin Adt - Reason: Transfer to a Procedural area)1221 (SEP Unhold - Provider: Wilbert Bhakta, TOMÁS) famotidine (PEPCID) injection 20 mg (CANCELED) 20 mg, Intravenous, EVERY 12 HOURS SCHEDULED (2 times per day), First dose on Sun05/15/14 at 1800, Until Discontinued 1809 (Given - Provider: Shelby Steel, TOMÁS) 0900 (Not Given - Provider: Sandy Freitas [...] 1345, STAT 1324 (Given - Provider: Shelby Steel RN) HYDROmorphone (DILAUDID) injection 0.2 mg (COMPLETED) 0.2 mg, Intravenous, ONCE, 1 dose, On 05/16/14 at 0000, Routine 2348 (Given - Provider: Marion Dsouza, TOMÁS) nicotine (NICODERM CQ) 14 mg/24 hr patch 14 mg (CANCELED)(Linked Group 1) 14 mg, Transdermal, Administer over 24 Hours, DAILY, First dose on Sun05/14/14 at 1500, Until Discontinued, Routine 1615 (Given - Provider: Dara Kuo RN) 0923 (Given - Provider: Shelby Steel, TOMÁS) 0900 (Given - Provider: Sandy Freitas RN)1100 (SEP Hold - Provider: Admin Adt - Reason: Transfer to a Procedural area)1221 (SEP Unhold - Provider: Wilbert Bhakta RN) nicotine (NICODERM CQ) patch REMOVAL (CANCELED)(Linked Group 1) Transdermal, DAILY, First dose on Sun05/15/14 at 0900, Until Discontinued, Remove Nicotine Patch 0924 (Given - Provider: Shelby Steel RN) 0900 (Given - Provider: Sandy Freitas, TOMÁS)1100 (MAR Hold - Provider: Admin Adt - Reason: Transfer to a Procedural area)1221 (MAR Unhold - Provider: Wilbert Bhakta RN) NIFEdipine (ADALAT CC) CR tablet 30 mg (CANCELED) 30 mg, Oral, DAILY, First dose on Rosibel 05/14/14 at 1900, Until Discontinued, Hold for BP < 90 systolic < 50 diastolic, Routine 1900 (Given - Provider: Delilah Perla RN - Comment: given by TOMÁS Kuo) 1003 (Given - Provider: Shelby Steel, TOMÁS) 0900 (Given - Provider: Sandy Freitas RN)1100 (SEP Hold - Provider: Admin Adt - Reason: Transfer to a Procedural area)1221 (SEP Unhold - Provider: Wilbert Bhakta RN) vitamin 27 & [id number]-gieu-ZP 60 mg iron-1 mg tablet Tab 1 tablet (CANCELED) 1 tablet, Oral, DAILY, First dose on Rosibel 05/14/14 at 1100, Until Discontinued, Routine 1100 (Due) 0924 (Given - Provider: Shelby Steel, RN) 0900 (Not Given - Provider: Sandy Freitas, RN - Reason: Patient/family refused)1100 (SEP Hold - Provider: Admin Adt - Reason: Transfer to a Procedural area)1221 (SEP Unhold - Provider: Wilbert Bhakta, RN) sodium chloride 0.9 % flush 5 mL (CANCELED) 5 mL, Intravenous, EVERY 12 HOURS, First dose on Rosibel 05/14/14 at 1100, Until Discontinued, Routine 1058 (Given - Provider: Colleen Herrmann, RN)2300 (Due) 1100 (Due)2300 (Given - Provider: Marion Dsouza, TOMÁS) 1100 (Given - Provider: Sandy Freitas, RN)1101 (SEP Hold - Provider: Admin Adt - Reason: Transfer to a Procedural area)1221 (SEP Unhold - Provider: Wilbert Bhakta, RN) Continuous Medication Order 05/14/2014 05/15/2014 05/16/2014 HYDROmorphone (DILAUDID) 1 mg/mL DISPOSAL WORKER 30 mL (CANCELED) Intravenous, DISPOSAL WORKER ONLY, Starting on Rosibel 05/14/14 at 1045, Until 05/16/14 at 1745 1052 (New Syringe/Cartridge - Provider: Colleen Herrmann RN)1156 (Rate/Dose Verify - Provider: Colleen Herrmann RN) 0022 (Rate/Dose Verify - Provider: Teresa Meng RN) 1100 (SEP Hold - Provider: Admin Adt - Reason: Transfer to a Procedural area)1221 (SEP Unhold - Provider: Wilbert Bhakta, RN)1238 (Restarted - Provider: Wilbert Bhakta, RN)1255 (Stopped - Provider: Sandy Freitas, RN) lactated ringers infusion 1,000 mL (CANCELED) 1,000 mL, at 100 mL/hr, Intravenous, CONTINUOUS, Starting on Rosibel 05/14/14 at 1100, Until 05/16/14 at 1745 1058 (New Bag - Provider: Colleen Herrmann RN) 1737 (New Bag - Provider: Shelby Steel, RN) 0326 (New Bag - Provider: Caryn Sanchez RN)1100 (SEP Hold - Provider: Admin Adt - Reason: Transfer to a Procedural area)1113 (New Bag - Provider: Hilton June MD)1220 (MAR Unhold - Provider: Wilbert Bhakta, RN)1238 (Restarted - Provider: Wilbert Bhakta, RN)1255 (Stopped - Provider: Sandy Freitas, RN) PRN Medication Order 05/14/2014 05/15/2014 05/16/2014 ondansetron (ZOFRAN) injection 4 mg (CANCELED) 4 mg, Intravenous, EVERY 8 HOURS PRN, Starting on Rosibel 05/14/14 at 1021, Until 05/16/14 at 1745, Nausea, Routine 1059 (Given - Provider: Colleen Herrmann, RN) 0918 (Given - Provider: Shelby Steel, TOMÁS)1952 (Given - Provider: Marion Dsouza, RN) 1100 (SEP Hold - Provider: Admin Adt - Reason: Transfer to a Procedural area)1221 (SEP Unhold - Provider: Wilbert Bhakta, TOMÁS) polyethylene glycol (MIRALAX) packet 17 g (CANCELED) 17 g, Oral, DAILY PRN, Starting on Rosibel 05/14/14 at 1822, Until 05/16/14 at 1745, Constipation, Routine 2022 (Given - Provider: Delilah Perla, TOMÁS) 1100 (SEP Hold - Provider: Admin Adt - Reason: Transfer to a Procedural area)1221 (SEP Unhold - Provider: Wilbert Bhakta, TOMÁS) senna (SENOKOT) tablet 8.6 mg (CANCELED) 8.6 mg, Oral, 2 TIMES DAILY PRN, Starting on Sun05/15/14 at 2129, Until 05/16/14 at 1745, Constipation, Routine 2141 (Given - Provider: Marion Dsouza, TOMÁS) 1100 (SEP Hold - Provider: Admin Adt - Reason: Transfer to a Procedural area)1221 (SEP Unhold - Provider: Wilbert Bhakta, TOMÁS) Linked Groups Order Group 1: nicotine (NICODERM CQ) 14 mg/24 hr patch 14 mg (CANCELED)Jump to med 14 mg, Transdermal, Administer over 24 Hours, DAILY, First dose on Rosibel 05/14/14 at 1500, Until Discontinued, Routine And nicotine (NICODERM CQ) patch REMOVAL (CANCELED)Jump to med Transdermal, DAILY, First dose on Sun05/15/14 at 0900, Until Discontinued, Remove Nicotine Patch documented in this encounter Care Teams Dinkey Brakeman Relationship Specialty Start Date End Date None None PCP - General 12/12/12 10/14/17 documented as of this encounter
[2024-06-09] MEDS: diazePAM 2 MG TAB PO (12:20)
[2024-06-09] MEDS: Ketorolac 30 MG/ML VIAL IM (12:20)
[2024-06-09] MEDS: Lidocaine 5% Patch 1 PATCH TP (12:20)
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
== END 2024-06-09 14:05 | disposition home or self-care (01) ==
PROVIDERS: Emergency Provider Student in an Organized Health Care Education/Training Program; PCP Physician Assistant
DX: M54.12 Radiculopathy, cervical region (principal); M62.830 Muscle spasm of back; M32.9 Systemic lupus erythematosus, unspecified; M79.7 Fibromyalgia; Z87.891 Personal history of nicotine dependence
CPT/HCPCS: 80053; 93005; 83735; 84484; 85025; 85730; 93010; J1885

== ENCOUNTER 2024-08-14 06:48 | Emergency (ER) | payer MEDICAID, SELFPAY ==
[2024-08-14 06:56] VITALS: BP 159/101; PULSE 95; RESP 18; TEMP 36.7; O2SAT 96
--- NOTE | 2024-08-14 07:15 | DI.CT_ITS ---
Exam(s) CT TEMPORAL BONE W EXAM: CT TEMPORAL BONE W CLINICAL HISTORY: mastoiditis. TECHNIQUE: Imaging Protocol: Axial computed tomography images with coronal and sagittal reformatted images were created and reviewed. CONTRAST MATERIAL: Intravenous: Omnipaque 350 Contrast volume:100 mL COMPARISON: CT SINUS CT WITHOUT CONTRAST from 11/06/2017 FINDINGS: Right Temporal Bone: The cochlea, vestibule, vestibular and cochlear aqueduct are normal. The facial nerve canal is well m aintained. The semicircular canals are unremarkable. There is no evidence of dehiscence. The middle e ar ossicles are unremarkable. The internal auditory canal is within normal limits. The scutum and te gmen are within normal limits. There is no evidence of otosclerosis. The external auditory canal and mastoid air cells are normal. The carotid canal and jugular foramen a re within normal limits. The temporomandibular joint is unremarkable. Left Temporal Bone: The cochlea, vestibule, vestibular and cochlear aqueduct are normal. The facial nerve canal is well m aintained. The semicircular canals are unremarkable. There is no evidence of dehiscence. The middle ear ossicles are unremarkable. There is a small amount of fluid seen adjacent to the ossicles which may represent mild otitis media. The internal auditory canal is within normal limits. The scutum and tegmen are within normal limits. There is no evidence of otosclerosis. The external auditory canal and mastoid air cells are normal. The carotid canal and jugular foramen a re within normal limits. The temporomandibular joint is unremarkable. The soft tissues are unremarkable. No focal fluid collection is seen to suggest an abscess. The vis ualized parotid glands are unremarkable. The visualized intracranial structures are unremarkable. T he orbits and retro-orbital soft tissues are unremarkable. The visualized paranasal sinuses are clear. The right mastoid air cells are clear. There is nonspec ific fluid seen in a few left mastoid air cells. No erosive changes, periosteal reaction or sclerosi s is seen in the mastoid air cells. IMPRESSION: 1. Minimal nonspecific fluid seen the left mastoid air cells. No destructive changes are seen. 2. No soft tissue fluid collections are seen to suggest an abscess. 3. Minimal fluid is seen in the left middle ear which can be seen with mild otitis media. RADIATION DOSE DELIVERED: 236.83mGy.cm Total DLP 236.83mGy.cm Total DLP 236.83mGy.cm Total DLP DATA REPOSITORY: All CT scans at this facility are submitted to the National Radiology Data Registry (NRDR) Dose Index Registry (DIR) with the [employer] (A[employer]). RADIATION OPTIMIZATION: All CT scans at this facility use at least one of these dose optimization te chniques: automated exposure control; mA and/or kV adjustment per patient size (includes targeted exa ms where dose is matched to clinical indication); or iterative reconstruction.
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
[2024-08-14 08:22] LABS: Abs Immature Grans 0.02 10^3/uL (0.0-0.06); Absolute Basophil Count 0.04 10^3/uL (0.0-0.2); Absolute Eosinophil Count 0.14 10^3/uL (0.0-0.7); Absolute Lymphocyte Count 1.69 10^3/uL (1.2-3.4); Absolute Monocyte Count 0.49 10^3/uL (0.1-0.8); Absolute Neutrophil Count 3.86 10^3/uL (1.2-6.7); Basophils % 0.6 %; Eosinophils % 2.2 %; HCT 48.1 % (36.0-46.0); HGB 15.2 g/dL (11.2-15.7); Immature Grans % 0.3 %; Lymphocytes % 27.1 %; MCH 28.5 pg (27.0-33.0); MCHC 31.6 % (32.0-36.0); MCV 90 fL (80-95); MPV 9.7 fL (8.0-11.0); Monocytes % 7.9 %; Neutrophils % 61.9 %; Platelet Count 232 10^3/uL (130-400); RBC 5.33 10^6/uL (3.93-5.22); RDW 12.4 % (11.7-14.6); RDW-SD 40.6 fL; WBC 6.24 10^3/uL (4.4-10.8)
[2024-08-14 08:36] LABS: Anion Gap 6.6 mmol/L (3-11); BUN 11 mg/dL (7-18); CO2 29.4 mmol/L (21.0-32.0); CREATININE 0.9 mg/dL (0.55-1.02); Calcium 8.5 mg/dL (8.5-10.1); Chloride 105 mmol/L (98-107); Estimated GFR 81.86 (mL/min/1.73m2); Glucose 126 mg/dL (74-106); Sodium 141 mmol/L (136-145)
[2024-08-14] MEDS: Normal Saline - Diluent 50 ML VIAL IJ (08:37)
[2024-08-14] MEDS: Omnipaque 350 MG/ML 100 ML BTL IJ (08:41)
[2024-08-14 09:48] VITALS: BP 131/88; PULSE 86; RESP 18; O2SAT 96
[2024-08-14] MEDS: Cortisporin OTIC SUSP 10 ML BTL OT (09:48)
== END 2024-08-14 09:49 | disposition home or self-care (01) ==
PROVIDERS: Emergency Provider Emergency Medicine; PCP Physician Assistant
DX: H66.92 Otitis media, unspecified, left ear (principal); M32.9 Systemic lupus erythematosus, unspecified; L40.50 Arthropathic psoriasis, unspecified; Z79.631 Long term (current) use of antimetabolite agent; Z87.891 Personal history of nicotine dependence
CPT/HCPCS: 36415; 80048; 99285; 70481; 85025; 99284; J3490

== ENCOUNTER 2024-10-14 13:15 | Day surgery (SDC) | payer MEDICAID, SELFPAY ==
[2024-10-14 13:27] VITALS: BP 119/84; PULSE 83; RESP 20; TEMP 36.4; O2SAT 95
[2024-10-14] MEDS: Cephalexin 500 MG CAP 1000 MG PO (13:36)
--- NOTE | 2024-10-14 15:44 | ROE_ITS ---
Operative Note Operative Note PRE-OP DIAGNOSIS: Right Carpal Tunnel Syndrome POST-OP DIAGNOSIS: same PROCEDURE: Right Endoscopic Carpal Tunnel Release SURGEON: Wilbert Richter ANESTHESIA TYPE: Local By Surgeon Refer to Anesthesia Record ESTIMATED BLOOD LOSS: 0 PATHOLOGY: none sent TOURNIQUET TIME: 6 COMPLICATIONS: None Patient was transported to: same day Patient's condition: stable Indications: I have seen Mami in clinic for symptoms of carpal tunnel syndrome. The numbness, tingling, and pain limited function. Clinical exam findings with nerve conduction tests confirmed the diagnosis of carpal tunnel syndrome. Nonoperative measures such as bracing, time, activity modifications had been tried but disability and pain persisted. I discussed carpal tunnel release with the patient. I reviewed the risks of the procedure to include, but not limited to, bleeding, infection, pain, stiffness, incomplete release, damage to nerves or vessels, persistent numbness, recurrence. Despite these risks, the patient elected to proceed. Findings: There was tightened carpal tunnel. This was dilated and released successfully with the endoscopic with increased space within the tunnel. The antebrachial fascia was released proximally freeing the median nerve at the wrist. Procedure Description: Mami was greeted in the preoperative holding area where the correct side was identified and marked. The consent was reviewed with the patient and signed. The history and physical was updated. All questions were answered. She was taken back to the operating room. The patient was placed into the supine position on the operating room table with the right arm on an arm board. A nonsterile tourniquet was placed high onto the arm. All bony prominences were well padded. Prophylactic antibiotics in the form of Cefazolin were administered. The right arm was then prepped with Chloraprep and draped in a standard fashion with stockinette and extremity drape. A timeout to confirm correct identity, side and site, procedure, allergies, anesthesia, and medical concerns was performed. The surgical site was marked in the volar wrist creases in line with the radial border of the fourth ray. This area was anesthetized with approximately 6cc of 1% Lidocaine. The limb was then exsanguinated with an Esmarch. The skin was incised with a 15 blade, approximately 1cm. The skin only was cut and the deeper tissue was dissected bluntly with a tenotomy scissor, avoiding passing nerve and venous structures. The fascia was penetrated and opened bluntly. A two-prong skin hook was placed under this proximal fascial edge. A series of hamate finders were used to identify and dilate the carpal tunnel. Synovial elevator was used to free synovial attachments to the underside of the transverse carpal ligament. My thumb was kept in the palm to adolfo the distal extent of the carpal tunnel and correctly position the hand. The Microaire endoscope was inserted without difficulty and without resistance. Excellent visualization showed horizontally running fibers of the transverse carpal lig ament (TCL). The distal extent of the TCL was visualized and the end of the scope palpated with the thumb. The blade was elevated and withdrawn from distal to proximal. The TCL was split into two flaps. The endoscope was reinserted to confirm complete release and any remnant ligament was incised. The scope was withdrawn and the proximal aspect of the carpal tunnel was grossly inspected and appeared release with the median nerve visible. The antebrachial fascia at the level of the wrist was then freed from the overlying skin and then the underlying median nerve with blunt dissection. This was transected longitudinally for about 3cm proximal to the wrist incision. The wound was then irrigated with easy flow of irrigant distally and proximally. The incision was closed with a single 4-0 Nylon suture. The wound was dressed with Xeroform, Gauze, Kerlix and Abhay. The tourniquet was deflated with the initial dressing and held with some pressure. Blood flow returned easily to all digits with capillary refill less than 2 seconds. The patient tolerated the procedure well and was returned to the Same Day Surgery area in a stable condition suffering no known complication. Date of Procedure: 10/14/24
--- NOTE | 2024-10-14 15:48 | W.PM.DSUDISC ---
Date of service: 10/14/24 Discharge Plan Disposition Patient Disposition: Home Condition: Good Discharge Details Reason For Visit: Right carpal tunnel syndrome Attending Provider: Wilbert Richter Primary Care Provider: Esau Palomo Home Meds and New Rx's Prescriptions: New hydrocodone-acetaminophen 5-325 mg tablet 1 tab PO Q6H PRN (Reason: severe pain) Qty: 4 0RF Rx Instructions: Take one tablet up to every 6 hours as needed for severe postoperative pain Continued bupropion HCl 300 mg tablet extended release 24 hr 300 mg PO QAM pantoprazole 40 mg tablet,delayed release (DR/EC) 40 mg PO DAILY PRN metformin [Glucophage] 1,000 MG tablet 850 mg PO BID acetaminophen [Mapap Extra Strength] 500 MG tablet 1,000 mg PO Q6H 5 Days Qty: 60 0RF albuterol sulfate 90 mcg/actuation aerosol powdr breath activated 2 inh inhalation Q6H PRNQty: 1 0RF Hydroxychloroquine Sulfate [Plaquenil] 200 MG tablet 200 mg PO BID Qty: 60 0RF albuterol sulfate [Proventil HFA] 200 PUFF/INH HFA aerosol inhaler 2 puff Inhalation Q4H PRN PRNQty: 1 1RF cyclobenzaprine 10 mg Tablet 10 mg PO HS PRN folic acid 1 mg Tablet 4 mg PO DAILY methotrexate (PF) 20 mg/0.4 mL Auto-Injector 20 mg SUBCUT QWEEK duloxetine [Cymbalta] 30 mg capsule,delayed release(DR/EC) 90 mg PO DAILY Discharge Instructions Stand Alone Forms: Rober Dey Tunnel Tita Sparrow (DSU) Referrals: Wilbert Richter MD [ [facility] STAFF PHYSICIAN] - 10/21/24 (10/31/24 10:00AM) Activity:: Elevate Remove Dressings/Wound Care:: 48 hours Shower/Bathe:: 48 hours Diet:: As Tolerated Discharge Orders Discharge Orders: Discharge Order (Routine); Ordered 10/14/24 Ordered By: Marilia Weinberg
[2024-10-14] MEDS: Lidocaine 1% Multi-Dose W/EPI 1/100,000 50 ML VIAL (15:51)
[2024-10-14] MEDS: Sodium Bicarbonate 50 MEQ/50 ML VIAL (15:51)
[2024-10-14 16:08] VITALS: BP 119/74; PULSE 85; RESP 16; TEMP 36.2; O2SAT 94
== END 2024-10-14 16:26 | disposition home or self-care (01) ==
PROVIDERS: PCP Physician Assistant; Visit Provider Student in an Organized Health Care Education/Training Program
PROC: 01N54ZZ Release Median Nerve, Percutaneous Endoscopic Approach (ICD-10-PCS; CPT 29848; principal; 2024-10-14 14:45)
DX: G56.01 Carpal tunnel syndrome, right upper limb (principal)
CPT/HCPCS: 29848; J2004

== ENCOUNTER 2024-10-21 11:12 | Day surgery (SDC) | payer MEDICAID, SELFPAY ==
[2024-10-21 11:42] VITALS: BP 173/113; PULSE 97; RESP 16; TEMP 36.5; O2SAT 98
[2024-10-21] MEDS: Cephalexin 500 MG CAP 1000 MG PO (11:52)
--- NOTE | 2024-10-21 12:30 | PDOC.DSDIS_ITS ---
Date of service: 10/21/24 Discharge Plan Disposition Patient Disposition: Home Condition: Good Discharge Details Reason For Visit: Left carpal tunnel syndrome Attending Provider: Wilbert Richter Primary Care Provider: Esau Palomo Home Meds and New Rx's Prescriptions: New hydrocodone-acetaminophen 5-325 mg tablet 1 tab PO Q6H PRN (Reason: severe pain) Qty: 4 0RF Rx Instructions: Take one tablet up to every 6 hours as needed for severe postoperative pain Continued bupropion HCl 300 mg tablet extended release 24 hr 300 mg PO QAM pantoprazole 40 mg tablet,delayed release (DR/EC) 40 mg PO DAILY PRN metformin [Glucophage] 1,000 MG tablet 850 mg PO BID acetaminophen [Mapap Extra Strength] 500 MG tablet 1,000 mg PO Q6H 5 Days Qty: 60 0RF albuterol sulfate 90 mcg/actuation aerosol powdr breath activated 2 inh inhalation Q6H PRNQty: 1 0RF Hydroxychloroquine Sulfate [Plaquenil] 200 MG tablet 200 mg PO BID Qty: 60 0RF albuterol sulfate [Proventil HFA] 200 PUFF/INH HFA aerosol inhaler 2 puff Inhalation Q4H PRN PRNQty: 1 1RF cyclobenzaprine 10 mg Tablet 10 mg PO HS PRN folic acid 1 mg Tablet 4 mg PO DAILY methotrexate (PF) 20 mg/0.4 mL Auto-Injector 20 mg SUBCUT QWEEK duloxetine [Cymbalta] 30 mg capsule,delayed release(DR/EC) 90 mg PO DAILY Discontinued hydrocodone-acetaminophen 5-325 mg tablet 1 tab PO Q6H PRN (Reason: severe pain) Qty: 4 0RF Rx Instructions: Take one tablet up to every 6 hours as needed for severe postoperative pain Discharge Instructions Stand Alone Forms: Rober Dey Tunnel Release Referrals: Wilbert Richter MD [ [facility] STAFF PHYSICIAN] - Activity:: Elevate Remove Dressings/Wound Care:: 48 hours Shower/Bathe:: 48 hours Diet:: As Tolerated Discharge Orders Discharge Orders: Discharge Order (Routine); Ordered 10/21/24 Ordered By: Marilia Weinberg
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
[2024-10-21] MEDS: Sodium Bicarbonate 50 MEQ/50 ML VIAL (13:07)
[2024-10-21] MEDS: Lidocaine 1% Multi-Dose W/EPI 1/100,000 50 ML VIAL (13:07)
--- NOTE | 2024-10-21 13:27 | W.PM.OP ---
Operative Note Operative Note PRE-OP DIAGNOSIS: Left Carpal Tunnel Syndrome POST-OP DIAGNOSIS: same PROCEDURE: Left Endoscopic Carpal Tunnel Release SURGEON: Wilbert Richter ANESTHESIA TYPE: Local By Surgeon Refer to Anesthesia Record ESTIMATED BLOOD LOSS: 0 PATHOLOGY: none sent TOURNIQUET TIME: 7 COMPLICATIONS: None Patient was transported to: same day Patient's condition: stable Indications: I have seen Mami in clinic for symptoms of carpal tunnel syndrome. The numbness, tingling, and pain limited function. Clinical exam findings confirmed the diagnosis of carpal tunnel syndrome. Nonoperative measures such as bracing, time, activity modifications had been tried but disability and pain persisted. I discussed carpal tunnel release with the patient. She had a successful right carpal tunnel release. I reviewed the risks of the procedure to include, but not limited to, bleeding, infection, pain, stiffness, incomplete release, damage to nerves or vessels, persistent numbness, recurrence. Despite these risks, the patient elected to proceed. Findings: There was tightened carpal tunnel. This was dilated and released successfully with the endoscopic with increased space within the tunnel. The antebrachial fascia was released proximally freeing the median nerve at the wrist. Procedure Description: Mami was greeted in the preoperative holding area where the correct side was identified and marked. The consent was reviewed with the patient and signed. The history and physical was updated. All questions were answered. She was taken back to the operating room. The patient was placed into the supine position on the operating room table with the left arm on an arm board. A nonsterile tourniquet was placed high onto the arm. All bony prominences were well padded. Prophylactic antibiotics in the form of Cephalexin were administered. The left arm was then prepped with Chloraprep and draped in a standard fashion with stockinette and extremity drape. A timeout to confirm correct identity, side and site, procedure, allergies, anesthesia, and medical concerns was performed. The surgical site was marked in the volar wrist creases in line with the radial border of the fourth ray. This area was anesthetized with approximately 6cc of 1% Lidocaine. The limb was then exsanguinated with an Esmarch. The skin was incised with a 15 blade, approximately 1cm. The skin only was cut and the deeper tissue was dissected bluntly with a tenotomy scissor, avoiding passing nerve and venous structures. The fascia was penetrated and opened bluntly. A two-prong skin hook was placed under this proximal fascial edge. A series of hamate finders were used to identify and dilate the carpal tunnel. Synovial elevator was used to free synovial attachments to the underside of the transverse carpal ligament. My thumb was kept in the palm to adolfo the distal extent of the carpal tunnel and correctly position the hand. The Microaire endoscope was inserted without difficulty and without resistance. Excellent visualization showed horizontally running fibers of the transverse carpal ligament (TCL). The distal extent of the TCL was visualized and the end of the scope palpated with the thumb. The blade was elevated and withdrawn from distal to proximal. The TCL was split into two flaps. The endoscope was reinserted to confirm complete release and any remnant ligament was incised. The scope was withdrawn and the proximal aspect of the carpal tunnel was grossly inspected and appeared release with the median nerve visible. The antebrachial fascia at the level of the wrist was then freed from the overlying skin and then the underlying median nerve with blunt dissection. This was transected longitudinally for about 3cm proximal to the wrist incision. The wound was then irrigated with easy flow of irrigant distally and proximally. The incision was closed with a single 4-0 Nylon suture. The wound was dressed with Xeroform, Gauze, Kerlix and Abhay. The tourniquet was deflated with the initial dressing and held with some pressure. Blood flow returned easily to all digits with capillary refill less than 2 seconds. The suture from the right wrist was then removed without difficulty. The patient tolerated the procedure well and was returned to the Same Day Surgery area in a stable condition suffering no known complication. Date of Procedure: 10/21/24
[2024-10-21 13:32] VITALS: BP 131/71; PULSE 81; RESP 16; TEMP 36.8
== END 2024-10-21 13:53 | disposition home or self-care (01) ==
PROVIDERS: PCP Physician Assistant; Visit Provider Student in an Organized Health Care Education/Training Program
PROC: 01N54ZZ Release Median Nerve, Percutaneous Endoscopic Approach (ICD-10-PCS; CPT 29848; principal; 2024-10-21 14:00)
DX: G56.02 Carpal tunnel syndrome, left upper limb (principal)
CPT/HCPCS: 29848; J2004

== ENCOUNTER 2025-01-17 10:18 | Emergency (ER) | payer MEDICAID, SELFPAY ==
[2025-01-17 10:21] VITALS: BP 127/83; PULSE 93; RESP 18; TEMP 36.9; O2SAT 98
[2025-01-17 10:24] VITALS: PULSE 93; RESP 18; TEMP 36.9; O2SAT 98
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
[2025-01-17 11:24] VITALS: BP 131/79; PULSE 78; O2SAT 99
== END 2025-01-17 11:24 | disposition home or self-care (01) ==
PROVIDERS: Emergency Provider Emergency Medicine; PCP Physician Assistant
DX: H60.92 Unspecified otitis externa, left ear (principal); Z60.4 Social exclusion and rejection; Z87.39 Personal history of other diseases of the musculoskeletal system and connective tissue
CPT/HCPCS: 99283 ×2

== ENCOUNTER 2025-01-19 06:43 | Observation (INO) | payer MEDICAID, SELFPAY ==
[2025-01-19 06:47] VITALS: BP 154/95; PULSE 81; RESP 16; TEMP 36.4; O2SAT 94
--- NOTE | 2025-01-19 07:00 | DI.CT_ITS ---
Exam(s) CT TEMPORAL BONE WO/W EXAM: CT TEMPORAL BONE WO/W CLINICAL HISTORY: left ear, eval mastoid. TECHNIQUE: Imaging Protocol: Axial computed tomography images with coronal and sagittal reformatted images were created and reviewed. CONTRAST MATERIAL: Intravenous: Omnipaque 350 Contrast volume:100 mL contrast route:IV - COMPARISON: CT CT TEMPORAL BONE W from 08/14/2024 FINDINGS: Left temporal Bone: External auditory canal is abnormal in that it is uniformly thickened and enhances consistent with otitis externa. Scutum appears intact and there is no evidence of ossicle destruction in the middle ear cavity. There is, however, some density within the middle ear cavity interposed between the ossicles and lateral wall, approaching the aditus ad antrum.. This was not evident on the prior CT scan of July 2024. There is mild opacification of a few ipsilateral left mastoid air cells. No bone dehiscence. The ipsilateral left temporomandibular joint is unremarkable. No obvious abnormality of the inner ear structures. Maxillary and frontal sinuses are clear as are the sphenoid sinuses and their is no significant opacification of ethmoidal air cells. Right temporal Bone: Similar findings are not seen in the right middle ear and the right mastoid air cells are clear with no mastoid air cell opacifications/effusion. The right external auditory canal and mastoid air cells are normal. The carotid canal and jugular foramen are within normal limits. The temporomandibular joint is unremarkable. OTHER: Partly included lower half the brain appears unremarkable. IMPRESSION: There is diffuse circumferential thickening and enhancement of the left external auditory canal consistent with significant otitis externa. There is also contiguous involvement of the ipsilateral external ear. There is a small amount of fluid in the left mastoid air cells now evident and at the level of the junction of the middle ear cavity and aditus ad antrum. There is also density interposed between the ossicles on the lateral wall of the middle ear, probably infectious as this was not evident on the CT scan of July 2024. Therefore doubtful for cholesteatoma. Findings discussed with ER physician 01/19/2025 at 8:50 a.m.. RADIATION DOSE DELIVERED: 469.28mGy.cm Total DLP DATA REPOSITORY: All CT scans at this facility are submitted to the National Radiology Data Registry (NRDR) Dose Index Registry (DIR) with the [employer] (A[employer]). RADIATION OPTIMIZATION: All CT scans at this facility use at least one of these dose optimization techniques: automated exposure control; mA and/or kV adjustment per patient size (includes targeted exams where dose is matched to clinical indication); or iterative reconstruction.
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
[2025-01-19] MEDS: ACETAMINOPHEN 1,000 MG/100 ML BAG 400 MG IVPB (07:28)
[2025-01-19] MEDS: MORPHine 4 MG/ML SYR IVP (07:29)
[2025-01-19] MEDS: CEFEPIME 1 GM in Normal Saline 50 ML IVPB ×2 (08:08→20:38)
[2025-01-19 08:13] LABS: Abs Immature Grans 0.07 10^3/uL (0.0-0.06); HCT 44.1 % (36.0-46.0); HGB 14.3 g/dL (11.2-15.7); Immature Grans % 0.8 %; MCH 28.4 pg (27.0-33.0); MCHC 32.4 % (32.0-36.0); MCV 88 fL (80-95); MPV 9.3 fL (8.0-11.0); Platelet Count 253 10^3/uL (130-400); RBC 5.03 10^6/uL (3.93-5.22); RDW 12.6 % (11.7-14.6); RDW-SD 40.1 fL; WBC 9.01 10^3/uL (4.4-10.8)
[2025-01-19] MEDS: Normal Saline - Diluent 50 ML VIAL IJ (08:16)
[2025-01-19] MEDS: Omnipaque 350 MG/ML 100 ML BTL IJ (08:18)
[2025-01-19 08:30] LABS: ALT 37 U/L (14-59); AST 20 U/L (15-37); Albumin 3.1 g/dL (3.4-5.0); Alkaline Phosphatase 93 U/L (46-116); Anion Gap 4.7 mmol/L (3-11); BUN 9 mg/dL (7-18); Bilirubin, Total 0.3 mg/dL (0.2-1.0); C-Reactive Protein 0.90 mg/dL (<or=0.5); CO2 33.3 mmol/L (21.0-32.0); Calcium 8.4 mg/dL (8.5-10.1); Chloride 100 mmol/L (98-107); Estimated GFR 93.70 (mL/min/1.73m2); Glucose 121 mg/dL (74-106); Potassium 4.1 mmol/L (3.5-5.1); Sodium 138 mmol/L (136-145); Total Protein 7.1 g/dL (6.4-8.2)
[2025-01-19 08:38] LABS: Hemoglobin A1C 5.5 % (<5.7)
[2025-01-19 09:25] LABS: ESR 36 mm/hr (0-20)
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
--- NOTE | 2025-01-19 11:23 | W.PC.ACHO ---
Registration Status: REG ER Primary Language: Preferred Language: German ED Information & Data Chief Complaint EarProblem 01/19/25 07:11 Triage Note Pt was seem here on Sunday01/19/25 06:47 for Dx ear infection, stated she was given ear drops but feels worse, left ear pain rated 10/10 and muffled sounds Medical / Surgical History (Last Reviewed 10/21/24 @ 12:53 by Wilbert Richter MD) Carpal tunnel syndrome on right Lupus PCOS (polycystic ovarian syndrome) Depression Kidney stones Migraine Fibromyalgia (Last Updated 10/31/24 @ 15:38 by CHINEDU Mota) Bilateral carpal tunnel syndrome Hx of lithotripsy History of renal stent H/O section History of bilateral tubal ligation History of tonsillectomy History of dilation and curettage Most Recent Vital Signs Temperature 36.4 C L 01/19/25 06:47 Temperature Source Oral 01/19/25 06:47 Pulse 81 01/19/25 06:47 Respiratory Rate 16 01/19/25 06:47 Blood Pressure 154/95 H 01/19/25 06:47 Blood Pressure Position Sitting 01/19/25 06:47 Pulse Oximetry 94 01/19/25 06:47 Oxygen Delivery Method Room Air 01/19/25 06:47 Oxygen Flow Rate 0 01/19/25 06:47 Pain Level 7 01/19/25 07:29 Comment Left Ear 01/19/25 06:47 Allergies clindamycin Allergy (Severe, Verified 01/19/25 06:51) Anaphylaxsis Penicillins Allergy (Severe, Verified 01/19/25 06:51) Anaphylaxsis ciprofloxacin (From Cipro) Allergy (Intermediate, Verified 01/19/25 06:51) rash prednisone Adverse Reaction (Mild, Verified 01/19/25 06:51) Agitation oxycodone (From Percocet) Adverse Reaction (Verified 01/19/25 06:51) N&V Precautions Isolation Standard precaution 01/19/25 06:52 Active Medications Generic Name Dose Route Start Last Admin Trade Name Freq PRN Reason Stop Dose Admin Iohexol 100 ml 01/19/25 08:30 01/19/25 08:18 Omnipaque 350 Mg/Ml 100 Ml Btl IJ 02/18/25 23:59 100 ml DIRECTED VIKASH Administration Sodium Chloride 50 ml 01/19/25 08:30 01/19/25 08:16 Normal Saline - Diluent 50 Ml Vial IJ 50 ml .FOR DI USE VIKASH Administration IV IV Catheter Type [Right Saline Lock Forearm] IV Catheter Gauge [Right 20 Forearm] Diet Orders Category Date Time Status Heart Healthy Eating [DIET] Nutrition 01/19/25 Lunch Active Diagnostics 01/19/25 01/19/25 Range/Units 07:48 06:56 WBC 9.01 (4.4-10.8) 10^3/uL RBC 5.03 (3.93-5.22) 10^6/uL Hgb 14.3 (11.2-15.7) g/dL Hct 44.1 (36.0-46.0) % MCV 88 (80-95) fL MCH 28.4 (27.0-33.0) pg MCHC 32.4 (32.0-36.0) % RDW 12.6 (11.7-14.6) % Plt Count 253 (130-400) 10^3/uL MPV 9.3 (8.0-11.0) fL Immature Gran % 0.8 % Neutrophils % 63.1 % Lymphocytes % 26.4 % Monocytes % 7.1 % Eosinophils % 2.0 % Basophils % 0.6 % Nucleated RBC % 0.0 (0.0-0.3) % Absolute Neutrophils 5.69 (1.2-6.7) 10^3/uL Absolute Lymphocytes 2.38 (1.2-3.4) 10^3/uL Absolute Monocytes 0.64 (0.1-0.8) 10^3/uL Absolute Eosinophils 0.18 (0.0-0.7) 10^3/uL Absolute Basophils 0.05 (0.0-0.2) 10^3/uL ESR 36 H (0-20) mm/hr Sodium 138 Cancelled Potassium 4.1 Cancelled Chloride 100 Cancelled Carbon Dioxide 33.3 H Cancelled Anion Gap 4.7 Cancelled BUN 9 Cancelled Creatinine 0.8 Cancelled Est GFR (CKD-EPI 2020) 93.70 Cancelled Glucose 121 H Cancelled Hemoglobin A1c 5.5 (<5.7) % Calcium 8.4 L Cancelled Total Bilirubin 0.3 (0.2-1.0) mg/dL AST 20 (15-37) U/L ALT 37 (14-59) U/L Alkaline Phosphatase 93 (46-116) U/L C-Reactive Protein 0.90 H Cancelled Total Protein 7.1 (6.4-8.2) g/dL Albumin 3.1 L (3.4-5.0) g/dL 01/19/25 08:02 Blood Culture - Pending Blood 01/19/25 07:48 Blood Culture - Pending Blood Intake and Output - 24 Hour Total 01/19/25 06:43 thru 01/19/25 08:38 Intake Total 160 Balance 160 Weight 113.398 kg Intake: IV 160 Falls Risk Assessment History of Falls No History 01/19/25 06:52 Contributing Factors No Factors 01/19/25 06:52 Ambulatory Aids Independent 01/19/25 06:52 Tubes/Lines None 01/19/25 06:52 Gait Evaluation No gait disturbance 01/19/25 06:52 Cognition No cognitive impairment 01/19/25 06:52 Fall Total Score 0 01/19/25 06:52 Level of Risk Standard/Low Risk 01/19/25 06:52 Problems (Last Reviewed 10/21/24 @ 12:53 by Wilbert Richter MD) Acute otitis externa of left ear (Acute) Acute malignant otitis externa (Acute) v v v v v v v v v Sending and/or Receiving Nurses: Please use comment section below to note any information pertinent to the patient hand-off not included above. Information / Comments: Up ad patrick. Failed outpatient for ear infection (w/ drops). Allergic to many antibiotics. 4mg morphine IVP w/ some relief. Cefepime IV last given at 0830. Med rec completed. Report received from: Nidhi Mcrae RN
[2025-01-19 11:30] VITALS: BP 140/91; PULSE 69; RESP 16; O2SAT 96
[2025-01-19 11:35] VITALS: BP 130/99; PULSE 75; RESP 16; TEMP 36.5; O2SAT 98
[2025-01-19] MEDS: HYDROcodone 5/Acetaminophen 325 TAB PO ×2 (13:05→17:09)
[2025-01-19] MEDS: predniSONE 20 MG TAB PO (13:49)
[2025-01-19] MEDS: Ciprofloxacin 0.3% 2.5 ML BTL OD ×2 (14:22→17:53)
[2025-01-19 17:10] VITALS: BP 142/95; PULSE 79; RESP 22; TEMP 35.5; O2SAT 98
[2025-01-19 20:18] VITALS: BP 129/83; PULSE 72; RESP 18; TEMP 35.6; O2SAT 95
[2025-01-19] MEDS: Hydroxychloroquine 200 MG TAB PO (20:38)
[2025-01-19] MEDS: Normal Saline Flush 10 ML SYR IVP (20:39)
[2025-01-19] MEDS: Prochlorperazine 10 MG/2 ML VIAL IVP (21:46)
[2025-01-20 06:51] LABS: HCT 43.9 % (36.0-46.0); HGB 14.1 g/dL (11.2-15.7); MCH 27.9 pg (27.0-33.0); MCHC 32.1 % (32.0-36.0); MCV 87 fL (80-95); MPV 9.5 fL (8.0-11.0); Platelet Count 256 10^3/uL (130-400); RBC 5.06 10^6/uL (3.93-5.22); RDW 12.3 % (11.7-14.6); RDW-SD 39.3 fL; WBC 9.53 10^3/uL (4.4-10.8)
[2025-01-20 07:05] LABS: ALT 34 U/L (14-59); AST 20 U/L (15-37); Albumin 3.2 g/dL (3.4-5.0); Alkaline Phosphatase 90 U/L (46-116); Anion Gap 6.7 mmol/L (3-11); BUN 9 mg/dL (7-18); Bilirubin, Total 0.4 mg/dL (0.2-1.0); CO2 30.3 mmol/L (21.0-32.0); Calcium 9.1 mg/dL (8.5-10.1); Chloride 101 mmol/L (98-107); Estimated GFR 114.15 (mL/min/1.73m2); Glucose 106 mg/dL (74-106); Potassium 3.9 mmol/L (3.5-5.1); Sodium 138 mmol/L (136-145); Total Protein 7.5 g/dL (6.4-8.2)
[2025-01-20 07:49] VITALS: BP 125/75; PULSE 94; RESP 16; TEMP 36.4; O2SAT 98
[2025-01-20] MEDS: Hydroxychloroquine 200 MG TAB PO (08:10)
[2025-01-20] MEDS: DULoxetine 30 MG CAP 90 MG PO (08:10)
[2025-01-20] MEDS: Folic Acid 1 MG TAB 4 MG PO (08:10)
[2025-01-20] MEDS: buPROPion-XL 150 MG TABCR 300 MG PO (08:11)
[2025-01-20] MEDS: predniSONE 20 MG TAB PO (08:11)
[2025-01-20] MEDS: Normal Saline Flush 10 ML SYR IVP ×2 (08:22→10:14)
[2025-01-20] MEDS: CEFEPIME 1 GM in Normal Saline 50 ML IVPB (08:23)
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
--- NOTE | 2025-01-20 10:35 | W.NUTCONSULT ---
Date of service: 01/20/25 Time of Service: 08:30 Nutritional Consult ASSESSMENT: Received consult request re: diabetes ed/mgt Pt is 44yo female with PMH significant for Lupus erythematosus tumidus, depression, PCOS. A1C 5.5% yesterday - historically up to 5.7 2010. fasting glucose yesterday 121, 106 today. Mami denies concerns with glucose history. Appetite/po intake good. denies food allergies or special nutrition needs at this time. LAbs: CRP elevated at .9 yesterday and albumin 3.2 today - more consistent with inflammation than inadequate protein intake. She makes most meals at home for the family - tends to have a good deal of processed foods d/t picky teenager. Denies N/V/C/D Estimated energy needs: 2361kcals (recommend 1800 for weight reduction), 110g protein (2.2g/kg IBW), 2361mL fluid NUTRITIONAL DIAGNOSIS: Class III Obesity related to excess kcals as evidenced by current BMI of >50. INTERVENTION: No diabetes education offered at this time as patient appears free of consistent elevated glucose concerns at this time. MONITORING AND EVALUATION: Will monitor intake, nutrition-related labs, need/desire for nutrition education Time Spent in Nutritional Counseling and Treatment: 10 min
--- NOTE | 2025-01-20 11:35 | CMDISCH_ITS ---
Date of service: 01/20/25 Time of Service: 11:35 LACE Index Scoring Tool Questions: Length of Stay (in days): 1 Was the patient admitted via the E.D.?: Yes E.D. Visits: 3 Answers: Total Score: 7 Risk of Readmission: Low Risk Care Management Discharge Plan Reason for Hospitalization: External otitis media Discharge Plan: Mami will be discharged home today. She will follow up with her community providers and continue per plan of care. Mami will drive herself home. Patient/Family Education Needs: Review discharge instructions, activity, limitations, and plan of care. Discuss Ask Me Three. SDOH Health Related Social Needs: Health related social needs daily activities lonely/is olated
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
== END 2025-01-20 12:37 | disposition home or self-care (01) ==
LOC: ER 09:58 → MS 11:32
PROVIDERS: Admitting Provider Family Medicine; Emergency Provider Emergency Medicine; PCP Physician Assistant; Responsible Provider Family Medicine; Visit Provider Family Medicine
DX: H60.392 Other infective otitis externa, left ear (principal); R59.0 Localized enlarged lymph nodes; M32.8 Other forms of systemic lupus erythematosus; E28.2 Polycystic ovarian syndrome; M79.7 Fibromyalgia; F32.A Depression, unspecified; G43.909 Migraine, unspecified, not intractable, without status migrainosus; Z79.631 Long term (current) use of antimetabolite agent; Z79.899 Other long term (current) drug therapy
CPT/HCPCS: 00123; 36415; 80048; 80053; 85027; 85652; 87040; 96365; 96366; 96375; 99285; 70482; 83036; 85025; 86140; 99222; 99238; J0131; J0692; J0780; J1815; J2270; J3490; J7512

== ENCOUNTER 2025-06-08 04:01 | Outpatient (CLI) | payer MEDICAID, SELFPAY ==
[2025-06-08 14:10] LABS: Abs Immature Grans 0.03 10^3/uL (0.0-0.06); HCT 42.9 % (36.0-46.0); HGB 14.6 g/dL (11.2-15.7); Immature Grans % 0.3 %; MCH 29.5 pg (27.0-33.0); MCHC 34.0 % (32.0-36.0); MCV 87 fL (80-95); MPV 9.9 fL (8.0-11.0); Platelet Count 251 10^3/uL (130-400); RBC 4.95 10^6/uL (3.93-5.22); RDW 12.4 % (11.7-14.6); RDW-SD 39.2 fL; WBC 8.58 10^3/uL (4.4-10.8)
[2025-06-08 14:13] LABS: ESR 13 mm/hr (0-20)
[2025-06-08 14:25] LABS: Glucose Negative (Negative)
[2025-06-08 15:25] LABS: C-Reactive Protein < 0.50 mg/dL (<=0.50)
[2025-06-08 15:27] LABS: ALT 18 U/L (10-49); AST 15 U/L (<34); Albumin 4.2 g/dL (3.4-5.0); Alkaline Phosphatase 82 U/L (46-116); Anion Gap 7.4 mmol/L (3-11); BUN 13 mg/dL (9-23); Bilirubin, Total 0.30 mg/dL (0.2-1.2); CO2 28.6 mmol/L (20.0-31.0); Calcium 8.7 mg/dL (8.3-10.6); Chloride 104 mmol/L (98-107); Glucose 82 mg/dL (74-106); Potassium 4.1 mmol/L (3.5-5.1); Sodium 140 mmol/L (136-145); Total Protein 6.8 g/dL (5.7-8.2)
[2025-06-08 16:25] LABS: Cholesterol 154 mg/dL (<200); HDL Cholesterol 50 mg/dL (>40)
== END 2025-06-08 04:02 | disposition home or self-care (01) ==
LOC: LBO 04:01
PROVIDERS: PCP Physician Assistant; Visit Provider Internal Medicine
DX: L93.0 Discoid lupus erythematosus (principal); Z13.220 Encounter for screening for lipoid disorders
CPT/HCPCS: 36415; 80053; 80061; 85652; 81003; 85025; 86140

== ENCOUNTER → 2025-06-15 03:58 | Outpatient (CLI) | payer MEDICAID, SELFPAY ==
--- NOTE | 2025-06-15 13:08 | DI.RAD_ITS ---
Exam(s) XR KNEE RT 3V AP,LAT,MEMO EXAM: XR KNEE RT 3V AP,LAT,MEMO CLINICAL HISTORY: RT KNEE PAIN,M25.561, NO TRAUMA. TECHNIQUE: 2D digital imaging was performed of the right knee. Three views obtained. AP, lateral and PA tunnel views were obtained. COMPARISON: CR,XR XR KNEE LT 4V+ from 05/07/2021 FINDINGS: BONES: No acute fracture is present. No bony destructive lesion is seen. JOINTS: There are degenerative changes seen involving all 3 joint compartments of the right knee characterized by joint space narrowing and osteophytes. The findings are most marked at the patellofemoral and medial femoral tibial joint. There is a joint effusion. SOFT TISSUE: Normal. IMPRESSION: Moderate osteoarthritis of the right knee. DATA REPOSITORY: RADIATION DOSE DELIVERED:
== END ==
LOC: DI 03:58
PROVIDERS: PCP Physician Assistant; Visit Provider Physician Assistant
DX: M17.11 Unilateral primary osteoarthritis, right knee (principal)
CPT/HCPCS: 73562

== ENCOUNTER → 2025-07-02 00:39 | Outpatient (CLI) | payer MEDICAID, SELFPAY ==
--- NOTE | 2025-07-02 | DI.MAMMO_ITS ---
Exam(s) MAMMO SCREENING EXAM: MAMMO SCREENING CLINICAL HISTORY: SCREENING, Z12.31 TECHNIQUE: Bilateral full field digital CC and MLO mammographic images were obtained with 3D tomosynthesis and utilizing computer aided detection (CAD). COMPARISON: Comparison is made with prior examinations. FINDINGS: Masses/Architectural Distortion: No suspicious masses or areas of architectural distortion are present. Microcalcifications: No suspicious pleomorphic-type are seen. Skin Thickening/Nipple Retraction: None. IMPRESSION: 1. No significant interval change with no specific features of malignancy noted. 2. Unless there is more urgent need, screening mammography is recommended, as per [place] [employer] guidelines. BI-RADS Category 1 - Negative Breast Density - Category B - There are scattered areas of fibroglandular density. Breast density Category C or D implies that the patient has dense breast tissue. Dense breast tissue can make it harder to find cancer on a mammogram. Dense breast tissue is also associated with an increased risk of breast cancer. This information about the result of the mammogram report was provided to the patient to raise their awareness. Use this report when you speak with the patient about their risks for breast cancer, which includes their family history. At that time, you may recommend additional screening tests (Ultrasound or MRI) as these tests may add significant information. A negative radiographic report should not delay biopsy if a dominant or clinically suspicious mass is present. Up to ten percent of cancers are not identified on mammography. A negative report may reinforce clinical impression. Adenosis and dense breasts may obscure an underlying neoplasm. False positive reports average 6 to 10%. Patient will receive a letter notifying them of these results.
== END ==
LOC: DI 00:39
PROVIDERS: PCP Physician Assistant; Visit Provider Physician Assistant
DX: Z12.31 Encounter for screening mammogram for malignant neoplasm of breast (principal)
CPT/HCPCS: 77063; 77067